=== PATIENT | female | born 1940 | race Caucasian/White ===

== ENCOUNTER → 2017-01-10 | Outpatient (CLI) | payer OTHER ==
[2016-08-05 12:16] VITALS: BP 150/57
--- NOTE | 2017-01-13 08:41 | RAD ---
HISTORY: Low back pain Study: 5 views of the lumbar spine Comparison: 06/30/2015 Findings: No significant change in appearance of levoscoliosis (degenerative) of the lumbar spine secondary to extensive degenerative disc disease and facet arthropathy. Vertebral body heights are normal. Sa croiliac joints are unremarkable. No evidence for acute fracture can be identified. IMPRESSION: 1. Severe multilevel degenerative changes as above. Reported By:
== END ==
LOC: RAD 11:04
PROVIDERS: ATTEND Specialist
DX: M54.5 Low back pain (principal)
CPT/HCPCS: 72110

== ENCOUNTER → 2017-08-01 | Outpatient (CLI) | payer OTHER ==
[2016-08-05 12:16] VITALS: BP 150/57
--- NOTE | 2017-08-01 09:54 | RAD ---
Examination: Lumbar spine, AP and lateral views History: Back pain Comparison reference: 01/10/2017 Findings: There is a moderate biphasic S shaped scoliosis. Severe degenerative disc disease and spond ylosis is noted at multiple levels. No acute fracture or bone destruction is noted. Alignment is bharathi sly anatomic. There is attempted sacralization of the left transverse process of L5. Impression: 1. Severe multilevel degenerative disc disease and spondylosis. 2. Aortoiliac arteriosclerosis. 3. Left partial sacralization of L5 transverse process. Reported By:
== END ==
LOC: RAD 09:13
PROVIDERS: ATTEND Specialist
DX: M54.5 Low back pain (principal); M51.36 Other intervertebral disc degeneration, lumbar region; M47.896 Other spondylosis, lumbar region
CPT/HCPCS: 72100

== ENCOUNTER 2017-08-09 16:56 | Emergency (ER) | payer OTHER ==
[2017-08-09 17:03] VITALS: BMI 35.6
--- NOTE | 2017-08-09 17:31 | DR.GENAD ---
HPI - PCP Primary Care Physician: YESICA - Complaint/Symptoms Chief Complaint:: PT C/O C/C/C, N/V, AND BACK PAIN (CHRONIC). PT STATES SHE HAS BEEN FEELING BAD FOR THE PAST COUPLE OF DAYS AND NOT FEELING WELL. 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. - Nurses notes reviewed Nurses Notes Review: Yes - Source History Provided: Patient - Mode of Arrival Mode of Arrival: Stretcher - Timing Onset of Chief Complaint: 08/06/17 Came on: Suddenly - Duration Duration: Constant Duration: Days PMH - PMH Past Medical History: Yes Past Medical History: Dementia, Depression, Anxiety, [place], GERD, Arthritis, Coronary Artery Disease, Hypertension, Dyslipidemia, Diabetes, Renal Disease, CHF Past Surgical History: Yes Surgical History: Angioplasty/Stents, CABG/Valve Surgery, Ortho Surgery - Family History History of Family Medical Conditions: Yes Family Medical History: Diabetes Mellitus, Cancer, [place] - Social History Does any household member use tobacco: No Alcohol Use: None Do you use any recreational Drugs:: No Lives With: Family Lives Where: Home - infectious screening In the last 2 months have you had wt loss of >10#?: NO Have you had fever, night sweats or hemotysis?: No Have you traveled outside the country in the last 6 months?: No Isolation: Standard PE - Vital Signs Vitals: Temperature 98.0 F Pulse Rate 114 Respiratory Rate 18 Blood Pressure [Right Arm] 143/52 Blood Pressure [Left Arm] 160/68 Blood Pressure [Right Arm] 127/60 Blood Pressure [Left Arm] 150/57 Blood Pressure 170/74 O2 Sat by Pulse Oximetry 96 ROR - Labs Reviewed Result Diagrams: 08/09/17 17:47 08/09/17 17:47 Laboratory: 08/09/17 18:38 Stool - Final WBC 3.3 X10^3/uL (3.6-10.0) L 08/09/17 17:47 RBC 4.68 X10^6/uL (3.5-5.4) 08/09/17 17:47 Hgb 13.7 g/dL (12.0-16.0) 08/09/17 17:47 Hct 40.4 % (36.0-47.0) 08/09/17 17:47 MCV 86.1 fL (80.0-100.0) 08/09/17 17:47 MCH 29.2 pg (27.0-34.0) 08/09/17 17:47 MCHC 33.8 g/dL (33.0-35.0) 08/09/17 17:47 RDW 13.1 % (11.6-16.5) 08/09/17 17:47 Plt Count 102 X10^3/uL (150.0-450.0) L 08/09/17 17:47 MPV 8.3 fL (7.4-11.0) 08/09/17 17:47 Neut % 59.0 % (42.0-75.0) 08/09/17 17:47 Lymph % 29.7 % (21.0-51.0) 08/09/17 17:47 [place] % 10.1 % (0.0-13.0) 08/09/17 17:47 Eos % 0.5 % (0.9-2.9) L 08/09/17 17:47 Baso % 0.7 % (0.2-1.0) 08/09/17 17:47 Neut # 2.0 x10^3/uL (2.2-4.8) L 08/09/17 17:47 Lymph # 1.0 X10^3/uL (1.3-2.9) L 08/09/17 17:47 [place] # 0.3 x10^3/uL (0.3-0.8) 08/09/17 17:47 Eos # 0.0 x10^3/uL (0.0-0.2) 08/09/17 17:47 Baso # 0.0 X10^3/uL (0.0-0.1) 08/09/17 17:47 Absolute Nucleated RBC 0.0 /100WBC 08/09/17 17:47 Sodium 136 mmol/L (136-145) 08/09/17 17:47 Corrected Sodium 140 mmol/L (136-145) 08/09/17 17:47 Potassium 3.3 mmol/L (3.5-5.1) L 08/09/17 17:47 Chloride 100 mmol/L (98-107) 08/09/17 17:47 Carbon Dioxide 21.3 mmol/L (21-32) 08/09/17 17:47 BUN 13 mg/dL (7-18) 08/09/17 17:47 Creatinine 1.49 mg/dL (0.55-1.02) H 08/09/17 17:47 Est GFR (MDRD) Af Amer 44 (>60) L 08/09/17 17:47 Est GFR (MDRD) Non-Af 36 (>60) L 08/09/17 17:47 Glucose 275 mg/dL (65-99) H 08/09/17 17:47 Lactic Acid 1.4 mmol/L (0.4-2.0) 08/09/17 17:47 Calcium 8.9 mg/dL (8.5-10.1) 08/09/17 17:47 Corrected Calcium 9.5 mg/dL (8.5-10.1) 08/09/17 17:47 Total Bilirubin 0.70 mg/dL (0.2-1.0) 08/09/17 17:47 AST 34 Units/L (15-37) 08/09/17 17:47 ALT 20 Units/L (12-78) 08/09/17 17:47 Alkaline Phosphatase 122 Units/L (46-116) H 08/09/17 17:47 Creatine Kinase 55 Units/L (26-192) 08/09/17 17:47 CK-MB (CK-2) < 1.0 ng/mL (0-4.0) 08/09/17 17:47 CK/CKMB % Calc 1.8 % (<4) 08/09/17 17:47 Troponin I 0.03 ng/mL (0-1.5) 08/09/17 17:47 Total Protein 7.0 g/dL (6.4-8.2) 08/09/17 17:47 Albumin 3.3 g/dL (3.4-5.0) L 08/09/17 17:47 Globulin 3.7 g/dL (2.5-4.5) 08/09/17 17:47 Albumin/Globulin Ratio 0.9 Ratio (1.1-2.1) L 08/09/17 17:47 Specimen Type Clean catch urine 08/09/17 18:36 Urine Color Yellow (YELLOW) 08/09/17 18:36 Urine Appearance Hazy (CLEAR) 08/09/17 18:36 Urine pH 5.0 (5.0 - 8.0) 08/09/17 18:36 Ur Specific Bath 1.020 (1.000-1.030) 08/09/17 18:36 Urine Protein 2+ (NEGATIVE) 08/09/17 18:36 Urine Glucose (UA) 2+ (NEGATIVE) 08/09/17 18:36 Urine Ketones 1+ (NEGATIVE) 08/09/17 18:36 Urine Occult Blood 1+ (NEGATIVE) 08/09/17 18:36 Urine Nitrite Positive (NEGATIVE) 08/09/17 18:36 Urine Bilirubin Negative (NEGATIVE) 08/09/17 18:36 Urine Urobilinogen 1+ (NORMAL) 08/09/17 18:36 Ur Leukocyte Esterase 1+ (NEGATIVE) 08/09/17 18:36 Urine RBC Rare /HPF (NEGATIVE) 08/09/17 18:36 Urine WBC 02 - 05 /HPF (NEGATIVE) 08/09/17 18:36 Ur Squamous Epith Cells Many /HPF (NEGATIVE) 08/09/17 18:36 Amorphous Sediment 2+ /HPF (NEGATIVE) 08/09/17 18:36 Urine Bacteria 2+ /HPF (NEGATIVE) 08/09/17 18:36 Hyaline Casts Rare /LPF (NEGATIVE) 08/09/17 18:36 Urine Mucus Moderate /HPF (NEGATIVE) 08/09/17 18:36 Ur Culture Indicated? No/not indicated 08/09/17 18:36 Stool Description 75g,liquid,brown 08/09/17 18:36 Stool for White Cells Positive (NEGATIVE) A 08/09/17 18:36 Stl C. diff Tox B Gene Negative (NEGATIVE) 08/09/17 18:38 Stl C. diff [id number] Negative (NEGATIVE) 08/09/17 18:38 Cryptosporid parvum Ag Negative (NEGATIVE) 08/09/17 18:36 E. histolytica Antigen Negative (NEGATIVE) 08/09/17 18:36 Giardia lamblia Ag Negative (NEGATIVE) 08/09/17 18:36 - Discharge Plan Condition: Stable Prescriptions: Ciprofloxacin HCl [CIPRO 500 MG TAB *] 500 mg PO Q12H #20 tab Diphenoxylate/Atropine [Lomotil] 1 tab PO TID #12 tab Ondansetron [Zofran ODT 8 mg] 8 mg PO Q8H PRN #12 tab PRN Reason: Nausea/Vomiting - Follow ups/Referrals Follow ups/Referrals: THANG ROBERT [Primary Care Provider] - 3 days - Instructions Instructions: Nausea and Vomiting, Adult, [id number], Abdominal Pain, Adult, [id number], Colitis, Urinary Tract Infection, Adult, [id number] Additional Instructions: RETURN TO ED IF WORSE.
[2017-08-09 18:10] LABS: BASOPHILS % (AUTO) 0.7 % (0.2-1.0); EOSINOPHILS % (AUTO) 0.5 % (0.9-2.9); HEMATOCRIT 40.4 % (36.0-47.0); HEMOGLOBIN 13.7 g/dL (12.0-16.0); LYMPHOCYTES % (AUTO) 29.7 % (21.0-51.0); MEAN CORPUSCULAR HEMOGLOBIN 29.2 pg (27.0-34.0); MEAN CORPUSCULAR HGB CONC 33.8 g/dL (33.0-35.0); MEAN CORPUSCULAR VOLUME 86.1 fL (80.0-100.0); MEAN PLATELET VOLUME 8.3 fL (7.4-11.0); MONOCYTES # (AUTO) 0.3 x10^3/uL (0.3-0.8); MONOCYTES % (AUTO) 10.1 % (0.0-13.0); PLATELET COUNT 102 X10^3/uL (150.0-450.0); RED BLOOD COUNT 4.68 X10^6/uL (3.5-5.4); RED CELL DISTRIBUTION WIDTH 13.1 % (11.6-16.5); WHITE BLOOD COUNT 3.3 X10^3/uL (3.6-10.0)
[2017-08-09] MEDS ORDERED: ZOFRAN INJ 4 MG VIAL IVP ONE (18:14)
[2017-08-09 18:27] LABS: LACTIC ACID 1.4 mmol/L (0.4-2.0)
[2017-08-09 18:28] LABS: BLOOD UREA NITROGEN 13 mg/dL (7-18); CALCIUM 8.9 mg/dL (8.5-10.1); CARBON DIOXIDE 21.3 mmol/L (21-32); CHLORIDE 100 mmol/L (98-107); COR NA(FOR HYPERGLY) 140 mmol/L (136-145); CREATININE 1.49 mg/dL (0.55-1.02); SODIUM 136 mmol/L (136-145); TROPONIN I 0.03 ng/mL (0-1.5); eGFR BLACK RACES 44 (>60); eGFR NON BLACK RACES 36 (>60)
[2017-08-09 18:33] LABS: ALANINE AMINOTRANSFERASE 20 Units/L (12-78); ALBUMIN 3.3 g/dL (3.4-5.0); ALKALINE PHOSPHATASE 122 Units/L (46-116); ASPARTATE AMINO TRANSFERASE 34 Units/L (15-37); COR CA(FOR HYPOALB) 9.5 mg/dL (8.5-10.1); CREATINE KINASE 55 Units/L (26-192); CREATINE KINASE MB < 1.0 ng/mL (0-4.0)
[2017-08-09 18:35] LABS: CKMB % 1.8 % (<4)
[2017-08-09] MEDS ORDERED: ZOFRAN INJ 4 MG VIAL ONE (18:42)
[2017-08-09] MEDS ORDERED: LOMOTIL PO ONE (18:58)
[2017-08-09] MEDS ORDERED: MORPHINE SULFATE INJ 4 MG IVP ONE (18:59)
[2017-08-09 19:12] LABS: BILIRUBIN,URINE NEGATIVE (NEGATIVE); BLOOD/HEMOGLOBIN,URINE 1+ (NEGATIVE); GLUCOSE, URINE 2+ (NEGATIVE); KETONES,URINE 1+ (NEGATIVE); LEUKOCYTE ESTERASE ,URINE 1+ (NEGATIVE); NITRITES,URINE POSITIVE (NEGATIVE); PROTEIN,URINE 2+ (NEGATIVE); UROBILINOGEN,URINE 1+ (NORMAL)
[2017-08-09] MEDS ORDERED: MORPHINE SULFATE INJ 4 MG ONE (19:13)
[2017-08-09] MEDS ORDERED: LOMOTIL ONE (19:13)
[2017-08-09 19:33] LABS: APPEARANCE,URINE HAZY (CLEAR); COLOR,URINE YELLOW (YELLOW)
[2017-08-09 19:34] LABS: AMORPHOUS SEDIMENT,UR 2+ /HPF (NEGATIVE); BACTERIA,URINE 2+ /HPF (NEGATIVE); HYALINE CASTS, URINE RARE /LPF (NEGATIVE); MUCUS,URINE MODERATE /HPF (NEGATIVE); RBC,URINE RARE /HPF (NEGATIVE); SQUAMOUS EPITHELIAL CELL,UR MANY /HPF (NEGATIVE)
[2017-08-09] MEDS ORDERED: MICRO K EXTEN CAP 10 MEQ PO ONE ×2 (19:49→19:50)
[2017-08-09] MEDS: K-LYTE EFFERVESCENT PO ONE ×2 (19:50→19:55)
[2017-08-09] MEDS ORDERED: K-LYTE EFFERVESCENT ONE (19:55)
[2017-08-09 20:06] LABS: STOOL FOR WBC POSITIVE (NEGATIVE)
[2017-08-09 20:11] LABS: CRYPTOSPORIDIUM PARVUM ANTIGEN NEGATIVE (NEGATIVE); GIARDIA LAMBLIA ANTIGEN NEGATIVE (NEGATIVE)
[2017-08-09] MEDS ORDERED: CIPRO TAB 500 MG PO ONE ×2 (20:32→20:41)
[2017-08-09 21:08] VITALS: BP 139/69
--- NOTE | 2017-08-09 22:24 | RAD ---
Chest, one view Indication: Chest pain Comparison: 07/31/2016 Findings: The heart size is normal for AP technique. No focal consolidation, significant effusion or pneumothorax is identified. No acute osseous abnormality is seen. Impression: No acute cardiopulmonary abnormality. Reported By:
== END 2017-08-09 21:10 | disposition home or self-care (01) ==
LOC: ER 16:57
DX: R11.2 Nausea with vomiting, unspecified (principal); N39.0 Urinary tract infection, site not specified; R10.84 Generalized abdominal pain
CPT/HCPCS: 36415; 71010; 80053; 81001; 82550; 82553; 83605; 83630; 84484; 85025; 86901; 86922; 87040; 87045; 87328; 87329; 87336; 87427; 87493; 87899; 93005; 93010; 96365; 96374; 96375; 99282; 99283; A4222; J2270; J2405

== ENCOUNTER 2017-08-17 03:43 | Emergency (ER) | payer OTHER ==
[2017-08-17 03:54] VITALS: BP 170/77; BMI 48.2
[2017-08-17] MEDS ORDERED: TORADOL 60 MG VIAL IM ONE (04:03)
--- NOTE | 2017-08-17 04:03 | DR.NAUSEAF ---
HPI - Time Seen Time seen: 04:00 - Primary Care Physician Primary Care Physician: [email or web address] - Complaints Chief Complaint Doctors Comments: Patient admits to nausea and vomiting for greater than one week. She was seen last week for same thing but has not gotten better. She denies getting flu or pneumonia shots. She also complain of back pain. She takes percocet for her back and did not take anything tonight. Chief Complaint:: N/V > 1 WEEK; COUGHING - Source History Provided: Patient - Mode of Arrival Mode of Arrival: Ambulatory - Timing Onset of Chief Complaint: 08/10/17 PMH - PMH Past Medical History: No Past Medical History: Dementia, Depression, Anxiety, [place], GERD, Arthritis, Coronary Artery Disease, Hypertension, Dyslipidemia, Diabetes, Renal Disease, CHF Past Surgical History: No Surgical History: Angioplasty/Stents, CABG/Valve Surgery, Ortho Surgery - Family History History of Family Medical Conditions: No Family Medical History: Diabetes Mellitus, Cancer, [place] - Social History Alcohol Use: None Do you use any recreational Drugs:: No Lives With: Family Lives Where: Home - infectious screening In the last 2 months have you had wt loss of >10#?: NO Have you had fever, night sweats or hemotysis?: No Have you traveled outside the country in the last 6 months?: No Isolation: Standard ROS - Review of Systems Eyes: No Symptoms Reported ENTM: No Symptoms Reported Respiratoy: No Symptoms Reported, See HPI, Hacking Cough. negative: Productive Cough Cardiovascular: No Symptoms Reported Gastrointestinal/Abdominal: No Symptoms Reported Genitourinary: No Symptoms Reported Neurological: No Symptoms Reported Musculoskeletal: No Symptoms Reported Integumentary: No Symptoms Reported Hematologic/Lymphatic: No Symptoms Reported Endocrine: No Symptoms Reported Psychiatric: No Symptoms Reported All Other Systems: Reviewed and Negative PE - Vital Signs Vitals: Temperature 97.6 F Pulse Rate 99 Respiratory Rate 24 Blood Pressure [Right Arm] 139/69 Blood Pressure [Left Arm] 160/68 Blood Pressure [Right Arm] 127/60 Blood Pressure [Left Arm] 150/57 Blood Pressure 170/77 O2 Sat by Pulse Oximetry 95 - General Limitations: No Limitations General Appearance: Alert, In No Apparent Distress - Head Head Exam: Normal Inspection, Atraumatic - Eyes Eye exam: Normal Appearance, PERRL, EOMI - ENT ENT Exam: Normal Exam - Neck Neck Exam: Normal Inspection, Full ROM - Chest Chest Inspection: Normal Inspection, Symmetric Chest Wall Rise - Respiratory Respiratory Exam: Normal Lung Sounds Bilat Respiratory Exam: Bilateral Clear to Auscultation - Cardiovascular Cardiovascular Exam: Regular Rate, Normal Rhythm - Abdominal Exam Abdominal Tenderness: negative: RUQ, RLQ, LUQ, LLQ, Epigastrium, Suprapubic, Diffuse, Mild, Moderate, Severe, Other - Rectal Rectal Exam: Deferred - External Exam: Female: Deferred : Speculum Exam (Female): Deferred : Bimanual Exam (female): Deferred - Extremities Extremities Exam: Normal Inspection, Full ROM - Back Back Exam: Normal Inspection, Full ROM Course - Reevaluation 1st: Unchanged - Education/Counseling Education/Counseling: Patient Educated On: Treatment, Diagnosis, Prognosis, Needs for Follow Up ROR - Labs Reviewed Result Diagrams: 08/17/17 04:52 08/17/17 04:52 Laboratory: WBC 6.3 X10^3/uL (3.6-10.0) 08/17/17 04:52 RBC 4.62 X10^6/uL (3.5-5.4) 08/17/17 04:52 Hgb 13.5 g/dL (12.0-16.0) 08/17/17 04:52 Hct 39.9 % (36.0-47.0) 08/17/17 04:52 MCV 86.5 fL (80.0-100.0) 08/17/17 04:52 MCH 29.3 pg (27.0-34.0) 08/17/17 04:52 MCHC 33.9 g/dL (33.0-35.0) 08/17/17 04:52 RDW 13.0 % (11.6-16.5) 08/17/17 04:52 Plt Count 119 X10^3/uL (150.0-450.0) L 08/17/17 04:52 MPV 8.5 fL (7.4-11.0) 08/17/17 04:52 Neut % 75.9 % (42.0-75.0) H 08/17/17 04:52 Lymph % 19.5 % (21.0-51.0) L 08/17/17 04:52 [place] % 3.3 % (0.0-13.0) 08/17/17 04:52 Eos % 0.8 % (0.9-2.9) L 08/17/17 04:52 Baso % 0.5 % (0.2-1.0) 08/17/17 04:52 Neut # 4.8 x10^3/uL (2.2-4.8) 08/17/17 04:52 Lymph # 1.2 X10^3/uL (1.3-2.9) L 08/17/17 04:52 [place] # 0.2 x10^3/uL (0.3-0.8) L 08/17/17 04:52 Eos # 0.0 x10^3/uL (0.0-0.2) 08/17/17 04:52 Baso # 0.0 X10^3/uL (0.0-0.1) 08/17/17 04:52 Absolute Nucleated RBC 0.1 /100WBC 08/17/17 04:52 Sodium 142 mmol/L (136-145) 08/17/17 04:52 Corrected Sodium 145 mmol/L (136-145) 08/17/17 04:52 Potassium 3.6 mmol/L (3.5-5.1) 08/17/17 04:52 Chloride 105 mmol/L (98-107) 08/17/17 04:52 Carbon Dioxide 25.8 mmol/L (21-32) 08/17/17 04:52 BUN 10 mg/dL (7-18) 08/17/17 04:52 Creatinine 1.31 mg/dL (0.55-1.02) H 08/17/17 04:52 Est GFR (MDRD) Af Amer 51 (>60) L 08/17/17 04:52 Est GFR (MDRD) Non-Af 42 (>60) L 08/17/17 04:52 Glucose 238 mg/dL (65-99) H 08/17/17 04:52 Calcium 8.5 mg/dL (8.5-10.1) 08/17/17 04:52 - XRAY XRAY Interpreted by: Radiologist (Chest: The trachea is midline. The cardiac silhouette is unremarkable. The lungs are clear without focal infiltrate or effusion. The bony thorax is unremarkable.) - Diagnosis Discharge Problem: Nausea & vomiting Upper respiratory infection Qualifiers: URI type: unspecified viral URI Qualified Code(s): J06.9 - Acute upper respiratory infection, unspecified; B97.89 - Other viral agents as the cause of diseases classified elsewhere; B97.89 - Other viral agents as the cause of diseases classified elsewhere - Discharge Plan Condition: Stable - Follow ups/Referrals Follow ups/Referrals: THANG ROBERT [Primary Care Provider] - 3 days - Instructions
[2017-08-17] MEDS ORDERED: ZOFRAN INJ 4 MG VIAL IVP ONE ×2 (04:04→05:42)
[2017-08-17] MEDS ORDERED: TORADOL 60 MG VIAL ONE (04:06)
[2017-08-17] MEDS ORDERED: ZOFRAN INJ 4 MG VIAL ONE (04:06)
[2017-08-17] MEDS ORDERED: NS 1000 ML 1,000 ML IV ONE (04:08)
[2017-08-17] MEDS ORDERED: NS 1000 ML 1,000 ML ONE (04:12)
--- NOTE | 2017-08-17 04:31 | RAD ---
AP Chest Indication: Nausea and vomiting with cough Comparison: 08/09/2017 Findings: The trachea is midline. The cardiac silhouette is unremarkable. The lungs are clear without focal i nfiltrate or effusion. The bony thorax is unremarkable. IMPRESSION: 1. No acute cardiopulmonary abnormality. Reported By:
[2017-08-17 05:10] LABS: CALCIUM 8.5 mg/dL (8.5-10.1); CARBON DIOXIDE 25.8 mmol/L (21-32); CREATININE 1.31 mg/dL (0.55-1.02)
[2017-08-17 05:12] LABS: BASOPHILS % (AUTO) 0.5 % (0.2-1.0); EOSINOPHILS % (AUTO) 0.8 % (0.9-2.9); HEMATOCRIT 39.9 % (36.0-47.0); HEMOGLOBIN 13.5 g/dL (12.0-16.0); LYMPHOCYTES # (AUTO) 1.2 X10^3/uL (1.3-2.9); LYMPHOCYTES % (AUTO) 19.5 % (21.0-51.0); MEAN CORPUSCULAR HEMOGLOBIN 29.3 pg (27.0-34.0); MEAN CORPUSCULAR HGB CONC 33.9 g/dL (33.0-35.0); MEAN CORPUSCULAR VOLUME 86.5 fL (80.0-100.0); MEAN PLATELET VOLUME 8.5 fL (7.4-11.0); MONOCYTES # (AUTO) 0.2 x10^3/uL (0.3-0.8); MONOCYTES % (AUTO) 3.3 % (0.0-13.0); NEUTROPHILS # (AUTO) 4.8 x10^3/uL (2.2-4.8); NEUTROPHILS % (AUTO) 75.9 % (42.0-75.0); PLATELET COUNT 119 X10^3/uL (150.0-450.0); RED BLOOD COUNT 4.62 X10^6/uL (3.5-5.4); WHITE BLOOD COUNT 6.3 X10^3/uL (3.6-10.0)
[2017-08-17] MEDS ORDERED: PHENERGAN W/CODEINE 6.25MG/10MG PO ONE (05:17)
[2017-08-17] MEDS ORDERED: PHENERGAN W/CODEINE 6.25MG/10MG ONE (05:19)
[2017-08-17] MEDS ORDERED: ZOFRAN TAB 4 MG ONE (05:43)
[2017-08-17] MEDS ORDERED: ZOFRAN TAB 4 MG PO ONE (05:46)
== END 2017-08-17 05:55 | disposition home or self-care (01) ==
LOC: ER 03:43
DX: R11.2 Nausea with vomiting, unspecified (principal)
CPT/HCPCS: 36415; 71010; 80048; 85025; 96365; 96367; 96372; 96374; 99283; S0181; J1885; J2405

== ENCOUNTER 2018-02-12 07:15 | Day surgery (SDC) | payer OTHER ==
[2018-02-12] MEDS ORDERED: NS 1000 ML 1,000 ML ONE (07:36)
[2018-02-12] MEDS ORDERED: DIPRIVAN VIAL 20 ML ONE (08:49)
[2018-02-12 10:03] VITALS: BP 171/79
== END 2018-02-12 09:35 | disposition home or self-care (01) | DRG 392 ==
LOC: SURG1 07:15
PROVIDERS: ATTEND Internal Medicine Gastroenterology
PROC: 0D757ZZ Dilation of Esophagus, Via Natural or Artificial Opening (ICD-10-PCS; 2018-02-12)
PROC: 0DB68ZX Excision of Stomach, Via Natural or Artificial Opening Endoscopic, Diagnostic (ICD-10-PCS; 2018-02-12)
PROC: 0DJ08ZZ Inspection of Upper Intestinal Tract, Via Natural or Artificial Opening Endoscopic (ICD-10-PCS; principal; 2018-02-12 09:45)
DX: R13.19 Other dysphagia (principal); R10.13 Epigastric pain; R11.2 Nausea with vomiting, unspecified; K22.2 Esophageal obstruction; K25.9 Gastric ulcer, unspecified as acute or chronic, without hemorrhage or perforation
CPT/HCPCS: 99100; A4222; A4217; J3490

== ENCOUNTER 2018-04-27 11:32 | Observation (INO) ==
[2018-04-27 12:49] VITALS: BMI 39.9
--- NOTE | 2018-04-27 13:23 | DR.H&P ---
H&P - History & Physical for Day of: H&P Date: 04/27/18 - Chief Complaint Chief Complaint: NVD, WEAKNESS, [place]. "NOT EATING" PER FAMILY - History of Present Illness History of Present Illness: 77 WF DIRECT ADMIT FROM DR BAKER OFFICE AFTER PRESENTING WITH CO ABDOMINAL PAIN TO LOWER ABDOMINAL AREA WITH NVD X 1 WEEK. FAMILY CARES FOR PT AT HOME AND REPORTS POOR APPETITE AND YELLOW EMESIS. PT RECENTLY SEVERELY CONSTIPATED REQUIRING DIGITAL DISIMPACTION. 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 PT HAS PMH OF DM, CAD, HTN WITH ELEVATED BP 197/114 IN OFFICE. PT HAS COPD, OA AND YAMINI. PT ADMITTED FOR TREATMENT EVALUATION OF ACUTE GI COMPLAINTS, HYDRATION AND BLOOD SUGAR CONTROL AND HTN MANAGEMENT. - Past Medical History Past Medical History: Dementia, Depression, Anxiety, [place], GERD, Arthritis, Coronary Artery Disease, Hypertension, Dyslipidemia, Diabetes, Renal Disease, CHF - Past Surgical History Surgical History: Angioplasty/Stents, Ortho Surgery - Family History Family Medical History: Diabetes Mellitus, Coronary Artery Disease - Social History Does patient currently use any type of tobacco product: No Have you used tobacco products in the last 12 months: No Type of Tobacco Use: None Does any household member use tobacco: Yes Alcohol Use: None Drug Use: None - Medications Home Medications: No Known Drug Allergies Allergy (Verified 08/09/17 17:39) - Review of Systems Constitutional: Weakness, Malaise Eyes: No Symptoms Reported ENT: No Symptoms Reported Respiratory: SOB with Excertion Gastrointestinal: Nausea, Vomiting, Abdominal Pain, Diarrhea Genitourinary: Retention Musculoskeletal: Back Pain, Leg Pain Skin: No Symptoms Reported Neurological: Weakness, Confusion (PER FAMILY) - Physical Exam Vital Signs: Temperature 97.7 F Pulse Rate [Left Brachial] 88 Respiratory Rate 20 Blood Pressure [Right Arm] 139/69 Blood Pressure [Left Arm] 160/68 Blood Pressure [Right Arm] 127/60 Blood Pressure [Left Arm] 159/68 Blood Pressure 171/79 O2 Sat by Pulse Oximetry 92 Oriented: Normal Eyes: Normal Ear: Normal Nose: Normal Throat: Normal Respiratory: RLL Diminished, LLL Diminished Cardiovascular: Tachycardia, Edema : Normal Auscultation: Bowel Sounds: Decreased Palpation: Normal Tenderness: Diffuse Skin: Decreased Turgur Musculoskeletal: Right, Left, Knee, Tender, Motor Deficit, Sensory Deficit, Instability Psychiatric: Depression Mood Description: Depressed Affect: Depressed Speech Pattern: Clear, Appropriate - Assessment/Plan (1) Nausea & vomiting Qualifiers: Vomiting type: bilious vomiting Qualified Code(s): R11.14 - Bilious vomiting Status: Acute Plan: ADMIT, CBC CMP AMYLASE LIPASE. ABD SERIES ON ADMISSION UA, STOOL STUDIES. IV HYDRATION, BLOOD PRESSURE AND BLOOD SUGAR CONTROL. IV ANTIEMETICS , CT ABD PELVIS Q AM. EKG ON ADMISSION- CORRECT DEHYDRATION, NPO UNTIL RELIEF OF N/V. VERIFY HOME MEDS (2) Dehydration Status: Acute (3) Tachycardia Status: Acute (4) CAD (coronary artery disease) Qualifiers: Associated angina: without angina Status: Chronic (5) Hypertension Status: Chronic (6) Diabetes mellitus, type 2 Status: Chronic (7) Depression Status: Chronic (8) Degenerative arthritis Qualifiers: Osteoarthritis location: knee Osteoarthritis type: primary Laterality: bilateral Qualified Code(s): M17.0 - Bilateral primary osteoarthritis of knee Status: Chronic - Allergies Allergies/Adverse Reactions: Allergies Allergy/AdvReac Type Severity Reaction Status Date / Time No Known Drug Allergies Allergy Verified 08/09/17 17:39
[2018-04-27 13:46] LABS: BASOPHILS % (AUTO) 0.8 % (0.2-1.0); EOSINOPHILS % (AUTO) 0.6 % (0.9-2.9); HEMATOCRIT 42.9 % (36.0-47.0); HEMOGLOBIN 14.8 g/dL (12.0-16.0); LYMPHOCYTES # (AUTO) 1.6 X10^3/uL (1.3-2.9); LYMPHOCYTES % (AUTO) 29.7 % (21.0-51.0); MEAN CORPUSCULAR HEMOGLOBIN 30.7 pg (27.0-34.0); MEAN CORPUSCULAR HGB CONC 34.5 g/dL (33.0-35.0); MEAN CORPUSCULAR VOLUME 88.9 fL (80.0-100.0); MEAN PLATELET VOLUME 8.1 fL (7.4-11.0); MONOCYTES # (AUTO) 0.3 x10^3/uL (0.3-0.8); MONOCYTES % (AUTO) 5.7 % (0.0-13.0); NEUTROPHILS # (AUTO) 3.3 x10^3/uL (2.2-4.8); NEUTROPHILS % (AUTO) 63.2 % (42.0-75.0); PLATELET COUNT 122 X10^3/uL (150.0-450.0); RED BLOOD COUNT 4.83 X10^6/uL (3.5-5.4); RED CELL DISTRIBUTION WIDTH 13.5 % (11.6-16.5); WHITE BLOOD COUNT 5.3 X10^3/uL (3.6-10.0)
[2018-04-27] MEDS: NS 1000 ML 1,000 ML IV SCH (13:57)
[2018-04-27] MEDS: PROTONIX INJ 40 MG VIAL IVP SCH (13:57)
[2018-04-27 14:02] LABS: ALANINE AMINOTRANSFERASE 16 Units/L (12-78); ALBUMIN 3.5 g/dL (3.4-5.0); ALKALINE PHOSPHATASE 142 Units/L (46-116); AMYLASE 14 Units/L (25-115); ASPARTATE AMINO TRANSFERASE 25 Units/L (15-37); BLOOD UREA NITROGEN 11 mg/dL (7-18); CARBON DIOXIDE 27.7 mmol/L (21-32); CHLORIDE 103 mmol/L (98-107); COR NA(FOR HYPERGLY) 144 mmol/L (136-145); CREATININE 1.42 mg/dL (0.55-1.02); LIPASE 106 Units/L (73-393); SODIUM 139 mmol/L (136-145); TOTAL PROTEIN 7.1 g/dL (6.4-8.2); eGFR NON BLACK RACES 38 (>60)
--- NOTE | 2018-04-27 14:37 | RAD ---
HISTORY: Abdominal pain Study: Flat and upright abdomen, PA chest Comparison: 08/17/2017 Findings: The heart is mildly enlarged. No congestive heart failure is noted. No acute infiltrates or pleural e ffusions are identified. The abdominal gas pattern is nonspecific and nonobstructive. No pneumoperito neum is identified. No abnormal masses or abnormal calcifications are identified. Calcified uterine f ibroids are incidentally noted within the pelvis. IMPRESSION: No acute abdominal abnormality Calcified uterine fibroids Mild cardiomegaly without congestive heart failure Reported By:
[2018-04-27 15:57] LABS: BILIRUBIN,URINE NEGATIVE (NEGATIVE); BLOOD/HEMOGLOBIN,URINE 1+ (NEGATIVE); GLUCOSE, URINE 4+ (NEGATIVE); KETONES,URINE 1+ (NEGATIVE); LEUKOCYTE ESTERASE ,URINE 1+ (NEGATIVE); NITRITES,URINE NEGATIVE (NEGATIVE); PROTEIN,URINE 2+ (NEGATIVE); UROBILINOGEN,URINE 1+ (NORMAL)
[2018-04-27 16:08] LABS: APPEARANCE,URINE CLOUDY (CLEAR); BACTERIA,URINE TRACE /HPF (NEGATIVE); COLOR,URINE DARK YELLOW (YELLOW); RBC,URINE 0-2 /HPF (NONE SEEN); SQUAMOUS EPITHELIAL CELL,UR NUMEROUS /HPF (NEGATIVE)
[2018-04-27] MEDS ORDERED: XANAX PO PRN (16:14)
[2018-04-27] MEDS: HumuLIN R SUBCUT PRN (17:11)
[2018-04-27] MEDS: MORPHINE SULFATE INJ 2 MG INJ IVP PRN (17:12)
[2018-04-27] MEDS: SNACK - Diabetic Appropriate PO SCH (20:43)
[2018-04-28] MEDS: PHENERGAN INJ 25 MG IV PRN ×2 (02:15→22:30)
[2018-04-28] MEDS: MORPHINE SULFATE INJ 2 MG INJ IVP PRN ×2 (02:15→22:30)
[2018-04-28 05:17] LABS: BASOPHILS % (AUTO) 0.6 % (0.2-1.0); EOSINOPHILS # (AUTO) 0.1 x10^3/uL (0.0-0.2); EOSINOPHILS % (AUTO) 1.3 % (0.9-2.9); HEMATOCRIT 40.3 % (36.0-47.0); HEMOGLOBIN 13.9 g/dL (12.0-16.0); LYMPHOCYTES # (AUTO) 1.6 X10^3/uL (1.3-2.9); LYMPHOCYTES % (AUTO) 37.3 % (21.0-51.0); MEAN CORPUSCULAR HEMOGLOBIN 30.5 pg (27.0-34.0); MEAN CORPUSCULAR HGB CONC 34.6 g/dL (33.0-35.0); MEAN CORPUSCULAR VOLUME 88.4 fL (80.0-100.0); MEAN PLATELET VOLUME 7.9 fL (7.4-11.0); MONOCYTES # (AUTO) 0.2 x10^3/uL (0.3-0.8); MONOCYTES % (AUTO) 5.6 % (0.0-13.0); NEUTROPHILS # (AUTO) 2.4 x10^3/uL (2.2-4.8); NEUTROPHILS % (AUTO) 55.2 % (42.0-75.0); PLATELET COUNT 111 X10^3/uL (150.0-450.0); RED BLOOD COUNT 4.56 X10^6/uL (3.5-5.4); RED CELL DISTRIBUTION WIDTH 13.5 % (11.6-16.5); WHITE BLOOD COUNT 4.3 X10^3/uL (3.6-10.0)
[2018-04-28 05:29] LABS: ALBUMIN 3.2 g/dL (3.4-5.0); CALCIUM 8.6 mg/dL (8.5-10.1); CARBON DIOXIDE 26.8 mmol/L (21-32); COR CA(FOR HYPOALB) 9.2 mg/dL (8.5-10.1); CREATININE 1.15 mg/dL (0.55-1.02); TOTAL PROTEIN 6.5 g/dL (6.4-8.2)
[2018-04-28] MEDS: HumuLIN R SUBCUT PRN ×4 (06:25→21:00)
[2018-04-28] MEDS ORDERED: NS 100 ML IV 100 ML IV ONE (08:07)
[2018-04-28] MEDS ORDERED: XANAX PO PRN (08:17)
[2018-04-28] MEDS ORDERED: PATIENT'S HOME MEDICATION (Oxycodone-Acetaminophen [Oxycodone-Acetaminophen] 1 TAB) PO PRN (08:17)
[2018-04-28] MEDS ORDERED: PATIENT'S HOME MEDICATION (Sitagliptin-Metformin [Janumet] 1 TAB) PO SCH (09:00)
[2018-04-28] MEDS: PROTONIX INJ 40 MG VIAL IVP SCH (09:11)
--- NOTE | 2018-04-28 09:16 | CT ---
HISTORY: Lower abdominal pain, nausea, vomiting, diarrhea Study: CT abdomen pelvis with contrast Comparison: None Technique: Axial post-contrast images with coronal and sagittal reformats. Dose reduction procedures were used with mA/kv adjusted for body size. It is of note that the upper portion of the dome of the right lobe of the liver is not included on the images. Findings: The lung bases are clear with the exception of foci of subsegmental atelectasis in left lung base. Th e visualized portion of the liver demonstrates no evidence for space-occupying disease. Cholelithiasi s is present. There are no findings suggestive of cholecystitis. The spleen, adrenal glands, and panc reas are within normal limits. The kidneys are unobstructed and without stones or masses. No ureteral calculi are identified. Calcific atherosclerotic changes present in a nondilated abdominal aorta. No significant intraperitoneal or retroperitoneal lymphadenopathy is identified. There are no findings suggestive of diverticulitis or colitis. The appendix is not identified with absolute certainty. Ther e are no secondary signs of appendicitis. Examination of the pelvis demonstrated no evidence for pelv ic masses, pelvic fluid, or pelvic lymphadenopathy. Multiple calcified fibroids are present in the ut erus. No bladder abnormality is identified. No lytic or blastic skeletal lesions are identified. IMPRESSION: Cholelithiasis without evidence for cholecystitis Reported By:
[2018-04-28 10:36] LABS: CRYPTOSPORIDIUM PARVUM ANTIGEN NEGATIVE (NEGATIVE); GIARDIA LAMBLIA ANTIGEN NEGATIVE (NEGATIVE); STOOL FOR WBC NEGATIVE (NEGATIVE)
[2018-04-28] MEDS ORDERED: GLUCOPHAGE ONE ×2 (11:11→17:19)
[2018-04-28] MEDS: GLUCOPHAGE PO SCH ×2 (11:16→17:49)
[2018-04-28] MEDS: MIRALAX POWDER (1 DOSE 17 G) PO SCH ×2 (11:16)
[2018-04-28] MEDS: PERCOCET TAB 5/325 MG PO PRN (12:06)
--- NOTE | 2018-04-28 13:06 | PCM.PROG ---
Progress Note - Progress Note for Day of Date of Exam: 04/28/18 - Subjective Subjective: 77 WF DIRECT ADMIT ONE DAY AGO WITH ABDOMINA PAIN N/V/D. PT CONTINUE WITH CO "STOMACH RUNNING OFF" IMPROVING NAUSEA, NO VOMITING SINCE ADMISSION. PT IS NPO FOR CT SCAN THIS AM, RESUME HOME MEDS AFTER CT, CONTINUE BLOOD SUGAR CONTROL, STOOL STUDIES PENDING - Past Medical Family Social History Past Med/Fam/Surg Hx: No changes since H&P Allergies: Allergies No Known Drug Allergies Allergy (Verified 08/09/17 17:39) - Review of Systems ROS: No change since H&P - Vital Signs and I&O's Vital Signs: Temperature 97.8 F Pulse Rate [Left Brachial] 84 Respiratory Rate 20 Blood Pressure [Right Arm] 136/65 Blood Pressure [Left Arm] 160/68 Blood Pressure [Right Arm] 127/60 Blood Pressure [Left Arm] 159/68 Blood Pressure 171/79 O2 Sat by Pulse Oximetry 95 Intake and Output: Intake & Output 04/26/18 04/27/18 04/28/18 04/29/18 11:59 11:59 11:59 11:59 Intake Total 500 / 500 Output Total 100 / 100 Balance 400 / 400 - Physical Exam Oriented: Normal Eyes: Normal Ear: Normal Nose: Normal Throat: Normal Respiratory: Diminished Cardiovascular: Tachycardia, Edema : Normal Auscultation: Bowel Sounds: Decreased Tenderness: RLQ, LUQ, Epigastric Skin: Decreased Turgur Musculoskeletal: Right, Left, Knee, Tender, Motor Deficit, Sensory Deficit, Instability Psychiatric: Depression Mood Description: Depressed Affect: Depressed Speech Pattern: Clear, Appropriate - Laboratory and Diagnostics Result Diagrams: 04/28/18 04:47 04/28/18 04:47 Labs: 04/28/18 09:07 Stool - Final Laboratory WBC 4.3 X10^3/uL (3.6-10.0) 04/28/18 04:47 RBC 4.56 X10^6/uL (3.5-5.4) 04/28/18 04:47 Hgb 13.9 g/dL (12.0-16.0) 04/28/18 04:47 Hct 40.3 % (36.0-47.0) 04/28/18 04:47 MCV 88.4 fL (80.0-100.0) 04/28/18 04:47 MCH 30.5 pg (27.0-34.0) 04/28/18 04:47 MCHC 34.6 g/dL (33.0-35.0) 04/28/18 04:47 RDW 13.5 % (11.6-16.5) 04/28/18 04:47 Plt Count 111 X10^3/uL (150.0-450.0) L 04/28/18 04:47 MPV 7.9 fL (7.4-11.0) 04/28/18 04:47 Neut % (Auto) 55.2 % (42.0-75.0) 04/28/18 04:47 Lymph % (Auto) 37.3 % (21.0-51.0) 04/28/18 04:47 [place] % (Auto) 5.6 % (0.0-13.0) 04/28/18 04:47 Eos % (Auto) 1.3 % (0.9-2.9) 04/28/18 04:47 Baso % (Auto) 0.6 % (0.2-1.0) 04/28/18 04:47 Neut # (Auto) 2.4 x10^3/uL (2.2-4.8) 04/28/18 04:47 Lymph # (Auto) 1.6 X10^3/uL (1.3-2.9) 04/28/18 04:47 [place] # (Auto) 0.2 x10^3/uL (0.3-0.8) L 04/28/18 04:47 Eos # (Auto) 0.1 x10^3/uL (0.0-0.2) 04/28/18 04:47 Baso # (Auto) 0.0 X10^3/uL (0.0-0.1) 04/28/18 04:47 Absolute Nucleated RBC 0.1 /100WBC 04/28/18 04:47 Sodium 139 mmol/L (136-145) 04/28/18 04:47 Corrected Sodium 142 mmol/L (136-145) 04/28/18 04:47 Potassium 3.9 mmol/L (3.5-5.1) 04/28/18 04:47 Chloride 104 mmol/L (98-107) 04/28/18 04:47 Carbon Dioxide 26.8 mmol/L (21-32) 04/28/18 04:47 BUN 11 mg/dL (7-18) 04/28/18 04:47 Creatinine 1.15 mg/dL (0.55-1.02) H 04/28/18 04:47 Est GFR (MDRD) Af Amer 59 (>60) 04/28/18 04:47 Est GFR (MDRD) Non-Af 49 (>60) L 04/28/18 04:47 Glucose 225 mg/dL (65-99) H 04/28/18 04:47 POC Glucose (mg/dL) 207 mg/dL (65-99) H 04/28/18 11:22 Calcium 8.6 mg/dL (8.5-10.1) 04/28/18 04:47 Corrected Calcium 9.2 mg/dL (8.5-10.1) 04/28/18 04:47 Total Bilirubin 0.80 mg/dL (0.2-1.0) 04/28/18 04:47 AST 22 Units/L (15-37) 04/28/18 04:47 ALT 15 Units/L (12-78) 04/28/18 04:47 Alkaline Phosphatase 126 Units/L (46-116) H 04/28/18 04:47 Total Protein 6.5 g/dL (6.4-8.2) 04/28/18 04:47 Albumin 3.2 g/dL (3.4-5.0) L 04/28/18 04:47 Globulin 3.3 g/dL (2.5-4.5) 04/28/18 04:47 Albumin/Globulin Ratio 1.0 Ratio (1.1-2.1) L 04/28/18 04:47 Amylase 14 Units/L (25-115) L 04/27/18 13:37 Lipase 106 Units/L (73-393) 04/27/18 13:37 Specimen Type Clean catch urine 04/27/18 15:40 Urine Color Dark yellow (YELLOW) 04/27/18 15:40 Urine Appearance Cloudy (CLEAR) 04/27/18 15:40 Urine pH 6.0 (5.0 - 8.0) 04/27/18 15:40 Ur Specific [place] 1.020 (1.000-1.030) 04/27/18 15:40 Urine Protein 2+ (NEGATIVE) 04/27/18 15:40 Urine Glucose (UA) 4+ (NEGATIVE) 04/27/18 15:40 Urine Ketones 1+ (NEGATIVE) 04/27/18 15:40 Urine Occult Blood 1+ (NEGATIVE) 04/27/18 15:40 Urine Nitrite Negative (NEGATIVE) 04/27/18 15:40 Urine Bilirubin Negative (NEGATIVE) 04/27/18 15:40 Urine Urobilinogen 1+ (NORMAL) 04/27/18 15:40 Ur Leukocyte Esterase 1+ (NEGATIVE) 04/27/18 15:40 Urine RBC 0-2 /HPF (NONE SEEN) 04/27/18 15:40 Urine WBC 0-2 /HPF (NONE SEEN) 04/27/18 15:40 Ur Squamous Epith Cells Numerous /HPF (NEGATIVE) 04/27/18 15:40 Urine Bacteria Trace /HPF (NEGATIVE) 04/27/18 15:40 Ur Culture Indicated? No/not indicated 04/27/18 15:40 Stool Description 150g formed stool br 04/28/18 09:07 Stl Occult Blood (IFOB) Negative (NEGATIVE) 04/28/18 09:07 Stool for White Cells Negative (NEGATIVE) 04/28/18 09:07 Stl C. diff Tox B Gene Negative (NEGATIVE) 04/28/18 09:07 Stl C. diff [id number] Negative (NEGATIVE) 04/28/18 09:07 Cryptosporid parvum Ag Negative (NEGATIVE) 04/28/18 09:07 Giardia lamblia Ag Negative (NEGATIVE) 04/28/18 09:07 - Plan (1) Nausea & vomiting Status: Acute Qualifiers: Vomiting type: bilious vomiting Qualified Code(s): R11.14 - Bilious vomiting Plan: AM CBC CMP, AMYLASE LIPASE COLLECTED ON ADMISSION. STOOL STUDIES. IV HYDRATION, BLOOD PRESSURE AND BLOOD SUGAR CONTROL. IV ANTIEMETICS, CT ABD PELVIS FOR THIS AM. EKG ON ADMISSION- CORRECT DEHYDRATION, NPO UNTIL RELIEF OF N/V. RESUME HOME MEDS (2) Dehydration Status: Acute (3) Tachycardia Status: Acute (4) CAD (coronary artery disease) Status: Chronic Qualifiers: Associated angina: without angina (5) Hypertension Status: Chronic (6) Diabetes mellitus, type 2 Status: Chronic (7) Depression Status: Chronic (8) Degenerative arthritis Status: Chronic Qualifiers: Osteoarthritis location: knee Osteoarthritis type: primary Laterality: bilateral Qualified Code(s): M17.0 - Bilateral primary osteoarthritis of knee
[2018-04-28] MEDS ORDERED: CIPRO IV 400 MG PREMIX* 400 MG/200 ML IV.SOLN. IV SCH (14:00)
[2018-04-28] MEDS: XANAX PO SCH ×2 (14:52→21:10)
[2018-04-28] MEDS ORDERED: NS 100 ML IV + SPIKE MINIBAG* 100 ML IV ONE (20:47)
[2018-04-28] MEDS: AMBIEN PO SCH (21:10)
[2018-04-28] MEDS: ZOSYN VIAL 4.5 GRAMS IV SCH (21:22)
[2018-04-28] MEDS: SNACK - Diabetic Appropriate PO SCH (21:22)
[2018-04-29 05:21] LABS: BASOPHILS % (AUTO) 0.6 % (0.2-1.0); EOSINOPHILS # (AUTO) 0.1 x10^3/uL (0.0-0.2); EOSINOPHILS % (AUTO) 1.6 % (0.9-2.9); HEMATOCRIT 45.6 % (36.0-47.0); HEMOGLOBIN 15.5 g/dL (12.0-16.0); LYMPHOCYTES # (AUTO) 2.4 X10^3/uL (1.3-2.9); LYMPHOCYTES % (AUTO) 39.7 % (21.0-51.0); MEAN CORPUSCULAR VOLUME 88.2 fL (80.0-100.0); MONOCYTES # (AUTO) 0.5 x10^3/uL (0.3-0.8); MONOCYTES % (AUTO) 8.4 % (0.0-13.0); NEUTROPHILS # (AUTO) 3.1 x10^3/uL (2.2-4.8); NEUTROPHILS % (AUTO) 49.7 % (42.0-75.0); PLATELET COUNT 129 X10^3/uL (150.0-450.0); RED BLOOD COUNT 5.17 X10^6/uL (3.5-5.4); RED CELL DISTRIBUTION WIDTH 13.5 % (11.6-16.5); WHITE BLOOD COUNT 6.1 X10^3/uL (3.6-10.0)
[2018-04-29 05:32] LABS: ALBUMIN 3.2 g/dL (3.4-5.0); COR CA(FOR HYPOALB) 9.6 mg/dL (8.5-10.1); CREATININE 1.45 mg/dL (0.55-1.02); TOTAL PROTEIN 6.7 g/dL (6.4-8.2)
[2018-04-29] MEDS ORDERED: NS 100 ML IV + SPIKE MINIBAG* 100 ML IV ONE ×3 (05:45→20:46)
[2018-04-29] MEDS: XANAX PO SCH ×3 (06:05→21:37)
[2018-04-29] MEDS: ZOSYN VIAL 4.5 GRAMS IV SCH ×3 (06:05→22:00)
[2018-04-29] MEDS: NEURONTIN CAP 400 MG PO SCH (06:07)
[2018-04-29] MEDS: NS 1000 ML 1,000 ML IV SCH ×3 (06:20→17:06)
[2018-04-29] MEDS ORDERED: GLUCOPHAGE ONE (07:03)
[2018-04-29] MEDS: GLUCOPHAGE PO SCH (07:05)
[2018-04-29] MEDS: PERCOCET TAB 5/325 MG PO PRN ×3 (07:27→21:35)
[2018-04-29] MEDS: MIRALAX POWDER (1 DOSE 17 G) PO SCH (09:40)
[2018-04-29] MEDS: PROTONIX INJ 40 MG VIAL IVP SCH (09:40)
[2018-04-29] MEDS: HumuLIN R SUBCUT PRN ×3 (11:40→21:00)
[2018-04-29] MEDS: AMBIEN PO SCH (21:36)
[2018-04-29] MEDS: SNACK - Diabetic Appropriate PO SCH (21:37)
[2018-04-30] MEDS ORDERED: NS 100 ML IV + SPIKE MINIBAG* 100 ML IV ONE (05:19)
[2018-04-30] MEDS: XANAX PO SCH ×2 (05:24→13:00)
[2018-04-30] MEDS: ZOSYN VIAL 4.5 GRAMS IV SCH (05:24)
[2018-04-30 05:29] LABS: ALBUMIN 2.9 g/dL (3.4-5.0); CALCIUM 8.5 mg/dL (8.5-10.1); CARBON DIOXIDE 28.9 mmol/L (21-32); COR CA(FOR HYPOALB) 9.4 mg/dL (8.5-10.1); CREATININE 1.52 mg/dL (0.55-1.02)
[2018-04-30 05:42] LABS: BASOPHILS # (AUTO) 0.1 X10^3/uL (0.0-0.1); BASOPHILS % (AUTO) 1.3 % (0.2-1.0); EOSINOPHILS # (AUTO) 0.1 x10^3/uL (0.0-0.2); EOSINOPHILS % (AUTO) 2.3 % (0.9-2.9); HEMATOCRIT 40.4 % (36.0-47.0); HEMOGLOBIN 13.9 g/dL (12.0-16.0); LYMPHOCYTES # (AUTO) 2.2 X10^3/uL (1.3-2.9); MEAN CORPUSCULAR HEMOGLOBIN 30.6 pg (27.0-34.0); MEAN CORPUSCULAR HGB CONC 34.4 g/dL (33.0-35.0); MEAN PLATELET VOLUME 8.5 fL (7.4-11.0); MONOCYTES # (AUTO) 0.3 x10^3/uL (0.3-0.8); MONOCYTES % (AUTO) 5.5 % (0.0-13.0); NEUTROPHILS # (AUTO) 2.1 x10^3/uL (2.2-4.8); NEUTROPHILS % (AUTO) 44.9 % (42.0-75.0); PLATELET COUNT 111 X10^3/uL (150.0-450.0); RED BLOOD COUNT 4.54 X10^6/uL (3.5-5.4); RED CELL DISTRIBUTION WIDTH 13.6 % (11.6-16.5); WHITE BLOOD COUNT 4.7 X10^3/uL (3.6-10.0)
[2018-04-30 06:05] LABS: PLATELET MORPHOLOGY COMMENT NORMAL (NORMAL)
[2018-04-30] MEDS ORDERED: POTASSIUM CHL 40 MEQ/NS 0.45% 500 ML IV PRN (06:26)
[2018-04-30] MEDS ORDERED: POTASSIUM CHL 60 MEQ/NS 0.45% 500 ML IV PRN (06:26)
[2018-04-30] MEDS ORDERED: POTASSIUM CHLORIDE LIQ 20 MEQ UDC PO PRN (06:26)
[2018-04-30] MEDS ORDERED: K-RIDER 10 MEQ/NS 100 ML 10 MEQ/100 ML BAG IV PRN (06:26)
[2018-04-30] MEDS ORDERED: K-LYTE EFFERVESCENT PO PRN (06:26)
[2018-04-30] MEDS ORDERED: PERCOCET TAB 5/325 MG PO PRN (08:00)
[2018-04-30] MEDS: NEURONTIN CAP 400 MG PO SCH (08:05)
[2018-04-30] MEDS: PROTONIX INJ 40 MG VIAL IVP SCH (08:06)
[2018-04-30] MEDS: MIRALAX POWDER (1 DOSE 17 G) PO SCH (08:06)
[2018-04-30] MEDS: HumuLIN R SUBCUT PRN (11:44)
[2018-04-30 12:19] VITALS: BP 129/59
[2018-04-30] MEDS ORDERED: PERCOCET TAB 5/325 MG PO STA (12:42)
== END 2018-04-30 13:35 | disposition home or self-care (01) ==
LOC: MED/SURG
PROVIDERS: ADMIT Internal Medicine; ATTEND Internal Medicine
DX: R94.4 Abnormal results of kidney function studies; R11.14 Bilious vomiting; I10 Essential (primary) hypertension; K80.80 Other cholelithiasis without obstruction; E86.0 Dehydration; R53.1 Weakness; R06.02 Shortness of breath; E11.65 Type 2 diabetes mellitus with hyperglycemia; R10.84 Generalized abdominal pain; R00.0 Tachycardia, unspecified; R19.7 Diarrhea, unspecified; J44.9 Chronic obstructive pulmonary disease, unspecified; I25.10 Atherosclerotic heart disease of native coronary artery without angina pectoris; F32.89 Other specified depressive episodes; T36.8X5A Adverse effect of other systemic antibiotics, initial encounter; R26.89 Other abnormalities of gait and mobility; M17.0 Bilateral primary osteoarthritis of knee; E78.2 Mixed hyperlipidemia; F41.8 Other specified anxiety disorders
CPT/HCPCS: 36415; 74022; 74177; 80053; 81001; 82150; 82270; 83630; 83690; 83735; 85025; 87045; 87328; 87329; 87427; 87449; 87493; 87899; 93005; 93010; 94760; 97110; 97116; 97162; 97166; 97530; A4222; C9113; G0378; J0744; J1815; J2270; J2543; J2550; J7030; J7050

== ENCOUNTER 2018-05-27 09:35 | Inpatient (IN) ==
[2018-05-27 12:06] VITALS: BMI 39.2
--- NOTE | 2018-05-27 12:34 | RAD ---
History: Shortness of breath Study: Portable AP chest Comparison: July 2017 Findings: The lungs are clear and the heart and mediastinum are unremarkable. There is no edema or ef fusion. Impression: No evidence for active cardiopulmonary disease Reported By:
[2018-05-27 12:35] LABS: BASOPHILS % (AUTO) 0.7 % (0.2-1.0); EOSINOPHILS % (AUTO) 0.8 % (0.9-2.9); HEMATOCRIT 43.2 % (36.0-47.0); LYMPHOCYTES # (AUTO) 1.5 X10^3/uL (1.3-2.9); LYMPHOCYTES % (AUTO) 27.8 % (21.0-51.0); MEAN CORPUSCULAR HEMOGLOBIN 30.7 pg (27.0-34.0); MEAN CORPUSCULAR HGB CONC 34.6 g/dL (33.0-35.0); MEAN CORPUSCULAR VOLUME 88.8 fL (80.0-100.0); MONOCYTES # (AUTO) 0.3 x10^3/uL (0.3-0.8); MONOCYTES % (AUTO) 5.7 % (0.0-13.0); NEUTROPHILS # (AUTO) 3.5 x10^3/uL (2.2-4.8); PLATELET COUNT 130 X10^3/uL (150.0-450.0); RED BLOOD COUNT 4.87 X10^6/uL (3.5-5.4); RED CELL DISTRIBUTION WIDTH 13.7 % (11.6-16.5); WHITE BLOOD COUNT 5.3 X10^3/uL (3.6-10.0)
[2018-05-27 12:46] LABS: ALANINE AMINOTRANSFERASE 24 Units/L (12-78); ALBUMIN 3.5 g/dL (3.4-5.0); ALKALINE PHOSPHATASE 128 Units/L (46-116); ASPARTATE AMINO TRANSFERASE 37 Units/L (15-37); BLOOD UREA NITROGEN 12 mg/dL (7-18); CALCIUM 8.8 mg/dL (8.5-10.1); CHLORIDE 100 mmol/L (98-107); COR NA(FOR HYPERGLY) 143 mmol/L (136-145); CREATININE 1.53 mg/dL (0.55-1.02); SODIUM 138 mmol/L (136-145); TOTAL PROTEIN 7.1 g/dL (6.4-8.2); eGFR NON BLACK RACES 35 (>60)
[2018-05-27] MEDS ORDERED: NS 1000 ML 1,000 ML IV SCH (13:00)
[2018-05-27] MEDS ORDERED: PATIENT'S HOME MEDICATION (Oxycodone-Acetaminophen [Oxycodone-Acetaminophen] 1 TAB) PO PRN (13:15)
[2018-05-27] MEDS ORDERED: TUSSIONEX PENNKINETIC SUSP PO PRN (13:19)
[2018-05-27] MEDS: XANAX PO SCH ×2 (13:54→21:46)
[2018-05-27 14:13] LABS: BASOPHILS % (AUTO) 0.5 % (0.2-1.0); EOSINOPHILS % (AUTO) 0.7 % (0.9-2.9); HEMATOCRIT 40.4 % (36.0-47.0); LYMPHOCYTES # (AUTO) 1.7 X10^3/uL (1.3-2.9); LYMPHOCYTES % (AUTO) 30.7 % (21.0-51.0); MEAN CORPUSCULAR HEMOGLOBIN 30.6 pg (27.0-34.0); MEAN CORPUSCULAR HGB CONC 34.5 g/dL (33.0-35.0); MEAN CORPUSCULAR VOLUME 88.7 fL (80.0-100.0); MEAN PLATELET VOLUME 8.6 fL (7.4-11.0); MONOCYTES # (AUTO) 0.4 x10^3/uL (0.3-0.8); MONOCYTES % (AUTO) 6.3 % (0.0-13.0); NEUTROPHILS # (AUTO) 3.4 x10^3/uL (2.2-4.8); NEUTROPHILS % (AUTO) 61.8 % (42.0-75.0); PLATELET COUNT 123 X10^3/uL (150.0-450.0); RED BLOOD COUNT 4.56 X10^6/uL (3.5-5.4); RED CELL DISTRIBUTION WIDTH 13.7 % (11.6-16.5); WHITE BLOOD COUNT 5.5 X10^3/uL (3.6-10.0)
[2018-05-27] MEDS ORDERED: PERCOCET TAB 5/325 MG PO PRN (14:18)
[2018-05-27 14:23] LABS: ALBUMIN 3.2 g/dL (3.4-5.0); CALCIUM 8.4 mg/dL (8.5-10.1); CARBON DIOXIDE 29.9 mmol/L (21-32); CREATININE 1.5 mg/dL (0.55-1.02); TOTAL PROTEIN 6.4 g/dL (6.4-8.2)
[2018-05-27] MEDS ORDERED: SALINE 3% 15 ML NEB TX ONE (14:43)
[2018-05-27] MEDS ORDERED: NS 1/2 1000 ML IV 1,000 ML IV ONE (16:42)
[2018-05-27] MEDS ORDERED: DUONEB 0.5 MG/3 MG ONE (16:46)
[2018-05-27] MEDS: MIRALAX POWDER (1 DOSE 17 G) PO SCH (16:58)
[2018-05-27] MEDS: NS 1/2 1000 ML IV 1,000 ML IV SCH (16:58)
[2018-05-27] MEDS: ZITHROMAX INJ 500 MG VIAL 500 MG in NS 250 ML IV 250 ML IV SCH (16:58)
[2018-05-27] MEDS: ROBITUSSIN DM PO SCH ×2 (16:59→21:46)
[2018-05-27] MEDS ORDERED: K-RIDER 10 MEQ/NS 100 ML 10 MEQ/100 ML BAG IV PRN (17:33)
[2018-05-27] MEDS ORDERED: K-LYTE EFFERVESCENT PO PRN (17:33)
[2018-05-27] MEDS ORDERED: POTASSIUM CHL 60 MEQ/NS 0.45% 500 ML IV PRN (17:33)
[2018-05-27] MEDS ORDERED: POTASSIUM CHLORIDE LIQ 20 MEQ UDC PO PRN (17:33)
[2018-05-27] MEDS ORDERED: POTASSIUM CHL 40 MEQ/NS 0.45% 500 ML IV PRN (17:33)
[2018-05-27] MEDS: DUONEB 0.5 MG/3 MG NEB SCH ×2 (17:43→21:00)
[2018-05-27] MEDS: HumuLIN R SUBCUT PRN ×2 (18:20→21:46)
[2018-05-27] MEDS: MAGNESIUM SULFATE 1 GRAM/100 mL PREMIX 1 GM/100 ML BAG IV PRN ×2 (18:25→22:00)
--- NOTE | 2018-05-27 18:48 | DR.H&P ---
H&P - History & Physical for Day of: H&P Date: 05/27/18 - Chief Complaint Chief Complaint: CCC, WHEEZING, FATIGUE, SOB - History of Present Illness History of Present Illness: 77 WF DIRECT ADMIT FOR TREATMENT FOR COPD WITH AB. PT HAS CO CCC AND STATES SHES USING INHALERS AND JET NEBS PRN WITHOUT IMPROVEMENT. PT HAD DIFFUSE WEAKNESS, UNABLE TO CARE FOR HERSELF AT HOME. PT TAKEN ORAL ANTIBIOTICS BY MOUTH, ZPAK CO NO IMPROVEMENT. PT HAS DM, HTN, CAD, CHF, OA, COPD. PT ADMITTED FOR IV ATBX, RESP THERAPY. - Past Medical History Past Medical History: Dementia, Depression, Anxiety, CA, GERD, Arthritis, Coronary Artery Disease, Hypertension, Dyslipidemia, Diabetes, Renal Disease, CHF - Past Surgical History Surgical History: Angioplasty/Stents, Ortho Surgery - Family History Family Medical History: Diabetes Mellitus, Coronary Artery Disease - Social History Does patient currently use any type of tobacco product: No Have you used tobacco products in the last 12 months: No Type of Tobacco Use: None Does any household member use tobacco: No Alcohol Use: None Drug Use: None - Medications Home Medications: ciprofloxacin [From Cipro] Allergy (Verified 04/28/18 16:05) CONTINUE taking the following medications alprazolam 1 mg PO BID 05/27/18 [History] - Review of Systems Constitutional: Chills, Weakness Eyes: No Symptoms Reported ENT: No Symptoms Reported Respiratory: Cough, Shortness of Breath, Wheezing Cardiovascular: No Symptoms Reported Gastrointestinal: No Symptoms Reported Genitourinary: No Symptoms Reported Musculoskeletal: Back Pain, Leg Pain Skin: No Symptoms Reported Neurological: Weakness - Physical Exam Vital Signs: Temperature 98.5 F Pulse Rate [Right Brachial] 82 Pulse Rate 83 Respiratory Rate 20 Blood Pressure [Right Arm] 128/62 Blood Pressure [Left Arm] 129/59 Blood Pressure [Right Arm] 127/60 Blood Pressure [Left Arm] 159/68 Blood Pressure 129/59 O2 Sat by Pulse Oximetry 92 Oriented: Person Eyes: Normal Ear: Normal Nose: Normal Throat: Normal Respiratory: Wheezes Throughout, RLL Diminished, LLL Diminished Cardiovascular: Normal. negative: Edema : Normal Auscultation: Bowel Sounds: Normal Palpation: Normal Tenderness: Normal Skin: Normal Musculoskeletal: Right, Left, Knee, Back:Thoracic, Back:Lumbar Psychiatric: Anxiety, Depression Affect: Anxious Speech Pattern: Clear, Appropriate - Assessment/Plan (1) COPD exacerbation Status: Acute Plan: ADMIT, ADMISSION LABS CBC CMP BLOOD AND SPUTUM CULTURE. RESP THERAPY, SUPPLEMENTAL O2. IV ATBX, VERIFY HOME. MEDS, BP AND BLOOD SUGAR MONITORING (2) CAD (coronary artery disease) Qualifiers: Associated angina: without angina Status: Chronic (3) Arthritis Status: Chronic (4) History of TIA (transient ischemic attack) Status: Chronic (5) Hypertension Status: Chronic (6) Diabetes mellitus, type 2 Status: Chronic - Allergies Allergies/Adverse Reactions: Allergies Allergy/AdvReac Type Severity Reaction Status Date / Time ciprofloxacin [From Cipro] Allergy Verified 04/28/18 16:05
[2018-05-27] MEDS ORDERED: COLACE CAP 100 MG PO PRN (19:36)
[2018-05-27] MEDS: SNACK - Diabetic Appropriate PO SCH (21:46)
[2018-05-27] MEDS: AMBIEN PO SCH (21:46)
[2018-05-27 22:41] LABS: BILIRUBIN,URINE NEGATIVE (NEGATIVE); BLOOD/HEMOGLOBIN,URINE 1+ (NEGATIVE); GLUCOSE, URINE 3+ (NEGATIVE); KETONES,URINE 1+ (NEGATIVE); LEUKOCYTE ESTERASE ,URINE 2+ (NEGATIVE); NITRITES,URINE POSITIVE (NEGATIVE); PROTEIN,URINE 2+ (NEGATIVE); UROBILINOGEN,URINE 1+ (NORMAL)
[2018-05-27 23:04] LABS: APPEARANCE,URINE CLOUDY (CLEAR); BACTERIA,URINE 3+ /HPF (NEGATIVE); COLOR,URINE AMBER (YELLOW); RBC,URINE 0-2 /HPF (NONE SEEN); SQUAMOUS EPITHELIAL CELL,UR FEW /HPF (NEGATIVE)
[2018-05-28] MEDS: MAGNESIUM SULFATE 1 GRAM/100 mL PREMIX 1 GM/100 ML BAG IV PRN ×3 (00:26→01:54)
[2018-05-28 06:09] LABS: BASOPHILS % (AUTO) 0.5 % (0.2-1.0); EOSINOPHILS # (AUTO) 0.1 x10^3/uL (0.0-0.2); HEMATOCRIT 38.5 % (36.0-47.0); HEMOGLOBIN 13.3 g/dL (12.0-16.0); LYMPHOCYTES # (AUTO) 2.2 X10^3/uL (1.3-2.9); LYMPHOCYTES % (AUTO) 48.8 % (21.0-51.0); MEAN CORPUSCULAR HEMOGLOBIN 30.8 pg (27.0-34.0); MEAN CORPUSCULAR HGB CONC 34.4 g/dL (33.0-35.0); MEAN CORPUSCULAR VOLUME 89.3 fL (80.0-100.0); MEAN PLATELET VOLUME 8.3 fL (7.4-11.0); MONOCYTES # (AUTO) 0.3 x10^3/uL (0.3-0.8); MONOCYTES % (AUTO) 7.6 % (0.0-13.0); NEUTROPHILS # (AUTO) 1.9 x10^3/uL (2.2-4.8); NEUTROPHILS % (AUTO) 41.1 % (42.0-75.0); PLATELET COUNT 112 X10^3/uL (150.0-450.0); RED BLOOD COUNT 4.31 X10^6/uL (3.5-5.4); RED CELL DISTRIBUTION WIDTH 13.8 % (11.6-16.5); WHITE BLOOD COUNT 4.5 X10^3/uL (3.6-10.0)
[2018-05-28] MEDS: HumuLIN R SUBCUT PRN ×4 (06:11→22:11)
[2018-05-28 06:12] LABS: ALBUMIN 2.9 g/dL (3.4-5.0); CALCIUM 8.4 mg/dL (8.5-10.1); CARBON DIOXIDE 30.8 mmol/L (21-32); COR CA(FOR HYPOALB) 9.3 mg/dL (8.5-10.1); CREATININE 1.43 mg/dL (0.55-1.02)
[2018-05-28] MEDS ORDERED: NEURONTIN CAP 400 MG PO SCH (07:00)
[2018-05-28] MEDS: ROBITUSSIN DM PO SCH ×4 (08:54→22:09)
[2018-05-28] MEDS: MIRALAX POWDER (1 DOSE 17 G) PO SCH (08:54)
[2018-05-28] MEDS: XANAX PO SCH ×2 (08:54→22:09)
[2018-05-28] MEDS: ZITHROMAX INJ 500 MG VIAL 500 MG in NS 250 ML IV 250 ML IV SCH (08:54)
[2018-05-28] MEDS: DUONEB 0.5 MG/3 MG NEB SCH ×4 (09:39→20:18)
[2018-05-28] MEDS: NS 1/2 1000 ML IV 1,000 ML IV SCH ×2 (10:47→18:44)
--- NOTE | 2018-05-28 13:28 | DR.H&P ---
H&P - History & Physical for Day of: H&P Date: 05/28/18 - Chief Complaint Chief Complaint: 77 WF ADMITTED ON 05/27 WITH AB WITH COPD, WEAKNESS WITH HYPOKALMEIA, UTI. PT CURRENTLY ON IV ZITHROMAX, BP AND BLOOD SUGAR. CONTROL, REPEAT AM LABS, ROCEPHIN FOR UTI. DISCUSSED DETENTION PLACEMENT WITH FAMILYDUE TO PT BEING UNABLE TO CARE FOR HERSELF AT HOME, WILL CONSULT CASE MANAGEMENT - Past Medical History Past Medical History: Dementia, Depression, Anxiety, CA, GERD, Arthritis, Coronary Artery Disease, Hypertension, Dyslipidemia, Diabetes, Renal Disease, CHF - Past Surgical History Surgical History: Angioplasty/Stents, Ortho Surgery - Family History Family Medical History: Diabetes Mellitus, Coronary Artery Disease - Social History Does patient currently use any type of tobacco product: No Have you used tobacco products in the last 12 months: No Type of Tobacco Use: None Does any household member use tobacco: No Alcohol Use: None Drug Use: None - Medications Home Medications: ciprofloxacin [From Cipro] Allergy (Verified 04/28/18 16:05) CONTINUE taking the following medications alprazolam 1 mg PO BID 05/27/18 [History] - Physical Exam Vital Signs: Temperature 97.5 F Pulse Rate [Right Brachial] 73 Pulse Rate 80 Respiratory Rate 20 Blood Pressure [Right Arm] 131/63 Blood Pressure [Left Arm] 129/59 Blood Pressure [Right Arm] 127/60 Blood Pressure [Left Arm] 159/68 Blood Pressure 129/59 O2 Sat by Pulse Oximetry 95 Oriented: Person - Assessment/Plan (1) COPD exacerbation Status: Acute Plan: IV ATBX, ROCEPHIN FOR UTI, CULTURE PENDING. RESP THERAPY, BLOOD PRESSURE AND BLOOD SUGAR CONTROL. REPEAT AM LABS, CHEST XRAY ON ADMISSION. SUPPLEMENTAL O2, JET NEBS. POTASSIUM REPLACEMENT. CASE MANAGEMENT CONSULT FOR DETENTION PLACEMENT (2) CAD (coronary artery disease) Qualifiers: Associated angina: without angina Status: Chronic (3) Arthritis Status: Chronic (4) History of TIA (transient ischemic attack) Status: Chronic (5) Hypertension Status: Chronic (6) Diabetes mellitus, type 2 Status: Chronic (7) UTI (urinary tract infection) Status: Acute (8) Hypokalemia Status: Acute - Allergies Allergies/Adverse Reactions: Allergies Allergy/AdvReac Type Severity Reaction Status Date / Time ciprofloxacin [From Cipro] Allergy Verified 04/28/18 16:05
[2018-05-28] MEDS: ROCEPHIN VIAL 1 GRAM 1 G in NS 100 ML IV + SPIKE MINIBAG* 100 ML IV SCH (14:47)
[2018-05-28] MEDS: PERCOCET TAB 5/325 MG PO PRN (19:06)
[2018-05-28] MEDS: NEURONTIN CAP 300 MG PO SCH (22:09)
[2018-05-28] MEDS: AMBIEN PO SCH (22:09)
[2018-05-28] MEDS: SNACK - Diabetic Appropriate PO SCH (22:40)
[2018-05-29 06:11] LABS: ALBUMIN 2.8 g/dL (3.4-5.0); CALCIUM 8.5 mg/dL (8.5-10.1); CARBON DIOXIDE 29.2 mmol/L (21-32); COR CA(FOR HYPOALB) 9.5 mg/dL (8.5-10.1); CREATININE 1.43 mg/dL (0.55-1.02); MAGNESIUM 1.9 mg/dL (1.7-2.9); TOTAL PROTEIN 5.8 g/dL (6.4-8.2)
[2018-05-29 06:18] LABS: BASOPHILS % (AUTO) 0.7 % (0.2-1.0); EOSINOPHILS # (AUTO) 0.1 x10^3/uL (0.0-0.2); EOSINOPHILS % (AUTO) 3.1 % (0.9-2.9); HEMATOCRIT 36.3 % (36.0-47.0); HEMOGLOBIN 12.3 g/dL (12.0-16.0); LYMPHOCYTES # (AUTO) 1.6 X10^3/uL (1.3-2.9); LYMPHOCYTES % (AUTO) 44.8 % (21.0-51.0); MEAN CORPUSCULAR HEMOGLOBIN 30.5 pg (27.0-34.0); MEAN CORPUSCULAR HGB CONC 33.9 g/dL (33.0-35.0); MEAN CORPUSCULAR VOLUME 90.1 fL (80.0-100.0); MEAN PLATELET VOLUME 8.5 fL (7.4-11.0); MONOCYTES # (AUTO) 0.3 x10^3/uL (0.3-0.8); MONOCYTES % (AUTO) 7.6 % (0.0-13.0); NEUTROPHILS # (AUTO) 1.6 x10^3/uL (2.2-4.8); NEUTROPHILS % (AUTO) 43.8 % (42.0-75.0); PLATELET COUNT 107 X10^3/uL (150.0-450.0); RED BLOOD COUNT 4.03 X10^6/uL (3.5-5.4); RED CELL DISTRIBUTION WIDTH 13.9 % (11.6-16.5); WHITE BLOOD COUNT 3.6 X10^3/uL (3.6-10.0)
[2018-05-29] MEDS: NS 1/2 1000 ML IV 1,000 ML IV SCH (07:25)
[2018-05-29] MEDS: MIRALAX POWDER (1 DOSE 17 G) PO SCH (08:48)
[2018-05-29] MEDS: ROCEPHIN VIAL 1 GRAM 1 G in NS 100 ML IV + SPIKE MINIBAG* 100 ML IV SCH (08:48)
[2018-05-29] MEDS: ROBITUSSIN DM PO SCH ×4 (08:48→22:05)
[2018-05-29] MEDS: XANAX PO SCH ×2 (08:48→22:03)
[2018-05-29] MEDS: DUONEB 0.5 MG/3 MG NEB SCH ×4 (09:47→20:25)
[2018-05-29] MEDS: HumuLIN R SUBCUT PRN ×3 (11:49→22:03)
--- NOTE | 2018-05-29 14:17 | PCM.PROG ---
Progress Note - Progress Note for Day of Date of Exam: 05/29/18 - Subjective Subjective: 77 WF ADMITTED ON 05/27 WITH AB WITH COPD, WEAKNESS WITH HYPOKALMEIA, UTI. PT IS MORE AWAKE AND ALERT THIS AM. CO HER NERVES BEING BAD. PT CURRENTLY ON IV ZITHROMAX, BP AND BLOOD SUGAR. CONTROL, REPEAT AM LABS, ROCEPHIN FOR UTI. DISCUSSED [facility] WITH FAMILYDUE TO PT BEING UNABLE TO CARE FOR HERSELF AT HOME, WILL CONSULT CASE MANAGEMENT - Past Medical Family Social History Past Med/Fam/Surg Hx: No changes since H&P Allergies: Allergies ciprofloxacin [From Cipro] Allergy (Verified 04/28/18 16:05) - Review of Systems ROS: No change since H&P - Vital Signs and I&O's Vital Signs: Temperature 97.4 F Pulse Rate [Right Brachial] 82 Pulse Rate 97 Respiratory Rate 18 Blood Pressure [Right Arm] 109/56 Blood Pressure [Left Arm] 102/50 Blood Pressure [Right Arm] 127/60 Blood Pressure [Left Arm] 159/68 Blood Pressure 129/59 O2 Sat by Pulse Oximetry 94 Intake and Output: Intake & Output 05/27/18 05/28/18 05/29/18 05/30/18 11:59 11:59 11:59 11:59 Intake Total 1741 / 1741 1300 / 1300 Balance 1741 / 1741 1300 / 1300 - Physical Exam Oriented: Person Eyes: Normal Ear: Normal Nose: Normal Throat: Normal Cardiovascular: Normal. negative: Edema : Normal Auscultation: Bowel Sounds: Normal Tenderness: Normal Skin: Normal Musculoskeletal: Right, Left, Knee, Back:Thoracic, Back:Lumbar Psychiatric: Anxiety, Depression Affect: Anxious Speech Pattern: Clear, Appropriate - Laboratory and Diagnostics Result Diagrams: 05/29/18 05:39 05/29/18 05:39 Labs: 05/27/18 13:40 Blood Blood Culture - Preliminary 05/27/18 13:35 Blood Blood Culture - Preliminary 05/27/18 14:55 Sputum - Expectorated Sputum Sputum Culture - Preliminary 05/27/18 14:55 Sputum - Expectorated Sputum - Final 05/27/18 22:21 Urine,Clean Catch Urine Culture - Final Citrobacter Freundii [facility] WBC 3.6 X10^3/uL (3.6-10.0) 05/29/18 05:39 RBC 4.03 X10^6/uL (3.5-5.4) 05/29/18 05:39 Hgb 12.3 g/dL (12.0-16.0) 05/29/18 05:39 Hct 36.3 % (36.0-47.0) 05/29/18 05:39 MCV 90.1 fL (80.0-100.0) 05/29/18 05:39 MCH 30.5 pg (27.0-34.0) 05/29/18 05:39 MCHC 33.9 g/dL (33.0-35.0) 05/29/18 05:39 RDW 13.9 % (11.6-16.5) 05/29/18 05:39 Plt Count 107 X10^3/uL (150.0-450.0) L 05/29/18 05:39 MPV 8.5 fL (7.4-11.0) 05/29/18 05:39 Neut % (Auto) 43.8 % (42.0-75.0) 05/29/18 05:39 Lymph % (Auto) 44.8 % (21.0-51.0) 05/29/18 05:39 [place] % (Auto) 7.6 % (0.0-13.0) 05/29/18 05:39 Eos % (Auto) 3.1 % (0.9-2.9) H 05/29/18 05:39 Baso % (Auto) 0.7 % (0.2-1.0) 05/29/18 05:39 Neut # (Auto) 1.6 x10^3/uL (2.2-4.8) L 05/29/18 05:39 Lymph # (Auto) 1.6 X10^3/uL (1.3-2.9) 05/29/18 05:39 [place] # (Auto) 0.3 x10^3/uL (0.3-0.8) 05/29/18 05:39 Eos # (Auto) 0.1 x10^3/uL (0.0-0.2) 05/29/18 05:39 Baso # (Auto) 0.0 X10^3/uL (0.0-0.1) 05/29/18 05:39 Absolute Nucleated RBC 0.1 /100WBC 05/29/18 05:39 Sodium 139 mmol/L (136-145) 05/29/18 05:39 Corrected Sodium 142 mmol/L (136-145) 05/29/18 05:39 Potassium 4.3 mmol/L (3.5-5.1) 05/29/18 05:39 Chloride 104 mmol/L (98-107) 05/29/18 05:39 Carbon Dioxide 29.2 mmol/L (21-32) 05/29/18 05:39 BUN 11 mg/dL (7-18) 05/29/18 05:39 Creatinine 1.43 mg/dL (0.55-1.02) H 05/29/18 05:39 Est GFR (MDRD) Af Amer 46 (>60) L 05/29/18 05:39 Est GFR (MDRD) Non-Af 38 (>60) L 05/29/18 05:39 Glucose 233 mg/dL (65-99) H 05/29/18 05:39 POC Glucose (mg/dL) 282 mg/dL (65-99) H 05/29/18 11:42 Calcium 8.5 mg/dL (8.5-10.1) 05/29/18 05:39 Corrected Calcium 9.5 mg/dL (8.5-10.1) 05/29/18 05:39 Magnesium 1.9 mg/dL (1.7-2.9) 05/29/18 05:39 Total Bilirubin 0.50 mg/dL (0.2-1.0) 05/29/18 05:39 AST 24 Units/L (15-37) 05/29/18 05:39 ALT 19 Units/L (12-78) 05/29/18 05:39 Alkaline Phosphatase 128 Units/L (46-116) H 05/29/18 05:39 Total Protein 5.8 g/dL (6.4-8.2) L 05/29/18 05:39 Albumin 2.8 g/dL (3.4-5.0) L 05/29/18 05:39 Globulin 3.0 g/dL (2.5-4.5) 05/29/18 05:39 Albumin/Globulin Ratio 0.9 Ratio (1.1-2.1) L 05/29/18 05:39 Specimen Type Clean catch urine 05/27/18 22:21 Urine Color [place] (YELLOW) 05/27/18 22:21 Urine Appearance Cloudy (CLEAR) 05/27/18 22:21 Urine pH 5.0 (5.0 - 8.0) 05/27/18 22:21 Ur Specific [place] 1.020 (1.000-1.030) 05/27/18 22:21 Urine Protein 2+ (NEGATIVE) 05/27/18 22:21 Urine Glucose (UA) 3+ (NEGATIVE) 05/27/18 22:21 Urine Ketones 1+ (NEGATIVE) 05/27/18 22:21 Urine Occult Blood 1+ (NEGATIVE) 05/27/18 22:21 Urine Nitrite Positive (NEGATIVE) 05/27/18 22: Urine Bilirubin Negative (NEGATIVE) 05/27/18 22:21 Urine Urobilinogen 1+ (NORMAL) 05/27/18 22:21 Ur Leukocyte Esterase 2+ (NEGATIVE) 05/27/18 22:21 Urine RBC 0-2 /HPF (NONE SEEN) 05/27/18 22:21 Urine WBC 10-20 /HPF (NONE SEEN) 05/27/18 22:21 Ur Squamous Epith Cells Few /HPF (NEGATIVE) 05/27/18 22:21 Urine Bacteria 3+ /HPF (NEGATIVE) 05/27/18 22:21 Ur Culture Indicated? Yes/culture set up 05/27/18 22:21 - Plan (1) COPD exacerbation Status: Acute Plan: IV ATBX, ROCEPHIN FOR UTI, CULTURE PENDING. RESP THERAPY, BLOOD PRESSURE AND BLOOD SUGAR CONTROL. REPEAT AM LABS, CHEST XRAY ON ADMISSION. SUPPLEMENTAL O2, JET NEBS. POTASSIUM REPLACEMENT. CASE MANAGEMENT CONSULT FOR [facility] (2) CAD (coronary artery disease) Status: Chronic Qualifiers: Associated angina: without angina (3) Arthritis Status: Chronic (4) History of TIA (transient ischemic attack) Status: Chronic (5) Hypertension Status: Chronic (6) Diabetes mellitus, type 2 Status: Chronic (7) UTI (urinary tract infection) Status: Acute (8) Hypokalemia Status: Acute
[2018-05-29] MEDS ORDERED: BUTT CREAM (COMPOUND) TOP PRN (16:13)
[2018-05-29] MEDS ORDERED: NYSTATIN POWDER TOP PRN (16:13)
[2018-05-29] MEDS: PERCOCET TAB 5/325 MG PO PRN (16:47)
[2018-05-29] MEDS: AMBIEN PO SCH (22:02)
[2018-05-29] MEDS: NEURONTIN CAP 300 MG PO SCH (22:02)
[2018-05-29] MEDS: SNACK - Diabetic Appropriate PO SCH (22:05)
[2018-05-30] MEDS: PERCOCET TAB 5/325 MG PO PRN ×3 (01:37→22:28)
[2018-05-30 05:48] LABS: BASOPHILS % (AUTO) 0.9 % (0.2-1.0); EOSINOPHILS # (AUTO) 0.1 x10^3/uL (0.0-0.2); EOSINOPHILS % (AUTO) 3.5 % (0.9-2.9); HEMATOCRIT 35.9 % (36.0-47.0); HEMOGLOBIN 12.3 g/dL (12.0-16.0); LYMPHOCYTES # (AUTO) 1.7 X10^3/uL (1.3-2.9); LYMPHOCYTES % (AUTO) 50.5 % (21.0-51.0); MEAN CORPUSCULAR HEMOGLOBIN 30.9 pg (27.0-34.0); MEAN CORPUSCULAR HGB CONC 34.3 g/dL (33.0-35.0); MEAN CORPUSCULAR VOLUME 90.3 fL (80.0-100.0); MEAN PLATELET VOLUME 8.6 fL (7.4-11.0); MONOCYTES # (AUTO) 0.3 x10^3/uL (0.3-0.8); MONOCYTES % (AUTO) 7.8 % (0.0-13.0); NEUTROPHILS # (AUTO) 1.3 x10^3/uL (2.2-4.8); NEUTROPHILS % (AUTO) 37.3 % (42.0-75.0); PLATELET COUNT 107 X10^3/uL (150.0-450.0); RED BLOOD COUNT 3.97 X10^6/uL (3.5-5.4); RED CELL DISTRIBUTION WIDTH 13.5 % (11.6-16.5); WHITE BLOOD COUNT 3.4 X10^3/uL (3.6-10.0)
[2018-05-30 06:15] LABS: ALBUMIN 2.5 g/dL (3.4-5.0); CALCIUM 8.2 mg/dL (8.5-10.1); CARBON DIOXIDE 31.7 mmol/L (21-32); COR CA(FOR HYPOALB) 9.4 mg/dL (8.5-10.1); CREATININE 1.33 mg/dL (0.55-1.02); TOTAL PROTEIN 5.5 g/dL (6.4-8.2)
[2018-05-30] MEDS: MIRALAX POWDER (1 DOSE 17 G) PO SCH (09:18)
[2018-05-30] MEDS: XANAX PO SCH ×2 (09:19→21:45)
[2018-05-30] MEDS: ROBITUSSIN DM PO SCH ×5 (09:19→21:51)
[2018-05-30] MEDS: ROCEPHIN VIAL 1 GRAM 1 G in NS 100 ML IV + SPIKE MINIBAG* 100 ML IV SCH (09:19)
[2018-05-30] MEDS: DUONEB 0.5 MG/3 MG NEB SCH ×4 (09:52→20:33)
--- NOTE | 2018-05-30 10:50 | PCM.PROG ---
Progress Note - Progress Note for Day of Date of Exam: 05/30/18 - Subjective Subjective: 77 WF ADMITTED ON 05/27 WITH AB WITH COPD, WEAKNESS WITH HYPOKALMEIA, UTI. PT IS MORE AWAKE AND ALERT THIS AM. CO HER NERVES BEING BAD. SPUTUM POSITIVE FOR MRSA, ADDED IV ZYVOX. BP AND BLOOD SUGAR. CONTROL, REPEAT AM LABS , ROCEPHIN FOR UTI. DISCUSSED PRISON PLACEMENT WITH FAMILYDUE TO PT BEING UNABLE TO CARE FOR HERSELF AT HOME, WILL CONSULT CASE MANAGEMENT - Past Medical Family Social History Past Med/Fam/Surg Hx: No changes since H&P Allergies: Allergies ciprofloxacin [From Cipro] Allergy (Verified 04/28/18 16:05) - Review of Systems ROS: No change since H&P - Vital Signs and I&O's Vital Signs: Temperature 97.8 F Pulse Rate [Right Brachial] 76 Pulse Rate 74 Respiratory Rate 18 Blood Pressure [Right Arm] 111/53 Blood Pressure [Left Arm] 119/57 Blood Pressure [Right Arm] 127/60 Blood Pressure [Left Arm] 159/68 Blood Pressure 129/59 O2 Sat by Pulse Oximetry 94 Intake and Output: Intake & Output 05/27/18 05/28/18 05/29/18 05/30/18 11:59 11:59 11:59 11:59 Intake Total 1741 / 1741 1300 / 1300 2119 Balance 1741 / 1741 1300 / 1300 2119 - Physical Exam Oriented: Person Eyes: Normal Ear: Normal Nose: Normal Throat: Normal Cardiovascular: Normal. negative: Edema : Normal Auscultation: Bowel Sounds: Normal Tenderness: Normal Skin: Normal Musculoskeletal: Right, Left, Knee, Back:Thoracic, Back:Lumbar Psychiatric: Anxiety, Depression Affect: Anxious Speech Pattern: Clear, Appropriate - Laboratory and Diagnostics Result Diagrams: 05/30/18 05:05 05/30/18 05:05 Labs: 05/27/18 14:55 Sputum - Expectorated Sputum Sputum Culture - Final Methicillin Resis Staph Aureus 05/27/18 14:55 Sputum - Expectorated Sputum - Final 05/27/18 13:40 Blood Blood Culture - Preliminary 05/27/18 13:35 Blood Blood Culture - Preliminary 05/27/18 22:21 Urine,Clean Catch Urine Culture - Final Citrobacter Freundii [facility] WBC 3.4 X10^3/uL (3.6-10.0) L 05/30/18 05:05 RBC 3.97 X10^6/uL (3.5-5.4) 05/30/18 05:05 Hgb 12.3 g/dL (12.0-16.0) 05/30/18 05:05 Hct 35.9 % (36.0-47.0) L 05/30/18 05:05 MCV 90.3 fL (80.0-100.0) 05/30/18 05:05 MCH 30.9 pg (27.0-34.0) 05/30/18 05:05 MCHC 34.3 g/dL (33.0-35.0) 05/30/18 05:05 RDW 13.5 % (11.6-16.5) 05/30/18 05:05 Plt Count 107 X10^3/uL (150.0-450.0) L 05/30/18 05:05 MPV 8.6 fL (7.4-11.0) 05/30/18 05:05 Neut % (Auto) 37.3 % (42.0-75.0) L 05/30/18 05:05 Lymph % (Auto) 50.5 % (21.0-51.0) 05/30/18 05:05 [place] % (Auto) 7.8 % (0.0-13.0) 05/30/18 05:05 Eos % (Auto) 3.5 % (0.9-2.9) H 05/30/18 05:05 Baso % (Auto) 0.9 % (0.2-1.0) 05/30/18 05:05 Neut # (Auto) 1.3 x10^3/uL (2.2-4.8) L 05/30/18 05:05 Lymph # (Auto) 1.7 X10^3/uL (1.3-2.9) 05/30/18 05:05 [place] # (Auto) 0.3 x10^3/uL (0.3-0.8) 05/30/18 05:05 Eos # (Auto) 0.1 x10^3/uL (0.0-0.2) 05/30/18 05:05 Baso # (Auto) 0.0 X10^3/uL (0.0-0.1) 05/30/18 05:05 Absolute Nucleated RBC 0.0 /100WBC 05/30/18 05:05 Sodium 137 mmol/L (136-145) 05/30/18 05:05 Corrected Sodium 141 mmol/L (136-145) 05/30/18 05:05 Potassium 4.4 mmol/L (3.5-5.1) 05/30/18 05:05 Chloride 103 mmol/L (98-107) 05/30/18 05:05 Carbon Dioxide 31.7 mmol/L (21-32) 05/30/18 05:05 BUN 10 mg/dL (7-18) 05/30/18 05:05 Creatinine 1.33 mg/dL (0.55-1.02) H 05/30/18 05:05 Est GFR (MDRD) Af Amer 50 (>60) L 05/30/18 05:05 Est GFR (MDRD) Non-Af 41 (>60) L 05/30/18 05:05 Glucose 270 mg/dL (65-99) H 05/30/18 05:05 POC Glucose (mg/dL) 263 mg/dL (65-99) H 05/30/18 05:18 Calcium 8.2 mg/dL (8.5-10.1) L 05/30/18 05:05 Corrected Calcium 9.4 mg/dL (8.5-10.1) 05/30/18 05:05 Magnesium 1.9 mg/dL (1.7-2.9) 05/29/18 05:39 Total Bilirubin 0.30 mg/dL (0.2-1.0) 05/30/18 05:05 AST 25 Units/L (15-37) 05/30/18 05:05 ALT 21 Units/L (12-78) 05/30/18 05:05 Alkaline Phosphatase 131 Units/L (46-116) H 05/30/18 05:05 Total Protein 5.5 g/dL (6.4-8.2) L 05/30/18 05:05 Albumin 2.5 g/dL (3.4-5.0) L 05/30/18 05:05 Globulin 3.0 g/dL (2.5-4.5) 05/30/18 05:05 Albumin/Globulin Ratio 0.8 Ratio (1.1-2.1) L 05/30/18 05:05 Specimen Type Clean catch urine 05/27/18 22:21 Urine Color Aliya (YELLOW) 05/27/18 22:21 Urine Appearance Cloudy (CLEAR) 05/27/18 22:21 Urine pH 5.0 (5.0 - 8.0) 05/27/18 22:21 Ur Specific [place] 1.020 (1.000-1.030) 05/27/18 22:21 Urine Protein 2+ (NEGATIVE) 05/27/18 22:21 Urine Glucose (UA) 3+ (NEGATIVE) 05/27/18 22: Urine Ketones 1+ (NEGATIVE) 05/27/18 22: Urine Occult Blood 1+ (NEGATIVE) 05/27/18 22: Urine Nitrite Positive (NEGATIVE) 05/27/18 22: Urine Bilirubin Negative (NEGATIVE) 05/27/18 22: Urine Urobilinogen 1+ (NORMAL) 05/27/18 22: Ur Leukocyte Esterase 2+ (NEGATIVE) 05/27/18 22:21 Urine RBC 0-2 /HPF (NONE SEEN) 05/27/18 22:21 Urine WBC 10-20 /HPF (NONE SEEN) 05/27/18 22:21 Ur Squamous Epith Cells Few /HPF (NEGATIVE) 05/27/18 22: Urine Bacteria 3+ /HPF (NEGATIVE) 05/27/18 22:21 Ur Culture Indicated? Yes/culture set up 05/27/18 22:21 - Plan (1) COPD exacerbation Status: Acute Plan: IV ATBX, ROCEPHIN FOR UTI, CULTURE PENDING. RESP THERAPY, BLOOD PRESSURE AND BLOOD SUGAR CONTROL. REPEAT AM LABS, CHEST XRAY Q AM. SUPPLEMENTAL O2, JET NEBS. POTASSIUM REPLACEMENT. CASE MANAGEMENT CONSULT FOR PRISON PLACEMENT (2) CAD (coronary artery disease) Status: Chronic Qualifiers: Associated angina: without angina (3) Arthritis Status: Chronic (4) History of TIA (transient ischemic attack) Status: Chronic (5) Hypertension Status: Chronic (6) Diabetes mellitus, type 2 Status: Chronic (7) UTI (urinary tract infection) Status: Acute (8) Hypokalemia Status: Acute
[2018-05-30] MEDS ORDERED: NS 1/2 1000 ML IV 1,000 ML IV ONE (11:01)
[2018-05-30] MEDS: ZYVOX 600MG IV 600 MG/300 ML BAG IV SCH ×2 (11:04→21:46)
[2018-05-30] MEDS: NS 1/2 1000 ML IV 1,000 ML IV SCH (11:05)
[2018-05-30] MEDS: HumuLIN R SUBCUT PRN ×3 (11:37→21:47)
[2018-05-30] MEDS: AMBIEN PO SCH (21:45)
[2018-05-30] MEDS: NEURONTIN CAP 300 MG PO SCH (21:45)
[2018-05-30] MEDS: SNACK - Diabetic Appropriate PO SCH (21:46)
[2018-05-31] MEDS: NS 1/2 1000 ML IV 1,000 ML IV SCH (03:30)
[2018-05-31 05:46] LABS: BASOPHILS % (AUTO) 0.9 % (0.2-1.0); EOSINOPHILS # (AUTO) 0.1 x10^3/uL (0.0-0.2); EOSINOPHILS % (AUTO) 3.3 % (0.9-2.9); HEMATOCRIT 37.1 % (36.0-47.0); HEMOGLOBIN 12.6 g/dL (12.0-16.0); LYMPHOCYTES # (AUTO) 1.5 X10^3/uL (1.3-2.9); LYMPHOCYTES % (AUTO) 42.8 % (21.0-51.0); MEAN CORPUSCULAR HEMOGLOBIN 30.8 pg (27.0-34.0); MEAN CORPUSCULAR HGB CONC 34.1 g/dL (33.0-35.0); MEAN CORPUSCULAR VOLUME 90.4 fL (80.0-100.0); MEAN PLATELET VOLUME 8.8 fL (7.4-11.0); MONOCYTES # (AUTO) 0.3 x10^3/uL (0.3-0.8); MONOCYTES % (AUTO) 7.2 % (0.0-13.0); NEUTROPHILS # (AUTO) 1.7 x10^3/uL (2.2-4.8); NEUTROPHILS % (AUTO) 45.8 % (42.0-75.0); PLATELET COUNT 115 X10^3/uL (150.0-450.0); RED CELL DISTRIBUTION WIDTH 13.6 % (11.6-16.5); WHITE BLOOD COUNT 3.6 X10^3/uL (3.6-10.0)
[2018-05-31 05:53] LABS: ALBUMIN 2.8 g/dL (3.4-5.0); CALCIUM 8.7 mg/dL (8.5-10.1); CARBON DIOXIDE 30.8 mmol/L (21-32); COR CA(FOR HYPOALB) 9.7 mg/dL (8.5-10.1); CREATININE 1.31 mg/dL (0.55-1.02); TOTAL PROTEIN 5.9 g/dL (6.4-8.2)
[2018-05-31] MEDS: HumuLIN R SUBCUT PRN ×4 (06:24→20:47)
[2018-05-31] MEDS: DUONEB 0.5 MG/3 MG NEB SCH ×4 (08:53→21:17)
[2018-05-31] MEDS: MILK OF MAGNESIA PO SCH ×2 (09:36→20:39)
[2018-05-31] MEDS: ROBITUSSIN DM PO SCH ×4 (09:37→20:39)
[2018-05-31] MEDS: MIRALAX POWDER (1 DOSE 17 G) PO SCH (09:37)
[2018-05-31] MEDS: ZYVOX 600MG IV 600 MG/300 ML BAG IV SCH ×2 (09:37→20:33)
[2018-05-31] MEDS: XANAX PO SCH ×2 (09:37→20:31)
[2018-05-31] MEDS: ROCEPHIN VIAL 1 GRAM 1 G in NS 100 ML IV + SPIKE MINIBAG* 100 ML IV SCH (09:37)
[2018-05-31] MEDS: PERCOCET TAB 5/325 MG PO PRN (15:51)
[2018-05-31] MEDS: AMBIEN PO SCH (20:32)
[2018-05-31] MEDS: NEURONTIN CAP 300 MG PO SCH (20:32)
[2018-05-31] MEDS: SNACK - Diabetic Appropriate PO SCH (20:39)
[2018-06-01] MEDS: PERCOCET TAB 5/325 MG PO PRN (00:48)
[2018-06-01 05:20] LABS: BASOPHILS % (AUTO) 1.1 % (0.2-1.0); EOSINOPHILS # (AUTO) 0.1 x10^3/uL (0.0-0.2); EOSINOPHILS % (AUTO) 3.5 % (0.9-2.9); HEMATOCRIT 35.6 % (36.0-47.0); LYMPHOCYTES # (AUTO) 1.6 X10^3/uL (1.3-2.9); LYMPHOCYTES % (AUTO) 40.5 % (21.0-51.0); MEAN CORPUSCULAR HEMOGLOBIN 30.2 pg (27.0-34.0); MEAN CORPUSCULAR HGB CONC 33.6 g/dL (33.0-35.0); MEAN CORPUSCULAR VOLUME 89.8 fL (80.0-100.0); MEAN PLATELET VOLUME 8.5 fL (7.4-11.0); MONOCYTES # (AUTO) 0.3 x10^3/uL (0.3-0.8); MONOCYTES % (AUTO) 6.7 % (0.0-13.0); NEUTROPHILS % (AUTO) 48.2 % (42.0-75.0); PLATELET COUNT 118 X10^3/uL (150.0-450.0); RED BLOOD COUNT 3.96 X10^6/uL (3.5-5.4); RED CELL DISTRIBUTION WIDTH 13.5 % (11.6-16.5); WHITE BLOOD COUNT 4.1 X10^3/uL (3.6-10.0)
[2018-06-01 05:36] LABS: ALBUMIN 2.6 g/dL (3.4-5.0); CALCIUM 8.6 mg/dL (8.5-10.1); CARBON DIOXIDE 28.8 mmol/L (21-32); COR CA(FOR HYPOALB) 9.7 mg/dL (8.5-10.1); CREATININE 1.22 mg/dL (0.55-1.02); TOTAL PROTEIN 5.5 g/dL (6.4-8.2)
[2018-06-01] MEDS: HumuLIN R SUBCUT PRN ×2 (05:52→13:57)
[2018-06-01] MEDS: NS 1/2 1000 ML IV 1,000 ML IV SCH (06:18)
--- NOTE | 2018-06-01 08:16 | RAD ---
HISTORY: Shortness of breath Study: Chest AP portable Comparison: 05/27/2018 Findings: The heart is enlarged. No congestive heart failure is noted. No acute alveolar infiltrates or pleural effusions are identified. The bony thorax is unremarkable. IMPRESSION: Mild cardiomegaly without congestive heart failure Lungs clear Reported By:
[2018-06-01] MEDS: XANAX PO SCH (08:41)
[2018-06-01] MEDS: MIRALAX POWDER (1 DOSE 17 G) PO SCH (08:41)
[2018-06-01] MEDS: ROBITUSSIN DM PO SCH ×2 (08:43→13:56)
[2018-06-01] MEDS: ROCEPHIN VIAL 1 GRAM 1 G in NS 100 ML IV + SPIKE MINIBAG* 100 ML IV SCH (08:43)
[2018-06-01] MEDS: ZYVOX 600MG IV 600 MG/300 ML BAG IV SCH (08:50)
[2018-06-01] MEDS: DUONEB 0.5 MG/3 MG NEB SCH ×2 (09:05→12:10)
[2018-06-01] MEDS ORDERED: DULCOLAX SUPPOSITORY 10 MG RECTAL ONE (10:36)
[2018-06-01] MEDS: MILK OF MAGNESIA PO SCH (11:07)
[2018-06-01] MEDS ORDERED: EFFEXOR XR 37.5 MG CAP PO SCH (13:00)
[2018-06-01 13:01] VITALS: BP 132/62
[2018-06-02] MEDS ORDERED: NORCO 7.5/325 MG TAB ONE (18:41)
== END 2018-06-01 14:00 | disposition home or self-care (01) | DRG 191 ==
LOC: MED/SURG 10:49
PROVIDERS: ADMIT Internal Medicine; ATTEND Internal Medicine
DX: N39.0 Urinary tract infection, site not specified; J44.1 Chronic obstructive pulmonary disease with (acute) exacerbation; Z86.73 Personal history of transient ischemic attack (TIA), and cerebral infarction without residual deficits; E11.65 Type 2 diabetes mellitus with hyperglycemia; E78.2 Mixed hyperlipidemia; I10 Essential (primary) hypertension; M19.90 Unspecified osteoarthritis, unspecified site; R53.1 Weakness; R06.02 Shortness of breath; E87.6 Hypokalemia; J44.0 Chronic obstructive pulmonary disease with (acute) lower respiratory infection; J20.8 Acute bronchitis due to other specified organisms; B95.62 Methicillin resistant Staphylococcus aureus infection as the cause of diseases classified elsewhere; B96.89 Other specified bacterial agents as the cause of diseases classified elsewhere; I25.10 Atherosclerotic heart disease of native coronary artery without angina pectoris
CPT/HCPCS: 36415; 71010; 71045; 80053; 81001; 82947; 83036; 83735; 84132; 85025; 87040; 87070; 87077; 87086; 87088; 87186; 87205; 94640; 94760; 97163; 97167; 97530; 97535; A4222; J0456; J0696; J1815; J2020; J3475; J3480; J7030; J7050; J7620; J8499

== ENCOUNTER 2018-06-16 13:10 | Observation (INO) ==
[2018-06-16] MEDS ORDERED: D50W ABBOJECT SYR ONE (13:12)
[2018-06-16] MEDS ORDERED: D50W ABBOJECT SYR IV ONE (13:28)
[2018-06-16 14:01] LABS: BASOPHILS % (AUTO) 0.4 % (0.2-1.0); EOSINOPHILS # (AUTO) 0.1 x10^3/uL (0.0-0.2); HEMATOCRIT 46.2 % (36.0-47.0); HEMOGLOBIN 15.7 g/dL (12.0-16.0); LYMPHOCYTES # (AUTO) 1.8 X10^3/uL (1.3-2.9); LYMPHOCYTES % (AUTO) 24.5 % (21.0-51.0); MEAN CORPUSCULAR HEMOGLOBIN 30.5 pg (27.0-34.0); MEAN CORPUSCULAR HGB CONC 33.9 g/dL (33.0-35.0); MEAN CORPUSCULAR VOLUME 90.1 fL (80.0-100.0); MEAN PLATELET VOLUME 7.9 fL (7.4-11.0); MONOCYTES # (AUTO) 0.4 x10^3/uL (0.3-0.8); MONOCYTES % (AUTO) 5.8 % (0.0-13.0); NEUTROPHILS # (AUTO) 5.1 x10^3/uL (2.2-4.8); NEUTROPHILS % (AUTO) 68.3 % (42.0-75.0); PLATELET COUNT 148 X10^3/uL (150.0-450.0); RED BLOOD COUNT 5.12 X10^6/uL (3.5-5.4); RED CELL DISTRIBUTION WIDTH 13.5 % (11.6-16.5); WHITE BLOOD COUNT 7.5 X10^3/uL (3.6-10.0)
[2018-06-16] MEDS ORDERED: D5 1/2 NS 1000 ML 1,000 ML IV ONE (14:02)
[2018-06-16] MEDS: D5 1/2 NS 1000 ML 1,000 ML IV SCH (14:07)
[2018-06-16 14:18] LABS: ALANINE AMINOTRANSFERASE 35 Units/L (12-78); ALBUMIN 4.1 g/dL (3.4-5.0); ALKALINE PHOSPHATASE 107 Units/L (46-116); ASPARTATE AMINO TRANSFERASE 51 Units/L (15-37); BLOOD UREA NITROGEN 14 mg/dL (7-18); CARBON DIOXIDE 25.1 mmol/L (21-32); CHLORIDE 102 mmol/L (98-107); CKMB % 3.3 % (<4); CREATINE KINASE 42 Units/L (26-192); CREATINE KINASE MB 1.4 ng/mL (0-4.0); CREATININE 1.48 mg/dL (0.55-1.02); SODIUM 140 mmol/L (136-145); TROPONIN I < 0.02 ng/mL (0-1.5); eGFR NON BLACK RACES 37 (>60)
--- NOTE | 2018-06-16 14:32 | DR.AMS ---
HPI Time Seen Time Seen by Provider: 06/16/18 13:38 PCP Primary Care Physician: Jovi HPI Comment HPI Comment: HERE FROM THE [facility] WITH CONFUSE WITH ALTERED MENTAL STATUS. GLUCOSE IS 28. PATIENT ON LEVAMIR INSULIN AND HER DOSE LAST NIGHT. ATE BREAKFAST BUT HAVE NOT HAD LUNCH YET. GIVEN D50 AND IS CURRENTLY RESPONSIVE BUT STILL DROWSY. Complaint Cheif Complaint Doctors Comments: LOW BLOOD GLUCOSE. Chief Complaint:: half-way staff stated "The patient is diaphoretic and lethargic. Her glucose level would not register. She takes Levemir at night." Reviewed Nurses Notes Reviewed: Yes Source History Provided: Patient (WHEN PATIENT BECAME RESPONSIVE, ANSWERING QUESTIONS) and [facility] Mode of Arrival Mode of Arrival: Stretcher Timing Onset of Chief Complaint: 06/16/18 Came On: Suddenly Symptom Onset: Known Onset of Symptoms Start Date: 06/16/18 Duration Duration: Since Onset Duration: Minutes Severity Severity: Severe Context Recent: None Associated Signs and Symptoms Associated Signs and Symptoms: Generalized Weakness, Change in Behavior and Conf usion PMH PMH Past Medical History: Yes Past Medical History: Anxiety, Arthritis, CHF, Coronary Artery Disease, Dementia, Depression, Diabetes, Dyslipidemia, GERD, Hypertension, MT and Renal Disease Past Surgical History: Yes Surgical History: Angioplasty/Stents and Ortho Surgery Family History History of Family Medical Conditions: Yes Family Medical History: Diabetes Mellitus and Coronary Artery Disease Social History Does patient currently use any type of tobacco product: No Have you used tobacco products in the last 12 months: No Type of Tobacco Use: None Does any household member use tobacco: No Alcohol Use: None Do you use any recreational Drugs:: No Lives Where: [facility] infectious screening In the last 2 months have you had wt loss of >10#?: NO Have you had fever, night sweats or hemotysis?: No Have you traveled outside the country in the last 6 months?: No Isolation: Standard ROS Review of Systems Constitutional: Weakness and Fatigue; negative Chills and Fever Eyes: No Symptoms Reported ENTM: No Symptoms Reported Respiratoy: No Symptoms Reported Cardiovascular: No Symptoms Reported Genitourinary: No Symptoms Reported Neurological: Weakness and Other (ALTERED MENTAL STATUS.) Musculoskeletal: No Symptoms Reported Integumentary: No Symptoms Reported Hematologic/Lymphatic: Easy Bleeding and Easy Bruising Psychiatric: No Symptoms Reported All Other Systems: Reviewed and Negative PE Vitals Vital Signs: Temp Pulse Pulse Resp BP BP BP 06/17/18 12:00 97.9 F 97 H 20 159/58 06/17/18 08:00 97.8 F 90 16 138/64 06/17/18 04:00 97.8 F 81 22 115/56 06/17/18 00:00 97.4 F L 91 H 20 113/53 06/16/18 20:00 97.6 F 82 20 153/66 06/16/18 16:00 98.3 F 88 20 150/71 06/16/18 15:00 85 06/16/18 14:01 132/60 06/16/18 14:00 94 H 06/16/18 13:58 95 H 06/16/18 13:11 97.5 F L 103 H 22 06/01/18 12:00 132/62 132/62 05/30/18 12:00 122/55 04/27/18 12:50 159/68 08/01/16 16:00 127/60 Pulse Ox 06/17/18 12:00 95 06/17/18 08:00 94 L 06/17/18 04:00 96 06/17/18 00:00 94 L 06/16/18 20:00 97 06/16/18 16:00 100 06/16/18 15:00 98 06/16/18 14:01 06/16/18 14:00 94 L 06/16/18 13:58 95 06/16/18 13:11 93 L 06/01/18 12:00 05/30/18 12:00 04/27/18 12:50 08/01/16 16:00 General Limitations: Altered Mental Status General Appearance: Alert (AFTER D50 IV, BECAME ALERT.) and In No Apparent Dis tress Head Head Exam: Normal Inspection, Atraumatic and Normocephalic Head Exam Physical: Other (NONE REPORTED.) Eyes Pupils: Regular, Round: Bilateral and Reactive: Bilateral ENT ENT Exam: Normal Exam, Normal Oropharynx, Normal External Ear Exam, Mucous Membranes Moist and TM's Normal Bilaterally External Ear Exam: Normal External Inspection TM/Canal Exam: Bilateral: Normal Nose Exam: Normal Nose Exam Mouth Exam: Normal Inspection Throat Exam: Normal Inspection Neck Neck Exam: Normal Inspection and Trachea Midline; negative Tenderness, Meningismus and Lymphadenopathy Chest Chest Inspection: Normal Inspection and Symmetric Chest Wall Rise Respiratory Respiratory Exam: Bilateral: Rhonchi and Lower: Rhonchi Cardiovascular Cardiovascular Exam: Regular Rate, Normal Rhythm and Normal Heart Sounds Abdominal Exam Abdominal Exam: Normal Inspection, Normal Bowel Sounds and Soft; negative Ten derness Extremities Extremities Exam: Normal Inspection Back Back Exam: Paraspinal Tenderness (CHRONIC BACK PAIN.) Neurological Neurological Exam: Alert, Oriented X3, CN II-XII Intact and Other (NEURO EXAM AFTER GLUCOSE IMPROVED.); negative Motor Sensory Deficit Cranial Nerve Exam: EOM Function (II, III, IV, ): Normal, Facial Sensation (V): Normal, Facial Palsy (VII): Normal, Gag reflex (XI): Normal, Spinal Accessory Function (XI): Normal and Tongue Deviation: Normal Motor Strength - LUE: 5/5 Motor Strength - RUE: 5/5 Motor Strength - LLE: 4/5 Motor Strength - RLE: 4/5 Psychological Psychiatric Exam: Normal Affect and Normal Mood Skin Skin Exam: Intact MDM Differential Diagnosis Metabolic: Hypoglycemia COURSE Treatment Treatment: SEE ORDERS. Education/Counseling Education/Counseling: Patient and Family ROR Labs Reviewed Laboratory Results Reviewed?: Yes Result Diagrams: 06/16/18 13:20 06/17/18 05:17 Laboratory: WBC 7.5 X10^3/uL (3.6-10.0) 06/16/18 13:20 RBC 5.12 X10^6/uL (3.5-5.4) 06/16/18 13:20 Hgb 15.7 g/dL (12.0-16.0) 06/16/18 13:20 Hct 46.2 % (36.0-47.0) 06/16/18 13:20 MCV 90.1 fL (80.0-100.0) 06/16/18 13:20 MCH 30.5 pg (27.0-34.0) 06/16/18 13:20 MCHC 33.9 g/dL (33.0-35.0) 06/16/18 13:20 RDW 13.5 % (11.6-16.5) 06/16/18 13:20 Plt Count 148 X10^3/uL (150.0-450.0) L 06/16/18 13:20 MPV 7.9 fL (7.4-11.0) 06/16/18 13:20 Neut % (Auto) 68.3 % (42.0-75.0) 06/16/18 13:20 Lymph % (Auto) 24.5 % (21.0-51.0) 06/16/18 13:20 Harmon % (Auto) 5.8 % (0.0-13.0) 06/16/18 13:20 Eos % (Auto) 1.0 % (0.9-2.9) 06/16/18 13:20 Baso % (Auto) 0.4 % (0.2-1.0) 06/16/18 13:20 Neut # (Auto) 5.1 x10^3/uL (2.2-4.8) H 06/16/18 13:20 Lymph # (Auto) 1.8 X10^3/uL (1.3-2.9) 06/16/18 13:20 Harmon # (Auto) 0.4 x10^3/uL (0.3-0.8) 06/16/18 13:20 Eos # (Auto) 0.1 x10^3/uL (0.0-0.2) 06/16/18 13:20 Baso # (Auto) 0.0 X10^3/uL (0.0-0.1) 06/16/18 13:20 Absolute Nucleated RBC 0.1 /100WBC 06/16/18 13:20 INR Target Range - 06/17/18 05:17 INR 1.01 (0.8-1.3) 06/17/18 05:17 Sodium 140 mmol/L (136-145) 06/17/18 05:17 Corrected Sodium 141 mmol/L (136-145) 06/17/18 05:17 Potassium 4.1 mmol/L (3.5-5.1) 06/17/18 05:17 Chloride 103 mmol/L (98-107) 06/17/18 05:17 Carbon Dioxide 27.4 mmol/L (21-32) 06/17/18 05:17 BUN 11 mg/dL (7-18) 06/17/18 05:17 Creatinine 1.33 mg/dL (0.55-1.02) H 06/17/18 05:17 Est GFR (MDRD) Af Amer 50 (>60) L 06/17/18 05:17 Est GFR (MDRD) Non-Af 41 (>60) L 06/17/18 05:17 Glucose 121 mg/dL (65-99) H 06/17/18 05:17 POC Glucose (mg/dL) 206 mg/dL (65-99) H 06/17/18 11:40 Calcium 9.1 mg/dL (8.5-10.1) 06/17/18 05:17 Corrected Calcium 9.7 mg/dL (8.5-10.1) 06/17/18 05:17 Total Bilirubin 0.40 mg/dL (0.2-1.0) 06/17/18 05:17 AST 41 Units/L (15-37) H 06/17/18 05:17 ALT 32 Units/L (12-78) 06/17/18 05:17 Alkaline Phosphatase 93 Units/L (46-116) 06/17/18 05:17 Creatine Kinase 36 Units/L (26-192) 06/17/18 02:20 CK-MB (CK-2) 1.9 ng/mL (0-4.0) 06/17/18 02:20 CK/CKMB % Calc 5.3 % (<4) 06/17/18 02:20 Troponin I 0.03 ng/mL (0-1.5) 06/17/18 02:20 Total Protein 6.7 g/dL (6.4-8.2) 06/17/18 05:17 Albumin 3.3 g/dL (3.4-5.0) L 06/17/18 05:17 Globulin 3.4 g/dL (2.5-4.5) 06/17/18 05:17 Albumin/Globulin Ratio 1.0 Ratio (1.1-2.1) L 06/17/18 05:17 Triglycerides 100 mg/dL (0-150) 06/17/18 05:17 Cholesterol 133 mg/dL (0-200) 06/17/18 05:17 LDL Cholesterol, Calc 67 mg/dL (0-100) 06/17/18 05:17 HDL Cholesterol 46 mg/dL (40-60) 06/17/18 05:17 Cholesterol/HDL Ratio 2.9 (0.0-5.0) 06/17/18 05:17 Specimen Type Clean catch urine 06/16/18 21:19 Urine Color Pale yellow (YELLOW) 06/16/18 21:19 Urine Appearance Clear (CLEAR) 06/16/18 21:19 Urine pH 7.0 (5.0 - 8.0) 06/16/18 21:19 Ur Specific Honeydew 1.010 (1.000-1.030) 06/16/18 21:19 Urine Protein Negative (NEGATIVE) 06/16/18 21:19 Urine Glucose (UA) Negative (NEGATIVE) 06/16/18 21:19 Urine Ketones Negative (NEGATIVE) 06/16/18 21:19 Urine Occult Blood Negative (NEGATIVE) 06/16/18 21:19 Urine Nitrite Negative (NEGATIVE) 06/16/18 21:19 Urine Bilirubin Negative (NEGATIVE) 06/16/18 21:19 Urine Urobilinogen Normal (NORMAL) 06/16/18 21:19 Ur Leukocyte Esterase Negative (NEGATIVE) 06/16/18 21:19 XRAY XRAY Interpreted by: Radiologist XRAY Findings: REPORT NOTED. EKG [place]: Normal Rhythm: NSR Diagnosis Discharge Problem: Hypoglycemia Instructions Instructions: Type 2 Diabetes Mellitus, Diagnosis, Adult Constipation, Adult Hypertension, Jmgc-[id number] Heart Failure, Hgfx-he-Gytk Hypoglycemia, Tdrh-sw-Afig Forms: Patient Portal
[2018-06-16] MEDS ORDERED: PATIENT'S HOME MEDICATION (Oxycodone-Acetaminophen [Oxycodone-Acetaminophen] 1 TAB) PO PRN (15:49)
[2018-06-16] MEDS ORDERED: PHENERGAN TAB 25 MG PO PRN (15:49)
[2018-06-16] MEDS ORDERED: PERCOCET TAB 5/325 MG PO PRN (15:57)
--- NOTE | 2018-06-16 15:57 | RAD ---
HISTORY: Hypoglycemia and diaphoresis Study: Single view of the chest. Comparison: 06/01/2018 Findings: Mild cardiomegaly. No focal consolidations, pleural effusions or pneumothorax. Osseous structures dem onstrate no acute abnormality. IMPRESSION: 1. No acute cardiopulmonary process. Reported By:
[2018-06-16 17:01] VITALS: BMI 39.2
[2018-06-16] MEDS: MIRALAX POWDER (1 DOSE 17 G) PO SCH (17:28)
--- NOTE | 2018-06-16 17:33 | DR.H&P ---
Addendum entered and electronically signed by BARBRA DAVILA 06/17/18 16:38: CANCEL, SEE SHORT STAY SUMMARY Original Note: H&P - History & Physical for Day of: H&P Date: 06/16/18 - Chief Complaint Chief Complaint: ams - Past Medical History Past Medical History: [place], Coronary Artery Disease, Hypertension, Dyslipidemia, Diabetes, Renal Disease, Dementia, Depression, Anxiety, GERD, Arthritis, CHF - Past Surgical History Surgical History: Angioplasty/Stents, Ortho Surgery - Family History Family Medical History: Diabetes Mellitus, Coronary Artery Disease - Social History Does patient currently use any type of tobacco product: No Have you used tobacco products in the last 12 months: No Type of Tobacco Use: None Does any household member use tobacco: No Alcohol Use: None Drug Use: None - Medications Home Medications: ciprofloxacin [From Cipro] Allergy (Verified 06/16/18 14:37) CONTINUE taking the following medications ciclopirox 1 applic TOPICAL HS 06/16/18 [History] venlafaxine 1 tab PO DAILY 06/16/18 [History] - Physical Exam Vital Signs: Temperature 97.5 F Pulse Rate 85 Respiratory Rate 22 Blood Pressure [Right Arm] 132/62 Blood Pressure [Left Arm] 132/60 Blood Pressure [Right Arm] 127/60 Blood Pressure [Left Arm] 159/68 Blood Pressure 132/62 O2 Sat by Pulse Oximetry 98 - Allergies Allergies/Adverse Reactions: Allergies Allergy/AdvReac Type Severity Reaction Status Date / Time ciprofloxacin [From Cipro] Allergy Verified 06/16/18 14:37
[2018-06-16 20:38] LABS: CREATINE KINASE MB 1.6 ng/mL (0-4.0); TROPONIN I 0.03 ng/mL (0-1.5)
[2018-06-16] MEDS ORDERED: CICLOPIROX TP SCH (21:00)
[2018-06-16] MEDS ORDERED: NEURONTIN CAP 300 MG PO SCH (21:00)
[2018-06-16] MEDS ORDERED: AMBIEN PO SCH (21:00)
[2018-06-16] MEDS: XANAX PO SCH (21:45)
[2018-06-16 21:46] LABS: BILIRUBIN,URINE NEGATIVE (NEGATIVE); BLOOD/HEMOGLOBIN,URINE NEGATIVE (NEGATIVE); GLUCOSE, URINE NEGATIVE (NEGATIVE); KETONES,URINE NEGATIVE (NEGATIVE); LEUKOCYTE ESTERASE ,URINE NEGATIVE (NEGATIVE); NITRITES,URINE NEGATIVE (NEGATIVE); PROTEIN,URINE NEGATIVE (NEGATIVE); UROBILINOGEN,URINE NORMAL (NORMAL)
[2018-06-16 21:52] LABS: APPEARANCE,URINE CLEAR (CLEAR); COLOR,URINE PALE YELLOW (YELLOW)
[2018-06-17 03:35] LABS: CKMB % 5.3 % (<4); CREATINE KINASE MB 1.9 ng/mL (0-4.0); TROPONIN I 0.03 ng/mL (0-1.5)
[2018-06-17] MEDS: D5 1/2 NS 1000 ML 1,000 ML IV SCH ×2 (04:20→11:58)
[2018-06-17 06:29] LABS: ALBUMIN 3.3 g/dL (3.4-5.0); CALCIUM 9.1 mg/dL (8.5-10.1); CARBON DIOXIDE 27.4 mmol/L (21-32); CHOL/HDL RATIO 2.9 (0.0-5.0); COR CA(FOR HYPOALB) 9.7 mg/dL (8.5-10.1); CREATININE 1.33 mg/dL (0.55-1.02); TOTAL PROTEIN 6.7 g/dL (6.4-8.2)
[2018-06-17] MEDS: XANAX PO SCH (08:49)
[2018-06-17] MEDS: MIRALAX POWDER (1 DOSE 17 G) PO SCH (08:49)
[2018-06-17] MEDS ORDERED: EFFEXOR TAB 37.5 MG (BID DOSING) PO SCH (09:00)
[2018-06-17 12:03] VITALS: BP 159/58
[2018-06-17] MEDS ORDERED: BUTT CREAM (COMPOUND) ONE (14:26)
--- NOTE | 2018-06-17 16:44 | DR.CARTERS ---
Short Stay Summary - Short Stay Summary for: Short Stay Summary for Date of:: 06/17/18 - Admission Date Date of Admission: 06/16/18 - Discharge Date Discharge Date: 06/17/18 - Admission Diagnoses (1) Hypoglycemia Status: Acute (2) Diabetes mellitus, type 2 Status: Chronic (3) Essential hypertension Status: Chronic - Hospital Course Hospital Course: MS OVALLE IS 77 WF ER ADMISSION AFTER PRESENTING FROM [facility] WITH LOW BLOOD SUGAR, PT BS WAS 29 ON CMP IN ER, PT WAS GIVEN ONE AMP OF D 50 WITH RAPID RESOLUTION OF DIFFUSE WEAKNESS. PT WAS STARTED ON D5NS, STARTED ON REGULAR DIET WHEN SHE WAS ALERT AND ORIENTED. PT STATES SHE WAS ABOUT TO DRINK HER "PEPSI" THEN FELT SUDDENLY WEAK AND "GUESS I PASSED OUT" PT REPORTS ONE EPISODE SEVERAL YEARS AGO. PT HAS REFUSED TO FOLLOW DIABETIC DIET. PT BLOOD SUGAR STABLE IN 80'S ADMITTED FOR MONITORING. HELD INSULIN THERAPY. THIS AM PT ATE REGULAR TRAY FOR BREAKFAST SHE DOES AT [place], DENIES ANY CP SOB OR DIZZINESS. PT WAS ALLOWED TO RESTART JANUMET AND SSI ONLY, D/C BASAL INSULIN. PT WAS D/C BACK TO [facility], SEE DC MEDICATION ON DC PLAN, CONTINUE WITH BS AC AND HS. REPEAT CBC CMP IN ONE WEEK. ENCOURAGED PT TO HYDRATE AND FOLLOW DIABETIC DIET. PT IMPROVED AND STABLE ON D/C - Discharge Medications Discharge Medications: Home Medication List ciclopirox 1 applic TOPICAL HS 06/16/18 [History] venlafaxine 1 tab PO DAILY 06/16/18 [History] Prescriptions: - Discharge Plan Disposition: 03 XFER SNF Condition: Stable - Follow up/Referrals Follow up/Referrals: THANG ROBERT [Primary Care Provider] - 1 WEEK - Instructions Instructions: Type 2 Diabetes Mellitus, Diagnosis, Adult, Constipation, Adult, Hypertension, Hwsv-rl-Bwjq, Heart Failure, Lrlo-yv-Nrkq, Hypoglycemia, Pgwy-kd-Tafz Additional Instructions: Continue home medications including Janumet. Start Humulin R insulin slliding scale protocol. Discontinue Lantus and Levimer. Forms: Patient Portal
== END 2018-06-17 14:55 ==
LOC: ER 13:10 → MED/SURG 13:10
PROVIDERS: ADMIT Internal Medicine; ATTEND Internal Medicine
DX: I10 Essential (primary) hypertension; R94.31 Abnormal electrocardiogram [ECG] [EKG]; I25.10 Atherosclerotic heart disease of native coronary artery without angina pectoris; M13.89 Other specified arthritis, multiple sites; E11.649 Type 2 diabetes mellitus with hypoglycemia without coma; R61 Generalized hyperhidrosis; R41.82 Altered mental status, unspecified; K21.9 Gastro-esophageal reflux disease without esophagitis; F32.89 Other specified depressive episodes; E78.2 Mixed hyperlipidemia; F41.8 Other specified anxiety disorders
CPT/HCPCS: 36415; 71010; 71045; 80053; 80061; 81003; 82550; 82553; 82947; 84484; 85025; 85610; 93005; 93010; 94760; 96365; 96367; 96374; 97162; 97166; 99284; A4216; A4222; G0378; J3490; S5010

== ENCOUNTER 2020-07-30 10:16 | Inpatient (IN) ==
--- NOTE | 2020-07-30 10:22 | DR.DIZZY ---
HPI Time seen Time Seen by Provider: 07/30/20 10:21 PMH PMH Past Medical History: Anxiety, Arthritis, CHF, Coronary Artery Disease, Dementia, Depression, Diabetes, Dyslipidemia, GERD, Hypertension, ND and Renal Disease Past Surgical History: Yes Surgical History: Angioplasty/Stents and Ortho Surgery Family History Family Medical History: Diabetes Mellitus and Coronary Artery Disease Social History Do you use any recreational Drugs:: No PE Vital Signs Vitals: Temperature 97.7 F Pulse Rate 116 Respiratory Rate 20 Blood Pressure [Right Arm] 159/58 Blood Pressure [Left Arm] 132/60 Blood Pressure [Right Arm] 127/60 Blood Pressure [Left Arm] 159/68 Blood Pressure 167/69 O2 Sat by Pulse Oximetry 93 ROR Labs Reviewed Result Diagrams: 07/30/20 10:25 07/30/20 15:33 Laboratory: WBC 7.5 X10^3/uL (3.6-10.0) 07/30/20 10:25 RBC 4.20 X10^6/uL (3.5-5.4) 07/30/20 10:25 Hgb 12.0 g/dL (12.0-16.0) 07/30/20 10:25 Hct 37.8 % (36.0-47.0) 07/30/20 10:25 MCV 89.8 fL (80.0-100.0) 07/30/20 10:25 MCH 28.6 pg (27.0-34.0) 07/30/20 10:25 MCHC 31.9 g/dL (33.0-35.0) L 07/30/20 10:25 RDW 14.5 % (11.6-16.5) 07/30/20 10:25 Plt Count 172 X10^3/uL (150.0-450.0) 07/30/20 10:25 MPV 8.8 fL (7.4-11.0) 07/30/20 10:25 Neut % (Auto) 73.4 % (42.0-75.0) 07/30/20 10:25 Lymph % (Auto) 20.1 % (21.0-51.0) L 07/30/20 10:25 [place] % (Auto) 5.4 % (0.0-13.0) 07/30/20 10:25 Eos % (Auto) 0.6 % (0.9-2.9) L 07/30/20 10:25 Baso % (Auto) 0.5 % (0.2-1.0) 07/30/20 10:25 Neut # (Auto) 5.5 x10^3/uL (2.2-4.8) H 07/30/20 10:25 Lymph # (Auto) 1.5 X10^3/uL (1.3-2.9) 07/30/20 10:25 Cascade # (Auto) 0.4 x10^3/uL (0.3-0.8) 07/30/20 10:25 Eos # (Auto) 0.0 x10^3/uL (0.0-0.2) 07/30/20 10:25 Baso # (Auto) 0.0 X10^3/uL (0.0-0.1) 07/30/20 10:25 Absolute Nucleated RBC 0.1 /100WBC 07/30/20 10:25 PT 13.3 SECONDS (11.8-14.3) 07/30/20 10:25 INR Target Range - 07/30/20 10:25 INR 1.04 (0.8-1.3) 07/30/20 10:25 APTT 28.5 SECONDS (22.9-36.5) 07/30/20 10:25 PTT Comment - 07/30/20 10:25 Sample Site Lrad 07/30/20 12:12 ABG pH 7.390 (7.35-7.45) 07/30/20 12:12 ABG pCO2 43.0 mmHg (35.0-45.0) 07/30/20 12:12 ABG pO2 76.0 mmHg (80.0-100.0) L 07/30/20 12:12 ABG HCO3 26.0 mmol/L (22-26) 07/30/20 12:12 ABG O2 Saturation 95.0 % (90-100) 07/30/20 12:12 ABG Base Excess 0.8 mmol/L (-2.0-2.0) 07/30/20 12:12 Antonio Test Pos 07/30/20 12:12 A-a Gradient 20.0 mmHg 07/30/20 12:12 FiO2 21.0 07/30/20 12:12 Blood Gas Comments Pt young well elj 07/30/20 12:12 Sodium 120 mmol/L (136-145) L* 07/30/20 10:25 Corrected Sodium 140 mmol/L (136-145) 07/30/20 10:25 Potassium 4.6 mmol/L (3.5-5.1) 07/30/20 10:25 Chloride 87 mmol/L (98-107) L 07/30/20 10:25 Carbon Dioxide 25.3 mmol/L (21-32) 07/30/20 10:25 BUN 18 mg/dL (7-18) 07/30/20 10:25 Creatinine 1.68 mg/dL (0.55-1.02) H 07/30/20 10:25 Est GFR (MDRD) Af Amer 38 (>60) L 07/30/20 10:25 Est GFR (MDRD) Non-Af 31 (>60) L 07/30/20 10:25 Glucose 948 mg/dL (65-99) H* 07/30/20 10:25 POC Glucose (mg/dL) 569 mg/dL (65-99) H* 07/30/20 13:47 Calcium 9.3 mg/dL (8.5-10.1) 07/30/20 10:25 Corrected Calcium 10.3 mg/dL (8.5-10.1) H 07/30/20 10:25 Total Bilirubin 0.50 mg/dL (0.2-1.0) 07/30/20 10:25 AST 18 Units/L (15-37) 07/30/20 10:25 ALT 15 Units/L (12-78) 07/30/20 10:25 Alkaline Phosphatase 257 Units/L (46-116) H 07/30/20 10:25 Creatine Kinase 47 Units/L (26-192) 07/30/20 10:25 CK-MB (CK-2) 1.1 ng/mL (0-4.0) 07/30/20 10:25 CK/CKMB % Calc 2.3 % (<4) 07/30/20 10:25 Troponin I 0.05 ng/mL (0-1.5) 07/30/20 10:25 Total Protein 6.7 g/dL (6.4-8.2) 07/30/20 10:25 Albumin 2.8 g/dL (3.4-5.0) L 07/30/20 10:25 Globulin 3.9 g/dL (2.5-4.5) 07/30/20 10:25 Albumin/Globulin Ratio 0.7 Ratio (1.1-2.1) L 07/30/20 10:25 Amylase 11 Units/L (25-115) L 07/30/20 10:25 Lipase 210 Units/L (73-393) 07/30/20 10:25 Acetone, Semi-Quant Negative (NEGATIVE) 07/30/20 10:25 SARS-CoV-2 (PCR) Negative (NEGATIVE) 07/30/20 11:51 Opioid Opioid Risk Tool Total: 0 Total Score Risk Category: Low Risk Copyright: Peter BERNAL predicting aberrant behaviors
[2020-07-30 10:30] VITALS: BMI 34.4
[2020-07-30] MEDS ORDERED: ZOFRAN INJ 4 MG VIAL IVP ONE (10:36)
[2020-07-30] MEDS ORDERED: MORPHINE SULFATE INJ 4 MG IVP ONE (10:36)
[2020-07-30 10:43] LABS: BASOPHILS % (AUTO) 0.5 % (0.2-1.0); EOSINOPHILS % (AUTO) 0.6 % (0.9-2.9); HEMATOCRIT 37.8 % (36.0-47.0); LYMPHOCYTES # (AUTO) 1.5 X10^3/uL (1.3-2.9); LYMPHOCYTES % (AUTO) 20.1 % (21.0-51.0); MEAN CORPUSCULAR HEMOGLOBIN 28.6 pg (27.0-34.0); MEAN CORPUSCULAR HGB CONC 31.9 g/dL (33.0-35.0); MEAN CORPUSCULAR VOLUME 89.8 fL (80.0-100.0); MEAN PLATELET VOLUME 8.8 fL (7.4-11.0); MONOCYTES # (AUTO) 0.4 x10^3/uL (0.3-0.8); MONOCYTES % (AUTO) 5.4 % (0.0-13.0); NEUTROPHILS # (AUTO) 5.5 x10^3/uL (2.2-4.8); NEUTROPHILS % (AUTO) 73.4 % (42.0-75.0); PLATELET COUNT 172 X10^3/uL (150.0-450.0); RED CELL DISTRIBUTION WIDTH 14.5 % (11.6-16.5); WHITE BLOOD COUNT 7.5 X10^3/uL (3.6-10.0)
[2020-07-30] MEDS ORDERED: MORPHINE SULFATE INJ 4 MG ONE (10:46)
[2020-07-30] MEDS ORDERED: ZOFRAN INJ 4 MG VIAL ONE (10:46)
[2020-07-30 11:01] LABS: ALBUMIN 2.8 g/dL (3.4-5.0); CALCIUM 9.3 mg/dL (8.5-10.1); CARBON DIOXIDE 25.3 mmol/L (21-32); CKMB % 2.3 % (<4); COR CA(FOR HYPOALB) 10.3 mg/dL (8.5-10.1); CREATINE KINASE MB 1.1 ng/mL (0-4.0); CREATININE 1.68 mg/dL (0.55-1.02); TOTAL PROTEIN 6.7 g/dL (6.4-8.2); TROPONIN I 0.05 ng/mL (0-1.5)
[2020-07-30] MEDS ORDERED: NS 1000 ML 1,000 ML ONE ×2 (11:33→14:44)
[2020-07-30] MEDS: NS 1000 ML 1,000 ML IV SCH ×2 (11:37→14:54)
[2020-07-30 12:19] LABS: ABG BASE EXCESS 0.8 mmol/L (-2.0-2.0)
[2020-07-30 12:20] LABS: ABG ALLEN TEST POS
[2020-07-30] MEDS ORDERED: HumuLIN R IV ONE (12:21)
[2020-07-30] MEDS ORDERED: HumuLIN R ONE ×2 (12:23→14:00)
[2020-07-30] MEDS ORDERED: HumuLIN R SUBCUT ONE (13:57)
[2020-07-30] MEDS: HumuLIN R SC PRN ×2 (16:10→20:15)
[2020-07-30] MEDS ORDERED: ZOFRAN INJ 4 MG VIAL IVP PRN (16:16)
[2020-07-30] MEDS ORDERED: VANCOMYCIN IV *PREMIX 1 G/200 ML BAG 1 G/200 ML PIGGYBACK IV ONE (16:46)
[2020-07-30 17:40] LABS: BILIRUBIN,URINE NEGATIVE (NEGATIVE); BLOOD/HEMOGLOBIN,URINE 1+ (NEGATIVE); GLUCOSE, URINE 4+ (NEGATIVE); KETONES,URINE NEGATIVE (NEGATIVE); LEUKOCYTE ESTERASE ,URINE NEGATIVE (NEGATIVE); NITRITES,URINE POSITIVE (NEGATIVE); PROTEIN,URINE 2+ (NEGATIVE); UROBILINOGEN,URINE NORMAL (NORMAL)
[2020-07-30 17:52] LABS: APPEARANCE,URINE CLOUDY (CLEAR); BACTERIA,URINE 2+ /HPF (NEGATIVE); COLOR,URINE YELLOW (YELLOW); RBC,URINE 0-2 /HPF (0-3); SQUAMOUS EPITHELIAL CELL,UR NEGATIVE /HPF (NEGATIVE)
[2020-07-30] MEDS: NYSTATIN POWDER TOP SCH ×2 (18:07→20:04)
[2020-07-30] MEDS: SNACK - Diabetic Appropriate PO SCH (19:26)
[2020-07-30] MEDS: MORPHINE SULFATE INJ 2 MG INJ IVP PRN (20:04)
[2020-07-30] MEDS: XANAX PO PRN (21:26)
[2020-07-31] MEDS: MORPHINE SULFATE INJ 2 MG INJ IVP PRN ×4 (01:40→22:38)
[2020-07-31] MEDS: NS 1000 ML 1,000 ML IV SCH ×3 (03:09→15:37)
[2020-07-31 05:40] LABS: BASOPHILS % (AUTO) 0.5 % (0.2-1.0); EOSINOPHILS # (AUTO) 0.1 x10^3/uL (0.0-0.2); EOSINOPHILS % (AUTO) 2.2 % (0.9-2.9); LYMPHOCYTES # (AUTO) 2.4 X10^3/uL (1.3-2.9); MEAN CORPUSCULAR HEMOGLOBIN 28.6 pg (27.0-34.0); MEAN CORPUSCULAR HGB CONC 33.2 g/dL (33.0-35.0); MEAN CORPUSCULAR VOLUME 86.1 fL (80.0-100.0); MEAN PLATELET VOLUME 8.4 fL (7.4-11.0); MONOCYTES # (AUTO) 0.3 x10^3/uL (0.3-0.8); MONOCYTES % (AUTO) 4.8 % (0.0-13.0); NEUTROPHILS # (AUTO) 3.4 x10^3/uL (2.2-4.8); NEUTROPHILS % (AUTO) 53.5 % (42.0-75.0); PLATELET COUNT 179 X10^3/uL (150.0-450.0); RED BLOOD COUNT 4.18 X10^6/uL (3.5-5.4); RED CELL DISTRIBUTION WIDTH 14.5 % (11.6-16.5); WHITE BLOOD COUNT 6.3 X10^3/uL (3.6-10.0)
[2020-07-31 05:48] LABS: ALBUMIN 2.6 g/dL (3.4-5.0); CALCIUM 9.2 mg/dL (8.5-10.1); CARBON DIOXIDE 27.8 mmol/L (21-32); COR CA(FOR HYPOALB) 10.3 mg/dL (8.5-10.1); CREATININE 1.18 mg/dL (0.55-1.02); MAGNESIUM 1.3 mg/dL (1.7-2.9); TOTAL PROTEIN 6.2 g/dL (6.4-8.2)
[2020-07-31] MEDS: HumuLIN R SC PRN ×4 (05:59→20:56)
[2020-07-31] MEDS ORDERED: POTASSIUM CHLORIDE LIQ 20 MEQ UDC PO PRN (08:28)
[2020-07-31] MEDS ORDERED: K-DUR TAB 20 MEQ PO PRN (08:28)
[2020-07-31] MEDS ORDERED: POTASSIUM CHL 60 MEQ/NS 0.45% 500 ML IV PRN (08:28)
[2020-07-31] MEDS ORDERED: POTASSIUM CHL 40 MEQ/NS 0.45% 500 ML IV PRN (08:28)
[2020-07-31] MEDS ORDERED: MICRO K EXTEN CAP 10 MEQ PO PRN (08:28)
[2020-07-31] MEDS ORDERED: K-RIDER 10 MEQ/NS 100 ML 10 MEQ/100 ML BAG IV PRN (08:28)
[2020-07-31] MEDS ORDERED: KLOR-CON PO PRN (08:28)
--- NOTE | 2020-07-31 09:08 | RAD ---
HISTORYCOPD, CAD, CHF, SOBSTUDYCHEST, 1 VIEWCOMPARISONPrevious chest radiograph from 07/05/2019FINDINGSMild cardiomegaly is seen. No significant vascular congestion however. Mild degree of atelectasis is seen in the right suprahilar and basilar region. Otherwise lungs are clear with no infiltrate or significant effusion on either side. Bony thorax is unremarkable.IMPRESSION1. Mild cardiomegaly.2. Minimal atelectasis is noted on the right.Electronically signed by: SHELL AMAYA (Jul 31, 2020 09:07:02)
[2020-07-31] MEDS: NYSTATIN POWDER TOP SCH (10:04)
[2020-07-31] MEDS: PERCOCET TAB 5/325 MG PO PRN ×2 (10:06→16:10)
[2020-07-31] MEDS: XANAX PO PRN ×2 (10:10→20:55)
[2020-07-31] MEDS: LOVENOX INJ 40 MG SYR SC SCH (13:28)
[2020-07-31] MEDS: MERREM VIAL 500 MG in NS 100 ML IV + SPIKE MINIBAG* 100 ML IV SCH ×2 (13:31→21:01)
--- NOTE | 2020-07-31 13:45 | DR.H&P ---
H&P - History & Physical for Day of: H&P Date: 07/30/20 - Chief Complaint Chief Complaint: ELEVATED BLOOD SUGAR, BACK PAIN, WEAKNESS - History of Present Illness History of Present Illness: PT IS 79WF ER ADMISSION WITH CO HER BLOOD SUGAR RUNNING HIGH, INCREASED PAIN TO LOWER BACK WITH REPORTS PER PT OF FALLS. PT HAD ULCERATION TO HER BUTTOCKS AND UTI ON ADMISSION. PT DENIES ANY KNOWN COVID EXPOSURE. PT ADMITTED FOR TREATMENT OF ACUTE ILLNESS, R/O SEPSIS. PT HAS PMH OF COPD, CAD, HTN, OA, YAMINI, AND DM - Past Medical History Past Medical History: ND, Coronary Artery Disease, Hypertension, Dyslipidemia, Diabetes, Renal Disease, Dementia, Depression, Anxiety, GERD, Arthritis, CHF - Past Surgical History Surgical History: Angioplasty/Stents, Ortho Surgery - Family History Family Medical History: Diabetes Mellitus, Coronary Artery Disease - Social History Does patient currently use any type of tobacco product: No Have you used tobacco products in the last 12 months: No Type of Tobacco Use: None Does any household member use tobacco: No Alcohol Use: None Drug Use: None - Medications Home Medications: ciprofloxacin [From Cipro] Allergy (Verified 06/16/18 14:37) CONTINUE taking the following medications alprazolam 0.5 mg PO BID 07/31/20 [History] aripiprazole 2 mg PO DAILY 07/31/20 [History] atorvastatin 10 mg PO DAILY 07/31/20 [History] carbidopa-levodopa 1 tab PO BID 07/31/20 [History] donepezil 5 mg PO DAILY 07/31/20 [History] linaclotide [Linzess] 290 mcg PO DAILY 07/31/20 [History] lisinopril 5 mg PO DAILY 07/31/20 [History] pantoprazole 40 mg PO DAILY 07/31/20 [History] venlafaxine 75 mg PO DAILY 07/31/20 [History] - Review of Systems Constitutional: Chills, Weakness, Malaise Eyes: No Symptoms Reported ENT: No Symptoms Reported Respiratory: SOB with Excertion Cardiovascular: Edema Gastrointestinal: Nausea Genitourinary: Frequency Musculoskeletal: Back Pain Skin: Wound Neurological: Weakness - Physical Exam Vital Signs: Temperature 97.6 F Pulse Rate [Right Radial] 110 Pulse Rate 116 Respiratory Rate 20 Blood Pressure [Right Arm] 127/57 Blood Pressure [Left Arm] 132/60 Blood Pressure [Right Arm] 127/60 Blood Pressure [Left Arm] 159/68 Blood Pressure 167/69 O2 Sat by Pulse Oximetry 96 Oriented: Normal Eyes: Normal Ear: Normal Nose: Normal Throat: Dry Respiratory: RLL Diminished, LLL Diminished Cardiovascular: Normal, Edema : Normal Auscultation: Bowel Sounds: Bruit Palpation: Normal Tenderness: Normal Skin: Decreased Turgur, Wound Musculoskeletal: Back:Thoracic, Back:Lumbar Psychiatric: Anxiety Affect: Anxious Speech Pattern: Clear, Appropriate - Assessment/Plan (1) Hyponatremia Status: Acute Plan: ADMIT, GENTLE IV HYDRATION. BS CONTROL, CXR ON ADMISSION. VERIFY HOME MEDICATION, CE AND EKG ON ADMISSION. STRICT I&OS, IV ATBX. UC AND BC (2) Hyperglycemia due to type 2 diabetes mellitus Status: Acute (3) Sacral decubitus ulcer, stage II Status: Acute (4) CAD (coronary artery disease) Qualifiers: Associated angina: without angina Status: Chronic (5) Diabetes mellitus, type 2 Status: Chronic (6) Degenerative disc disease, lumbar Status: Chronic (7) Essential hypertension Status: Chronic - Allergies Allergies/Adverse Reactions: Allergies Allergy/AdvReac Type Severity Reaction Status Date / Time ciprofloxacin [From Cipro] Allergy Verified 06/16/18 14:37
[2020-07-31] MEDS: MAGNESIUM SULFATE 1 GRAM/100 mL PREMIX 1 GM/100 ML BAG IV PRN ×3 (16:35→22:06)
[2020-07-31] MEDS ORDERED: BUTT CREAM (COMPOUND) TOP PRN (16:37)
[2020-07-31] MEDS: SNACK - Diabetic Appropriate PO SCH (21:26)
[2020-08-01] MEDS: MAGNESIUM SULFATE 1 GRAM/100 mL PREMIX 1 GM/100 ML BAG IV PRN (00:07)
[2020-08-01] MEDS: NS 1000 ML 1,000 ML IV SCH ×2 (05:35→19:02)
[2020-08-01] MEDS: MERREM VIAL 500 MG in NS 100 ML IV + SPIKE MINIBAG* 100 ML IV SCH ×3 (05:36→21:00)
[2020-08-01] MEDS: PERCOCET TAB 5/325 MG PO PRN ×3 (05:54→23:19)
[2020-08-01] MEDS: HumuLIN R SC PRN ×4 (05:55→21:00)
[2020-08-01 05:59] LABS: ALBUMIN 2.6 g/dL (3.4-5.0); COR CA(FOR HYPOALB) 10.1 mg/dL (8.5-10.1); CREATININE 1.2 mg/dL (0.55-1.02); TOTAL PROTEIN 6.4 g/dL (6.4-8.2)
--- NOTE | 2020-08-01 05:59 | RAD ---
HISTORYCOPD, shortness of breathSTUDYChest AP [id number]/09/2020FINDINGSThe heart remains enlarged. No congestive heart failure is noted. The yuni are normal. The lungs are well inflated and free of acute infiltrates. No pleural effusions are identified. Bony thorax is unremarkable.IMPRESSIONCardiomegaly without congestive heart failureNo definite infiltratesElectronically signed by: NELIDA HE (Aug 01, 2020 05:57:49)
[2020-08-01 06:06] LABS: BASOPHILS % (AUTO) 0.5 % (0.2-1.0); EOSINOPHILS # (AUTO) 0.1 x10^3/uL (0.0-0.2); EOSINOPHILS % (AUTO) 2.4 % (0.9-2.9); HEMATOCRIT 35.6 % (36.0-47.0); HEMOGLOBIN 11.8 g/dL (12.0-16.0); LYMPHOCYTES # (AUTO) 2.3 X10^3/uL (1.3-2.9); LYMPHOCYTES % (AUTO) 38.1 % (21.0-51.0); MEAN CORPUSCULAR HEMOGLOBIN 28.3 pg (27.0-34.0); MEAN CORPUSCULAR HGB CONC 33.1 g/dL (33.0-35.0); MEAN CORPUSCULAR VOLUME 85.7 fL (80.0-100.0); MONOCYTES # (AUTO) 0.3 x10^3/uL (0.3-0.8); MONOCYTES % (AUTO) 5.6 % (0.0-13.0); NEUTROPHILS # (AUTO) 3.3 x10^3/uL (2.2-4.8); NEUTROPHILS % (AUTO) 53.4 % (42.0-75.0); PLATELET COUNT 193 X10^3/uL (150.0-450.0); RED BLOOD COUNT 4.16 X10^6/uL (3.5-5.4); RED CELL DISTRIBUTION WIDTH 14.8 % (11.6-16.5); WHITE BLOOD COUNT 6.2 X10^3/uL (3.6-10.0)
[2020-08-01] MEDS: NYSTATIN POWDER TOP SCH ×3 (06:15→21:59)
[2020-08-01] MEDS: XANAX PO PRN ×2 (08:34→20:49)
[2020-08-01] MEDS: LOVENOX INJ 40 MG SYR SC SCH (08:35)
[2020-08-01] MEDS: MORPHINE SULFATE INJ 2 MG INJ IVP PRN ×2 (09:56→20:50)
[2020-08-01] MEDS: SNACK - Diabetic Appropriate PO SCH (21:00)
[2020-08-02 05:42] LABS: ALANINE AMINOTRANSFERASE 12 Units/L (12-78); ALBUMIN 2.5 g/dL (3.4-5.0); ALKALINE PHOSPHATASE 104 Units/L (46-116); ASPARTATE AMINO TRANSFERASE 17 Units/L (15-37); BLOOD UREA NITROGEN 6 mg/dL (7-18); CARBON DIOXIDE 24.7 mmol/L (21-32); CHLORIDE 104 mmol/L (98-107); COR CA(FOR HYPOALB) 10.2 mg/dL (8.5-10.1); COR NA(FOR HYPERGLY) 143 mmol/L (136-145); SODIUM 139 mmol/L (136-145); TOTAL PROTEIN 6.1 g/dL (6.4-8.2); eGFR NON BLACK RACES 51 (>60)
[2020-08-02] MEDS: MERREM VIAL 500 MG in NS 100 ML IV + SPIKE MINIBAG* 100 ML IV SCH ×3 (05:54→22:21)
[2020-08-02] MEDS: HumuLIN R SC PRN ×4 (05:54→20:36)
[2020-08-02] MEDS: PERCOCET TAB 5/325 MG PO PRN ×3 (05:55→23:03)
[2020-08-02 05:58] LABS: BASOPHILS % (AUTO) 0.4 % (0.2-1.0); EOSINOPHILS # (AUTO) 0.2 x10^3/uL (0.0-0.2); EOSINOPHILS % (AUTO) 2.7 % (0.9-2.9); HEMATOCRIT 35.5 % (36.0-47.0); HEMOGLOBIN 11.6 g/dL (12.0-16.0); LYMPHOCYTES # (AUTO) 2.3 X10^3/uL (1.3-2.9); LYMPHOCYTES % (AUTO) 40.4 % (21.0-51.0); MEAN CORPUSCULAR HEMOGLOBIN 28.3 pg (27.0-34.0); MEAN CORPUSCULAR HGB CONC 32.7 g/dL (33.0-35.0); MEAN CORPUSCULAR VOLUME 86.5 fL (80.0-100.0); MONOCYTES # (AUTO) 0.3 x10^3/uL (0.3-0.8); MONOCYTES % (AUTO) 5.8 % (0.0-13.0); NEUTROPHILS # (AUTO) 2.8 x10^3/uL (2.2-4.8); NEUTROPHILS % (AUTO) 50.7 % (42.0-75.0); PLATELET COUNT 187 X10^3/uL (150.0-450.0); RED BLOOD COUNT 4.11 X10^6/uL (3.5-5.4); RED CELL DISTRIBUTION WIDTH 14.4 % (11.6-16.5); WHITE BLOOD COUNT 5.6 X10^3/uL (3.6-10.0)
--- NOTE | 2020-08-02 06:00 | RAD ---
HISTORYFOLLOW UP TO PREVIOUS STUDYSTUDYCHEST, 1 VIEWCOMPARISONOne day priorTECHNIQUEAP view of the chestFINDINGSThe cardiac and mediastinal contours are within normal limits. The lungs are clear without focal consolidation or segmental collapse. No pleural effusion or pneumothorax.IMPRESSIONNo acute pulmonary process.Electronically signed by: Sathish Moura (Aug 02, 2020 05:59:52)
[2020-08-02] MEDS: NS 1000 ML 1,000 ML IV SCH (08:33)
[2020-08-02] MEDS: NYSTATIN POWDER TOP SCH ×2 (08:35→20:35)
[2020-08-02] MEDS: LOVENOX INJ 40 MG SYR SC SCH (08:38)
[2020-08-02] MEDS: XANAX PO PRN (12:19)
[2020-08-02] MEDS: LANTUS SC SCH ×2 (17:10→20:34)
[2020-08-02] MEDS: VIBRAMYCIN 100 MG in D5W 250 ML IV 250 ML IV SCH ×2 (17:15→20:35)
[2020-08-02] MEDS: PROTONIX TAB 40 MG PO SCH (17:15)
[2020-08-02] MEDS: ZESTRIL TAB 5 MG PO SCH (17:15)
[2020-08-02] MEDS: XANAX PO SCH ×2 (17:48→20:35)
[2020-08-02] MEDS: SNACK - Diabetic Appropriate PO SCH (20:00)
[2020-08-02] MEDS ORDERED: SNACK - Diabetic Appropriate PO SCH (20:00)
[2020-08-02] MEDS: MORPHINE SULFATE INJ 2 MG INJ IVP PRN (20:36)
[2020-08-03] MEDS: NS 1000 ML 1,000 ML IV SCH ×3 (03:04→21:42)
[2020-08-03] MEDS: MORPHINE SULFATE INJ 2 MG INJ IVP PRN ×3 (04:42→21:43)
[2020-08-03 05:32] LABS: BASOPHILS % (AUTO) 0.6 % (0.2-1.0); EOSINOPHILS # (AUTO) 0.2 x10^3/uL (0.0-0.2); EOSINOPHILS % (AUTO) 2.9 % (0.9-2.9); HEMOGLOBIN 11.9 g/dL (12.0-16.0); LYMPHOCYTES # (AUTO) 2.4 X10^3/uL (1.3-2.9); LYMPHOCYTES % (AUTO) 41.9 % (21.0-51.0); MEAN CORPUSCULAR HEMOGLOBIN 28.5 pg (27.0-34.0); MEAN CORPUSCULAR HGB CONC 32.9 g/dL (33.0-35.0); MEAN CORPUSCULAR VOLUME 86.7 fL (80.0-100.0); MEAN PLATELET VOLUME 8.1 fL (7.4-11.0); MONOCYTES # (AUTO) 0.4 x10^3/uL (0.3-0.8); MONOCYTES % (AUTO) 6.5 % (0.0-13.0); NEUTROPHILS # (AUTO) 2.8 x10^3/uL (2.2-4.8); NEUTROPHILS % (AUTO) 48.1 % (42.0-75.0); PLATELET COUNT 191 X10^3/uL (150.0-450.0); RED BLOOD COUNT 4.15 X10^6/uL (3.5-5.4); WHITE BLOOD COUNT 5.7 X10^3/uL (3.6-10.0)
[2020-08-03 05:41] LABS: ALBUMIN 2.6 g/dL (3.4-5.0); CALCIUM 9.4 mg/dL (8.5-10.1); CARBON DIOXIDE 26.6 mmol/L (21-32); COR CA(FOR HYPOALB) 10.5 mg/dL (8.5-10.1); CREATININE 1.14 mg/dL (0.55-1.02); TOTAL PROTEIN 6.2 g/dL (6.4-8.2)
[2020-08-03] MEDS: MERREM VIAL 500 MG in NS 100 ML IV + SPIKE MINIBAG* 100 ML IV SCH ×3 (06:00→21:41)
[2020-08-03] MEDS: HumuLIN R SC PRN ×4 (06:01→21:54)
[2020-08-03] MEDS: XANAX PO SCH ×2 (09:30→21:53)
[2020-08-03] MEDS: PROTONIX TAB 40 MG PO SCH (09:30)
[2020-08-03] MEDS: EFFEXOR XR 75 MG CAP 24-HR PO SCH (09:30)
[2020-08-03] MEDS: VIBRAMYCIN 100 MG in D5W 250 ML IV 250 ML IV SCH ×2 (09:31→22:00)
[2020-08-03] MEDS: NYSTATIN POWDER TOP SCH ×2 (09:31→21:53)
[2020-08-03] MEDS: ZESTRIL TAB 5 MG PO SCH (09:31)
[2020-08-03] MEDS: LOVENOX INJ 40 MG SYR SC SCH (09:32)
[2020-08-03] MEDS: PERCOCET TAB 5/325 MG PO PRN ×2 (10:47→17:35)
[2020-08-03] MEDS: SNACK - Diabetic Appropriate PO SCH (20:00)
[2020-08-03] MEDS ORDERED: LANTUS SC SCH (21:00)
[2020-08-03] MEDS: RESTORIL CAP 15 MG PO PRN (23:24)
[2020-08-04] MEDS: NS 1000 ML 1,000 ML IV SCH ×2 (05:51→16:33)
[2020-08-04 06:11] LABS: BASOPHILS % (AUTO) 0.6 % (0.2-1.0); EOSINOPHILS # (AUTO) 0.2 x10^3/uL (0.0-0.2); EOSINOPHILS % (AUTO) 3.4 % (0.9-2.9); HEMATOCRIT 35.8 % (36.0-47.0); HEMOGLOBIN 11.6 g/dL (12.0-16.0); LYMPHOCYTES # (AUTO) 2.1 X10^3/uL (1.3-2.9); LYMPHOCYTES % (AUTO) 44.4 % (21.0-51.0); MEAN CORPUSCULAR HEMOGLOBIN 28.5 pg (27.0-34.0); MEAN CORPUSCULAR HGB CONC 32.3 g/dL (33.0-35.0); MEAN CORPUSCULAR VOLUME 88.2 fL (80.0-100.0); MONOCYTES # (AUTO) 0.3 x10^3/uL (0.3-0.8); MONOCYTES % (AUTO) 5.8 % (0.0-13.0); NEUTROPHILS # (AUTO) 2.2 x10^3/uL (2.2-4.8); NEUTROPHILS % (AUTO) 45.8 % (42.0-75.0); PLATELET COUNT 167 X10^3/uL (150.0-450.0); RED BLOOD COUNT 4.06 X10^6/uL (3.5-5.4); RED CELL DISTRIBUTION WIDTH 14.6 % (11.6-16.5); WHITE BLOOD COUNT 4.8 X10^3/uL (3.6-10.0)
[2020-08-04] MEDS: MERREM VIAL 500 MG in NS 100 ML IV + SPIKE MINIBAG* 100 ML IV SCH ×3 (06:26→22:30)
[2020-08-04] MEDS: HumuLIN R SC PRN ×3 (06:27→16:26)
[2020-08-04 06:29] LABS: ALANINE AMINOTRANSFERASE 11 Units/L (12-78); ALBUMIN 2.5 g/dL (3.4-5.0); ALKALINE PHOSPHATASE 95 Units/L (46-116); ASPARTATE AMINO TRANSFERASE 20 Units/L (15-37); BLOOD UREA NITROGEN 9 mg/dL (7-18); CARBON DIOXIDE 25.2 mmol/L (21-32); CHLORIDE 103 mmol/L (98-107); COR CA(FOR HYPOALB) 10.2 mg/dL (8.5-10.1); COR NA(FOR HYPERGLY) 140 mmol/L (136-145); CREATININE 1.05 mg/dL (0.55-1.02); SODIUM 136 mmol/L (136-145); eGFR NON BLACK RACES 54 (>60)
[2020-08-04] MEDS: XANAX PO SCH ×2 (09:43→20:14)
[2020-08-04] MEDS: ZESTRIL TAB 5 MG PO SCH (09:43)
[2020-08-04] MEDS: EFFEXOR XR 75 MG CAP 24-HR PO SCH (09:43)
[2020-08-04] MEDS: PROTONIX TAB 40 MG PO SCH (09:43)
[2020-08-04] MEDS: NYSTATIN POWDER TOP SCH ×2 (09:47→20:14)
[2020-08-04] MEDS: VIBRAMYCIN 100 MG in D5W 250 ML IV 250 ML IV SCH ×2 (09:48→20:14)
[2020-08-04] MEDS: LOVENOX INJ 40 MG SYR SC SCH (09:53)
[2020-08-04] MEDS: PERCOCET TAB 5/325 MG PO PRN (12:31)
[2020-08-04] MEDS ORDERED: LANTUS SC ONE (19:33)
[2020-08-04] MEDS: LANTUS SC SCH (20:12)
[2020-08-04] MEDS: SNACK - Diabetic Appropriate PO SCH (20:14)
[2020-08-04] MEDS: RESTORIL CAP 15 MG PO PRN (20:15)
[2020-08-05] MEDS: PERCOCET TAB 5/325 MG PO PRN (01:27)
[2020-08-05 05:29] LABS: BASOPHILS % (AUTO) 0.6 % (0.2-1.0); EOSINOPHILS # (AUTO) 0.2 x10^3/uL (0.0-0.2); EOSINOPHILS % (AUTO) 3.2 % (0.9-2.9); HEMATOCRIT 32.6 % (36.0-47.0); HEMOGLOBIN 10.9 g/dL (12.0-16.0); LYMPHOCYTES # (AUTO) 2.1 X10^3/uL (1.3-2.9); LYMPHOCYTES % (AUTO) 40.5 % (21.0-51.0); MEAN CORPUSCULAR HGB CONC 33.4 g/dL (33.0-35.0); MEAN CORPUSCULAR VOLUME 86.9 fL (80.0-100.0); MONOCYTES # (AUTO) 0.3 x10^3/uL (0.3-0.8); MONOCYTES % (AUTO) 5.8 % (0.0-13.0); NEUTROPHILS # (AUTO) 2.5 x10^3/uL (2.2-4.8); NEUTROPHILS % (AUTO) 49.9 % (42.0-75.0); PLATELET COUNT 164 X10^3/uL (150.0-450.0); RED BLOOD COUNT 3.76 X10^6/uL (3.5-5.4); RED CELL DISTRIBUTION WIDTH 14.7 % (11.6-16.5); WHITE BLOOD COUNT 5.1 X10^3/uL (3.6-10.0)
[2020-08-05 05:37] LABS: ALANINE AMINOTRANSFERASE 16 Units/L (12-78); ALBUMIN 2.3 g/dL (3.4-5.0); ALKALINE PHOSPHATASE 95 Units/L (46-116); ASPARTATE AMINO TRANSFERASE 27 Units/L (15-37); BLOOD UREA NITROGEN 12 mg/dL (7-18); CALCIUM 9.1 mg/dL (8.5-10.1); CARBON DIOXIDE 25.3 mmol/L (21-32); CHLORIDE 107 mmol/L (98-107); COR CA(FOR HYPOALB) 10.5 mg/dL (8.5-10.1); COR NA(FOR HYPERGLY) 140 mmol/L (136-145); CREATININE 0.97 mg/dL (0.55-1.02); SODIUM 139 mmol/L (136-145); TOTAL PROTEIN 5.7 g/dL (6.4-8.2); eGFR NON BLACK RACES 59 (>60)
[2020-08-05] MEDS: MERREM VIAL 500 MG in NS 100 ML IV + SPIKE MINIBAG* 100 ML IV SCH ×3 (05:37→23:00)
[2020-08-05] MEDS: EFFEXOR XR 75 MG CAP 24-HR PO SCH (08:23)
[2020-08-05] MEDS: NYSTATIN POWDER TOP SCH ×2 (08:24→20:54)
[2020-08-05] MEDS: LOVENOX INJ 40 MG SYR SC SCH (08:24)
[2020-08-05] MEDS: VIBRAMYCIN 100 MG in D5W 250 ML IV 250 ML IV SCH ×2 (08:25→20:46)
[2020-08-05] MEDS: PROTONIX TAB 40 MG PO SCH (08:25)
[2020-08-05] MEDS: XANAX PO SCH ×2 (08:25→20:44)
[2020-08-05] MEDS: NS 1000 ML 1,000 ML IV SCH ×3 (10:49→20:55)
[2020-08-05] MEDS: ZESTRIL TAB 5 MG PO SCH (10:49)
[2020-08-05] MEDS: HumuLIN R SC PRN ×3 (12:43→20:48)
[2020-08-05] MEDS ORDERED: VOLTAREN 1 % GEL MULTI DOSE TUBE TOP PRN (12:45)
[2020-08-05] MEDS: RESTORIL CAP 15 MG PO PRN (20:44)
[2020-08-05] MEDS: LANTUS SC SCH (20:47)
[2020-08-05] MEDS: SNACK - Diabetic Appropriate PO SCH (20:54)
[2020-08-06 04:55] LABS: BASOPHILS % (AUTO) 0.6 % (0.2-1.0); EOSINOPHILS # (AUTO) 0.1 x10^3/uL (0.0-0.2); HEMATOCRIT 31.8 % (36.0-47.0); HEMOGLOBIN 10.3 g/dL (12.0-16.0); LYMPHOCYTES % (AUTO) 44.4 % (21.0-51.0); MEAN CORPUSCULAR HEMOGLOBIN 28.6 pg (27.0-34.0); MEAN CORPUSCULAR HGB CONC 32.4 g/dL (33.0-35.0); MEAN CORPUSCULAR VOLUME 88.2 fL (80.0-100.0); MEAN PLATELET VOLUME 8.2 fL (7.4-11.0); MONOCYTES # (AUTO) 0.3 x10^3/uL (0.3-0.8); MONOCYTES % (AUTO) 7.1 % (0.0-13.0); NEUTROPHILS % (AUTO) 44.9 % (42.0-75.0); PLATELET COUNT 150 X10^3/uL (150.0-450.0); RED BLOOD COUNT 3.61 X10^6/uL (3.5-5.4); RED CELL DISTRIBUTION WIDTH 14.8 % (11.6-16.5); WHITE BLOOD COUNT 4.4 X10^3/uL (3.6-10.0)
[2020-08-06 05:03] LABS: ALANINE AMINOTRANSFERASE 11 Units/L (12-78); ALBUMIN 2.2 g/dL (3.4-5.0); ALKALINE PHOSPHATASE 98 Units/L (46-116); ASPARTATE AMINO TRANSFERASE 19 Units/L (15-37); BLOOD UREA NITROGEN 13 mg/dL (7-18); CALCIUM 8.8 mg/dL (8.5-10.1); CARBON DIOXIDE 28.3 mmol/L (21-32); CHLORIDE 105 mmol/L (98-107); COR CA(FOR HYPOALB) 10.2 mg/dL (8.5-10.1); COR NA(FOR HYPERGLY) 142 mmol/L (136-145); SODIUM 137 mmol/L (136-145); TOTAL PROTEIN 5.5 g/dL (6.4-8.2); eGFR NON BLACK RACES 51 (>60)
[2020-08-06] MEDS: MERREM VIAL 500 MG in NS 100 ML IV + SPIKE MINIBAG* 100 ML IV SCH ×3 (05:25→22:29)
[2020-08-06] MEDS: HumuLIN R SC PRN ×3 (05:48→16:40)
[2020-08-06] MEDS: LOVENOX INJ 40 MG SYR SC SCH (08:43)
[2020-08-06] MEDS: EFFEXOR XR 75 MG CAP 24-HR PO SCH (08:43)
[2020-08-06] MEDS: NYSTATIN POWDER TOP SCH ×2 (08:45→21:01)
[2020-08-06] MEDS: ZESTRIL TAB 5 MG PO SCH (08:46)
[2020-08-06] MEDS: XANAX PO SCH ×2 (08:46→21:02)
[2020-08-06] MEDS: PROTONIX TAB 40 MG PO SCH (08:46)
[2020-08-06] MEDS: VIBRAMYCIN 100 MG in D5W 250 ML IV 250 ML IV SCH ×2 (08:46→21:01)
[2020-08-06] MEDS: LINZESS PO SCH (13:47)
[2020-08-06] MEDS: NS 1000 ML 1,000 ML IV SCH ×2 (13:47→21:04)
[2020-08-06] MEDS: SNACK - Diabetic Appropriate PO SCH (19:39)
[2020-08-06] MEDS: PERCOCET TAB 5/325 MG PO PRN (19:41)
[2020-08-06] MEDS: LANTUS SC SCH (21:00)
[2020-08-07] MEDS: NS 1000 ML 1,000 ML IV SCH (01:14)
[2020-08-07 05:23] LABS: BASOPHILS % (AUTO) 0.4 % (0.2-1.0); EOSINOPHILS # (AUTO) 0.1 x10^3/uL (0.0-0.2); EOSINOPHILS % (AUTO) 2.2 % (0.9-2.9); HEMATOCRIT 32.6 % (36.0-47.0); HEMOGLOBIN 10.8 g/dL (12.0-16.0); LYMPHOCYTES # (AUTO) 2.6 X10^3/uL (1.3-2.9); LYMPHOCYTES % (AUTO) 43.8 % (21.0-51.0); MEAN CORPUSCULAR HGB CONC 33.2 g/dL (33.0-35.0); MEAN CORPUSCULAR VOLUME 87.3 fL (80.0-100.0); MEAN PLATELET VOLUME 8.1 fL (7.4-11.0); MONOCYTES # (AUTO) 0.3 x10^3/uL (0.3-0.8); MONOCYTES % (AUTO) 5.5 % (0.0-13.0); NEUTROPHILS # (AUTO) 2.8 x10^3/uL (2.2-4.8); NEUTROPHILS % (AUTO) 48.1 % (42.0-75.0); PLATELET COUNT 156 X10^3/uL (150.0-450.0); RED BLOOD COUNT 3.73 X10^6/uL (3.5-5.4); RED CELL DISTRIBUTION WIDTH 14.4 % (11.6-16.5); WHITE BLOOD COUNT 5.9 X10^3/uL (3.6-10.0)
[2020-08-07 05:30] LABS: ALANINE AMINOTRANSFERASE 12 Units/L (12-78); ALBUMIN 2.1 g/dL (3.4-5.0); ALKALINE PHOSPHATASE 87 Units/L (46-116); ASPARTATE AMINO TRANSFERASE 18 Units/L (15-37); BLOOD UREA NITROGEN 13 mg/dL (7-18); CALCIUM 8.6 mg/dL (8.5-10.1); CARBON DIOXIDE 25.6 mmol/L (21-32); CHLORIDE 106 mmol/L (98-107); COR CA(FOR HYPOALB) 10.1 mg/dL (8.5-10.1); COR NA(FOR HYPERGLY) 143 mmol/L (136-145); CREATININE 0.96 mg/dL (0.55-1.02); SODIUM 138 mmol/L (136-145); TOTAL PROTEIN 5.2 g/dL (6.4-8.2); eGFR NON BLACK RACES 60 (>60)
[2020-08-07] MEDS: MERREM VIAL 500 MG in NS 100 ML IV + SPIKE MINIBAG* 100 ML IV SCH (05:40)
--- NOTE | 2020-08-07 06:03 | RAD ---
HISTORYCOPDSTUDYChest AP [id number]/11/2020FINDINGSThe heart is within normal limits in size. The yuni are normal. The aorta is calcified. The lung cash are free of acute infiltrates. No pleural effusions are identified. Bony thorax is unremarkable.IMPRESSIONNo significant abnormality identifiedElectronically signed by: NELIDA HE (Aug 07, 2020 06:01:08)
[2020-08-07] MEDS: LINZESS PO SCH (09:45)
[2020-08-07] MEDS: EFFEXOR XR 75 MG CAP 24-HR PO SCH (09:45)
[2020-08-07] MEDS: PROTONIX TAB 40 MG PO SCH (09:46)
[2020-08-07] MEDS: NYSTATIN POWDER TOP SCH (09:46)
[2020-08-07] MEDS: LOVENOX INJ 40 MG SYR SC SCH (10:02)
[2020-08-07] MEDS: XANAX PO SCH (10:03)
[2020-08-07] MEDS: VIBRAMYCIN 100 MG in D5W 250 ML IV 250 ML IV SCH (10:04)
[2020-08-07] MEDS: ZESTRIL TAB 5 MG PO SCH (10:05)
[2020-08-07 12:19] VITALS: BP 132/63
== END 2020-08-07 12:20 | disposition home health service (06) | DRG 593 ==
LOC: ER 10:16 → MED/SURG 14:19
PROVIDERS: ADMIT Internal Medicine; ATTEND Internal Medicine
DX: M89.49 Other hypertrophic osteoarthropathy, multiple sites; B95.62 Methicillin resistant Staphylococcus aureus infection as the cause of diseases classified elsewhere; N28.9 Disorder of kidney and ureter, unspecified; L89.152 Pressure ulcer of sacral region, stage 2; R29.6 Repeated falls; R26.89 Other abnormalities of gait and mobility; K21.9 Gastro-esophageal reflux disease without esophagitis; I10 Essential (primary) hypertension; F41.8 Other specified anxiety disorders; E78.2 Mixed hyperlipidemia; E87.1 Hypo-osmolality and hyponatremia; R53.1 Weakness; E86.0 Dehydration; B96.29 Other Escherichia coli [E. coli] as the cause of diseases classified elsewhere; L89.312 Pressure ulcer of right buttock, stage 2; R62.7 Adult failure to thrive; Z20.828 Contact with and (suspected) exposure to other viral communicable diseases; E11.65 Type 2 diabetes mellitus with hyperglycemia; M54.5 Low back pain; E11.622 Type 2 diabetes mellitus with other skin ulcer; N39.0 Urinary tract infection, site not specified; I25.10 Atherosclerotic heart disease of native coronary artery without angina pectoris; M51.36 Other intervertebral disc degeneration, lumbar region; R94.31 Abnormal electrocardiogram [ECG] [EKG]

== ENCOUNTER 2021-07-03 17:57 | Inpatient (IN) ==
--- NOTE | 2021-07-03 18:14 | DR.H&P ---
H&P - History & Physical for Day of: H&P Date: 07/03/21 - Chief Complaint Chief Complaint: AMS AND POOR PO INTAKE PER [facility] - History of Present Illness History of Present Illness: PT IS 80 WF RESIDENT OF [facility], DIRECT ADMIT WITH AMS, UTI, HYPERKALEMIA AND ACUTE RENAL FAILURE. [facility] STAFF REPORTS PT HAS HAD INCREASED CONFUSION WITH POOR PO INTAKE. FAILED OUPT TREATMENT FOR UTI. REPEAT UA STILL + >100K GRAM NEG RODS. PT HAD PMH OF HTN, COPD, CAD, OA, YAMINI, MDD. PT ADMITTED FOR TREATMENT OF ACUTE ILLNESS. - Past Medical History Past Medical History: Hypertension, Diabetes, COPD, Asthma - Past Surgical History Surgical History: Ortho Surgery - Family History Family Medical History: Diabetes Mellitus, Hypertension - Social History Does patient currently use any type of tobacco product: No Have you used tobacco products in the last 12 months: No Type of Tobacco Use: None Does any household member use tobacco: No Alcohol Use: None Drug Use: None Risks, benefits, and alternatives of opioids discussed: No Prescription drug monitoring program results: PDMP reviewed and no concerns identified - Medications Home Medications: ciprofloxacin [From Cipro] Allergy (Verified 06/16/18 14:37) - Review of Systems Constitutional: Weakness, Malaise Eyes: No Symptoms Reported ENT: No Symptoms Reported Respiratory: Shortness of Breath Cardiovascular: Edema Gastrointestinal: No Symptoms Reported Genitourinary: Frequency Musculoskeletal: Back Pain, Leg Pain Skin: No Symptoms Reported Neurological: Weakness, Confusion - Physical Exam Vital Signs: Blood Pressure [Right Arm] 125/81 Blood Pressure [Left Arm] 132/60 Blood Pressure [Right Arm] 127/60 Blood Pressure [Left Arm] 159/68 Blood Pressure 120/90 Oriented: Person. negative: Time Eyes: Normal Ear: Normal Nose: Normal Throat: Normal Respiratory: RLL Diminished, LLL Diminished Cardiovascular: Normal, Edema (LE EDEMA) : Normal Auscultation: Bowel Sounds: Normal Palpation: Normal Tenderness: Normal Skin: Decreased Turgur Musculoskeletal: Back:Thoracic, Back:Lumbar, Motor Deficit Psychiatric: Anxiety Affect: Anxious Speech Pattern: Delayed - Assessment/Plan (1) AMS (altered mental status) Status: Acute Plan: ADMIT, CT HEAD ON ADMISSION RO CVA. BLOOD AND URINE CULTURES, ADMISSION LABS INCLUDING MAG AND CE. CXR, EKG ON ADMISSION. STRICT I&OS, GENTLE IV HYDRATION. IV ATBX, NPO UNTIL SPEECH EVALUATION, VERIFY HOME MEDICATION. COVID SWAB ON ADMISSION (2) Hyperkalemia Status: Acute (3) UTI (urinary tract infection) Qualifiers: Urinary tract infection type: urethritis Qualified Code(s): N34.2 - Other urethritis Status: Acute (4) Anxiety Status: Chronic (5) CAD (coronary artery disease) Qualifiers: Associated angina: without angina Status: Chronic (6) Degenerative disc disease, lumbar Status: Chronic (7) Diabetes mellitus, type 2 Status: Chronic - Allergies Allergies/Adverse Reactions: Allergies Allergy/AdvReac Type Severity Reaction Status Date / Time ciprofloxacin [From Cipro] Allergy Verified 06/16/18 14:37
--- NOTE | 2021-07-03 20:55 | CT ---
HISTORYAMSSTUDYBRAIN W/O CONCOMPARISONNone available.TECHNIQUEAxial non-contrast images of the head were obtained with coronal and sagittal reformats provided.Radiation dose: 1404.40 mGy-cm total DLPFINDINGSNo abnormal areas of acute attenuation in the brain parenchyma.Moore-white differentiation remains intact.No intracranial, extra-axial, fluid collection.No hemorrhage.Periventricular chronic microvascular disease.No mass, mass effect or midline shift.Age related brain parenchymal global atrophy.No ventriculomegaly.No acute fracture.Sinuses are well aerated.Mastoid air cells are well aerated.Globes and intra-orbital contents are unremarkable.IMPRESSIONNo acute intracranial abnormality identified.Electronically signed by: Luis Sims (Jul 03, 2021 20:53:05)
--- NOTE | 2021-07-03 20:58 | RAD ---
HISTORYCOPDSTUDYCHEST, 1 VIEWCOMPARISONJanuary 2020TECHNIQUEChest radiographic imaging, AP portable projection, 1 imageFINDINGSMild cardiomegaly.Mild diffuse increased interstitial markings.No focal airspace disease.No pleural effusion.No pneumothorax.No acute osseous abnormality.IMPRESSIONFindings could represent mild acute cardiogenic edema. No focal infiltrate.Electronically signed by: Luis Sims (Jul 03, 2021 20:56:13)
[2021-07-03 21:19] VITALS: BMI 46.5
[2021-07-03 21:26] LABS: BASOPHILS % (AUTO) 0.4 % (0.2-1.0); EOSINOPHILS # (AUTO) 0.1 x10^3/uL (0.0-0.2); EOSINOPHILS % (AUTO) 1.8 % (0.9-2.9); HEMATOCRIT 30.5 % (36.0-47.0); HEMOGLOBIN 10.1 g/dL (12.0-16.0); LYMPHOCYTES # (AUTO) 2.2 X10^3/uL (1.3-2.9); LYMPHOCYTES % (AUTO) 36.3 % (21.0-51.0); MEAN CORPUSCULAR HEMOGLOBIN 28.3 pg (27.0-34.0); MEAN CORPUSCULAR HGB CONC 33.3 g/dL (33.0-35.0); MEAN PLATELET VOLUME 7.3 fL (7.4-11.0); MONOCYTES # (AUTO) 0.3 x10^3/uL (0.3-0.8); MONOCYTES % (AUTO) 5.4 % (0.0-13.0); NEUTROPHILS # (AUTO) 3.5 x10^3/uL (2.2-4.8); NEUTROPHILS % (AUTO) 56.1 % (42.0-75.0); PLATELET COUNT 159 X10^3/uL (150.0-450.0); RED BLOOD COUNT 3.58 X10^6/uL (3.5-5.4); RED CELL DISTRIBUTION WIDTH 14.2 % (11.6-16.5); WHITE BLOOD COUNT 6.2 X10^3/uL (3.6-10.0)
[2021-07-03] MEDS: NS 1000 ML 1,000 ML IV SCH ×2 (21:30→23:19)
[2021-07-03] MEDS: ROCEPHIN VIAL 1 GRAM 1 G in NS 100 ML IV + SPIKE MINIBAG* 100 ML IV SCH (21:30)
[2021-07-03 21:38] LABS: LACTIC ACID 1.5 mmol/L (0.4-2.0)
[2021-07-03 21:50] LABS: ALANINE AMINOTRANSFERASE 20 Units/L (12-78); ALBUMIN 3.2 g/dL (3.4-5.0); ALKALINE PHOSPHATASE 98 Units/L (46-116); ASPARTATE AMINO TRANSFERASE 19 Units/L (15-37); BLOOD UREA NITROGEN 45 mg/dL (7-18); CALCIUM 9.4 mg/dL (8.5-10.1); CARBON DIOXIDE 24.6 mmol/L (21-32); CHLORIDE 105 mmol/L (98-107); CKMB % 2.8 % (<4); COR NA(FOR HYPERGLY) 138 mmol/L (136-145); CREATINE KINASE 36 Units/L (26-192); CREATINE KINASE MB < 1.0 ng/mL (0-4.0); CREATININE 1.93 mg/dL (0.55-1.02); MAGNESIUM 1.8 mg/dL (1.7-2.9); SODIUM 137 mmol/L (136-145); TOTAL PROTEIN 6.8 g/dL (6.4-8.2); TROPONIN I < 0.02 ng/mL (0-1.5); eGFR NON BLACK RACES 27 (>60)
[2021-07-03] MEDS ORDERED: KAYEXALATE SUSP PO ONE (22:35)
[2021-07-04] MEDS: NS 1000 ML 1,000 ML IV SCH ×4 (03:36→23:55)
[2021-07-04 06:04] LABS: BILIRUBIN,URINE 1+ (NEGATIVE); BLOOD/HEMOGLOBIN,URINE 2+ (NEGATIVE); GLUCOSE, URINE NEGATIVE (NEGATIVE); KETONES,URINE NEGATIVE (NEGATIVE); LEUKOCYTE ESTERASE ,URINE 3+ (NEGATIVE); NITRITES,URINE POSITIVE (NEGATIVE); PROTEIN,URINE 3+ (NEGATIVE); UROBILINOGEN,URINE NORMAL (NORMAL)
[2021-07-04 06:10] LABS: APPEARANCE,URINE CLOUDY (CLEAR); COLOR,URINE YELLOW (YELLOW)
[2021-07-04 06:11] LABS: BACTERIA,URINE 1+ /HPF (NEGATIVE); SQUAMOUS EPITHELIAL CELL,UR RARE /HPF (NEGATIVE)
[2021-07-04 06:17] LABS: BASOPHILS % (AUTO) 0.2 % (0.2-1.0); EOSINOPHILS # (AUTO) 0.1 x10^3/uL (0.0-0.2); EOSINOPHILS % (AUTO) 1.3 % (0.9-2.9); HEMATOCRIT 30.1 % (36.0-47.0); HEMOGLOBIN 9.9 g/dL (12.0-16.0); LYMPHOCYTES # (AUTO) 2.2 X10^3/uL (1.3-2.9); LYMPHOCYTES % (AUTO) 35.9 % (21.0-51.0); MEAN CORPUSCULAR HGB CONC 32.9 g/dL (33.0-35.0); MEAN CORPUSCULAR VOLUME 85.2 fL (80.0-100.0); MEAN PLATELET VOLUME 7.3 fL (7.4-11.0); MONOCYTES # (AUTO) 0.4 x10^3/uL (0.3-0.8); MONOCYTES % (AUTO) 6.5 % (0.0-13.0); NEUTROPHILS # (AUTO) 3.4 x10^3/uL (2.2-4.8); NEUTROPHILS % (AUTO) 56.1 % (42.0-75.0); PLATELET COUNT 155 X10^3/uL (150.0-450.0); RED BLOOD COUNT 3.53 X10^6/uL (3.5-5.4); RED CELL DISTRIBUTION WIDTH 14.2 % (11.6-16.5)
[2021-07-04 06:27] LABS: ALBUMIN 2.9 g/dL (3.4-5.0); CALCIUM 9.1 mg/dL (8.5-10.1); CREATININE 1.93 mg/dL (0.55-1.02)
[2021-07-04] MEDS ORDERED: KAYEXALATE SUSP PO NR (09:00)
[2021-07-04] MEDS: LOVENOX INJ 40 MG SYR SC SCH (11:24)
[2021-07-04 11:44] LABS: BILIRUBIN,URINE NEGATIVE (NEGATIVE); BLOOD/HEMOGLOBIN,URINE 2+ (NEGATIVE); GLUCOSE, URINE NEGATIVE (NEGATIVE); KETONES,URINE NEGATIVE (NEGATIVE); LEUKOCYTE ESTERASE ,URINE 3+ (NEGATIVE); NITRITES,URINE POSITIVE (NEGATIVE); PROTEIN,URINE 2+ (NEGATIVE); UROBILINOGEN,URINE NORMAL (NORMAL)
[2021-07-04 11:58] LABS: APPEARANCE,URINE CLOUDY (CLEAR); COLOR,URINE YELLOW (YELLOW)
[2021-07-04 11:59] LABS: BACTERIA,URINE TRACE /HPF (NEGATIVE); SQUAMOUS EPITHELIAL CELL,UR RARE /HPF (NEGATIVE); TRANSITIONAL EPI CELLS,URINE FEW /HPF (NEGATIVE)
[2021-07-04] MEDS ORDERED: BUTT CREAM (COMPOUND) TOP PRN (14:13)
[2021-07-04] MEDS ORDERED: VISTARIL PO PRN (16:51)
[2021-07-04] MEDS ORDERED: VISTARIL PO ONE (16:55)
[2021-07-04] MEDS: SINEMET (PLAIN) 10/100 MG PO SCH (20:50)
[2021-07-04] MEDS: ROCEPHIN VIAL 1 GRAM 1 G in NS 100 ML IV + SPIKE MINIBAG* 100 ML IV SCH (20:50)
[2021-07-04] MEDS: SEROquel TAB 25 mg PO SCH (20:50)
[2021-07-04] MEDS: MELATONIN PO SCH (20:50)
[2021-07-05 05:49] LABS: BASOPHILS % (AUTO) 0.4 % (0.2-1.0); EOSINOPHILS # (AUTO) 0.1 x10^3/uL (0.0-0.2); EOSINOPHILS % (AUTO) 1.6 % (0.9-2.9); HEMATOCRIT 26.5 % (36.0-47.0); HEMOGLOBIN 8.9 g/dL (12.0-16.0); LYMPHOCYTES # (AUTO) 1.6 X10^3/uL (1.3-2.9); LYMPHOCYTES % (AUTO) 36.5 % (21.0-51.0); MEAN CORPUSCULAR HEMOGLOBIN 27.9 pg (27.0-34.0); MEAN CORPUSCULAR HGB CONC 33.4 g/dL (33.0-35.0); MEAN CORPUSCULAR VOLUME 83.5 fL (80.0-100.0); MEAN PLATELET VOLUME 7.2 fL (7.4-11.0); MONOCYTES # (AUTO) 0.2 x10^3/uL (0.3-0.8); MONOCYTES % (AUTO) 4.9 % (0.0-13.0); NEUTROPHILS # (AUTO) 2.4 x10^3/uL (2.2-4.8); NEUTROPHILS % (AUTO) 56.6 % (42.0-75.0); PLATELET COUNT 153 X10^3/uL (150.0-450.0); RED BLOOD COUNT 3.17 X10^6/uL (3.5-5.4); RED CELL DISTRIBUTION WIDTH 13.7 % (11.6-16.5); WHITE BLOOD COUNT 4.3 X10^3/uL (3.6-10.0)
[2021-07-05 06:03] LABS: ALBUMIN 2.8 g/dL (3.4-5.0); CALCIUM 8.8 mg/dL (8.5-10.1); CARBON DIOXIDE 22.8 mmol/L (21-32); COR CA(FOR HYPOALB) 9.8 mg/dL (8.5-10.1); CREATININE 1.35 mg/dL (0.55-1.02); TOTAL PROTEIN 6.5 g/dL (6.4-8.2)
[2021-07-05] MEDS: NS 1000 ML 1,000 ML IV SCH ×2 (07:39→13:56)
[2021-07-05] MEDS: PROTONIX TAB 40 MG PO SCH (08:06)
[2021-07-05] MEDS: LOVENOX INJ 40 MG SYR SC SCH (08:06)
[2021-07-05] MEDS: CLARITIN PO SCH (08:06)
[2021-07-05] MEDS: TAB-A-VITE PO SCH (08:07)
[2021-07-05] MEDS: SINEMET (PLAIN) 10/100 MG PO SCH ×2 (08:07→20:45)
[2021-07-05] MEDS ORDERED: PATIENT'S HOME MEDICATION (Multivitamin Tablet) PO SCH (09:00)
[2021-07-05] MEDS ORDERED: NORVASC TAB 2.5 MG ONE (12:15)
[2021-07-05] MEDS: NORVASC TAB 2.5 MG PO SCH (12:18)
[2021-07-05] MEDS: PERCOCET TAB 5/325 MG PO PRN (15:03)
[2021-07-05] MEDS: SEROquel TAB 25 mg PO SCH (20:45)
[2021-07-05] MEDS: MELATONIN PO SCH (20:45)
[2021-07-05] MEDS: ROCEPHIN VIAL 1 GRAM 1 G in NS 100 ML IV + SPIKE MINIBAG* 100 ML IV SCH (20:45)
[2021-07-05] MEDS ORDERED: ZOFRAN INJ 4 MG VIAL IVP PRN (23:16)
[2021-07-06] MEDS: NS 1000 ML 1,000 ML IV SCH (06:14)
[2021-07-06 06:15] LABS: BASOPHILS % (AUTO) 0.5 % (0.2-1.0); EOSINOPHILS % (AUTO) 0.9 % (0.9-2.9); HEMATOCRIT 26.5 % (36.0-47.0); HEMOGLOBIN 8.9 g/dL (12.0-16.0); LYMPHOCYTES # (AUTO) 1.6 X10^3/uL (1.3-2.9); LYMPHOCYTES % (AUTO) 33.3 % (21.0-51.0); MEAN CORPUSCULAR HEMOGLOBIN 28.2 pg (27.0-34.0); MEAN CORPUSCULAR HGB CONC 33.8 g/dL (33.0-35.0); MEAN CORPUSCULAR VOLUME 83.4 fL (80.0-100.0); MEAN PLATELET VOLUME 7.2 fL (7.4-11.0); MONOCYTES # (AUTO) 0.3 x10^3/uL (0.3-0.8); NEUTROPHILS # (AUTO) 2.8 x10^3/uL (2.2-4.8); NEUTROPHILS % (AUTO) 59.3 % (42.0-75.0); PLATELET COUNT 136 X10^3/uL (150.0-450.0); RED BLOOD COUNT 3.17 X10^6/uL (3.5-5.4); WHITE BLOOD COUNT 4.8 X10^3/uL (3.6-10.0)
[2021-07-06 06:31] LABS: ALBUMIN 2.8 g/dL (3.4-5.0); CALCIUM 8.8 mg/dL (8.5-10.1); CARBON DIOXIDE 21.5 mmol/L (21-32); COR CA(FOR HYPOALB) 9.8 mg/dL (8.5-10.1); CREATININE 1.18 mg/dL (0.55-1.02); TOTAL PROTEIN 6.4 g/dL (6.4-8.2)
[2021-07-06 07:36] VITALS: BP 149/67
[2021-07-06] MEDS ORDERED: NORVASC TAB 2.5 MG ONE (08:09)
[2021-07-06] MEDS: NORVASC TAB 2.5 MG PO SCH (08:19)
[2021-07-06] MEDS: CLARITIN PO SCH (08:19)
[2021-07-06] MEDS: SINEMET (PLAIN) 10/100 MG PO SCH (08:20)
[2021-07-06] MEDS: LOVENOX INJ 40 MG SYR SC SCH (08:20)
[2021-07-06] MEDS: PROTONIX TAB 40 MG PO SCH (08:20)
[2021-07-06] MEDS: TAB-A-VITE PO SCH (08:20)
[2021-07-06] MEDS: PERCOCET TAB 5/325 MG PO PRN (09:17)
--- NOTE | 2021-07-06 14:43 | PCM.PROG ---
Progress Note - Progress Note for Day of Date of Exam: 07/04/21 - Subjective Subjective: Patient is a 80 yo white female who was admitted from the [facility] due to hyperkalemia and UTI. Cultures pending. Patient has recieved PO kayexalate. Original potassium was 6.8. Potassium has decreased to 6.0. Lisinopril on hold. Will monitor BP. Repeat labs in am. Kayexalate ordered. Pat ient is alert with clear speech however is demented at baseline. - Past Medical Family Social History Past Med/Fam/Surg Hx: No changes since H&P Allergies: Allergies ciprofloxacin [From Cipro] Allergy (Verified 06/16/18 14:37) - Review of Systems ROS: No change since H&P - Vital Signs and I&O's Vital Signs: Temperature 98.2 F Pulse Rate [Right Radial] 78 Respiratory Rate 18 Blood Pressure [Right Arm] 149/67 Blood Pressure [Left Arm] 132/60 Blood Pressure [Right Arm] 127/60 Blood Pressure [Left Arm] 159/68 Blood Pressure 120/90 O2 Sat by Pulse Oximetry 94 Intake and Output: Intake & Output 07/03/21 07/04/21 07/05/21 07/06/21 23:59 23:59 23:59 23:59 Intake Total 675 / 675 3858 / 3858 2114 / 2114 400 / 400 Output Total 1200 / 1200 1725 / 1725 500 / 500 Balance 675 / 675 2658 / 2658 389 / 389 -100 / -100 - Physical Exam Oriented: Person. negative: Time Eyes: Normal Ear: Normal Nose: Normal Throat: Normal Respiratory: Normal Cardiovascular: Normal, Edema (LE EDEMA) : Other (Wright) Auscultation: Bowel Sounds: Normal Palpation: Normal Tenderness: Normal Skin: Decreased Turgur Musculoskeletal: Back:Thoracic, Back:Lumbar, Motor Deficit Psychiatric: Normal Mood Description: Calm Affect: Normal Speech Pattern: Clear, Inappropriate - Laboratory and Diagnostics Result Diagrams: 07/06/21 05:12 07/06/21 05:12 Labs: 07/04/21 05:30 Urine,Clean Catch Urine Culture - Final Escherichia Coli 07/03/21 21:00 Blood Blood Culture - Preliminary 07/03/21 21:00 Blood Blood Culture - Preliminary Laboratory WBC 4.8 X10^3/uL (3.6-10.0) 07/06/21 05:12 RBC 3.17 X10^6/uL (3.5-5.4) L 07/06/21 05:12 Hgb 8.9 g/dL (12.0-16.0) L 07/06/21 05:12 Hct 26.5 % (36.0-47.0) L 07/06/21 05:12 MCV 83.4 fL (80.0-100.0) 07/06/21 05:12 MCH 28.2 pg (27.0-34.0) 07/06/21 05:12 MCHC 33.8 g/dL (33.0-35.0) 07/06/21 05:12 RDW 14.0 % (11.6-16.5) 07/06/21 05:12 Plt Count 136 X10^3/uL (150.0-450.0) L 07/06/21 05:12 MPV 7.2 fL (7.4-11.0) L 07/06/21 05:12 Neut % (Auto) 59.3 % (42.0-75.0) 07/06/21 05:12 Lymph % (Auto) 33.3 % (21.0-51.0) 07/06/21 05:12 Harnett % (Auto) 6.0 % (0.0-13.0) 07/06/21 05:12 Eos % (Auto) 0.9 % (0.9-2.9) 07/06/21 05:12 Baso % (Auto) 0.5 % (0.2-1.0) 07/06/21 05:12 Neut # (Auto) 2.8 x10^3/uL (2.2-4.8) 07/06/21 05:12 Lymph # (Auto) 1.6 X10^3/uL (1.3-2.9) 07/06/21 05:12 Harnett # (Auto) 0.3 x10^3/uL (0.3-0.8) 07/06/21 05:12 Eos # (Auto) 0.0 x10^3/uL (0.0-0.2) 07/06/21 05:12 Baso # (Auto) 0.0 X10^3/uL (0.0-0.1) 07/06/21 05:12 Absolute Nucleated RBC 0.1 /100WBC 07/06/21 05:12 Sodium 143 mmol/L (136-145) 07/06/21 05:12 Corrected Sodium 144 mmol/L (136-145) 07/06/21 05:12 Potassium 3.5 mmol/L (3.5-5.1) 07/06/21 05:12 Chloride 110 mmol/L (98-107) H 07/06/21 05:12 Carbon Dioxide 21.5 mmol/L (21-32) 07/06/21 05:12 BUN 19 mg/dL (7-18) H 07/06/21 05:12 Creatinine 1.18 mg/dL (0.55-1.02) H 07/06/21 05:12 Est GFR (MDRD) Af Amer 57 (>60) L 07/06/21 05:12 Est GFR (MDRD) Non-Af 47 (>60) L 07/06/21 05:12 Glucose 154 mg/dL (65-99) H 07/06/21 05:12 Lactic Acid 1.5 mmol/L (0.4-2.0) 07/03/21 20:55 Calcium 8.8 mg/dL (8.5-10.1) 07/06/21 05:12 Corrected Calcium 9.8 mg/dL (8.5-10.1) 07/06/21 05:12 Magnesium 1.8 mg/dL (1.7-2.9) 07/03/21 20:55 Total Bilirubin 0.20 mg/dL (0.2-1.0) 07/06/21 05:12 AST 22 Units/L (15-37) 07/06/21 05:12 ALT 10 Units/L (12-78) L 07/06/21 05:12 Alkaline Phosphatase 61 Units/L (46-116) 07/06/21 05:12 Creatine Kinase 36 Units/L (26-192) 07/03/21 20:55 CK-MB (CK-2) < 1.0 ng/mL (0-4.0) 07/03/21 20:55 CK/CKMB % Calc 2.8 % (<4) 07/03/21 20:55 Troponin I < 0.02 ng/mL (0-1.5) 07/03/21 20:55 Total Protein 6.4 g/dL (6.4-8.2) 07/06/21 05:12 Albumin 2.8 g/dL (3.4-5.0) L 07/06/21 05:12 Globulin 3.6 g/dL (2.5-4.5) 07/06/21 05:12 Albumin/Globulin Ratio 0.8 Ratio (1.1-2.1) L 07/06/21 05:12 Specimen Type Catherized urine 07/04/21 11:15 Urine Color Yellow (YELLOW) 07/04/21 11:15 Urine Appearance Cloudy (CLEAR) 07/04/21 11:15 Urine pH 7.0 (5.0 - 8.0) 07/04/21 11:15 Ur Specific Commodore 1.010 (1.000-1.030) 07/04/21 11:15 Urine Protein 2+ (NEGATIVE) 07/04/21 11:15 Urine Glucose (UA) Negative (NEGATIVE) 07/04/21 11:15 Urine Ketones Negative (NEGATIVE) 07/04/21 11:15 Urine Occult Blood 2+ (NEGATIVE) 07/04/21 11:15 Urine Nitrite Positive (NEGATIVE) 07/04/21 11:15 Urine Bilirubin Negative (NEGATIVE) 07/04/21 11:15 Urine Urobilinogen Normal (NORMAL) 07/04/21 11:15 Ur Leukocyte Esterase 3+ (NEGATIVE) 07/04/21 11:15 Urine RBC 5-10 /HPF (0-3) A 07/04/21 11:15 Urine WBC Tntc /HPF (0-5) A 07/04/21 11:15 Ur Squamous Epith Cells Rare /HPF (NEGATIVE) 07/04/21 11:15 Ur Transition Epith Cell Few /HPF (NEGATIVE) 07/04/21 11:15 Urine Bacteria Trace /HPF (NEGATIVE) 07/04/21 11:15 Ur Culture Indicated? Yes/culture set up 07/04/21 11:15 SARS CoV-2 RNA Rapid [place] Negative (NEGATIVE) 07/03/21 18:17 - Plan (1) Hyperkalemia Status: Acute Plan: Repeat labs in am. Hold Lisinopril. Kayexalate (2) UTI (urinary tract infection) Status: Acute Qualifiers: Urinary tract infection type: urethritis Qualified Code(s): N34.2 - Other urethritis Plan: Culture pending. IV rocephin (3) Essential hypertension Status: Chronic Plan: D/C lisinopril. Monitor BP (4) Generalized weakness Status: Acute Plan: Patient's physical condition is at baseline (5) Dementia Status: Acute Plan: At baseline
--- NOTE | 2021-07-06 14:51 | PCM.PROG ---
Progress Note - Progress Note for Day of Date of Exam: 07/05/21 - Subjective Subjective: Patient is a 80 yo white female who [facility] due to hyperkalemia and UTI. Urine Culture pending. Patient has recieved PO kayexalate. Potassium is within normal range. Lisinopril on hold. Patient BP elevated; started Norvasc 2.5mg PO daily. Will monitor BP. Repeat labs in am. - Past Medical Family Social History Past Med/Fam/Surg Hx: No changes since H&P Allergies: Allergies ciprofloxacin [From Cipro] Allergy (Verified 06/16/18 14:37) - Review of Systems ROS: No change since H&P - Vital Signs and I&O's Vital Signs: Temperature 98.2 F Pulse Rate [Right Radial] 78 Respiratory Rate 18 Blood Pressure [Right Arm] 149/67 Blood Pressure [Left Arm] 132/60 Blood Pressure [Right Arm] 127/60 Blood Pressure [Left Arm] 159/68 Blood Pressure 120/90 O2 Sat by Pulse Oximetry 94 Intake and Output: Intake & Output 07/03/21 07/04/21 07/05/21 07/06/21 23:59 23:59 23:59 23:59 Intake Total 675 / 675 3858 / 3858 2114 / 2114 400 / 400 Output Total 1200 / 1200 1725 / 1725 500 / 500 Balance 675 / 675 2658 / 2658 389 / 389 -100 / -100 - Physical Exam Oriented: Person. negative: Time Eyes: Normal Ear: Normal Nose: Normal Throat: Normal Respiratory: Normal Cardiovascular: Normal, Edema (LE EDEMA) : Other (Wright) Auscultation: Bowel Sounds: Normal Tenderness: Normal Skin: Decreased Turgur Musculoskeletal: Back:Thoracic, Back:Lumbar, Motor Deficit Psychiatric: Normal Mood Description: Calm Affect: Normal Speech Pattern: Clear, Inappropriate - Laboratory and Diagnostics Result Diagrams: 07/06/21 05:12 07/06/21 05:12 Labs: 07/04/21 05:30 Urine,Clean Catch Urine Culture - Final Escherichia Coli 07/03/21 21:00 Blood Blood Culture - Preliminary 07/03/21 21:00 Blood Blood Culture - Preliminary Laboratory WBC 4.8 X10^3/uL (3.6-10.0) 07/06/21 05:12 RBC 3.17 X10^6/uL (3.5-5.4) L 07/06/21 05:12 Hgb 8.9 g/dL (12.0-16.0) L 07/06/21 05:12 Hct 26.5 % (36.0-47.0) L 07/06/21 05:12 MCV 83.4 fL (80.0-100.0) 07/06/21 05:12 MCH 28.2 pg (27.0-34.0) 07/06/21 05:12 MCHC 33.8 g/dL (33.0-35.0) 07/06/21 05:12 RDW 14.0 % (11.6-16.5) 07/06/21 05:12 Plt Count 136 X10^3/uL (150.0-450.0) L 07/06/21 05:12 MPV 7.2 fL (7.4-11.0) L 07/06/21 05:12 Neut % (Auto) 59.3 % (42.0-75.0) 07/06/21 05:12 Lymph % (Auto) 33.3 % (21.0-51.0) 07/06/21 05:12 Ross % (Auto) 6.0 % (0.0-13.0) 07/06/21 05:12 Eos % (Auto) 0.9 % (0.9-2.9) 07/06/21 05:12 Baso % (Auto) 0.5 % (0.2-1.0) 07/06/21 05:12 Neut # (Auto) 2.8 x10^3/uL (2.2-4.8) 07/06/21 05:12 Lymph # (Auto) 1.6 X10^3/uL (1.3-2.9) 07/06/21 05:12 Ross # (Auto) 0.3 x10^3/uL (0.3-0.8) 07/06/21 05:12 Eos # (Auto) 0.0 x10^3/uL (0.0-0.2) 07/06/21 05:12 Baso # (Auto) 0.0 X10^3/uL (0.0-0.1) 07/06/21 05:12 Absolute Nucleated RBC 0.1 /100WBC 07/06/21 05:12 Sodium 143 mmol/L (136-145) 07/06/21 05:12 Corrected Sodium 144 mmol/L (136-145) 07/06/21 05:12 Potassium 3.5 mmol/L (3.5-5.1) 07/06/21 05:12 Chloride 110 mmol/L (98-107) H 07/06/21 05:12 Carbon Dioxide 21.5 mmol/L (21-32) 07/06/21 05:12 BUN 19 mg/dL (7-18) H 07/06/21 05:12 Creatinine 1.18 mg/dL (0.55-1.02) H 07/06/21 05:12 Est GFR (MDRD) Af Amer 57 (>60) L 07/06/21 05:12 Est GFR (MDRD) Non-Af 47 (>60) L 07/06/21 05:12 Glucose 154 mg/dL (65-99) H 07/06/21 05:12 Lactic Acid 1.5 mmol/L (0.4-2.0) 07/03/21 20:55 Calcium 8.8 mg/dL (8.5-10.1) 07/06/21 05:12 Corrected Calcium 9.8 mg/dL (8.5-10.1) 07/06/21 05:12 Magnesium 1.8 mg/dL (1.7-2.9) 07/03/21 20:55 Total Bilirubin 0.20 mg/dL (0.2-1.0) 07/06/21 05:12 AST 22 Units/L (15-37) 07/06/21 05:12 ALT 10 Units/L (12-78) L 07/06/21 05:12 Alkaline Phosphatase 61 Units/L (46-116) 07/06/21 05:12 Creatine Kinase 36 Units/L (26-192) 07/03/21 20:55 CK-MB (CK-2) < 1.0 ng/mL (0-4.0) 07/03/21 20:55 CK/CKMB % Calc 2.8 % (<4) 07/03/21 20:55 Troponin I < 0.02 ng/mL (0-1.5) 07/03/21 20:55 Total Protein 6.4 g/dL (6.4-8.2) 07/06/21 05:12 Albumin 2.8 g/dL (3.4-5.0) L 07/06/21 05:12 Globulin 3.6 g/dL (2.5-4.5) 07/06/21 05:12 Albumin/Globulin Ratio 0.8 Ratio (1.1-2.1) L 07/06/21 05:12 Specimen Type Catherized urine 07/04/21 11:15 Urine Color Yellow (YELLOW) 07/04/21 11:15 Urine Appearance Cloudy (CLEAR) 07/04/21 11:15 Urine pH 7.0 (5.0 - 8.0) 07/04/21 11:15 Ur Specific Warren 1.010 (1.000-1.030) 07/04/21 11:15 Urine Protein 2+ (NEGATIVE) 07/04/21 11:15 Urine Glucose (UA) Negative (NEGATIVE) 07/04/21 11:15 Urine Ketones Negative (NEGATIVE) 07/04/21 11:15 Urine Occult Blood 2+ (NEGATIVE) 07/04/21 11:15 Urine Nitrite Positive (NEGATIVE) 07/04/21 11:15 Urine Bilirubin Negative (NEGATIVE) 07/04/21 11:15 Urine Urobilinogen Normal (NORMAL) 07/04/21 11:15 Ur Leukocyte Esterase 3+ (NEGATIVE) 07/04/21 11:15 Urine RBC 5-10 /HPF (0-3) A 07/04/21 11:15 Urine WBC Tntc /HPF (0-5) A 07/04/21 11:15 Ur Squamous Epith Cells Rare /HPF (NEGATIVE) 07/04/21 11:15 Ur Transition Epith Cell Few /HPF (NEGATIVE) 07/04/21 11:15 Urine Bacteria Trace /HPF (NEGATIVE) 07/04/21 11:15 Ur Culture Indicated? Yes/culture set up 07/04/21 11:15 SARS CoV-2 RNA Rapid [place] Negative (NEGATIVE) 07/03/21 18:17 - Plan (1) Hyperkalemia Status: Acute Plan: Repeat labs in am. D/C Lisinopril. Add Norvasc 2.5mg PO daily (2) UTI (urinary tract infection) Status: Acute Qualifiers: Urinary tract infection type: urethritis Qualified Code(s): N34.2 - Other urethritis Plan: Culture pending. IV rocephin (3) Essential hypertension Status: Chronic Plan: D/C lisinopril. Monitor BP (4) Generalized weakness Status: Acute Plan: Patient's physical condition is at baseline (5) Dementia Status: Acute Plan: At baseline
--- NOTE | 2021-07-06 14:55 | PCM.DCPLAN ---
Discharge Plan - Discharge Plan Disposition: [facility] Condition: Stable Health Concerns: Post Hospitalization: new medications and changes needed to prevent readmission or further decline. Pt educated and given instructions on all concerns. Care Plan Goals: Problem: Infection Goal: Temperature within normal limits. Resolved infection. Instructions: Follow provided instructions. Follow up with primary physician as directed. Contact primary care physician or report to the closest Emergency Room if condition worsens. Plan of Treatment: Continue with present treatment and follow up plan. Pt is to keep follow up appointment as instructed and take medications as ordered. Assessment: Stable no acute distress noted at discharge. Prescriptions: New levofloxacin 250 mg Tablet 250 mg PO Q24H 3 Days Qty: 3 RF: 0 Continued carbidopa-levodopa 10-100 mg tablet 1 tab PO BID Linzess 290 mcg capsule 290 mcg PO DAILY loratadine 10 mg Tablet 10 mg PO DAILY melatonin 5 mg Tablet 10 mg PO HS multivitamin Tablet 1 tab PO DAILY Novolin R Regular U-100 Insuln 100 unit/mL Solution See Rx Instructions .ROUTE .COMPLEX oxycodone-acetaminophen 7.5-325 mg tablet 1 tab PO BID PRN (Reason: Pain) pantoprazole 40 mg tablet,delayed release (DR/EC) 40 mg PO DAILY quetiapine 50 mg tablet 50 mg PO HS Discontinued lisinopril 5 mg tablet 5 mg PO DAILY - Orders to Discharge Patient Discharge Orders: Discharge (Routine); Ordered 07/06/21 Ordered By: Ramya Justin - Follow ups/Referrals Follow ups/Referrals: THANG ROBERT [Primary Care Provider] - 1 WEEK - Instructions Instructions: Hyperkalemia, [id number], Weakness, Ugly-[id number], Urinary Tract Infection, Adult, [id number], Dehydration, Elderly, [id number] Additional Instructions: [facility], CMP on Friday Forms: Precautions for COVID19, [facility], Patient Portal, Social Distancing Print Language: MONGOLIAN
== END 2021-07-06 11:10 | DRG 690 ==
LOC: MED/SURG → OBSVTOIN 18:29
PROVIDERS: ADMIT Internal Medicine; ATTEND Internal Medicine
DX: N17.8 Other acute kidney failure; M51.36 Other intervertebral disc degeneration, lumbar region; B96.29 Other Escherichia coli [E. coli] as the cause of diseases classified elsewhere; J44.9 Chronic obstructive pulmonary disease, unspecified; R41.82 Altered mental status, unspecified; I25.10 Atherosclerotic heart disease of native coronary artery without angina pectoris; E11.65 Type 2 diabetes mellitus with hyperglycemia; F41.8 Other specified anxiety disorders; N34.2 Other urethritis; Z20.822 Contact with and (suspected) exposure to COVID-19; E87.5 Hyperkalemia

== ENCOUNTER 2022-08-20 13:28 | Observation (INO) ==
--- NOTE | 2022-08-20 16:17 | EKG ---
Test Reason : ams Blood Pressure : */* mmHG Vent. Rate : 83 BPM Atrial Rate : * BPM P-R Int : * ms QRS Dur : 134 ms QT Int : 412 ms P-R-T Axes : * 67 -10 degrees QTc Int : 484 ms Atrial flutter with variable block Right bundle branch block Abnormal ECG No previous ECGs available Confirmed by Emiliano Suresh ([id number]) on 08/20/2022 7:01:01 PM Referred By: Confirmed By: Emiliano Suresh
--- NOTE | 2022-08-20 17:27 | CT ---
HISTORYAMSSTUDYBRAIN W/O CONCOMPARISONHead CT 07/03/2021TECHNIQUEMultiple CT axial images of the head were obtained without IV contrast. Coronal and sagittal images were reconstructed. Dose reduction techniques included Automated Exposure Control (AEC) and adjustment of mA and kV.FINDINGSAge-related findings include central and cortical atrophy with areas of low density in the periventricular white matter compatible with micro-ischemic changes. The general appearance is stable when compared to the prior study.There is a slight asymmetry in the amount of density of the left and right supratentorial brain, but I believe this is due to suboptimal positioning. Otherwise luz and white matter have normal differentiation.There is no mass, shift, or hemorrhage. Cerebellar tonsils are at an appropriate level.No fluid in the sinuses or mucosal thickening to suggest sinusitis. There is no mastoid effusion.IMPRESSION1. No acute findingElectronically signed by: Gordon De La Paz (Aug 20, 2022 17:25:44)
[2022-08-20] MEDS ORDERED: ATIVAN INJ 2 MG VIAL IVP PRN (18:02)
[2022-08-20 18:05] LABS: BASOPHILS % (AUTO) 0.7 % (0.2-1.0); EOSINOPHILS # (AUTO) 0.1 x10^3/uL (0.0-0.2); EOSINOPHILS % (AUTO) 1.5 % (0.9-2.9); HEMATOCRIT 32.6 % (36.0-47.0); HEMOGLOBIN 10.6 g/dL (12.0-16.0); LYMPHOCYTES # (AUTO) 1.9 X10^3/uL (1.3-2.9); MEAN CORPUSCULAR HEMOGLOBIN 26.8 pg (27.0-34.0); MEAN CORPUSCULAR HGB CONC 32.5 g/dL (33.0-35.0); MEAN CORPUSCULAR VOLUME 82.4 fL (80.0-100.0); MEAN PLATELET VOLUME 7.3 fL (7.4-11.0); MONOCYTES # (AUTO) 0.3 x10^3/uL (0.3-0.8); MONOCYTES % (AUTO) 4.4 % (0.0-13.0); NEUTROPHILS # (AUTO) 4.7 x10^3/uL (2.2-4.8); NEUTROPHILS % (AUTO) 66.4 % (42.0-75.0); RED BLOOD COUNT 3.96 X10^6/uL (3.5-5.4); RED CELL DISTRIBUTION WIDTH 15.2 % (11.6-16.5); WHITE BLOOD COUNT 7.1 X10^3/uL (3.6-10.0)
[2022-08-20] MEDS ORDERED: XANAX PO PRN (18:06)
[2022-08-20] MEDS: LIPITOR TAB 10 MG PO SCH (18:14)
[2022-08-20] MEDS: SITAGLIPTIN METFORMIN PO SCH (18:15)
[2022-08-20] MEDS: EFFEXOR XR 75 MG CAP 24-HR PO SCH (18:15)
[2022-08-20] MEDS: NS 1,000 ML IV 1,000 ML IV SCH (18:17)
[2022-08-20 18:21] LABS: BILIRUBIN,URINE NEGATIVE (NEGATIVE); BLOOD/HEMOGLOBIN,URINE 2+ (NEGATIVE); GLUCOSE, URINE NEGATIVE (NEGATIVE); KETONES,URINE NEGATIVE (NEGATIVE); LEUKOCYTE ESTERASE ,URINE 3+ (NEGATIVE); NITRITES,URINE NEGATIVE (NEGATIVE); PROTEIN,URINE 2+ (NEGATIVE); UROBILINOGEN,URINE NORMAL (NORMAL)
[2022-08-20 18:24] LABS: APPEARANCE,URINE HAZY (CLEAR); COLOR,URINE YELLOW (YELLOW)
[2022-08-20 18:34] LABS: BACTERIA,URINE 2+ /HPF (NEGATIVE); SQUAMOUS EPITHELIAL CELL,UR MODERATE /HPF (NEGATIVE)
[2022-08-20 18:54] LABS: ALBUMIN 3.2 g/dL (3.4-5.0); CALCIUM 8.9 mg/dL (8.5-10.1); CARBON DIOXIDE 31.3 mmol/L (21-32); COR CA(FOR HYPOALB) 9.5 mg/dL (8.5-10.1); CREATININE 1.36 mg/dL (0.55-1.02)
[2022-08-20 19:10] LABS: CHOL/HDL RATIO 3.9 (0.0-5.0); MAGNESIUM 1.8 mg/dL (2.0-2.9)
[2022-08-20] MEDS ORDERED: K-RIDER 10 MEQ/NS 100 ML 10 MEQ/100 ML BAG IV PRN (19:21)
[2022-08-20] MEDS ORDERED: K-DUR TAB 20 MEQ PO PRN (19:21)
[2022-08-20] MEDS ORDERED: KLOR-CON PO PRN (19:21)
[2022-08-20] MEDS: PERCOCET TAB 5/325 MG PO PRN (19:59)
[2022-08-20] MEDS: MAGNESIUM SULFATE 1 GRAM/100 mL PREMIX 1 G/100 ML BAG IV PRN ×2 (20:00→21:25)
[2022-08-20] MEDS ORDERED: XANAX PO SCH (21:00)
[2022-08-20] MEDS ORDERED: LEXAPRO ONE (21:06)
[2022-08-20] MEDS: MELATONIN PO SCH (21:23)
[2022-08-20] MEDS: SEROquel TAB 25 mg PO SCH (21:23)
[2022-08-20] MEDS: SENOKOT PO SCH (21:23)
[2022-08-20] MEDS: LEXAPRO PO SCH (21:23)
[2022-08-20] MEDS: NEURONTIN CAP 400 MG PO SCH (21:23)
[2022-08-21] MEDS: NEURONTIN CAP 400 MG PO SCH ×3 (05:10→21:30)
[2022-08-21 06:12] LABS: BASOPHILS % (AUTO) 0.3 % (0.2-1.0); EOSINOPHILS # (AUTO) 0.1 x10^3/uL (0.0-0.2); EOSINOPHILS % (AUTO) 2.1 % (0.9-2.9); HEMATOCRIT 29.3 % (36.0-47.0); HEMOGLOBIN 9.6 g/dL (12.0-16.0); LYMPHOCYTES # (AUTO) 2.4 X10^3/uL (1.3-2.9); LYMPHOCYTES % (AUTO) 40.5 % (21.0-51.0); MEAN CORPUSCULAR HEMOGLOBIN 26.7 pg (27.0-34.0); MEAN CORPUSCULAR HGB CONC 32.6 g/dL (33.0-35.0); MEAN CORPUSCULAR VOLUME 81.9 fL (80.0-100.0); MEAN PLATELET VOLUME 7.4 fL (7.4-11.0); MONOCYTES # (AUTO) 0.4 x10^3/uL (0.3-0.8); MONOCYTES % (AUTO) 6.4 % (0.0-13.0); NEUTROPHILS # (AUTO) 2.9 x10^3/uL (2.2-4.8); NEUTROPHILS % (AUTO) 50.7 % (42.0-75.0); RED BLOOD COUNT 3.57 X10^6/uL (3.5-5.4); RED CELL DISTRIBUTION WIDTH 15.2 % (11.6-16.5); WHITE BLOOD COUNT 5.8 X10^3/uL (3.6-10.0)
[2022-08-21 06:27] LABS: ALANINE AMINOTRANSFERASE 12 Units/L (12-78); ALBUMIN 2.9 g/dL (3.4-5.0); ALKALINE PHOSPHATASE 77 Units/L (46-116); ASPARTATE AMINO TRANSFERASE 16 Units/L (15-37); BLOOD UREA NITROGEN 19 mg/dL (7-18); CALCIUM 8.6 mg/dL (8.5-10.1); CARBON DIOXIDE 32.6 mmol/L (21-32); CHLORIDE 105 mmol/L (98-107); COR CA(FOR HYPOALB) 9.5 mg/dL (8.5-10.1); CREATININE 1.32 mg/dL (0.55-1.02); MAGNESIUM 2.1 mg/dL (2.0-2.9); SODIUM 142 mmol/L (136-145); TOTAL PROTEIN 6.3 g/dL (6.4-8.2); eGFR NON BLACK RACES 41 (>60)
--- NOTE | 2022-08-21 07:35 | RAD ---
HISTORYTremorsSTUDYChest AP [id number]/08/2022FINDINGSThe heart is enlarged. No congestive heart failure is noted. Aorta is calcified. Kimberly are normal. Lung cash are clear. No pleural effusions identified. Bony thorax is unremarkable.IMPRESSIONCardiomegaly without congestive heart failureNo definite infiltratesElectronically signed by: NELIDA HE (Aug 21, 2022 07:34:10)
[2022-08-21] MEDS: SENOKOT PO SCH (08:12)
[2022-08-21] MEDS: LIPITOR TAB 10 MG PO SCH (08:12)
[2022-08-21] MEDS: ASPIRIN 81 MG CHEWTAB PO SCH (08:12)
[2022-08-21] MEDS: EFFEXOR XR 75 MG CAP 24-HR PO SCH (08:12)
[2022-08-21] MEDS: PROTONIX TAB 40 MG PO SCH (08:12)
[2022-08-21] MEDS: PERCOCET TAB 5/325 MG PO PRN ×2 (08:12→21:31)
[2022-08-21] MEDS: NS 1,000 ML IV 1,000 ML IV SCH ×2 (08:20→21:38)
[2022-08-21] MEDS: GLUCOPHAGE XR 24-HR PO SCH (09:05)
[2022-08-21] MEDS: LOVENOX INJ 40 MG SYR SC SCH (09:07)
[2022-08-21] MEDS: JANUVIA PO SCH (09:10)
[2022-08-21] MEDS ORDERED: BENADRYL INJ 50 MG VIAL IVP ONE ×2 (09:30→12:27)
[2022-08-21 10:33] VITALS: BMI 40.9
[2022-08-21] MEDS ORDERED: BENADRYL INJ 50 MG VIAL ONE (12:17)
[2022-08-21] MEDS ORDERED: ATIVAN INJ 2 MG VIAL ONE (12:20)
[2022-08-21] MEDS ORDERED: BENADRYL INJ 50 MG VIAL IM ONE (12:23)
[2022-08-21] MEDS ORDERED: ATIVAN INJ 2 MG VIAL IVP ONE (12:24)
[2022-08-21] MEDS: SITAGLIPTIN METFORMIN PO SCH (14:19)
--- NOTE | 2022-08-21 18:35 | DR.H&P ---
H&P - History & Physical for Day of: H&P Date: 08/20/22 - Chief Complaint Chief Complaint: AMS - History of Present Illness History of Present Illness: PT IS 81 WF, DIRECT ADMIT FROM [facility] WITH INCREASED CONFUSION AND TREMORS TO BILATERAL UPPER EXTREMITIES. NURSING STAFF REPORTS PT HAS HAD POOR PO INTAKE DUE TO WORSENING TREMORS. PT HAD OUTPT LABS WITH INCREASED BUN/CREAT LEVEL DUE TO DEHYDRATION. PT HAS PMH OF CAD, COPD, HTN, OA, GERD, YAMINI, CHF. PT ADMITTED FOR TREATMENT AND EVALUATION OF ACUTE ILLNESS. - Past Medical History Past Medical History: Coronary Artery Disease, Hypertension, Diabetes, COPD, Asthma - Past Surgical History Surgical History: Angioplasty/Stents, Ortho Surgery - Family History Family Medical History: Diabetes Mellitus, PA, Coronary Artery Disease - Social History Does patient currently use any type of tobacco product: No Have you used tobacco products in the last 12 months: No Type of Tobacco Use: None Does any household member use tobacco: No Alcohol Use: None Drug Use: None - Medications Home Medications: ciprofloxacin [From Cipro] Allergy (Verified 06/16/18 14:37) CONTINUE taking the following medications alprazolam 0.5 mg tablet 0.5 mg PO BID PRN 08/20/22 [History] amlodipine 2.5 mg tablet 2.5 mg PO QDAY 08/20/22 [History] aspirin 81 mg tablet 81 mg PO DAILY 08/20/22 [History] atorvastatin 10 mg tablet 10 mg PO QDAY 08/20/22 [History] docusate sodium 100 mg capsule (Colace) 100 mg PO DAILY 08/20/22 [History] donepezil 5 mg tablet 5 mg PO QDAY 08/20/22 [History] ergocalciferol (vitamin D2) 1,250 mcg (50,000 unit) capsule (Vitamin D2) 1 cap PO QWEEK 08/20/22 [History] escitalopram oxalate 10 mg tablet 10 mg PO HS 08/20/22 [History] gabapentin 400 mg capsule 400 mg PO TID 08/20/22 [History] insulin detemir U-100 100 unit/mL subcutaneous solution (Levemir U-100 Insulin) 45 unit subcut HS 08/20/22 [History] sennosides 8.6 mg tablet (Senokot) 8.6 mg PO QDAY 08/20/22 [History] sitagliptin 50 mg-metformin 1,000 mg tablet (Janumet) 1 tab PO QDAY PRN 08/20/22 [History] venlafaxine 75 mg capsule,extended release 24 hr 75 mg PO QDAY 08/20/22 [History] - Review of Systems Constitutional: Weakness Eyes: No Symptoms Reported ENT: No Symptoms Reported Respiratory: Shortness of Breath Cardiovascular: Edema Gastrointestinal: Nausea Genitourinary: Incontinence Musculoskeletal: Arm Pain, Back Pain, Leg Pain Skin: Wound (LEFT NECK) Neurological: Weakness, Confusion, Other (TREMORS) - Physical Exam Vital Signs: Temperature 97.8 F Pulse Rate [Right Brachial] 85 Respiratory Rate 18 Blood Pressure [Right Arm] 130/59 O2 Sat by Pulse Oximetry 95 Oriented: Person Eyes: Normal Ear: Normal Nose: Normal Throat: Normal Respiratory: RLL Diminished, LLL Diminished Cardiovascular: Normal. negative: Edema : Normal Auscultation: Bowel Sounds: Normal Palpation: Normal Skin: Decreased Turgur, Wound (LEFT NECK) Musculoskeletal: Back:Thoracic, Back:Lumbar, Motor Deficit Psychiatric: Anxiety, Depression Mood Description: Depressed, Anxious Affect: Anxious Speech Pattern: Appropriate, Delayed - Assessment/Plan (1) Altered mental status Status: Acute Plan: ADMIT, CT HEAD ON ADMISSION. URINE CULTURE. IV HYDRATION, STRICT I&OS. BP AND BS CONTROL. VERIFY HOME MEDICATION. AM MRI (2) CAD (coronary artery disease) Qualifiers: Associated angina: without angina Status: Chronic (3) History of TIA (transient ischemic attack) Status: Chronic (4) Diabetes mellitus, type 2 Status: Chronic (5) Weakness generalized Status: Acute (6) Dehydration Status: Acute (7) CAD (coronary artery disease) Status: Chronic (8) UTI (urinary tract infection) Status: Acute - Allergies Allergies/Adverse Reactions: Allergies Allergy/AdvReac Type Severity Reaction Status Date / Time ciprofloxacin [From Cipro] Allergy Verified 06/16/18 14:37
[2022-08-21] MEDS ORDERED: LEXAPRO ONE (21:13)
[2022-08-21] MEDS: SEROquel TAB 25 mg PO SCH (21:29)
[2022-08-21] MEDS: MELATONIN PO SCH (21:30)
[2022-08-21] MEDS: LEXAPRO PO SCH (21:30)
[2022-08-22] MEDS: NEURONTIN CAP 400 MG PO SCH ×2 (05:22→14:05)
[2022-08-22] MEDS: PERCOCET TAB 5/325 MG PO PRN (05:23)
[2022-08-22 05:59] LABS: BASOPHILS % (AUTO) 0.5 % (0.2-1.0); EOSINOPHILS # (AUTO) 0.1 x10^3/uL (0.0-0.2); EOSINOPHILS % (AUTO) 1.8 % (0.9-2.9); HEMATOCRIT 26.8 % (36.0-47.0); HEMOGLOBIN 8.9 g/dL (12.0-16.0); LYMPHOCYTES # (AUTO) 1.9 X10^3/uL (1.3-2.9); LYMPHOCYTES % (AUTO) 34.2 % (21.0-51.0); MEAN CORPUSCULAR HGB CONC 33.2 g/dL (33.0-35.0); MEAN CORPUSCULAR VOLUME 81.4 fL (80.0-100.0); MEAN PLATELET VOLUME 7.6 fL (7.4-11.0); MONOCYTES # (AUTO) 0.3 x10^3/uL (0.3-0.8); MONOCYTES % (AUTO) 5.6 % (0.0-13.0); NEUTROPHILS # (AUTO) 3.2 x10^3/uL (2.2-4.8); NEUTROPHILS % (AUTO) 57.9 % (42.0-75.0); RED BLOOD COUNT 3.29 X10^6/uL (3.5-5.4); RED CELL DISTRIBUTION WIDTH 15.3 % (11.6-16.5); WHITE BLOOD COUNT 5.6 X10^3/uL (3.6-10.0)
[2022-08-22 06:25] LABS: ALBUMIN 2.8 g/dL (3.4-5.0); CALCIUM 8.3 mg/dL (8.5-10.1); CARBON DIOXIDE 29.5 mmol/L (21-32); COR CA(FOR HYPOALB) 9.3 mg/dL (8.5-10.1); CREATININE 1.46 mg/dL (0.55-1.02); TOTAL PROTEIN 6.1 g/dL (6.4-8.2)
[2022-08-22] MEDS: ROCEPHIN VIAL 1 GRAM 1 G in NS 100 ML IV 100 ML IV SCH ×2 (08:54)
[2022-08-22] MEDS: ASPIRIN 81 MG CHEWTAB PO SCH (08:54)
[2022-08-22] MEDS: JANUVIA PO SCH (08:55)
[2022-08-22] MEDS: LOVENOX INJ 40 MG SYR SC SCH (08:55)
[2022-08-22] MEDS: EFFEXOR XR 75 MG CAP 24-HR PO SCH (08:55)
[2022-08-22] MEDS: GLUCOPHAGE XR 24-HR PO SCH (08:55)
[2022-08-22] MEDS: LIPITOR TAB 10 MG PO SCH (08:55)
[2022-08-22] MEDS: PROTONIX TAB 40 MG PO SCH (08:56)
[2022-08-22] MEDS: SENOKOT PO SCH (08:56)
--- NOTE | 2022-08-22 09:04 | MRI ---
MR brain without contrastIndication: Altered mental status. Tremors.COMPARISONCT head from August 20, 2022TECHNIQUEMultiplanar multisequence imaging through the brain without contrastFINDINGSDiffusion-weighted imaging shows no abnormal increased signal to suggest infarction. ADC map is correspondingly normal. There is no acute intracranial hemorrhage, mass or mass effect. Midline structures are intact. Bone marrow signal is normal. Soft tissues of the face and upper neck show no acute abnormality. Degenerative change at the craniocervical junction noted. There is moderate cerebral atrophy with ex vacuo ventricular and sulcal enlargement. Paranasal sinuses are clear. Minimal dependent fluid seen in the mastoid air cells. Intracranial vascular flow voids are normal. Cerebellopontine angles are normal. Periventricular white matter changes and cerebral white matter changes are noted on FLAIR, most compatible with microangiopathy. No marked gradient signal abnormality identified.IMPRESSION1. Moderate cerebral atrophy and microangiopathy2. No acute intracranial abnormalityElectronically signed by: CELINE DOMINGO (Aug 22, 2022 09:02:09)
[2022-08-22] MEDS: KEFLEX CAP 500 MG PO SCH ×2 (11:31→12:50)
[2022-08-22 12:30] VITALS: BP 142/67
[2022-08-22] MEDS: NS 1,000 ML IV 1,000 ML IV SCH (12:30)
== END 2022-08-22 14:08 ==
LOC: MED/SURG
PROVIDERS: ADMIT Internal Medicine; ATTEND Internal Medicine

== ENCOUNTER 2022-12-25 10:22 | Inpatient (IN) ==
[2022-12-25 12:14] VITALS: BMI 36.8
[2022-12-25] MEDS ORDERED: NovoLIN R (or HumuLIN R) SUBCUT PRN (12:25)
[2022-12-25] MEDS ORDERED: NS 1,000 ML IV 1,000 ML ONE (12:50)
[2022-12-25] MEDS: NS 1,000 ML IV 1,000 ML IV SCH (12:58)
[2022-12-25] MEDS: PROTONIX INJ 40 MG VIAL IVP SCH ×2 (12:58→20:37)
[2022-12-25] MEDS ORDERED: ROBITUSSIN DM PO SCH (13:00)
[2022-12-25] MEDS: ZOSYN VIAL 3.375 GRAMS 3.375 G in NS 100 ML IV 100 ML IV SCH ×2 (13:26→22:21)
--- NOTE | 2022-12-25 13:43 | DR.H&P ---
H&P - History & Physical for Day of: H&P Date: 12/25/22 - Chief Complaint Chief Complaint: "SPITTING UP FOAM" - History of Present Illness History of Present Illness: PT IS 82 WF, RESIDENT OT RAD, ADMITTED WITH PNEUMONIA CONFIRMED ON CXR AFTER CHOKING EPISODE LAST PM. PT HAD PO2 60 ON ROOM AIR. PT HAS PMH OF CHF, COPD, DM, HTN, OA. PT ADMITTED FOR TREATMENT OF ACUTE ILLNESS. - Past Medical History Past Medical History: Coronary Artery Disease, Hypertension, Diabetes, COPD, Asthma - Past Surgical History Surgical History: Angioplasty/Stents, Ortho Surgery - Family History Family Medical History: Diabetes Mellitus, [place], Coronary Artery Disease - Social History Does patient currently use any type of tobacco product: No Have you used tobacco products in the last 12 months: No Type of Tobacco Use: None Does any household member use tobacco: No Alcohol Use: None Drug Use: None - Medications Home Medications: ciprofloxacin [From Cipro] Allergy (Verified 06/16/18 14:37) CONTINUE taking the following medications cefuroxime axetil 500 mg tablet 500 mg PO BID 12/25/22 [History] clopidogrel 75 mg tablet 75 mg PO DAILY 12/25/22 [History] doxycycline hyclate 100 mg tablet 100 mg PO BID 12/25/22 [History] levalbuterol HCl 1.25 mg/3 mL solution for nebulization 1.25 mg inhalation TID 0 12/25/22 [History] magnesium hydroxide 400 mg/5 mL oral suspension 30 ml PO .DAILY MON,WED,FRI 12/25/22 [History] sitagliptin phosphate 50 mg tablet (Januvia) 50 mg PO DAILY 12/25/22 [History] - Review of Systems Constitutional: Weakness, Malaise Eyes: No Symptoms Reported ENT: No Symptoms Reported Respiratory: Cough, Wheezing Cardiovascular: No Symptoms Reported Gastrointestinal: No Symptoms Reported Genitourinary: No Symptoms Reported Musculoskeletal: Back Pain, Leg Pain Skin: Wound Neurological: Other (PARKINSON'S ) - Physical Exam Vital Signs: Blood Pressure [Left Calf] 135/73 Blood Pressure [Right Arm] 130/62 Blood Pressure 114/54 Oriented: Normal Eyes: Normal Ear: Normal Nose: Normal Throat: Normal Respiratory: RUL Diminished, RML Diminished, LLL Diminished Cardiovascular: Normal : Normal Auscultation: Bowel Sounds: Normal Tenderness: Normal Skin: Decreased Turgur Musculoskeletal: Right, Left, Leg, Back:Thoracic, Back:Lumbar, Motor Deficit Psychiatric: Anxiety Mood Description: Anxious Affect: Anxious Speech Pattern: Clear, Appropriate - Assessment/Plan (1) Aspiration pneumonia Status: Acute Plan: ADMIT, BLOOD AND SPUTUM CULTURES ORDERED ON ADMISSION. REPEAT CXR. IV HYDRATION, STRICT I&OS. IV ZOSYN, SUPPLEMENTAL O2. RESP THERAPY, VERIFY HOME MEDICATION (2) Chronic skin ulcer Status: None (3) CAD (coronary artery disease) Qualifiers: Associated angina: without angina Status: Chronic (4) Hypertension Status: Chronic (5) Diabetes mellitus, type 2 Status: Chronic (6) Depression Status: Chronic (7) Degenerative arthritis Qualifiers: Osteoarthritis location: knee Osteoarthritis type: primary Laterality: bilateral Qualified Code(s): M17.0 - Bilateral primary osteoarthritis of knee Status: Chronic - Allergies Allergies/Adverse Reactions: Allergies Allergy/AdvReac Type Severity Reaction Status Date / Time ciprofloxacin [From Cipro] Allergy Verified 06/16/18 14:37
[2022-12-25 14:33] LABS: BASOPHILS % (AUTO) 0.2 % (0.2-1.0); EOSINOPHILS # (AUTO) 0.2 x10^3/uL (0.0-0.2); HEMATOCRIT 38.4 % (36.0-47.0); HEMOGLOBIN 12.5 g/dL (12.0-16.0); LYMPHOCYTES % (AUTO) 35.6 % (21.0-51.0); MEAN CORPUSCULAR HEMOGLOBIN 26.5 pg (27.0-34.0); MEAN CORPUSCULAR HGB CONC 32.5 g/dL (33.0-35.0); MEAN CORPUSCULAR VOLUME 81.7 fL (80.0-100.0); MEAN PLATELET VOLUME 7.4 fL (7.4-11.0); MONOCYTES # (AUTO) 0.2 x10^3/uL (0.3-0.8); MONOCYTES % (AUTO) 4.4 % (0.0-13.0); NEUTROPHILS # (AUTO) 3.1 x10^3/uL (2.2-4.8); NEUTROPHILS % (AUTO) 56.8 % (42.0-75.0); RED BLOOD COUNT 4.69 X10^6/uL (3.5-5.4); RED CELL DISTRIBUTION WIDTH 16.2 % (11.6-16.5); WHITE BLOOD COUNT 5.5 X10^3/uL (3.6-10.0)
[2022-12-25 14:42] LABS: ALANINE AMINOTRANSFERASE 15 Units/L (12-78); ALBUMIN 3.4 g/dL (3.4-5.0); ALKALINE PHOSPHATASE 78 Units/L (46-116); ASPARTATE AMINO TRANSFERASE 20 Units/L (15-37); BLOOD UREA NITROGEN 15 mg/dL (7-18); CALCIUM 9.4 mg/dL (8.5-10.1); CARBON DIOXIDE 30.8 mmol/L (21-32); CHLORIDE 103 mmol/L (98-107); COR NA(FOR HYPERGLY) 144 mmol/L (136-145); CREATININE 1.21 mg/dL (0.55-1.02); SODIUM 143 mmol/L (136-145); TOTAL PROTEIN 7.3 g/dL (6.4-8.2); eGFR NON BLACK RACES 46 (>60)
[2022-12-25] MEDS: SINEMET (PLAIN) 10/100 MG PO SCH ×2 (15:04→22:21)
--- NOTE | 2022-12-25 15:07 | RAD ---
EXAM: CHEST X-RAYHISTORY: Pneumonia.TECHNIQUE: AP CXR dated December 25, 2022 at 12:55 PM.COMPARISON: CXR dated December 24, 2022 at 2:31 PM.FINDINGS:There is aortic atherosclerosis. Mild cardiomegaly is noted. The mediastinum is otherwise grossly unremarkable. The lung cash and costophrenic angles are clear. There is no acute parenchymal infiltrate, pleural effusion, or pneumothorax seen. The visualized bony structures are within normal limits.IMPRESSION:1. No evidence for acute cardiopulmonary disease seen.2. Interval resolution of previously seen (patient congestive) infiltrates.Electronically signed by: Med Buckner (Dec 25, 2022 15:05:13)
[2022-12-25] MEDS: PERCOCET TAB 5/325 MG PO PRN ×2 (15:09→22:56)
[2022-12-25] MEDS ORDERED: XOPENEX 1.25 MG/3 ML NEBULE NEB ONE (16:55)
[2022-12-25] MEDS: XOPENEX 1.25 MG/3 ML NEBULE NEB SCH (17:00)
[2022-12-25] MEDS ORDERED: PULMICORT NEB TX 0.5 MG NEB ONE (19:57)
[2022-12-25] MEDS ORDERED: GLUCOPHAGE ONE (20:19)
[2022-12-25] MEDS: XANAX PO SCH (20:32)
[2022-12-25] MEDS: MELATONIN PO SCH (20:39)
[2022-12-25] MEDS: LIPITOR TAB 10 MG PO SCH (20:40)
[2022-12-25] MEDS: GLUCOPHAGE PO SCH (20:40)
[2022-12-25] MEDS: LOPRESSOR TAB 25 MG PO SCH (20:41)
[2022-12-25] MEDS: SEROquel TAB 25 mg PO SCH (20:41)
[2022-12-25] MEDS: NYSTATIN POWDER TOP SCH (20:42)
[2022-12-25] MEDS: SNACK - Diabetic Appropriate PO SCH (20:49)
[2022-12-25] MEDS: PULMICORT NEB TX 0.5 MG NEB SCH (20:51)
[2022-12-26] MEDS: XOPENEX 1.25 MG/3 ML NEBULE NEB SCH ×4 (00:10→17:08)
[2022-12-26] MEDS: SINEMET (PLAIN) 10/100 MG PO SCH ×3 (05:22→21:14)
[2022-12-26] MEDS: ZOSYN VIAL 3.375 GRAMS 3.375 G in NS 100 ML IV 100 ML IV SCH ×3 (05:22→21:19)
[2022-12-26 06:21] LABS: BASOPHILS % (AUTO) 0.9 % (0.2-1.0); EOSINOPHILS # (AUTO) 0.2 x10^3/uL (0.0-0.2); EOSINOPHILS % (AUTO) 3.7 % (0.9-2.9); HEMATOCRIT 34.7 % (36.0-47.0); HEMOGLOBIN 11.5 g/dL (12.0-16.0); LYMPHOCYTES # (AUTO) 2.7 X10^3/uL (1.3-2.9); LYMPHOCYTES % (AUTO) 47.7 % (21.0-51.0); MEAN CORPUSCULAR HEMOGLOBIN 26.9 pg (27.0-34.0); MEAN CORPUSCULAR HGB CONC 33.1 g/dL (33.0-35.0); MEAN CORPUSCULAR VOLUME 81.1 fL (80.0-100.0); MEAN PLATELET VOLUME 7.5 fL (7.4-11.0); MONOCYTES # (AUTO) 0.4 x10^3/uL (0.3-0.8); MONOCYTES % (AUTO) 7.2 % (0.0-13.0); NEUTROPHILS # (AUTO) 2.3 x10^3/uL (2.2-4.8); NEUTROPHILS % (AUTO) 40.5 % (42.0-75.0); RED BLOOD COUNT 4.28 X10^6/uL (3.5-5.4); WHITE BLOOD COUNT 5.6 X10^3/uL (3.6-10.0)
[2022-12-26 06:38] LABS: ALANINE AMINOTRANSFERASE 11 Units/L (12-78); ALKALINE PHOSPHATASE 70 Units/L (46-116); ASPARTATE AMINO TRANSFERASE 20 Units/L (15-37); BLOOD UREA NITROGEN 18 mg/dL (7-18); CALCIUM 9.2 mg/dL (8.5-10.1); CARBON DIOXIDE 31.5 mmol/L (21-32); CHLORIDE 104 mmol/L (98-107); COR NA(FOR HYPERGLY) 142 mmol/L (136-145); CREATININE 1.11 mg/dL (0.55-1.02); SODIUM 141 mmol/L (136-145); TOTAL PROTEIN 6.6 g/dL (6.4-8.2); eGFR NON BLACK RACES 50 (>60)
[2022-12-26] MEDS ORDERED: GLUCOPHAGE ONE ×2 (08:09→20:13)
[2022-12-26] MEDS ORDERED: NORVASC TAB 2.5 MG ONE (08:10)
[2022-12-26] MEDS: JANUVIA PO SCH (08:14)
[2022-12-26] MEDS: EFFEXOR XR 75 MG CAP 24-HR PO SCH (08:14)
[2022-12-26] MEDS: GLUCOPHAGE PO SCH ×2 (08:14→21:16)
[2022-12-26] MEDS: SENOKOT PO SCH (08:14)
[2022-12-26] MEDS: ASPIRIN EC 81 MG PO SCH (08:14)
[2022-12-26] MEDS: PLAVIX PO SCH (08:14)
[2022-12-26] MEDS: PROTONIX INJ 40 MG VIAL IVP SCH ×2 (08:15→21:23)
[2022-12-26] MEDS: LOPRESSOR TAB 25 MG PO SCH ×2 (08:15→21:15)
[2022-12-26] MEDS: NORVASC TAB 2.5 MG PO SCH (08:15)
[2022-12-26] MEDS: XANAX PO SCH ×2 (08:15→21:14)
[2022-12-26] MEDS: ARICEPT TAB 5 MG PO SCH (08:15)
[2022-12-26] MEDS: NYSTATIN POWDER TOP SCH ×2 (08:15→21:19)
[2022-12-26] MEDS: PERCOCET TAB 5/325 MG PO PRN ×2 (08:24→21:21)
[2022-12-26] MEDS: PULMICORT NEB TX 0.5 MG NEB SCH ×2 (08:30→21:00)
[2022-12-26] MEDS ORDERED: K-DUR TAB 20 MEQ PO PRN (09:56)
[2022-12-26] MEDS ORDERED: POTASSIUM CHLORIDE LIQ 20 MEQ UDC PO PRN (09:56)
[2022-12-26] MEDS: MAGNESIUM SULFATE 1 GRAM/100 mL PREMIX 1 G/100 ML BAG IV PRN ×2 (10:45→12:39)
--- NOTE | 2022-12-26 10:45 | RAD ---
HISTORYShortness of breathSTUDYChest PA and [id number]/05/2023FINDINGSThe heart is enlarged. No congestive heart failure is noted. Kimberly are normal. Aorta is calcified. Lung cash are clear. Bony thorax is unremarkable.IMPRESSIONCardiomegaly without congestive heart failureLungs clearElectronically signed by: NELIDA HE (Dec 26, 2022 10:43:51)
[2022-12-26] MEDS: TAB-A-VITE PO SCH (13:42)
[2022-12-26] MEDS: MAG-OX TAB PO SCH (13:42)
[2022-12-26] MEDS: CLARITIN PO SCH (13:42)
[2022-12-26] MEDS: COLACE CAP 100 MG PO SCH (13:42)
[2022-12-26] MEDS: NEURONTIN CAP 400 MG PO SCH ×2 (13:44→21:16)
[2022-12-26] MEDS: NS 1,000 ML IV 1,000 ML IV SCH (16:44)
[2022-12-26] MEDS: MELATONIN PO SCH (21:14)
[2022-12-26] MEDS: SEROquel TAB 25 mg PO SCH (21:17)
[2022-12-26] MEDS: LIPITOR TAB 10 MG PO SCH (21:18)
[2022-12-26] MEDS: SNACK - Diabetic Appropriate PO SCH (21:23)
[2022-12-27 04:55] VITALS: BP 133/64
[2022-12-27] MEDS: SINEMET (PLAIN) 10/100 MG PO SCH (05:17)
[2022-12-27] MEDS: NEURONTIN CAP 400 MG PO SCH (05:17)
[2022-12-27] MEDS: ZOSYN VIAL 3.375 GRAMS 3.375 G in NS 100 ML IV 100 ML IV SCH (05:17)
[2022-12-27 05:29] LABS: BASOPHILS % (AUTO) 0.8 % (0.2-1.0); EOSINOPHILS # (AUTO) 0.2 x10^3/uL (0.0-0.2); EOSINOPHILS % (AUTO) 3.8 % (0.9-2.9); HEMOGLOBIN 10.5 g/dL (12.0-16.0); LYMPHOCYTES # (AUTO) 2.3 X10^3/uL (1.3-2.9); LYMPHOCYTES % (AUTO) 45.2 % (21.0-51.0); MEAN CORPUSCULAR HEMOGLOBIN 27.4 pg (27.0-34.0); MEAN CORPUSCULAR HGB CONC 33.9 g/dL (33.0-35.0); MEAN CORPUSCULAR VOLUME 80.8 fL (80.0-100.0); MEAN PLATELET VOLUME 7.5 fL (7.4-11.0); MONOCYTES # (AUTO) 0.3 x10^3/uL (0.3-0.8); MONOCYTES % (AUTO) 5.6 % (0.0-13.0); NEUTROPHILS # (AUTO) 2.3 x10^3/uL (2.2-4.8); NEUTROPHILS % (AUTO) 44.6 % (42.0-75.0); RED BLOOD COUNT 3.83 X10^6/uL (3.5-5.4); RED CELL DISTRIBUTION WIDTH 15.8 % (11.6-16.5); WHITE BLOOD COUNT 5.2 X10^3/uL (3.6-10.0)
[2022-12-27 05:37] LABS: ALANINE AMINOTRANSFERASE 7 Units/L (12-78); ALBUMIN 2.8 g/dL (3.4-5.0); ALKALINE PHOSPHATASE 59 Units/L (46-116); ASPARTATE AMINO TRANSFERASE 17 Units/L (15-37); BLOOD UREA NITROGEN 14 mg/dL (7-18); CALCIUM 8.8 mg/dL (8.5-10.1); CARBON DIOXIDE 30.8 mmol/L (21-32); CHLORIDE 105 mmol/L (98-107); COR CA(FOR HYPOALB) 9.8 mg/dL (8.5-10.1); COR NA(FOR HYPERGLY) 142 mmol/L (136-145); CREATININE 1.03 mg/dL (0.55-1.02); SODIUM 141 mmol/L (136-145); TOTAL PROTEIN 6.1 g/dL (6.4-8.2); eGFR NON BLACK RACES 55 (>60)
[2022-12-27] MEDS: XOPENEX 1.25 MG/3 ML NEBULE NEB SCH ×3 (05:45→12:52)
[2022-12-27] MEDS ORDERED: GLUCOPHAGE ONE (07:58)
[2022-12-27] MEDS ORDERED: NORVASC TAB 2.5 MG ONE (07:59)
[2022-12-27] MEDS: PROTONIX INJ 40 MG VIAL IVP SCH (08:11)
[2022-12-27] MEDS: CLARITIN PO SCH (08:12)
[2022-12-27] MEDS: COLACE CAP 100 MG PO SCH (08:12)
[2022-12-27] MEDS: XANAX PO SCH (08:12)
[2022-12-27] MEDS: GLUCOPHAGE PO SCH (08:12)
[2022-12-27] MEDS: ARICEPT TAB 5 MG PO SCH (08:12)
[2022-12-27] MEDS: ASPIRIN EC 81 MG PO SCH (08:12)
[2022-12-27] MEDS: EFFEXOR XR 75 MG CAP 24-HR PO SCH (08:12)
[2022-12-27] MEDS: NORVASC TAB 2.5 MG PO SCH (08:13)
[2022-12-27] MEDS: TAB-A-VITE PO SCH (08:13)
[2022-12-27] MEDS: SENOKOT PO SCH (08:13)
[2022-12-27] MEDS: JANUVIA PO SCH (08:13)
[2022-12-27] MEDS: LOPRESSOR TAB 25 MG PO SCH (08:13)
[2022-12-27] MEDS: PLAVIX PO SCH (08:13)
[2022-12-27] MEDS: MAG-OX TAB PO SCH (08:13)
[2022-12-27] MEDS: NYSTATIN POWDER TOP SCH (08:14)
[2022-12-27] MEDS: PULMICORT NEB TX 0.5 MG NEB SCH (08:34)
--- NOTE | 2022-12-27 09:48 | RAD ---
HISTORYShortness of breathSTUDYChest AP [id number]/06/2023FINDINGSHear t remains enlarged. Kimberly are normal. Aorta is calcified. No congestive heart failure is noted. Lung cash are clear. No pleural effusions are identified. Bony thorax is unremarkable.IMPRESSIONCardiomegaly without congestive heart failureLungs clearElectronically signed by: NELIDA HE (Dec 27, 2022 09:47:10)
[2022-12-27] MEDS: NS 1,000 ML IV 1,000 ML IV SCH (13:12)
[2022-12-31] MEDS ORDERED: VITAMIN D (1.25MG) PO SCH (09:00)
== END 2022-12-27 13:44 | DRG 179 ==
LOC: MED/SURG 10:47
PROVIDERS: ADMIT Internal Medicine; ATTEND Internal Medicine
DX: R06.02 Shortness of breath; J69.0 Pneumonitis due to inhalation of food and vomit; R13.11 Dysphagia, oral phase; J44.9 Chronic obstructive pulmonary disease, unspecified; M17.0 Bilateral primary osteoarthritis of knee; Z20.822 Contact with and (suspected) exposure to COVID-19; L98.499 Non-pressure chronic ulcer of skin of other sites with unspecified severity; I10 Essential (primary) hypertension; E11.65 Type 2 diabetes mellitus with hyperglycemia; F32.89 Other specified depressive episodes

== ENCOUNTER 2023-03-23 17:02 | Inpatient (IN) ==
--- NOTE | 2023-03-23 17:25 | DR.URINEF ---
HPI Time Seen Time Seen by Provider: 03/23/23 17:24 Complaint Chief Complaint Doctors Comments: 82 y/o female, resident of [facility], sent over for evaluation. Pt reports large amount of vomiting last pm. Today c/o pain of both legs (has a dressed would of the LLE, chronic deformmities of both feet, does not weight bear for a long time). NH reports decreased urination over the past 24 hours. Had labs at the [place] 2-33 hours ago. Obtained a urine on a cath specimen, no obvious source of infection. BUN/Cr were elevated, + h/o renal disease. Also has Hgb 7.5. Pt denies fever, chills, cough, dyspnea, bowel or bladder issues. Not nauseous at this time. No fever, chills. Does have chronic tremors at times. Reviewed Nurses Notes Reviewed: Yes Source History Provided: Patient and Prison PMH PMH Past Medical History: Anxiety, Asthma, COPD, Coronary Artery Disease, Depression, Diabetes, Dyslipidemia, Hypertension, [place] and Renal Disease Past Surgical History: Yes Surgical History: Angioplasty/Stents and Ortho Surgery Family History Family Medical History: Diabetes Mellitus, [place] and Coronary Artery Disease Social History Do you use any recreational Drugs:: No ROS Review of Systems Constitutional: No Symptoms Reported Eyes: No Symptoms Reported ENTM: No Symptoms Reported Respiratoy: No Symptoms Reported Cardiovascular: No Symptoms Reported Gastrointestinal/Abdominal: No Symptoms Reported Genitourinary: No Symptoms Reported Neurological: No Symptoms Reported Musculoskeletal: See HPI Integumentary: No Symptoms Reported Hematologic/Lymphatic: No Symptoms Reported All Other Systems: Reviewed and Negative PE Vital Signs Vitals: Vital Signs Temperature 98.8 F Pulse Rate 129 Pulse Rate 133 Pulse Rate 127 Pulse Rate 124 Pulse Rate 118 Pulse Rate 120 Pulse Rate 119 Pulse Rate 120 Pulse Rate 126 Pulse Rate 124 Pulse Rate 128 Pulse Rate 122 Respiratory Rate 18 Respiratory Rate 18 Respiratory Rate 11 Respiratory Rate 17 Respiratory Rate 23 Respiratory Rate 14 Respiratory Rate 15 Respiratory Rate 16 Respiratory Rate 27 Respiratory Rate 40 Respiratory Rate 24 Respiratory Rate 25 Blood Pressure 110/52 Blood Pressure 108/74 Blood Pressure 92/60 O2 Sat by Pulse Oximetry 89 O2 Sat by Pulse Oximetry 94 O2 Sat by Pulse Oximetry 98 O2 Sat by Pulse Oximetry 98 O2 Sat by Pulse Oximetry 99 O2 Sat by Pulse Oximetry 98 O2 Sat by Pulse Oximetry 89 O2 Sat by Pulse Oximetry 95 O2 Sat by Pulse Oximetry 93 O2 Sat by Pulse Oximetry 79 O2 Sat by Pulse Oximetry 96 O2 Sat by Pulse Oximetry 98 General General Appearance: Alert and In No Apparent Distress Eyes Eye exam: PERRL and EOMI ENT ENT Exam: Mucous Membranes Moist Neck Neck Exam: Normal Inspection; negative Tenderness Respiratory Respiratory Exam: Normal Lung Sounds Bilat; negative Accessory Muscle Use or Respiratory Distress Cardiovascular Cardiovascular Exam: Regular Rate, Normal Rhythm and Normal Heart Sounds Abdominal Exam Abdominal Exam: Normal Bowel Sounds and Soft; negative Tenderness Extremities Extremities Exam: Normal Inspection and Edema (chronic, mild, of bilateral lower exts) Neurologic Neurological Exam: Alert and CN II-XII Intact; negative Motor Sensory Deficit Skin Skin Exam: Warm and Dry COURSE Treatment Treatment: Pt sent over from [place], W/u initiated. Vital signs good. Pt givne IV fluids. CXR - + rotated, with cardiomegaly. Does have changes c/w pulmonary vascular congestion, cannot r/o underlying pneumonia. Lactic acid - elevated at 4.3. Pt given IV rocephin for antibiotic coverage. BNP also elevated, 559. However, BUN/Cr elevated (63/3.86), c/w dehydration. Will attempt to give IV fluids, w/ small amount of IV lasix. Potassium a bit elevated, but degree of hemolysis noted on heredia tube. Should be lowered with IV fluids, IV lasix. Rec ommend admission for further treatment. Will discuss with her covering MD, Dr Valdes (on for Dr Robert). ROR Labs Reviewed Laboratory Results Reviewed?: Yes Result Diagrams: 03/23/23 18:00 03/23/23 17:40 Laboratory: WBC 13.0 X10^3/uL (3.6-10.0) H 03/23/23 18:00 RBC 2.73 X10^6/uL (3.5-5.4) L 03/23/23 18:00 Hgb 7.3 g/dL (12.0-16.0) L 03/23/23 18:00 Hct 22.4 % (36.0-47.0) L 03/23/23 18:00 MCV 82.1 fL (80.0-100.0) 03/23/23 18:00 MCH 26.7 pg (27.0-34.0) L 03/23/23 18:00 MCHC 32.5 g/dL (33.0-35.0) L 03/23/23 18:00 RDW 16.1 % (11.6-16.5) 03/23/23 18:00 Plt Count 214 X10^3/uL (150.0-450.0) 03/23/23 18:00 MPV 7.4 fL (7.4-11.0) 03/23/23 18:00 Neut % (Auto) 78.7 % (42.0-75.0) H 03/23/23 18:00 Lymph % (Auto) 15.2 % (21.0-51.0) L 03/23/23 18:00 Todd % (Auto) 5.8 % (0.0-13.0) 03/23/23 18:00 Eos % (Auto) 0.1 % (0.9-2.9) L 03/23/23 18:00 Baso % (Auto) 0.2 % (0.2-1.0) 03/23/23 18:00 Neut # (Auto) 10.2 x10^3/uL (2.2-4.8) H 03/23/23 18:00 Lymph # (Auto) 2.0 X10^3/uL (1.3-2.9) 03/23/23 18:00 Todd # (Auto) 0.7 x10^3/uL (0.3-0.8) 03/23/23 18:00 Eos # (Auto) 0.0 x10^3/uL (0.0-0.2) 03/23/23 18:00 Baso # (Auto) 0.0 X10^3/uL (0.0-0.1) 03/23/23 18:00 Absolute Nucleated RBC 0.0 /100WBC 03/23/23 18:00 Sodium 134 mmol/L (136-145) L 03/23/23 17:40 Corrected Sodium 136 mmol/L (136-145) 03/23/23 17:40 Potassium 6.2 mmol/L (3.5-5.1) H* 03/23/23 17:40 Chloride 98 mmol/L (98-107) 03/23/23 17:40 Carbon Dioxide 24.5 mmol/L (21-32) 03/23/23 17:40 BUN 63 mg/dL (7-18) H 03/23/23 17:40 Creatinine 3.86 mg/dL (0.55-1.02) H 03/23/23 17:40 Est GFR (MDRD) Af Amer 14 (>60) L 03/23/23 17:40 Est GFR (MDRD) Non-Af 12 (>60) L 03/23/23 17:40 Glucose 198 mg/dL (65-99) H 03/23/23 17:40 Lactic Acid 4.3 mmol/L (0.4-2.0) H 03/23/23 17:40 Calcium 8.2 mg/dL (8.5-10.1) L 03/23/23 17:40 Corrected Calcium 8.8 mg/dL (8.5-10.1) 03/23/23 17:40 Total Bilirubin 0.30 mg/dL (0.2-1.0) 03/23/23 17:40 AST 26 Units/L (15-37) 03/23/23 17:40 ALT 6 Units/L (12-78) L 03/23/23 17:40 Alkaline Phosphatase 63 Units/L (46-116) 03/23/23 17:40 B-Natriuretic Peptide 559 pg/mL (0-79) H* 03/23/23 18:00 Total Protein 7.0 g/dL (6.4-8.2) 03/23/23 17:40 Albumin 3.2 g/dL (3.4-5.0) L 03/23/23 17:40 Globulin 3.8 g/dL (2.5-4.5) 03/23/23 17:40 Albumin/Globulin Ratio 0.8 Ratio (1.1-2.1) L 03/23/23 17:40 Lipase 63 Units/L (73-393) L 03/23/23 17:40 SARS-CoV-2 (PCR) Negative (NEGATIVE) 03/23/23 17:47 Influenza Type A (PCR) Negative (NEGATIVE) 03/23/23 17:47 Influenza Type B (PCR) Negative (NEGATIVE) 03/23/23 17:47 RSV (PCR) Negative (NEGATIVE) 03/23/23 17:47 Blood Type O POSITIVE 03/23/23 18:00 Antibody Screen Negative 03/23/23 18:00 see comments under "Course" XRAY XRAY Interpreted by: Both X-ray Results: see comments under "Course" Opioid Opioid Risk Tool Age (Sánchez box if 16-45): No History of Preadolescent Sexual Abuse: No Total: 0 Total Score Risk Category: Low Risk Copyright: [facility] predicting aberrant behaviors Discharge Plan Diagnosis Discharge Problem: Volume depletion, CHF (congestive heart failure), Anemia, Pneumonia Discharge Plan Patient Disposition: ADMITTED INPATIENT Condition: Stable Prescriptions: No Action oxycodone-acetaminophen 10-325 mg tablet 1 tab PO Q8H PRN metformin 500 mg tablet 500 mg PO BID Neutrogena T-Gel 0.5 % shampoo 1 applic topical QMWF Label Comments: [NO ORIGINAL SIG] Rx Instructions: APPLY TO SCAL TOPICALLY DAILY ON , , FRI. carbidopa-levodopa 10-100 mg tablet 1 tab PO TID metoprolol tartrate 25 mg tablet 12.5 mg PO BID magnesium oxide 400 mg magnesium tablet 400 mg PO QDAY loratadine 10 mg Tablet 10 mg PO DAILY melatonin 5 mg Tablet 10 mg PO HS multivitamin Tablet 1 tab PO DAILY pantoprazole 40 mg tablet,delayed release (DR/EC) 40 mg PO DAILY quetiapine 50 mg tablet 50 mg PO HS Novolin R Regular U-100 Insuln 100 unit/mL Solution See Rx Instructions .ROUTE .COMPLEX Rx Instructions: SLIDING SCALE alprazolam 0.5 mg tablet 0.5 mg PO BID sennosides [Senokot] 8.6 mg Tablet 8.6 mg PO QDAY venlafaxine 75 mg capsule,extended release 24hr 75 mg PO QDAY donepezil 5 mg tablet 5 mg PO QDAY docusate sodium [Colace] 100 mg Capsule 100 mg PO DAILY Levemir U-100 Insulin 100 unit/mL solution 45 unit SUBCUT HS Label Comments: [NO ORIGINAL SIG] clopidogrel 75 mg Tablet 75 mg PO DAILY magnesium hydroxide 400 mg/5 mL Suspension 30 ml PO .DAILY FRI,FRI,FRI Rx Instructions: GIVE 30ML PO DAILY ON FRIDAY, FRIDAY, FRIDAY Januvia 50 mg Tablet 50 mg PO DAILY atorvastatin 10 mg tablet 40 mg PO QDAY azithromycin 250 mg tablet 250 mg PO DIRECTED Rx Instructions: STARTED ON 03/22/23 TO END ON 03/26/23 FOR URI gabapentin 400 mg capsule 400 mg PO TID sulfamethoxazole-trimethoprim 800-160 mg tablet 1 tab PO BID Rx Instructions: started on 03/17/23 to end on03/27/23 aspirin 81 mg Tablet,Delayed Release (Dr/Ec) 81 mg PO QDAY nystatin [Nyamyc] 100,000 unit/gram powder 1 applic TOPICAL DAILY Label Comments: [NO ORIGINAL SIG] Rx Instructions: APPLY TO NECK AND UNDER RIGHT BREAST TOPICALLY EVERY DAY SHIFT FOR RASH cholecalciferol (vitamin D3) 1,250 mcg (50,000 unit) Tablet 1,250 mcg PO QWEEK Rx Instructions: EVERY FRIDAY Health Concerns: Post Hospitalization: new medications and changes needed to prevent readmission or further decline. Pt educated and given instructions on all concerns. Plan of Treatment: Continue with present treatment and follow up plan. Pt is to keep follow up appointment as instructed and take medications as ordered. Orders to Discharge Patient Discharge Orders: Transfer (Routine); Ordered 03/23/23 Ordered By: Rashad Rockwell Follow ups/Referrals Follow ups/Referrals: THANG ROBERT [Primary Care Provider] - 3 days Instructions Stand Alone Forms: Post Hospital Follow Up Care
[2023-03-23] MEDS ORDERED: NS 500 ML IV 500 ML IV ONE ×2 (17:26→18:03)
--- NOTE | 2023-03-23 17:48 | RAD ---
EXAM: PORTABLE CHEST X-RAYHISTORY: Chest pain.TECHNIQUE: AP CXR dated March 23, 2023 at 5:29 PM.COMPARISON: CXR dated December 27, 2022.FINDINGS:There is aortic atherosclerosis. There is evidence for moderate cardiomegaly. The pulmonary vascularity and interstitial markings are diffusely prominent, consistent with CHF or volume overload in the appropriate clinical setting.There is no gross focal lung consolidation, pleural effusion, or pneumothorax seen. The visualized bony structures are within normal limits.IMPRESSION:1. Findings consistent with CHF or volume overload in the appropriate clinical setting (new finding); DDx includes bronchitis and interstitial pneumonia in the appropriate clinical setting. Clinical correlation is advised.2. Recommend clinical correlation and appropriate follow-up evaluation to complete clearance.Electronically signed by: Med Buckner (Mar 23, 2023 17:47:35)
[2023-03-23 18:26] LABS: ALBUMIN 3.2 g/dL (3.4-5.0); CALCIUM 8.2 mg/dL (8.5-10.1); CARBON DIOXIDE 24.5 mmol/L (21-32); COR CA(FOR HYPOALB) 8.8 mg/dL (8.5-10.1); CREATININE 3.86 mg/dL (0.55-1.02)
[2023-03-23 18:30] LABS: POTASSIUM 6.2 mmol/L (3.5-5.1)
[2023-03-23 18:32] LABS: LACTIC ACID 4.3 mmol/L (0.4-2.0)
[2023-03-23] MEDS ORDERED: ROCEPHIN VIAL 1 GRAM 1 G in NS 100 ML IV 100 ML IV ONE (18:49)
[2023-03-23] MEDS ORDERED: ROCEPHIN VIAL 1 GRAM ONE (18:50)
[2023-03-23] MEDS ORDERED: NS 50 ML IV 50 ML IV ONE (18:50)
[2023-03-23] MEDS ORDERED: NS 1,000 ML IV 1,000 ML ONE (18:52)
[2023-03-23 18:54] LABS: BASOPHILS % (AUTO) 0.2 % (0.2-1.0); EOSINOPHILS % (AUTO) 0.1 % (0.9-2.9); HEMATOCRIT 22.4 % (36.0-47.0); HEMOGLOBIN 7.3 g/dL (12.0-16.0); LYMPHOCYTES % (AUTO) 15.2 % (21.0-51.0); MEAN CORPUSCULAR HEMOGLOBIN 26.7 pg (27.0-34.0); MEAN CORPUSCULAR HGB CONC 32.5 g/dL (33.0-35.0); MEAN CORPUSCULAR VOLUME 82.1 fL (80.0-100.0); MEAN PLATELET VOLUME 7.4 fL (7.4-11.0); MONOCYTES # (AUTO) 0.7 x10^3/uL (0.3-0.8); MONOCYTES % (AUTO) 5.8 % (0.0-13.0); NEUTROPHILS # (AUTO) 10.2 x10^3/uL (2.2-4.8); NEUTROPHILS % (AUTO) 78.7 % (42.0-75.0); PLATELET COUNT 214 X10^3/uL (150.0-450.0); RED BLOOD COUNT 2.73 X10^6/uL (3.5-5.4); RED CELL DISTRIBUTION WIDTH 16.1 % (11.6-16.5)
[2023-03-23] MEDS ORDERED: LASIX IVP ONE (19:01)
[2023-03-23] MEDS ORDERED: LASIX ONE (19:05)
[2023-03-23] MEDS ORDERED: NS 1,000 ML IV 1,000 ML IV SCH (20:00)
[2023-03-23] MEDS ORDERED: MILK OF MAGNESIA PO SCH (20:49)
[2023-03-23] MEDS ORDERED: PATIENT'S HOME MEDICATION (Oxycodone-Acetaminophen 10-325 mg tablet) PO PRN (20:49)
[2023-03-23] MEDS ORDERED: NovoLIN R (or HumuLIN R) SC SCH (20:49)
[2023-03-23] MEDS ORDERED: ROCEPHIN VIAL 1 GRAM 1 G in NS 100 ML IV 100 ML IV SCH (21:00)
[2023-03-23] MEDS ORDERED: PATIENT'S HOME MEDICATION (Alprazolam 0.5 mg tablet) PO SCH (21:00)
[2023-03-23] MEDS: SNACK - Diabetic Appropriate PO SCH (22:22)
[2023-03-23 22:31] LABS: BILIRUBIN,URINE 3+ (NEGATIVE); BLOOD/HEMOGLOBIN,URINE 1+ (NEGATIVE); GLUCOSE, URINE NEGATIVE (NEGATIVE); KETONES,URINE NEGATIVE (NEGATIVE); LEUKOCYTE ESTERASE ,URINE 2+ (NEGATIVE); NITRITES,URINE NEGATIVE (NEGATIVE); PROTEIN,URINE 2+ (NEGATIVE); UROBILINOGEN,URINE NORMAL (NORMAL)
[2023-03-23 22:47] LABS: APPEARANCE,URINE CLEAR (CLEAR); BACTERIA,URINE TRACE /HPF (NEGATIVE); COLOR,URINE DARK YELLOW (YELLOW); SQUAMOUS EPITHELIAL CELL,UR FEW /HPF (NEGATIVE)
[2023-03-23] MEDS: D5 NS 1,000 ML IV 1,000 ML IV SCH (23:04)
[2023-03-23] MEDS ORDERED: GLUCOPHAGE ONE (23:10)
[2023-03-23] MEDS: LOPRESSOR TAB 25 MG PO SCH (23:23)
[2023-03-23] MEDS: GLUCOPHAGE PO SCH (23:23)
[2023-03-23] MEDS: NEURONTIN CAP 400 MG PO SCH (23:23)
[2023-03-23] MEDS: MELATONIN PO SCH (23:23)
[2023-03-23] MEDS: SEROquel TAB 25 mg PO SCH (23:24)
[2023-03-23] MEDS: LEVEMIR SC SCH (23:24)
[2023-03-23] MEDS: SINEMET (PLAIN) 10/100 MG PO SCH (23:24)
[2023-03-23] MEDS: PERCOCET TAB 5/325 MG PO PRN (23:38)
[2023-03-24 00:18] VITALS: BMI 42.3
[2023-03-24] MEDS ORDERED: PHARMACY CONSULT LTC MEDICATIONS XX SCH (01:00)
[2023-03-24] MEDS: D5 NS 1,000 ML IV 1,000 ML IV SCH (04:59)
[2023-03-24 05:26] LABS: CALCIUM 7.8 mg/dL (8.5-10.1); COR CA(FOR HYPOALB) 8.6 mg/dL (8.5-10.1); CREATININE 3.64 mg/dL (0.55-1.02); TOTAL PROTEIN 6.7 g/dL (6.4-8.2)
[2023-03-24 05:29] LABS: POTASSIUM 6.1 mmol/L (3.5-5.1)
[2023-03-24 05:30] LABS: BASOPHILS % (AUTO) 0.1 % (0.2-1.0); HEMATOCRIT 21.1 % (36.0-47.0); HEMOGLOBIN 7.1 g/dL (12.0-16.0); LYMPHOCYTES # (AUTO) 1.9 X10^3/uL (1.3-2.9); LYMPHOCYTES % (AUTO) 17.4 % (21.0-51.0); MEAN CORPUSCULAR HEMOGLOBIN 27.3 pg (27.0-34.0); MEAN CORPUSCULAR HGB CONC 33.4 g/dL (33.0-35.0); MEAN CORPUSCULAR VOLUME 81.7 fL (80.0-100.0); MEAN PLATELET VOLUME 7.6 fL (7.4-11.0); MONOCYTES # (AUTO) 0.4 x10^3/uL (0.3-0.8); MONOCYTES % (AUTO) 3.7 % (0.0-13.0); NEUTROPHILS # (AUTO) 8.6 x10^3/uL (2.2-4.8); NEUTROPHILS % (AUTO) 78.8 % (42.0-75.0); PLATELET COUNT 192 X10^3/uL (150.0-450.0); RED BLOOD COUNT 2.59 X10^6/uL (3.5-5.4); RED CELL DISTRIBUTION WIDTH 15.8 % (11.6-16.5); WHITE BLOOD COUNT 10.9 X10^3/uL (3.6-10.0)
[2023-03-24 05:31] LABS: LACTIC ACID 2.8 mmol/L (0.4-2.0)
[2023-03-24] MEDS: NEURONTIN CAP 400 MG PO SCH (06:03)
[2023-03-24] MEDS: SINEMET (PLAIN) 10/100 MG PO SCH ×3 (06:04→21:03)
[2023-03-24] MEDS ORDERED: SITAGLIPTIN PHOSPHATE 50 MG PO SCH (09:00)
[2023-03-24] MEDS: COLACE CAP 100 MG PO SCH (09:11)
[2023-03-24] MEDS: ASPIRIN EC 81 MG PO SCH (09:13)
[2023-03-24] MEDS: LIPITOR TAB 10 MG PO SCH (09:13)
[2023-03-24] MEDS: LOPRESSOR TAB 25 MG PO SCH ×2 (09:14→20:36)
[2023-03-24] MEDS: LASIX IVP SCH (09:14)
[2023-03-24] MEDS: CLARITIN PO SCH (09:15)
[2023-03-24] MEDS: SENOKOT PO SCH (09:15)
[2023-03-24] MEDS: PLAVIX PO SCH (09:15)
[2023-03-24] MEDS: XANAX PO SCH ×2 (09:16→20:35)
[2023-03-24] MEDS: EFFEXOR XR 75 MG CAP 24-HR PO SCH (09:16)
[2023-03-24] MEDS: PROTONIX TAB 40 MG PO SCH (09:16)
[2023-03-24] MEDS: JANUVIA PO SCH (09:17)
[2023-03-24] MEDS: MAG-OX TAB PO SCH (09:17)
[2023-03-24] MEDS: NYSTATIN POWDER TOP SCH (09:18)
[2023-03-24] MEDS: PULMICORT NEB TX 0.5 MG NEB SCH ×2 (09:40→20:00)
[2023-03-24] MEDS: DUONEB 0.5 MG/3 MG (3 mL) NEB SCH ×4 (09:40→20:00)
[2023-03-24] MEDS ORDERED: LASIX IVP ONE (10:24)
[2023-03-24] MEDS: NS 1,000 ML IV 1,000 ML IV SCH ×2 (11:43→23:41)
[2023-03-24] MEDS: NovoLIN R (or HumuLIN R) SC SCH ×3 (12:02→20:37)
[2023-03-24] MEDS: PERCOCET TAB 5/325 MG PO PRN (14:32)
[2023-03-24] MEDS: ROCEPHIN VIAL 1 GRAM 1 G in NS 100 ML IV 100 ML IV SCH (17:31)
[2023-03-24 17:58] LABS: HEMOGLOBIN 6.8 g/dL (12.0-16.0)
[2023-03-24] MEDS ORDERED: NS 500 ML IV 500 ML IV ONE (19:32)
--- NOTE | 2023-03-24 20:29 | DR.H&P ---
H&P - History & Physical for Day of: H&P Date: 03/24/23 - Chief Complaint Chief Complaint: NAUSEA AND VOMITING, COUGH, WEAKNESS, BILATEARL LOWER EXTREMITY PAIN, LEFT HEEL WOUND, DECREASED URINE OUTPUT - History of Present Illness History of Present Illness: IS A 82 YEAR OLD PATIENT OF OURS. SHE IS A RESIDENT OF [facility]. SHE WAS SENT TO THE ER FOR EVALUATION DUE TO NAUSEA AND VOMITING, COUGH, GENERALIZED WEAKNESS, AND PAIN TO BILATERAL LOWER EXTREMITIES. [facility] STAFF REPORTS THAT PATIENT HAS HAD DECREASED URINE OUTPUT OVER THE PAST DAY. HE DENIES FEVER, CHILLS, DYSPNEA, DIARRHEA. SHE HAS A LLE WOUND THAT HAS BEEN PRESENT FOR THE PAST SEVERAL WEEKS. A WOUND CULTURE WAS OBTAINED TWO WEEKS AGO AND WAS POSITIVE FOR MRSA. SHE HAS BEEN TAKING BACTRIM DS FOR INFECTION. HER PMH INCLUDES: ANXIETY, ASTHMA, COPD, CAD, DEPRESSION, DIABETES, DIABETES, DYSLIPIDEMIA, HTN, GA, RENAL DISEASE, CARDIAC STENTS. ON ARRIVAL TO THE ER, VITALS WERE: 98.8-128-24-96%-92/60. LABS WERE OBTAINED. WBC 13.0, RBC 2.73, HGB 7.3, HCT 22.4, PLT COUNT 214, SODIUM 134, POTASSIUM 6.2, CHLORIDE 98, CARBON DIOXIDE 24.5, BUN 63, CREATININE 3.86, GLUCOSE 198, LACTIC ACID 4.3, CALCIUM 8.2, AST 26, ALT 6, ALK PHOS 63, BNP 559, TOTAL PROTEIN 7.0, ALBUMIN 3.2, LIPASE 6.3. A URINALYSIS WAS OBTAINED AND REVEALED: WBC 10-20, RBC 3-5, LEUKOCYTES 2+, BACTERIA TRACE. COVID, INFLUENZA, AND RSV NEGATIVE. A RESPIRATORY VIRAL PANEL WAS SET UP. BLOOD AND URINE CULTURES ARE PENDING. A CHEST XRAY WAS OBTAINED AND REVEALED: 1. Findings consistent with CHF or volume overload in the appropriate clinical setting (new finding); DDx includes bronchi tis and interstitial pneumonia in the appropriate clinical setting. IN THE ER, HE WAS GIVEN A NORMAL SALINE BOLUS, ROCEPHIN 1G IV X 1, LASIX 20MG IV X 1 DOSE. HE WAS ADMITTED TO THE HOSPITAL FOR FURTHER EVALUATION AND TREATMENT OF VOLUME DEPLETION, CHF, ANEMIA, HYPERKALEMIA, UTI, AND PNEUMONIA. SHE WAS STARTED ON NORMAL SALINE AT 75 ML/HR, ROCEPHIN 1G IV DAILY, DUONEBS QID, PULMICORT NEBS, OTBS ACHS, HUMULIN R SLIDING SCALE. HER HOME MEDICATIONS OF XANAX, ECOTRIN, LIPITOR, SINEMET, PLAVIX, LASIX, NEURONTIN, LEVEMIR, CLARITIN, MILK OF MAGNESIA, MOG OX, MELATONIN, LOPRESSOR, NYSTATIN POWDER, PERCOCET, PROTONIX, SEROQUEL, SENOKOT, JANUVIA, AND EFFEXOR. WE WILL RECULTURE WOUND OF THE LEFT HEEL. OTHERWISE, WE WILL FOLLOW-UP WITH AM LABS AND CHEST XRAY AND CONTINUE TO MONITOR. TIME SPENT ON CLINICAL ASSESSMENT, REVIEWING LABS AND IMAGING, DECISION MAKING, AND DOCUMENTATION GREATER THAN 75 MINUTES. - Past Medical History Past Medical History: Anxiety, Asthma, COPD, Coronary Artery Disease, Depression, Diabetes, Dyslipidemia, Gout, Hypertension, GA, Renal Disease - Past Surgical History Surgical History: Angioplasty/Stents, CABG/Valve Surgery, Ortho Surgery - Family History Family Medical History: Diabetes Mellitus, GA, Coronary Artery Disease - Social History Does any household member use tobacco: No Alcohol Use: None Drug Use: None - Review of Systems Constitutional: Weakness Eyes: No Symptoms Reported ENT: No Symptoms Reported Respiratory: Cough Cardiovascular: No Symptoms Reported Gastrointestinal: Nausea, Vomiting Genitourinary: No Symptoms Reported Musculoskeletal: Leg Pain (BILATERAL LEGS ), Foot Pain (LEFT FOOT ) Skin: Wound (LEFT FOOT WOUND ) Neurological: Weakness - Physical Exam Vital Signs: Vital Signs Temperature 98.3 F Pulse Rate [Left] 109 Pulse Rate 93 Pulse Rate 96 Respiratory Rate 19 Respiratory Rate 20 Respiratory Rate 20 Blood Pressure [Right Arm] 166/90 O2 Sat by Pulse Oximetry 96 O2 Sat by Pulse Oximetry 100 O2 Sat by Pulse Oximetry 96 Oriented: Normal Eyes: Normal Ear: Normal Nose: Normal Throat: Normal Respiratory: Diminished Throughout Cardiovascular: Tachycardia : Normal Auscultation: Bowel Sounds: Normal Palpation: Normal Tenderness: Normal Skin: Wound (LEFT HEEL WOUND ) Musculoskeletal: Right, Left, Leg, Foot, Tender Psychiatric: Normal Mood Description: Calm Affect: Normal Speech Pattern: Clear - Assessment/Plan (1) Acute on chronic renal failure Qualifiers: Acute renal failure type: unspecified Chronic kidney disease stage: stage 4 (severe) Qualified Code(s): N17.9 - Acute kidney failure, unspecified; N18.4 - Chronic kidney disease, stage 4 (severe) Status: Acute Plan: ADMIT, NORMAL SALINE AT 75 ML/HR, ROCEPHIN 1G IV DAILY, DUONEBS QID, PULMICORT NEBS, OTBS ACHS, HUMULIN R SLIDING SCALE. RESUME HOME MEDICATIONS (2) Volume depletion Status: Acute (3) Pneumonia Qualifiers: Pneumonia type: due to unspecified organism Laterality: unspecified laterality Lung location: unspecified part of lung Qualified Code(s): J18.9 - Pneumonia, unspecified organism Status: Acute (4) CHF (congestive heart failure) Qualifiers: Heart failure type: unspecified Heart failure chronicity: acute Qualified Code(s): I50.9 - Heart failure, unspecified Status: Acute (5) Anemia Qualifiers: Anemia type: iron deficiency Iron deficiency anemia type: chronic blood loss Qualified Code(s): D50.0 - Iron deficiency anemia secondary to blood loss (chronic) Status: Acute (6) Hyperkalemia Status: Acute (7) Urinary tract infection Qualifiers: Urinary tract infection type: acute cystitis Hematuria presence: with hematuria Qualified Code(s): N30.01 - Acute cystitis with hematuria Status: Acute (8) Wound of left foot Status: Acute (9) Hypertension Qualifiers: Hypertension type: primary hypertension Qualified Code(s): I10 - Essential (primary) hypertension Status: Chronic (10) Diabetes mellitus, type 2 Qualifiers: Diabetes mellitus assisted insulin use: 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 Diabetes mellitus complication status: with hyperglycemia Qualified Code(s): E11.65 - Type 2 diabetes mellitus with hyperglycemia; 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 of 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 Status: Chronic (11) COPD exacerbation Status: Chronic - Allergies Allergies/Adverse Reactions: Allergies Allergy/AdvReac Type Severity Reaction Status Date / Time ciprofloxacin [From Cipro] Allergy Verified 03/23/23 21:32 - Medications Home Medications: Home Medications Medication Instructions Recorded Confirmed insulin regular human 100 unit/mL See Rx Instructions .Route .COMPLEX 07/04/21 03/23/23 injection solution (Novolin R Regular U-100 Insulin) loratadine 10 mg tablet 10 mg PO DAILY 07/04/21 03/23/23 melatonin 5 mg tablet 10 mg PO HS 07/04/21 03/23/23 multivitamin 1 tab PO DAILY 07/04/21 03/23/23 pantoprazole 40 mg tablet,delayed 40 mg PO DAILY 07/04/21 03/23/23 release quetiapine 50 mg tablet 50 mg PO HS 07/04/21 03/23/23 alprazolam 0.5 mg tablet 0.5 mg PO BID 08/20/22 03/23/23 docusate sodium 100 mg capsule 100 mg PO DAILY 08/20/22 03/23/23 (Colace) donepezil 5 mg tablet 5 mg PO QDAY 08/20/22 03/23/23 insulin detemir U-100 100 unit/mL 45 unit subcut HS 08/20/22 03/23/23 subcutaneous solution (Levemir U-100 Insulin) sennosides 8.6 mg tablet (Senokot) 8.6 mg PO QDAY 08/20/22 03/23/23 venlafaxine 75 mg capsule,extended 75 mg PO QDAY 08/20/22 03/23/23 release 24 hr carbidopa 10 mg-levodopa 100 mg 1 tab PO TID 11/05/22 03/23/23 tablet coal tar 0.5 % shampoo 1 applic topical QMWF 11/05/22 03/23/23 magnesium oxide 400 mg PO QDAY 11/05/22 03/23/23 metformin 500 mg tablet 500 mg PO BID 11/05/22 03/23/23 metoprolol tartrate 25 mg tablet 12.5 mg PO BID 11/05/22 03/23/23 oxycodone-acetaminophen 10 mg-325 1 tab PO Q8H PRN 11/05/22 03/23/23 mg tablet clopidogrel 75 mg tablet 75 mg PO DAILY 12/25/22 03/23/23 magnesium hydroxide 400 mg/5 mL 30 ml PO .DAILY MON,FRI,Fri12/25/22 03/23/23 oral suspension sitagliptin phosphate 50 mg tablet 50 mg PO DAILY 12/25/22 03/23/23 (Januvia) amlodipine 2.5 mg tablet 2.5 mg PO QDAY 03/23/23 03/23/23 aspirin 81 mg tablet,delayed 81 mg PO QDAY 03/23/23 03/23/23 release atorvastatin 10 mg tablet 40 mg PO QDAY 03/23/23 03/23/23 azithromycin 250 mg tablet 250 mg PO DIRECTED 03/23/23 03/23/23 cholecalciferol (vitamin D3) 1,250 1,250 mcg PO QWEEK 03/23/23 03/23/23 mcg (50,000 unit) tablet gabapentin 400 mg capsule 400 mg PO TID 03/23/23 03/23/23 ipratropium 0.5 mg-albuterol 3 mg 3 ml inhalation Q4H PRN Congestion 03/23/23 03/23/23 (2.5 mg base)/3 mL nebulization soln nutrition tx glu 1 ea PO DAILY 03/23/23 03/23/23 intol,lac-free,soy-fiber 0.08 gram-1.5 kcal/mL liquid (Glucerna 1.5 Julio) nystatin 100,000 unit/gram topical 1 applic topical DAILY 03/23/23 03/23/23 powder ([facility]) sulfamethoxazole 800 1 tab PO BID 03/23/23 03/23/23 mg-trimethoprim 160 mg tablet
[2023-03-24] MEDS: SNACK - Diabetic Appropriate PO SCH (20:34)
[2023-03-24] MEDS: MELATONIN PO SCH (20:35)
[2023-03-24] MEDS: SEROquel TAB 25 mg PO SCH (20:36)
[2023-03-24] MEDS: LEVEMIR SC SCH (20:37)
[2023-03-25 01:14] LABS: HEMATOCRIT 22.6 % (36.0-47.0); HEMOGLOBIN 7.6 g/dL (12.0-16.0)
[2023-03-25] MEDS: NovoLIN R (or HumuLIN R) SC SCH ×4 (05:31→20:44)
[2023-03-25] MEDS: SINEMET (PLAIN) 10/100 MG PO SCH ×3 (05:58→21:04)
[2023-03-25] MEDS: NS 1,000 ML IV 1,000 ML IV SCH ×3 (06:00→16:54)
[2023-03-25 06:26] LABS: BASOPHILS % (AUTO) 0.2 % (0.2-1.0); HEMATOCRIT 22.7 % (36.0-47.0); HEMOGLOBIN 7.6 g/dL (12.0-16.0); LYMPHOCYTES # (AUTO) 1.5 X10^3/uL (1.3-2.9); LYMPHOCYTES % (AUTO) 15.9 % (21.0-51.0); MEAN CORPUSCULAR HEMOGLOBIN 27.8 pg (27.0-34.0); MEAN CORPUSCULAR HGB CONC 33.7 g/dL (33.0-35.0); MEAN CORPUSCULAR VOLUME 82.6 fL (80.0-100.0); MEAN PLATELET VOLUME 7.3 fL (7.4-11.0); MONOCYTES # (AUTO) 0.5 x10^3/uL (0.3-0.8); MONOCYTES % (AUTO) 5.5 % (0.0-13.0); NEUTROPHILS # (AUTO) 7.3 x10^3/uL (2.2-4.8); NEUTROPHILS % (AUTO) 78.4 % (42.0-75.0); PLATELET COUNT 195 X10^3/uL (150.0-450.0); RED BLOOD COUNT 2.74 X10^6/uL (3.5-5.4); RED CELL DISTRIBUTION WIDTH 15.7 % (11.6-16.5); WHITE BLOOD COUNT 9.3 X10^3/uL (3.6-10.0)
[2023-03-25 06:39] LABS: CALCIUM 8.4 mg/dL (8.5-10.1); CARBON DIOXIDE 23.2 mmol/L (21-32); CREATININE 2.89 mg/dL (0.55-1.02); POTASSIUM 4.7 mmol/L (3.5-5.1)
--- NOTE | 2023-03-25 07:48 | RAD ---
HISTORYCHF pneumoniaSTUDYPortable AP chestCOMPARISONJuly 2022FINDINGSMild stable cardiac prominence. Re-demonstration of diffuse bilateral interstitial increase without evidence for airspace consolidation or pleural effusion.IMPRESSIONNo change since 1 day prior. The described interstitial pulmonary prominence may represent chronic peribronchial thickening or a more acute congestive process; similar findings have been noted on older radiographs and this may not be an acute finding.Electronically signed by: WILLIE STARR (Mar 25, 2023 07:46:13)
[2023-03-25] MEDS: LASIX IVP SCH (08:29)
[2023-03-25] MEDS: PLAVIX PO SCH (08:29)
[2023-03-25] MEDS: CLARITIN PO SCH (08:29)
[2023-03-25] MEDS: EFFEXOR XR 75 MG CAP 24-HR PO SCH (08:29)
[2023-03-25] MEDS: JANUVIA PO SCH (08:30)
[2023-03-25] MEDS: COLACE CAP 100 MG PO SCH (08:30)
[2023-03-25] MEDS: XANAX PO SCH ×2 (08:30→20:33)
[2023-03-25] MEDS: PROTONIX TAB 40 MG PO SCH (08:30)
[2023-03-25] MEDS: LIPITOR TAB 10 MG PO SCH (08:31)
[2023-03-25] MEDS: DUONEB 0.5 MG/3 MG (3 mL) NEB SCH ×4 (09:01→21:00)
[2023-03-25] MEDS: PULMICORT NEB TX 0.5 MG NEB SCH ×2 (09:02→21:00)
[2023-03-25] MEDS: ASPIRIN EC 81 MG PO SCH (09:30)
[2023-03-25] MEDS: SENOKOT PO SCH (09:30)
[2023-03-25] MEDS: MAG-OX TAB PO SCH (09:30)
[2023-03-25] MEDS: NYSTATIN POWDER TOP SCH (09:30)
[2023-03-25] MEDS: LOPRESSOR TAB 25 MG PO SCH ×2 (09:30→20:32)
[2023-03-25] MEDS: PERCOCET TAB 5/325 MG PO PRN ×2 (10:30→20:33)
[2023-03-25] MEDS: NEURONTIN CAP 300 MG PO SCH (11:29)
--- NOTE | 2023-03-25 12:06 | RAD ---
HISTORYPneumonia SOBSTUDYPortable AP chestCOMPARISONJuly 2022FINDINGSSimilar cardiomegaly and mild nonspecific interstitial increase bilaterally. There is no evidence for lobar consolidation or developing pleural effusion. Soft tissue density projected over the left lower chest is probably surface artifact, not present on exam 1 day prior.IMPRESSIONNo change or acute findings, see above.Electronically signed by: WILLIE STARR (Mar 25, 2023 12:04:59)
[2023-03-25] MEDS ORDERED: MORPHINE SULFATE JET NEB NEB PRN (12:18)
[2023-03-25] MEDS ORDERED: MORPHINE SULFATE INJ 2 MG INJ ONE (12:28)
[2023-03-25] MEDS: MORPHINE SULFATE INJ 2 MG INJ IVP PRN ×2 (13:00→18:58)
[2023-03-25] MEDS: ROCEPHIN VIAL 1 GRAM 1 G in NS 100 ML IV 100 ML IV SCH (18:58)
[2023-03-25] MEDS: SEROquel TAB 25 mg PO SCH (20:32)
[2023-03-25] MEDS: MELATONIN PO SCH (20:33)
[2023-03-25] MEDS: SNACK - Diabetic Appropriate PO SCH (20:33)
[2023-03-25] MEDS: LEVEMIR SC SCH (20:36)
--- NOTE | 2023-03-25 23:48 | PCM.PROG ---
Progress Note - Progress Note for Day of Date of Exam: 03/25/23 - Subjective Subjective: IS A 82 YEAR OLD PATIENT OF . SHE IS CURRENTLY INPATIENT STATUS FOR TREATMENT OF ACUTE ON CHRONIC RENAL FAILURE, VOLUME DEPLETION, PNEUMONIA, UTI, CHF, ANEMIA, HYPERKALEMIA, AND LEFT FOOT WOUND. SHE HAS A PMH OF DM II AND COPD. SHE RECEIVED ONE UNIT OF PACKED RED BLOOD CELLS LAST NIGHT. TODAY, SHE IS ALERT AND ORIENTED, LYING IN BED ON MORNING ROUNDS. SHE COMPLAINS OF WEAKNESS, LEFT FOOT PAIN, AND SHORTNESS OF BREATH AT TIMES. ON EXAMINATION, HEART IS REGULAR IN RATE AND RHYTHM. BILATERAL LUNGS ARE NOTED WITH DIMINISHED LUNG SOUNDS THROUGHOUT. ABDOMEN IS OBESE, SOFT, AND NON-TENDER WITH NORMAL BOWEL SOUNDS NOTED IN ALL QUADRANTS. WEAKNESS TO LOWER EXTREMITIES NOTED. 1+ PITTING EDEMA TO BLE. THERE IS A LEFT HEEL WOUND THAT IS COVERED AT THIS TIME. HER VITALS THIS MORNING ARE: 98.4-100-20-98%-144/81. LABS WERE OBTAINED. WBC 9.3, RBC 2.74, HGB 7.6, HCT 22.7, PLT COUNG 195, SODIUM 133, POTASSIUM 4.7, CHLORIDE 98, BUN 64, CREATININE 2.89, GLUCOSE 227, CALCIUM 8.4, BNP 866. AIT RESPIRATORY PANEL IS POSITIVE FOR HUMAN METAPNEUMOVIRUS. BLOOD, WOUND, AND URINE CULTURES ARE PENDING. A CHEST XRAY WAS OBTAINED AND REVEALED: Similar cardiomegaly and mild nonspecific interstitial increase bilaterally. There is no evidence for lobar consolidation or developing pleural effusion. Soft tissue density projected over the left lower chest is probably surface artifact, not present on exam 1 day prior. SHE IS CURRENTLY RECEIVING NORMAL SALINE AT 75 ML/HR, ROCEPHIN 1G IV DAILY, DUONEBS QID, PULMICORT NEBS, OTBS ACHS, HUMULIN R SLIDING SCALE. HER HOME MEDICATIONS OF XANAX, ECOTRIN, LIPITOR, SINEMET, PLAVIX, LASIX, NEURONTIN, LEVEMIR, CLARITIN, MILK OF MAGNESIA, MOG OX, MELATONIN, LOPRESSOR, NYSTATIN POWDER, PERCOCET, PROTONIX, SEROQUEL, SENOKOT, JANUVIA, AND EFFEXOR. WE WILL CONTINUE WITH CURRENT PLAN OF CARE TODAY. OTHERWISE, WE WILL FOLLOW UP WITH AM LABS AND CONTINUE TO MONITOR. TIME SPENT ON CLINICAL ASSESSMENT, REVIEWING LABS AND IMAGING, DECISION MAKING, AND DOCUMENTATION GREATER THAN 45 MINUTES. - Past Medical Family Social History Past Med/Fam/Surg Hx: No changes since H&P Allergies: Allergies ciprofloxacin [From Cipro] Allergy (Verified 03/23/23 21:32) - Review of Systems ROS: No change since H&P - Vital Signs and I&O's Vital Signs: Vital Signs Temperature 98.5 F Pulse Rate [Left] 128 Respiratory Rate 18 Respiratory Rate 20 Respiratory Rate 20 Respiratory Rate 22 Respiratory Rate 20 Blood Pressure [Right Arm] 130/57 O2 Sat by Pulse Oximetry 98 Intake and Output: Intake & Output 03/23/23 03/24/23 03/25/23 03/26/23 11:59 11:59 11:59 11:59 Intake Total 346 / 346 3623 / 3623 1708 / 1708 Output Total 510 / 510 1600 / 1600 1300 / 1300 Balance -164 / -164 2022 408 / 408 - Physical Exam Oriented: Normal Eyes: Normal Ear: Normal Nose: Normal Throat: Normal Respiratory: Generalized, Diminished Cardiovascular: Normal : Normal Auscultation: Bowel Sounds: Normal Palpation: Normal Tenderness: Normal Skin: Wound (LEFT HEEL WOUND ) Musculoskeletal: Right, Left, Leg, Foot, Tender Psychiatric: Normal Mood Description: Calm Affect: Normal Speech Pattern: Clear, Appropriate - Laboratory and Diagnostics Result Diagrams: 03/25/23 05:56 03/25/23 05:56 Labs: 03/24/23 14:16 Foot - Left Wound Culture - Preliminary 03/23/23 18:00 Blood Blood Culture - Preliminary 03/23/23 22:05 Urine,Catheterized Urine Culture - Final 03/23/23 17:40 Blood Blood Culture - Preliminary Laboratory WBC 9.3 X10^3/uL (3.6-10.0) 03/25/23 05:56 RBC 2.74 X10^6/uL (3.5-5.4) L 03/25/23 05:56 Hgb 7.6 g/dL (12.0-16.0) L 03/25/23 05:56 Hct 22.7 % (36.0-47.0) L 03/25/23 05:56 MCV 82.6 fL (80.0-100.0) 03/25/23 05:56 MCH 27.8 pg (27.0-34.0) 03/25/23 05:56 MCHC 33.7 g/dL (33.0-35.0) 03/25/23 05:56 RDW 15.7 % (11.6-16.5) 03/25/23 05:56 Plt Count 195 X10^3/uL (150.0-450.0) 03/25/23 05:56 MPV 7.3 fL (7.4-11.0) L 03/25/23 05:56 Neut % (Auto) 78.4 % (42.0-75.0) H 03/25/23 05:56 Lymph % (Auto) 15.9 % (21.0-51.0) L 03/25/23 05:56 Crisp % (Auto) 5.5 % (0.0-13.0) 03/25/23 05:56 Eos % (Auto) 0.0 % (0.9-2.9) L 03/25/23 05:56 Baso % (Auto) 0.2 % (0.2-1.0) 03/25/23 05:56 Neut # (Auto) 7.3 x10^3/uL (2.2-4.8) H 03/25/23 05:56 Lymph # (Auto) 1.5 X10^3/uL (1.3-2.9) 03/25/23 05:56 Crisp # (Auto) 0.5 x10^3/uL (0.3-0.8) 03/25/23 05:56 Eos # (Auto) 0.0 x10^3/uL (0.0-0.2) 03/25/23 05:56 Baso # (Auto) 0.0 X10^3/uL (0.0-0.1) 03/25/23 05:56 Absolute Nucleated RBC 0.1 /100WBC 03/25/23 05:56 Sodium 133 mmol/L (136-145) L 03/25/23 05:56 Corrected Sodium 136 mmol/L (136-145) 03/25/23 05:56 Potassium 4.7 mmol/L (3.5-5.1) 03/25/23 05:56 Chloride 98 mmol/L (98-107) 03/25/23 05:56 Carbon Dioxide 23.2 mmol/L (21-32) 03/25/23 05:56 BUN 64 mg/dL (7-18) H 03/25/23 05:56 Creatinine 2.89 mg/dL (0.55-1.02) H 03/25/23 05:56 Est GFR (MDRD) Af Amer 20 (>60) L 03/25/23 05:56 Est GFR (MDRD) Non-Af 17 (>60) L 03/25/23 05:56 Glucose 227 mg/dL (65-99) H 03/25/23 05:56 POC Glucose (mg/dL) 196 mg/dL (65-99) H 03/25/23 10:35 Lactic Acid 2.8 mmol/L (0.4-2.0) H 03/24/23 05:01 Calcium 8.4 mg/dL (8.5-10.1) L 03/25/23 05:56 Corrected Calcium 8.6 mg/dL (8.5-10.1) 03/24/23 05:01 Total Bilirubin 0.20 mg/dL (0.2-1.0) 03/24/23 05:01 AST 23 Units/L (15-37) 03/24/23 05:01 ALT 8 Units/L (12-78) L 03/24/23 05:01 Alkaline Phosphatase 58 Units/L (46-116) 03/24/23 05:01 B-Natriuretic Peptide 866 pg/mL (0-79) H* 03/25/23 05:56 Total Protein 6.7 g/dL (6.4-8.2) 03/24/23 05:01 Albumin 3.0 g/dL (3.4-5.0) L 03/24/23 05:01 Globulin 3.7 g/dL (2.5-4.5) 03/24/23 05:01 Albumin/Globulin Ratio 0.8 Ratio (1.1-2.1) L 03/24/23 05:01 Lipase 63 Units/L (73-393) L 03/23/23 17:40 Specimen Type Catherized urine 03/23/23 22:05 Urine Color Dark yellow (YELLOW) 03/23/23 22:05 Urine Appearance Clear (CLEAR) 03/23/23 22:05 Urine pH 5.0 (5.0 - 8.0) 03/23/23 22:05 Ur Specific [place] 1.025 (1.000-1.030) 03/23/23 22:05 Urine Protein 2+ (NEGATIVE) 03/23/23 22:05 Urine Glucose (UA) Negative (NEGATIVE) 03/23/23 22:05 Urine Ketones Negative (NEGATIVE) 03/23/23 22:05 Urine Blood 1+ (NEGATIVE) 03/23/23 22:05 Urine Nitrite Negative (NEGATIVE) 03/23/23 22:05 Urine Bilirubin 3+ (NEGATIVE) 03/23/23 22:05 Urine Urobilinogen Normal (NORMAL) 03/23/23 22:05 Ur Leukocyte Esterase 2+ (NEGATIVE) 03/23/23 22:05 Urine RBC 3-5 /HPF (0-3) A 03/23/23 22:05 Urine WBC 10-20 /HPF (0-5) A 03/23/23 22:05 Ur Squamous Epith Cells Few /HPF (NEGATIVE) 03/23/23 22:05 Urine Bacteria Trace /HPF (NEGATIVE) 03/23/23 22:05 Urine Mucus Few /HPF (NEGATIVE) 03/23/23 22:05 Ur Culture Indicated? Yes/culture set up 03/23/23 22:05 SARS-CoV-2 (PCR) Negative (NEGATIVE) 03/23/23 17:47 Influenza Type A (PCR) Negative (NEGATIVE) 03/23/23 17:47 Influenza Type B (PCR) Negative (NEGATIVE) 03/23/23 17:47 RSV (PCR) Negative (NEGATIVE) 03/23/23 17:47 Resp Viral Panel (PCR) See scanned report 03/23/23 22:17 Blood Type O POSITIVE 03/23/23 18:00 Antibody Screen Negative 03/23/23 18:00 Crossmatch See Detail 03/23/23 18:00 - Plan (1) Acute on chronic renal failure Status: Acute Qualifiers: Acute renal failure type: unspecified Chronic kidney disease stage: stage 4 (severe) Qualified Code(s): N17.9 - Acute kidney failure, unspecified; N18.4 - Chronic kidney disease, stage 4 (severe) Plan: NORMAL SALINE AT 75 ML/HR, ROCEPHIN 1G IV DAILY, DUONEBS QID, PULMICORT NEBS, OTBS ACHS, HUMULIN R SLIDING SCALE. RESUME HOME MEDICATIONS (2) Volume depletion Status: Acute (3) Pneumonia Status: Acute Qualifiers: Pneumonia type: due to unspecified organism Laterality: unspecified laterality Lung location: unspecified part of lung Qualified Code(s): J18.9 - Pneumonia, unspecified organism (4) CHF (congestive heart failure) Status: Acute Qualifiers: Heart failure type: unspecified Heart failure chronicity: acute Qualified Code(s): I50.9 - Heart failure, unspecified (5) Anemia Status: Acute Qualifiers: Anemia type: iron deficiency Iron deficiency anemia type: chronic blood loss Qualified Code(s): D50.0 - Iron deficiency anemia secondary to blood loss (chronic) (6) Hyperkalemia Status: Acute (7) Urinary tract infection Status: Acute Qualifiers: Urinary tract infection type: acute cystitis Hematuria presence: with hematuria Qualified Code(s): N30.01 - Acute cystitis with hematuria (8) Wound of left foot Status: Acute (9) Hypertension Status: Chronic Qualifiers: Hypertension type: primary hypertension Qualified Code(s): I10 - Essential (primary) hypertension (10) Diabetes mellitus, type 2 Status: Chronic Qualifiers: Diabetes mellitus retirement insulin use: with retirement use Diabetes mellitus complication status: with hyperglycemia Qualified Code(s): E11.65 - T ype 2 diabetes mellitus with hyperglycemia; 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
[2023-03-26] MEDS: MORPHINE SULFATE INJ 2 MG INJ IVP PRN ×2 (00:34→11:18)
[2023-03-26] MEDS ORDERED: ROBITUSSIN DM PO PRN (01:10)
[2023-03-26] MEDS: NS 1,000 ML IV 1,000 ML IV SCH ×3 (03:17→20:11)
[2023-03-26] MEDS: SINEMET (PLAIN) 10/100 MG PO SCH ×3 (05:25→22:16)
[2023-03-26] MEDS: PERCOCET TAB 5/325 MG PO PRN ×2 (05:25→20:12)
[2023-03-26] MEDS: NovoLIN R (or HumuLIN R) SC SCH ×3 (05:25→21:03)
[2023-03-26 06:15] LABS: BASOPHILS % (AUTO) 0.4 % (0.2-1.0); EOSINOPHILS # (AUTO) 0.1 x10^3/uL (0.0-0.2); EOSINOPHILS % (AUTO) 0.8 % (0.9-2.9); HEMATOCRIT 23.7 % (36.0-47.0); HEMOGLOBIN 7.9 g/dL (12.0-16.0); LYMPHOCYTES # (AUTO) 2.5 X10^3/uL (1.3-2.9); LYMPHOCYTES % (AUTO) 28.6 % (21.0-51.0); MEAN CORPUSCULAR HEMOGLOBIN 27.6 pg (27.0-34.0); MEAN CORPUSCULAR HGB CONC 33.5 g/dL (33.0-35.0); MEAN CORPUSCULAR VOLUME 82.5 fL (80.0-100.0); MONOCYTES # (AUTO) 0.5 x10^3/uL (0.3-0.8); MONOCYTES % (AUTO) 5.9 % (0.0-13.0); NEUTROPHILS # (AUTO) 5.7 x10^3/uL (2.2-4.8); NEUTROPHILS % (AUTO) 64.3 % (42.0-75.0); PLATELET COUNT 250 X10^3/uL (150.0-450.0); RED BLOOD COUNT 2.87 X10^6/uL (3.5-5.4); RED CELL DISTRIBUTION WIDTH 16.2 % (11.6-16.5); WHITE BLOOD COUNT 8.9 X10^3/uL (3.6-10.0)
[2023-03-26 06:21] LABS: BLOOD UREA NITROGEN 55 mg/dL (7-18); CALCIUM 8.5 mg/dL (8.5-10.1); CARBON DIOXIDE 24.5 mmol/L (21-32); CHLORIDE 103 mmol/L (98-107); CREATININE 2.16 mg/dL (0.55-1.02); GLUCOSE 85 mg/dL (65-99); POTASSIUM 4.1 mmol/L (3.5-5.1); SODIUM 137 mmol/L (136-145); eGFR NON BLACK RACES 23 (>60)
[2023-03-26] MEDS: DUONEB 0.5 MG/3 MG (3 mL) NEB SCH ×4 (09:00→21:00)
[2023-03-26] MEDS: PULMICORT NEB TX 0.5 MG NEB SCH ×2 (09:00→21:00)
[2023-03-26] MEDS: LASIX IVP SCH (09:54)
[2023-03-26] MEDS: LOPRESSOR TAB 25 MG PO SCH ×2 (09:54→20:09)
[2023-03-26] MEDS: COLACE CAP 100 MG PO SCH (09:55)
[2023-03-26] MEDS: PROTONIX TAB 40 MG PO SCH (09:55)
[2023-03-26] MEDS: PLAVIX PO SCH (09:56)
[2023-03-26] MEDS: JANUVIA PO SCH (09:57)
[2023-03-26] MEDS: SENOKOT PO SCH (09:58)
[2023-03-26] MEDS: ASPIRIN EC 81 MG PO SCH (09:58)
[2023-03-26] MEDS: NEURONTIN CAP 300 MG PO SCH (09:58)
[2023-03-26] MEDS: XANAX PO SCH ×2 (09:58→20:09)
[2023-03-26] MEDS: MAG-OX TAB PO SCH (10:01)
[2023-03-26] MEDS: NYSTATIN POWDER TOP SCH (10:02)
[2023-03-26] MEDS: CLARITIN PO SCH (10:12)
[2023-03-26] MEDS: LIPITOR TAB 10 MG PO SCH (10:17)
[2023-03-26] MEDS: EFFEXOR XR 75 MG CAP 24-HR PO SCH (10:17)
[2023-03-26] MEDS: VANCOMYCIN IV *PREMIX 1.5 G/300 ML BAG 1.5 G/300 ML PIGGYBACK IV SCH (13:58)
[2023-03-26] MEDS ORDERED: CONSULT PHARMACY - ANTIBIOTIC XX SCH (14:00)
[2023-03-26] MEDS ORDERED: LASIX IVP ONE (14:37)
--- NOTE | 2023-03-26 18:56 | PCM.PROG ---
Progress Note - Progress Note for Day of Date of Exam: 03/26/23 - Subjective Subjective: IS A 82 YEAR OLD PATIENT OF . SHE IS CURRENTLY INPATIENT STATUS FOR TREATMENT OF ACUTE ON CHRONIC RENAL FAILURE, VOLUME DEPLETION, PNEUMONIA, UTI, CHF, ANEMIA, HYPERKALEMIA, AND LEFT FOOT WOUND. SHE HAS A PMH OF DM II AND COPD. SHE HAS RECEIVED ONE UNIT OF PACKED RED BLOOD CELLS SINCE ADMISSION. TODAY, SHE IS ALERT AND ORIENTED, LYING IN BED ON MORNING ROUNDS. SHE CONTINUES TO COMPLAIN OF WEAKNESS, LEFT FOOT PAIN, AND SHORTNESS OF BREATH AT TIMES. ON EXAMINATION, SHE IS TACHYCARDIC WITH HR 100-110 BPM. BILATERAL LUNGS ARE NOTED WITH DIMINISHED LUNG SOUNDS THROUGHOUT. ABDOMEN IS OBESE, SOFT, AND NON-TENDER WITH NORMAL BOWEL SOUNDS NOTED IN ALL QUADRANTS. WEAKNESS TO LOWER EXTREMITIES NOTED. 1+ PITTING EDEMA NOTED TO BLE. THERE IS A LEFT HEEL WOUND THAT IS COVERED AT THIS TIME. HER VITALS THIS MORNING ARE: 98.4-100-20-98%-144/81. LABS WERE OBTAINED. WBC 8.9, RBC 2.87, HGB 7.9, HCT 23.7, PLT COUNT 250, SODIUM 137, POTASSIUM 4.1, CHLORIDE 103, BUN 55, CREATININE 2.16, GLUCOSE 85, CALCIUM 8.5, BNP 1180. AIT RESPIRATORY PANEL IS POSITIVE FOR HUMAN METAPNEUMOVIRUS. BLOOD AND URINE CULTURES ARE PENDING. LEFT FOOT WOUND CULTURE IS POSITIVE FOR GROWTH OF MRSA. A CHEST XRAY WAS OBTAINED AND RESULTS ARE PENDING. SHE IS CURRENTLY RECEIVING NORMAL SALINE AT 75 ML/HR, ROCEPHIN 1G IV DAILY, DUONEBS QID, PULMICORT NEBS, OTBS ACHS, HUMULIN R SLIDING SCALE. HER HOME MEDICATIONS OF XANAX, ECOTRIN, LIPITOR, SINEMET, PLAVIX, LASIX, NEURONTIN, LEVEMIR, CLARITIN, MILK OF MAGNESIA, MOG OX, MELATONIN, LOPRESSOR, NYSTATIN POWDER, PERCOCET, PROTONIX, SEROQUEL, SENOKOT, JANUVIA, AND EFFEXOR. WE WILL ADD VANCOMYCIN 1.5G IV DAILY TO HER MEDICATIONS TODAY. OTHERWISE, WE WILL CONTINUE WITH CURRENT PLAN OF CARE. WE WILL FOLLOW UP WITH AM LABS AND CONTINUE TO MONITOR. TIME SPENT ON CLINICAL ASSESSMENT, REVIEWING LABS AND IMAGING, DECISION MAKING, AND DOCUMENTATION GREATER THAN 45 MINUTES. - Past Medical Family Social History Past Med/Fam/Surg Hx: No changes since H&P Allergies: Allergies ciprofloxacin [From Cipro] Allergy (Verified 03/23/23 21:32) - Review of Systems ROS: No change since H&P - Vital Signs and I&O's Vital Signs: Vital Signs Temperature 98.0 F Temperature 97.7 F Pulse Rate [Left] 118 Pulse Rate [Left] 122 Respiratory Rate 16 Respiratory Rate 20 Respiratory Rate 16 Respiratory Rate 18 Blood Pressure [Right Arm] 114/59 Blood Pressure [Right Arm] 123/73 O2 Sat by Pulse Oximetry 98 O2 Sat by Pulse Oximetry 96 Intake and Output: Intake & Output 03/24/23 03/25/23 03/26/23 03/27/23 11:59 11:59 11:59 11:59 Intake Total 346 / 346 3623 / 3623 2438 / 2438 1462 / 1462 Output Total 510 / 510 1600 / 1600 2600 / 2600 2700 / 2700 Balance -164 / -164 2022 -162 / -162 -1238 / -1238 - Physical Exam Oriented: Normal Eyes: Normal Ear: Normal Nose: Normal Throat: Normal Respiratory: Generalized, Diminished Cardiovascular: Normal : Normal Auscultation: Bowel Sounds: Normal Palpation: Normal Tenderness: Normal Skin: Wound (LEFT HEEL WOUND ) Musculoskeletal: Right, Left, Leg, Foot, Tender Psychiatric: Normal Mood Description: Calm Affect: Normal Speech Pattern: Clear, Appropriate - Laboratory and Diagnostics Result Diagrams: 03/26/23 05:59 03/26/23 05:59 Labs: 03/24/23 14:16 Foot - Left Wound Culture - Final Methicillin Resis Staph Aureus 03/23/23 18:00 Blood Blood Culture - Final 03/23/23 22:05 Urine,Catheterized Urine Culture - Final 03/23/23 17:40 Blood Blood Culture - Preliminary Laboratory WBC 8.9 X10^3/uL (3.6-10.0) 03/26/23 05:59 RBC 2.87 X10^6/uL (3.5-5.4) L 03/26/23 05:59 Hgb 7.9 g/dL (12.0-16.0) L 03/26/23 05:59 Hct 23.7 % (36.0-47.0) L 03/26/23 05:59 MCV 82.5 fL (80.0-100.0) 03/26/23 05:59 MCH 27.6 pg (27.0-34.0) 03/26/23 05:59 MCHC 33.5 g/dL (33.0-35.0) 03/26/23 05:59 RDW 16.2 % (11.6-16.5) 03/26/23 05:59 Plt Count 250 X10^3/uL (150.0-450.0) 03/26/23 05:59 MPV 7.0 fL (7.4-11.0) L 03/26/23 05:59 Neut % (Auto) 64.3 % (42.0-75.0) 03/26/23 05:59 Lymph % (Auto) 28.6 % (21.0-51.0) 03/26/23 05:59 Chambers % (Auto) 5.9 % (0.0-13.0) 03/26/23 05:59 Eos % (Auto) 0.8 % (0.9-2.9) L 03/26/23 05:59 Baso % (Auto) 0.4 % (0.2-1.0) 03/26/23 05:59 Neut # (Auto) 5.7 x10^3/uL (2.2-4.8) H 03/26/23 05:59 Lymph # (Auto) 2.5 X10^3/uL (1.3-2.9) 03/26/23 05:59 Chambers # (Auto) 0.5 x10^3/uL (0.3-0.8) 03/26/23 05:59 Eos # (Auto) 0.1 x10^3/uL (0.0-0.2) 03/26/23 05:59 Baso # (Auto) 0.0 X10^3/uL (0.0-0.1) 03/26/23 05:59 Absolute Nucleated RBC 0.1 /100WBC 03/26/23 05:59 Sodium 137 mmol/L (136-145) 03/26/23 05:59 Corrected Sodium TNP 03/26/23 05:59 Potassium 4.1 mmol/L (3.5-5.1) 03/26/23 05:59 Chloride 103 mmol/L (98-107) 03/26/23 05:59 Carbon Dioxide 24.5 mmol/L (21-32) 03/26/23 05:59 BUN 55 mg/dL (7-18) H 03/26/23 05:59 Creatinine 2.16 mg/dL (0.55-1.02) H 03/26/23 05:59 Est GFR (MDRD) Af Amer 28 (>60) L 03/26/23 05:59 Est GFR (MDRD) Non-Af 23 (>60) L 03/26/23 05:59 Glucose 85 mg/dL (65-99) 03/26/23 05:59 POC Glucose (mg/dL) 77 mg/dL (65-99) 03/26/23 16:08 Lactic Acid 2.8 mmol/L (0.4-2.0) H 03/24/23 05:01 Calcium 8.5 mg/dL (8.5-10.1) 03/26/23 05:59 Corrected Calcium 8.6 mg/dL (8.5-10.1) 03/24/23 05:01 Total Bilirubin 0.20 mg/dL (0.2-1.0) 03/24/23 05:01 AST 23 Units/L (15-37) 03/24/23 05:01 ALT 8 Units/L (12-78) L 03/24/23 05:01 Alkaline Phosphatase 58 Units/L (46-116) 03/24/23 05:01 B-Natriuretic Peptide 1180 pg/mL (0-79) H* 03/26/23 05:59 Total Protein 6.7 g/dL (6.4-8.2) 03/24/23 05:01 Albumin 3.0 g/dL (3.4-5.0) L 03/24/23 05:01 Globulin 3.7 g/dL (2.5-4.5) 03/24/23 05:01 Albumin/Globulin Ratio 0.8 Ratio (1.1-2.1) L 03/24/23 05:01 Lipase 63 Units/L (73-393) L 03/23/23 17:40 Specimen Type Catherized urine 03/23/23 22:05 Urine Color Dark yellow (YELLOW) 03/23/23 22:05 Urine Appearance Clear (CLEAR) 03/23/23 22:05 Urine pH 5.0 (5.0 - 8.0) 03/23/23 22:05 Ur Specific [place] 1.025 (1.000-1.030) 03/23/23 22:05 Urine Protein 2+ (NEGATIVE) 03/23/23 22:05 Urine Glucose (UA) Negative (NEGATIVE) 03/23/23 22:05 Urine Ketones Negative (NEGATIVE) 03/23/23 22:05 Urine Blood 1+ (NEGATIVE) 03/23/23 22:05 Urine Nitrite Negative (NEGATIVE) 03/23/23 22:05 Urine Bilirubin 3+ (NEGATIVE) 03/23/23 22:05 Urine Urobilinogen Normal (NORMAL) 03/23/23 22:05 Ur Leukocyte Esterase 2+ (NEGATIVE) 03/23/23 22:05 Urine RBC 3-5 /HPF (0-3) A 03/23/23 22:05 Urine WBC 10-20 /HPF (0-5) A 03/23/23 22:05 Ur Squamous Epith Cells Few /HPF (NEGATIVE) 03/23/23 22:05 Urine Bacteria Trace /HPF (NEGATIVE) 03/23/23 22:05 Urine Mucus Few /HPF (NEGATIVE) 03/23/23 22:05 Ur Culture Indicated? Yes/culture set up 03/23/23 22:05 SARS-CoV-2 (PCR) Negative (NEGATIVE) 03/23/23 17:47 Influenza Type A (PCR) Negative (NEGATIVE) 03/23/23 17:47 Influenza Type B (PCR) Negative (NEGATIVE) 03/23/23 17:47 RSV (PCR) Negative (NEGATIVE) 03/23/23 17:47 Resp Viral Panel (PCR) See scanned report 03/23/23 22:17 Blood Type O POSITIVE 03/23/23 18:00 Antibody Screen Negative 03/23/23 18:00 Crossmatch See Detail 03/23/23 18:00 - Plan (1) Acute on chronic renal failure Status: Acute Qualifiers: Acute renal failure type: unspecified Chronic kidney disease stage: stage 4 (severe) Qualified Code(s): N17.9 - Acute kidney failure, unspecified; N18.4 - Chronic kidney disease, stage 4 (severe) Plan: NORMAL SALINE AT 75 ML/HR, ROCEPHIN 1G IV DAILY, VANCOMYCIN 1.5G IV DAILY, DUONEBS QID, PULMICORT NEBS, OTBS ACHS, HUMULIN R SLIDING SCALE. RESUME HOME MEDICATIONS (2) Volume depletion Status: Acute (3) Pneumonia Status: Acute Qualifiers: Pneumonia type: due to unspecified organism Laterality: unspecified laterality Lung location: unspecified part of lung Qualified Code(s): J18.9 - Pneumonia, unspecified organism (4) CHF (congestive heart failure) Status: Acute Qualifiers: Heart failure type: unspecified Heart failure chronicity: acute Qualified Code(s): I50.9 - Heart failure, unspecified (5) Anemia Status: Acute Qualifiers: Anemia type: iron deficiency Iron deficiency anemia type: chronic blood loss Qualified Code(s): D50.0 - Iron deficiency anemia secondary to blood loss (chronic) (6) Hyperkalemia Status: Acute (7) Urinary tract infection Status: Acute Qualifiers: Urinary tract infection type: acute cystitis Hematuria presence: with hematuria Qualified Code(s): N30.01 - Acute cystitis with hematuria (8) Wound of left foot Status: Acute Plan: VANCOMYCIN 1.5G IV DAILY FOR TREATMENT OF MRSA (9) Hypertension Status: Chronic Qualifiers: Hypertension type: primary hypertension Qualified Code(s): I10 - Essential (primary) hypertension (10) Diabetes mellitus, type 2 Status: Chronic Qualifiers: 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
[2023-03-26] MEDS: MELATONIN PO SCH (20:10)
[2023-03-26] MEDS: SEROquel TAB 25 mg PO SCH (20:10)
[2023-03-26] MEDS: SNACK - Diabetic Appropriate PO SCH (20:10)
[2023-03-26] MEDS: LEVEMIR SC SCH (21:04)
--- NOTE | 2023-03-27 01:49 | RAD ---
HISTORYSOBSTUDYCHEST, 1 VIEWCOMPARISONJuly 2022TECHNIQUEChest radiographic imaging, AP portable projection, 1 imageFINDINGSModerate cardiomegaly.Increased bilateral perihilar interstitial markings.No focal airspace disease.No pleural effusion.No pneumothorax.No acute osseous abnormality.IMPRESSIONNo clinically significant interval acute cardiopulmonary changes.Electronically signed by: Luis Sims (Mar 27, 2023 01:48:14)
[2023-03-27 05:24] LABS: BASOPHILS % (AUTO) 0.2 % (0.2-1.0); EOSINOPHILS # (AUTO) 0.2 x10^3/uL (0.0-0.2); HEMATOCRIT 22.8 % (36.0-47.0); HEMOGLOBIN 7.8 g/dL (12.0-16.0); LYMPHOCYTES # (AUTO) 2.1 X10^3/uL (1.3-2.9); LYMPHOCYTES % (AUTO) 31.8 % (21.0-51.0); MEAN CORPUSCULAR VOLUME 82.3 fL (80.0-100.0); MEAN PLATELET VOLUME 6.8 fL (7.4-11.0); MONOCYTES # (AUTO) 0.4 x10^3/uL (0.3-0.8); MONOCYTES % (AUTO) 6.7 % (0.0-13.0); NEUTROPHILS # (AUTO) 3.8 x10^3/uL (2.2-4.8); NEUTROPHILS % (AUTO) 58.3 % (42.0-75.0); PLATELET COUNT 238 X10^3/uL (150.0-450.0); RED BLOOD COUNT 2.77 X10^6/uL (3.5-5.4); RED CELL DISTRIBUTION WIDTH 16.1 % (11.6-16.5); WHITE BLOOD COUNT 6.5 X10^3/uL (3.6-10.0)
[2023-03-27] MEDS: PERCOCET TAB 5/325 MG PO PRN (05:28)
[2023-03-27] MEDS: SINEMET (PLAIN) 10/100 MG PO SCH ×2 (05:28→15:12)
[2023-03-27 05:38] LABS: ALANINE AMINOTRANSFERASE 6 Units/L (12-78); ALBUMIN 2.9 g/dL (3.4-5.0); ALKALINE PHOSPHATASE 56 Units/L (46-116); ASPARTATE AMINO TRANSFERASE 21 Units/L (15-37); BLOOD UREA NITROGEN 44 mg/dL (7-18); CALCIUM 8.3 mg/dL (8.5-10.1); CHLORIDE 105 mmol/L (98-107); COR CA(FOR HYPOALB) 9.2 mg/dL (8.5-10.1); CREATININE 1.56 mg/dL (0.55-1.02); GLUCOSE 91 mg/dL (65-99); POTASSIUM 3.9 mmol/L (3.5-5.1); SODIUM 140 mmol/L (136-145); TOTAL PROTEIN 6.6 g/dL (6.4-8.2); eGFR NON BLACK RACES 34 (>60)
[2023-03-27] MEDS: NovoLIN R (or HumuLIN R) SC SCH ×4 (05:46→15:56)
--- NOTE | 2023-03-27 07:43 | RAD ---
HISTORYShortness of breathSTUDYChest AP [id number]/2023FINDINGSPati ent is rotated to the right. Heart remains enlarged. No congestive heart failure is noted. No definite acute infiltrates or pleural effusions are identified. Bony thorax is unremarkable.IMPRESSIONCardiomegaly without congestive heart failureNo definite acute infiltratesElectronically signed by: NELIDA HE (Mar 27, 2023 07:42:01)
[2023-03-27] MEDS: CLARITIN PO SCH (08:03)
[2023-03-27] MEDS: LIPITOR TAB 10 MG PO SCH (08:03)
[2023-03-27] MEDS: ASPIRIN EC 81 MG PO SCH (08:03)
[2023-03-27] MEDS: SENOKOT PO SCH (08:04)
[2023-03-27] MEDS: LASIX IVP SCH (08:04)
[2023-03-27] MEDS: XANAX PO SCH (08:04)
[2023-03-27] MEDS: JANUVIA PO SCH (08:04)
[2023-03-27] MEDS: NEURONTIN CAP 300 MG PO SCH (08:04)
[2023-03-27] MEDS: LOPRESSOR TAB 25 MG PO SCH (08:05)
[2023-03-27] MEDS: MAG-OX TAB PO SCH (08:05)
[2023-03-27] MEDS: GLUCOPHAGE PO SCH (08:05)
[2023-03-27] MEDS: COLACE CAP 100 MG PO SCH (08:05)
[2023-03-27] MEDS: NS 1,000 ML IV 1,000 ML IV SCH (08:05)
[2023-03-27] MEDS: EFFEXOR XR 75 MG CAP 24-HR PO SCH (08:05)
[2023-03-27] MEDS: PLAVIX PO SCH (08:05)
[2023-03-27] MEDS: PROTONIX TAB 40 MG PO SCH (08:05)
[2023-03-27] MEDS: VANCOMYCIN IV *PREMIX 1.5 G/300 ML BAG 1.5 G/300 ML PIGGYBACK IV SCH (08:05)
[2023-03-27] MEDS: NYSTATIN POWDER TOP SCH (08:06)
[2023-03-27] MEDS: PULMICORT NEB TX 0.5 MG NEB SCH (09:13)
[2023-03-27] MEDS: DUONEB 0.5 MG/3 MG (3 mL) NEB SCH ×3 (09:13→16:39)
[2023-03-27 09:49] VITALS: O2SAT 98
[2023-03-27] MEDS: MORPHINE SULFATE INJ 2 MG INJ IVP PRN (12:17)
[2023-03-27 16:36] VITALS: BP 127/59; PULSE 107; RESP 20; TEMP 98.3
[2023-03-29] MEDS ORDERED: PHARMACY COMMENT IV NR (08:30)
== END 2023-03-27 19:00 | disposition short-term general hospital (02) | DRG 682 ==
LOC: ER 17:02 → MED/SURG 20:49
PROVIDERS: ADMIT Internal Medicine; ATTEND Internal Medicine

== ENCOUNTER 2023-04-28 10:04 | Observation (INO) ==
--- NOTE | 2023-04-28 10:11 | DR.GENAD ---
HPI Time Seen Time Seen by Provider: 04/28/23 10:09 HPI Comment HPI Comment: Patient is 82yr old female in er with from snf. residential staff reports rapid heart rate and low oxygen saturation noted today. Patient said she is weak and is hurting all over. Denies cough and congestion. Denies dysuria. She was in er on 04/22/23 with similar symptoms that is worse today. Complaint/Symptoms Chief Complaint Doctors Comments: Generalized weakness and pain. Rapid heart rate and low oxygen saturation today at the snf. COVID-19 Coronavirus risk:travel/contact w/high risk person: No Has patient experienced Coronavirus symptoms: No Nurses notes reviewed Nurses Notes Review: Yes PMH PMH Past Medical History: Anxiety, Asthma, COPD, Coronary Artery Disease, Depression, Diabetes, Dyslipidemia, Gout, Hypertension, [place] and Renal Disease Past Surgical History: Yes Surgical History: Angioplasty/Stents, CABG/Valve Surgery and Ortho Surgery Family History Family Medical History: Diabetes Mellitus, [place] and Coronary Artery Disease Social History Do you use any recreational Drugs:: No ROS Review of Systems Constitutional: Weakness and Fatigue; negative Fever Eyes: No Symptoms Reported; negative Blurred Vision ENTM: No Symptoms Reported; negative Nose Discharge or Nose Congestion Respiratoy: Short of Breath (DYSPNEA ON EXERTION.); negative Wheezing Cardiovascular: Edema and Palpitations; negative Chest Pain Gastrointestinal/Abdominal: Constipation; negative Abdominal Pain, Diarrhea or Vomiting Genitourinary: No Symptoms Reported Neurological: Weakness; negative Headache or Dizziness Musculoskeletal: Back Pain Integumentary: Other; negative Juandice Hematologic/Lymphatic: Easy Bleeding and Easy Bruising Endocrine: Decreased Appetite; negative Increased Thirst or Increased Urine Psychiatric: Depression All Other Systems: Reviewed and Negative PE Vital Signs Vitals: Vital Signs Temperature 98.2 F Pulse Rate 88 Pulse Rate 87 Pulse Rate 88 Pulse Rate 87 Pulse Rate 90 Pulse Rate 89 Pulse Rate 88 Pulse Rate 89 Pulse Rate 88 Pulse Rate 97 Pulse Rate 93 Respiratory Rate 15 Respiratory Rate 15 Respiratory Rate 18 Respiratory Rate 13 Respiratory Rate 15 Respiratory Rate 15 Respiratory Rate 26 Respiratory Rate 14 Respiratory Rate 20 Respiratory Rate 15 Respiratory Rate 20 Blood Pressure 125/71 Blood Pressure 177/114 Blood Pressure 118/59 Blood Pressure 105/46 Blood Pressure 105/46 O2 Sat by Pulse Oximetry 99 O2 Sat by Pulse Oximetry 98 O2 Sat by Pulse Oximetry 99 O2 Sat by Pulse Oximetry 99 O2 Sat by Pulse Oximetry 99 O2 Sat by Pulse Oximetry 99 O2 Sat by Pulse Oximetry 99 O2 Sat by Pulse Oximetry 98 O2 Sat by Pulse Oximetry 98 O2 Sat by Pulse Oximetry 99 General Limitations: No Limitations Head Head Exam: Normal Inspection and Atraumatic Eyes Eye exam: Normal Appearance ENT ENT Exam: Normal Exam, Normal Oropharynx and Normal External Ear Exam; negative TM's Normal Bilaterally External Ear Exam: Normal External Inspection; negative Mastoid Tenderness TM/Canal Exam: Bilateral: Normal Nose Exam: Normal Nose Exam Mouth Exam: Normal Inspection Throat Exam: Normal Inspection; negative Tonsillar Erythema, Tonsillomegaly or Tonsillar Exudate Neck Neck Exam: Normal Inspection and Trachea Midline; negative Tenderness Chest Chest Inspection: Normal Inspection and Symmetric Chest Wall Rise; negative Tenderness Respiratory Respiratory Exam: Normal Lung Sounds Bilat; negative Accessory Muscle Use, Chest Wall Tenderness or Respiratory Distress Respiratory Exam: Bilateral: Rhonchi Cardiovascular Cardiovascular Exam: Regular Rate, Normal Rhythm and Normal Heart Sounds; negative Systolic Murmur or Diastolic Murmur Abdominal Exam Abdominal Exam: Normal Inspection, Normal Bowel Sounds and Soft Extremities Extremities Exam: Normal Capillary Refill and Edema Back Back Exam: Paraspinal Tenderness; negative (R) CVA Tenderness or (L) CVA Tenderness Neurologic Neurological Exam: Alert and Oriented X3 Psychiatric Psychiatric Exam: Normal Affect and Normal Mood Skin Skin Exam: Rash (Stasis dermatitis.) MDM Differential Diagnosis Differential Diagnosis: Generalized weakness, malaise, chf, uti, pneumonia. COURSE Treatment Treatment: See orders done while patient was in the er. labs, ekg and xray reports discussed with patient. hemoglobin is low. Patient have symptomatic anemia and will transfuse 2 units of blood. she will be admitted to hospital. Consultation Consultation Comments: Discussed patient with dr. E[place]. He will admit patient. Education/Counseling Education/Counseling: Patient Educated On: Diagnosis ROR Labs Reviewed Laboratory Results Reviewed?: Yes 04/30/23 05:34 04/30/23 05:34 Laboratory: WBC 5.9 X10^3/uL (3.6-10.0) 04/28/23 10:49 RBC 2.19 X10^6/uL (3.5-5.4) L 04/28/23 10:49 Hgb 6.0 g/dL (12.0-16.0) L* 04/28/23 10:49 Hct 18.7 % (36.0-47.0) L* 04/28/23 10:49 MCV 85.5 fL (80.0-100.0) 04/28/23 10:49 MCH 27.5 pg (27.0-34.0) 04/28/23 10:49 MCHC 32.2 g/dL (33.0-35.0) L 04/28/23 10:49 RDW 18.8 % (11.6-16.5) H 04/28/23 10:49 Plt Count 228 X10^3/uL (150.0-450.0) 04/28/23 10:49 MPV 7.2 fL (7.4-11.0) L 04/28/23 10:49 Neut % (Auto) 70.1 % (42.0-75.0) 04/28/23 10:49 Lymph % (Auto) 22.6 % (21.0-51.0) 04/28/23 10:49 [place] % (Auto) 5.2 % (0.0-13.0) 04/28/23 10:49 Eos % (Auto) 1.5 % (0.9-2.9) 04/28/23 10:49 Baso % (Auto) 0.6 % (0.2-1.0) 04/28/23 10:49 Neut # (Auto) 4.1 x10^3/uL (2.2-4.8) 04/28/23 10:49 Lymph # (Auto) 1.3 X10^3/uL (1.3-2.9) 04/28/23 10:49 [place] # (Auto) 0.3 x10^3/uL (0.3-0.8) 04/28/23 10:49 Eos # (Auto) 0.1 x10^3/uL (0.0-0.2) 04/28/23 10:49 Baso # (Auto) 0.0 X10^3/uL (0.0-0.1) 04/28/23 10:49 Absolute Nucleated RBC 0.1 /100WBC 04/28/23 10:49 PT 21.9 SECONDS (11.8-14.3) 04/28/23 10:49 INR Target Range - 04/28/23 10:49 INR 1.95 (0.8-1.3) H 04/28/23 10:49 APTT 43.3 SECONDS (22.9-36.5) H 04/28/23 10:49 PTT Comment - 04/28/23 10:49 Sodium 136 mmol/L (136-145) 04/28/23 10:49 Corrected Sodium 137 mmol/L (136-145) 04/28/23 10:49 Potassium 4.9 mmol/L (3.5-5.1) 04/28/23 10:49 Chloride 101 mmol/L (98-107) 04/28/23 10:49 Carbon Dioxide 28.5 mmol/L (21-32) 04/28/23 10:49 BUN 29 mg/dL (7-18) H 04/28/23 10:49 Creatinine 1.47 mg/dL (0.55-1.02) H 04/28/23 10:49 Est GFR (MDRD) Af Amer 44 (>60) L 04/28/23 10:49 Est GFR (MDRD) Non-Af 36 (>60) L 04/28/23 10:49 Glucose 144 mg/dL (65-99) H 04/28/23 10:49 POC Glucose (mg/dL) 144 mg/dL (65-99) H 04/28/23 10:21 Calcium 8.8 mg/dL (8.5-10.1) 04/28/23 10:49 Corrected Calcium 9.7 mg/dL (8.5-10.1) 04/28/23 10:49 Iron 21 ug/dL (50-175) L 04/28/23 10:49 TIBC 313 ug/dL (250-450) 04/28/23 10:49 % Saturation 6.7 % (11.0-46.0) L 04/28/23 10:49 Transferrin 246 mg/dL (202-364) 04/28/23 10:49 Ferritin 63 ng/mL (8-252) 04/28/23 10:49 Total Bilirubin 0.30 mg/dL (0.2-1.0) 04/28/23 10:49 AST 20 Units/L (15-37) 04/28/23 10:49 ALT 8 Units/L (12-78) L 04/28/23 10:49 Alkaline Phosphatase 123 Units/L (46-116) H 04/28/23 10:49 Creatine Kinase 28 Units/L (26-192) 04/28/23 10:49 Troponin I High Sens 60.0 ng/L (4.0-60.0) 04/28/23 10:49 B-Natriuretic Peptide 766 pg/mL (0-79) H* 04/28/23 10:49 Total Protein 6.3 g/dL (6.4-8.2) L 04/28/23 10:49 Albumin 2.9 g/dL (3.4-5.0) L 04/28/23 10:49 Globulin 3.4 g/dL (2.5-4.5) 04/28/23 10:49 Albumin/Globulin Ratio 0.9 Ratio (1.1-2.1) L 04/28/23 10:49 Amylase 21 Units/L (25-115) L 04/28/23 10:49 Lipase 107 Units/L (73-393) 04/28/23 10:49 Vitamin B12 302 pg/mL (193-986) 04/28/23 10:49 Specimen Type Catherized urine 04/28/23 11:06 Urine Color Yellow (YELLOW) 04/28/23 11:06 Urine Appearance Clear (CLEAR) 04/28/23 11:06 Urine pH 6.5 (5.0 - 8.0) 04/28/23 11:06 Ur Specific [place] 1.010 (1.000-1.030) 04/28/23 11:06 Urine Protein 2+ (NEGATIVE) 04/28/23 11:06 Urine Glucose (UA) Negative (NEGATIVE) 04/28/23 11:06 Urine Ketones Negative (NEGATIVE) 04/28/23 11:06 Urine Blood Negative (NEGATIVE) 04/28/23 11:06 Urine Nitrite Negative (NEGATIVE) 04/28/23 11:06 Urine Bilirubin Negative (NEGATIVE) 04/28/23 11:06 Urine Urobilinogen Normal (NORMAL) 04/28/23 11:06 Ur Leukocyte Esterase Negative (NEGATIVE) 04/28/23 11:06 Urine RBC 0-2 /HPF (0-3) 04/28/23 11:06 Urine WBC 0-2 /HPF (0-5) 04/28/23 11:06 Ur Squamous Epith Cells Few /HPF (NEGATIVE) 04/28/23 11:06 Urine Bacteria Negative /HPF (NEGATIVE) 04/28/23 11:06 Ur Culture Indicated? No/not indicated 04/28/23 11:06 Blood Type O POSITIVE 04/28/23 12:00 Antibody Screen Negative 04/28/23 12:00 Crossmatch See Detail 04/28/23 12:00 XRAY XRAY Interpreted by: Radiologist (Report noted.) and Self Opioid Opioid Risk Tool Age (Sánchez box if 16-45): No History of Preadolescent Sexual Abuse: No Total: 0 Total Score Risk Category: Low Risk Copyright: Peter BERNAL predicting aberrant behaviors Discharge Plan Diagnosis Discharge Problem: Generalized weakness, Acute anemia Discharge Plan Patient Disposition: 09 ADMITTED INPATIENT Condition: Stable
--- NOTE | 2023-04-28 10:48 | EKG ---
Test Reason : tachycardia, irregular pulse Blood Pressure : */* mmHG Vent. Rate : 89 BPM Atrial Rate : * BPM P-R Int : * ms QRS Dur : 132 ms QT Int : 400 ms P-R-T Axes : * 73 20 degrees QTc Int : 486 ms Normal sinus rhythm with pac's Right bundle branch block T wave abnormality, consider lateral ischemia Abnormal ECG When compared with ECG of 04-NOV-2022 14:48, T wave inversion now evident in Lateral leads Confirmed by Emiliano Suresh ([id number]) on 04/29/2023 8:04:57 AM Referred By: Confirmed By: Emiliano Suresh
[2023-04-28 11:03] LABS: EOSINOPHILS # (AUTO) 0.1 x10^3/uL (0.0-0.2); MEAN PLATELET VOLUME 7.2 fL (7.4-11.0); MONOCYTES # (AUTO) 0.3 x10^3/uL (0.3-0.8); WHITE BLOOD COUNT 5.9 X10^3/uL (3.6-10.0)
[2023-04-28 11:09] LABS: BASOPHILS % (AUTO) 0.6 % (0.2-1.0); EOSINOPHILS % (AUTO) 1.5 % (0.9-2.9); LYMPHOCYTES # (AUTO) 1.3 X10^3/uL (1.3-2.9); LYMPHOCYTES % (AUTO) 22.6 % (21.0-51.0); MEAN CORPUSCULAR HEMOGLOBIN 27.5 pg (27.0-34.0); MEAN CORPUSCULAR HGB CONC 32.2 g/dL (33.0-35.0); MEAN CORPUSCULAR VOLUME 85.5 fL (80.0-100.0); MONOCYTES % (AUTO) 5.2 % (0.0-13.0); NEUTROPHILS # (AUTO) 4.1 x10^3/uL (2.2-4.8); NEUTROPHILS % (AUTO) 70.1 % (42.0-75.0); PLATELET COUNT 228 X10^3/uL (150.0-450.0); RED BLOOD COUNT 2.19 X10^6/uL (3.5-5.4); RED CELL DISTRIBUTION WIDTH 18.8 % (11.6-16.5)
[2023-04-28 11:17] LABS: HEMATOCRIT 18.7 % (36.0-47.0)
[2023-04-28 11:19] LABS: ALBUMIN 2.9 g/dL (3.4-5.0); CALCIUM 8.8 mg/dL (8.5-10.1); CARBON DIOXIDE 28.5 mmol/L (21-32); COR CA(FOR HYPOALB) 9.7 mg/dL (8.5-10.1); CREATININE 1.47 mg/dL (0.55-1.02); POTASSIUM 4.9 mmol/L (3.5-5.1); TOTAL PROTEIN 6.3 g/dL (6.4-8.2)
[2023-04-28 11:21] LABS: COLOR,URINE YELLOW (YELLOW); GLUCOSE, URINE NEGATIVE (NEGATIVE); PH,URINE 6.5 (5.0 - 8.0)
[2023-04-28 11:22] LABS: APPEARANCE,URINE CLEAR (CLEAR); BACTERIA,URINE NEGATIVE /HPF (NEGATIVE); BILIRUBIN,URINE NEGATIVE (NEGATIVE); BLOOD/HEMOGLOBIN,URINE NEGATIVE (NEGATIVE); KETONES,URINE NEGATIVE (NEGATIVE); LEUKOCYTE ESTERASE ,URINE NEGATIVE (NEGATIVE); NITRITES,URINE NEGATIVE (NEGATIVE); PROTEIN,URINE 2+ (NEGATIVE); RBC,URINE 0-2 /HPF (0-3); SQUAMOUS EPITHELIAL CELL,UR FEW /HPF (NEGATIVE); UROBILINOGEN,URINE NORMAL (NORMAL)
--- NOTE | 2023-04-28 12:11 | RAD ---
HISTORYConstipationSTUDYKUBCOMPARISON r.br.br.br.br.br nonobstructive. However there is a very large amount of stool throughout the entire colon suggestive of constipation. No abnormal masses or abnormal calcifications are identified. Regional skeleton is osteopenic but intact.IMPRESSIONFindings suggestive of constipationElectronically signed by: NELIDA HE (Apr 28, 2023 12:10:18)
--- NOTE | 2023-04-28 12:11 | RAD ---
HISTORYDyspnea on exertionSTUDYChest AP [id number]/19/2023FINDINGSHear t remains enlarged. No congestive heart failure is noted. No acute alveolar infiltrates or pleural effusions are identified. Bony thorax is unremarkable.IMPRESSIONCardiomegaly without congestive heart failureLungs clearElectronically signed by: NELIDA HE (Apr 28, 2023 12:11:01)
[2023-04-28 13:30] LABS: INR 1.95 (0.8-1.3)
[2023-04-28] MEDS ORDERED: NS 1,000 ML IV 1,000 ML ONE (14:05)
[2023-04-28] MEDS ORDERED: NS 100 ML IV 100 ML ONE ×2 (14:05→17:44)
[2023-04-28 14:17] VITALS: BMI 39.2
[2023-04-28] MEDS ORDERED: PHARMACY CONSULT LTC MEDICATIONS XX SCH (15:00)
[2023-04-28] MEDS: COLACE CAP 100 MG PO SCH ×2 (17:35→21:18)
[2023-04-28] MEDS: MILK OF MAGNESIA PO SCH ×2 (17:35→21:18)
--- NOTE | 2023-04-28 18:18 | DR.H&P ---
H&P - History & Physical for Day of: H&P Date: 04/28/23 - Chief Complaint Chief Complaint: HIGH HEART RATE - History of Present Illness History of Present Illness: PT IS 82 WF, ER ADMISSION AFTER BEING SENT FOR EVALUATION OF TACHYCARDIA. PT IS A RESIDENT OF [facility]. [place] STAFF REPORTS PT HAD HEART RATE ~200. SHE WAS SENT TO ER FOR EVALUATION. PT WAS NOTED TO BE ANEMIC ON ER LABS. PT HAS PMH OF COPD, HTN, CVD, PARKINSONS, YAMINI, MDD, DM AND GERD. PT WAS ADMITTED FOR TREATMENT AND EVALUATION OF ACUTE ILLNESS. - Past Medical History Past Medical History: NH, Coronary Artery Disease, Hypertension, Dyslipidemia, Diabetes, Renal Disease, Depression, Anxiety, COPD, Asthma, Gout - Past Surgical History Surgical History: Angioplasty/Stents, CABG/Valve Surgery, Ortho Surgery - Family History Family Medical History: Diabetes Mellitus, [place], Coronary Artery Disease - Social History Does patient currently use any type of tobacco product: No Have you used tobacco products in the last 12 months: No Type of Tobacco Use: None Does any household member use tobacco: No Alcohol Use: None - Review of Systems Constitutional: Weakness, Malaise Eyes: No Symptoms Reported ENT: No Symptoms Reported Respiratory: Shortness of Breath Cardiovascular: Palpitations, Edema Gastrointestinal: Nausea Genitourinary: Incontinence Musculoskeletal: Back Pain, Leg Pain Neurological: Weakness - Physical Exam Vital Signs: Vital Signs Temperature 98.9 F Temperature 98.9 F Pulse Rate [Right Brachial] 81 Pulse Rate [Right Brachial] 81 Pulse Rate 82 Pulse Rate 82 Pulse Rate 83 Pulse Rate 85 Pulse Rate 88 Pulse Rate 87 Pulse Rate 88 Pulse Rate 87 Pulse Rate 90 Pulse Rate 89 Pulse Rate 88 Pulse Rate 89 Pulse Rate 88 Pulse Rate 97 Respiratory Rate 18 Respiratory Rate 18 Respiratory Rate 22 Respiratory Rate 18 Respiratory Rate 19 Respiratory Rate 18 Respiratory Rate 15 Respiratory Rate 15 Respiratory Rate 18 Respiratory Rate 13 Respiratory Rate 15 Respiratory Rate 15 Respiratory Rate 26 Respiratory Rate 14 Respiratory Rate 20 Respiratory Rate 15 Blood Pressure [Right Arm] 127/59 Blood Pressure [Right Arm] 127/59 Blood Pressure 125/71 Blood Pressure 177/114 Blood Pressure 118/59 Blood Pressure 105/46 O2 Sat by Pulse Oximetry 100 O2 Sat by Pulse Oximetry 100 O2 Sat by Pulse Oximetry 99 O2 Sat by Pulse Oximetry 100 O2 Sat by Pulse Oximetry 98 O2 Sat by Pulse Oximetry 100 O2 Sat by Pulse Oximetry 99 O2 Sat by Pulse Oximetry 98 O2 Sat by Pulse Oximetry 99 O2 Sat by Pulse Oximetry 99 O2 Sat by Pulse Oximetry 99 O2 Sat by Pulse Oximetry 99 O2 Sat by Pulse Oximetry 99 O2 Sat by Pulse Oximetry 98 O2 Sat by Pulse Oximetry 98 Oriented: Person Eyes: Normal Ear: Normal Nose: Normal Throat: Normal Respiratory: Diminished Throughout Cardiovascular: Tachycardia : Normal Auscultation: Bowel Sounds: Normal Palpation: Normal Tenderness: Normal Skin: Decreased Turgur Musculoskeletal: Motor Deficit, Sensory Deficit Psychiatric: Anxiety Affect: Anxious Speech Pattern: Appropriate, Delayed - Assessment/Plan (1) Anemia Qualifiers: Status: Acute Plan: ADMIT, CARDIAC MONITORING. SUPPLEMENTAL O2, TYPE/SCREEN TRANSFUSE 2 UNITS PRBC PER PROTOCOL. STRICT I&OS. BP CONTROL. VERIFY HOME MEDICATION, CXR AND EKG ON ADMISSION. ANEMIA PANEL ON ADMISSION LABS AND OCCULT STOOL (2) CHF (congestive heart failure) Qualifiers: Status: Acute (3) CAD (coronary artery disease) Status: Chronic (4) History of renal disease Status: Chronic (5) Diabetes mellitus, type 2 Qualifiers: Status: Chronic (6) Degenerative disc disease, lumbar Status: Chronic (7) CAD (coronary artery disease) Status: Chronic (8) Acute dehydration Status: Acute - Allergies Allergies/Adverse Reactions: Allergies Allergy/AdvReac Type Severity Reaction Status Date / Time ciprofloxacin [From Cipro] Allergy Verified 04/09/23 14:42 - Medications Home Medications: Home Medications Medication Instructions Recorded Confirmed insulin regular human 100 unit/mL See Rx Instructions .Route .COMPLEX 07/04/21 04/28/23 injection solution (Novolin R Regular U-100 Insulin) loratadine 10 mg tablet 10 mg PO DAILY 07/04/21 04/28/23 multivitamin 1 tab PO DAILY 07/04/21 04/28/23 pantoprazole 40 mg tablet,delayed 40 mg PO DAILY 07/04/21 04/28/23 release alprazolam 0.5 mg tablet 0.5 mg PO BID 08/20/22 04/28/23 donepezil 5 mg tablet 5 mg PO QDAY 08/20/22 04/28/23 insulin detemir U-100 100 unit/mL 30 unit subcut HS 08/20/22 04/28/23 subcutaneous solution (Levemir U-100 Insulin) sennosides 8.6 mg tablet (Senokot) 8.6 mg PO QDAY 08/20/22 04/28/23 venlafaxine 75 mg capsule,extended 75 mg PO QDAY 08/20/22 04/28/23 release 24 hr carbidopa 10 mg-levodopa 100 mg 1 tab PO TID 11/05/22 04/28/23 tablet magnesium oxide 400 mg PO QDAY 11/05/22 04/28/23 metformin 500 mg tablet 500 mg PO BID 11/05/22 04/28/23 metoprolol tartrate 25 mg tablet 25 mg PO BID 11/05/22 04/28/23 oxycodone-acetaminophen 10 mg-325 1 tab PO Q6H PRN 11/05/22 04/28/23 mg tablet amlodipine 2.5 mg tablet 2.5 mg PO QDAY 03/23/23 04/28/23 aspirin 81 mg tablet,delayed 81 mg PO QDAY 03/23/23 04/28/23 release atorvastatin 10 mg tablet 40 mg PO QDAY 03/23/23 04/28/23 cholecalciferol (vitamin D3) 1,250 1,250 mcg PO QWEEK 03/23/23 04/28/23 mcg (50,000 unit) tablet gabapentin 400 mg capsule 400 mg PO TID 03/23/23 04/28/23 nystatin 100,000 unit/gram topical 1 applic topical DAILY 03/23/23 04/28/23 powder ([facility]) apixaban 5 mg tablet (Eliquis) 5 mg PO BID 04/28/23 04/28/23 levalbuterol HCl 1.25 mg/3 mL 1.25 mg inhalation Q4H 04/28/23 04/28/23 solution for nebulization melatonin 5 mg tablet 5 mg PO HS 04/28/23 04/28/23 quetiapine 50 mg tablet (Seroquel) 50 mg PO HS 04/28/23 04/28/23 sulfamethoxazole 800 1 tab PO BID 04/28/23 04/28/23 mg-trimethoprim 160 mg tablet
[2023-04-28] MEDS: SINEMET (PLAIN) 10/100 MG PO SCH (21:17)
[2023-04-28] MEDS: LOPRESSOR TAB 25 MG PO SCH (21:18)
[2023-04-28] MEDS: XANAX PO SCH (21:18)
[2023-04-28] MEDS: NEURONTIN CAP 300 MG PO SCH (21:18)
[2023-04-28] MEDS: PERCOCET TAB 5/325 MG PO PRN (21:18)
[2023-04-28] MEDS: SEROquel TAB 25 mg PO SCH (21:21)
[2023-04-28 21:54] LABS: HEMATOCRIT 24.3 % (36.0-47.0)
[2023-04-28 21:56] LABS: HEMOGLOBIN 8.2 g/dL (12.0-16.0)
[2023-04-29 06:04] LABS: BASOPHILS % (AUTO) 0.7 % (0.2-1.0); EOSINOPHILS # (AUTO) 0.2 x10^3/uL (0.0-0.2); EOSINOPHILS % (AUTO) 2.6 % (0.9-2.9); HEMATOCRIT 23.9 % (36.0-47.0); HEMOGLOBIN 7.9 g/dL (12.0-16.0); LYMPHOCYTES # (AUTO) 2.2 X10^3/uL (1.3-2.9); LYMPHOCYTES % (AUTO) 37.6 % (21.0-51.0); MEAN CORPUSCULAR HGB CONC 33.2 g/dL (33.0-35.0); MEAN CORPUSCULAR VOLUME 84.5 fL (80.0-100.0); MEAN PLATELET VOLUME 7.3 fL (7.4-11.0); MONOCYTES # (AUTO) 0.4 x10^3/uL (0.3-0.8); NEUTROPHILS # (AUTO) 3.1 x10^3/uL (2.2-4.8); NEUTROPHILS % (AUTO) 52.1 % (42.0-75.0); PLATELET COUNT 205 X10^3/uL (150.0-450.0); RED BLOOD COUNT 2.83 X10^6/uL (3.5-5.4); RED CELL DISTRIBUTION WIDTH 17.3 % (11.6-16.5); WHITE BLOOD COUNT 5.9 X10^3/uL (3.6-10.0)
[2023-04-29] MEDS ORDERED: GLUCOPHAGE ONE (06:04)
[2023-04-29 06:21] LABS: ALANINE AMINOTRANSFERASE < 6 Units/L (12-78); ALBUMIN 2.8 g/dL (3.4-5.0); ALKALINE PHOSPHATASE 111 Units/L (46-116); ASPARTATE AMINO TRANSFERASE 21 Units/L (15-37); BLOOD UREA NITROGEN 29 mg/dL (7-18); CALCIUM 8.7 mg/dL (8.5-10.1); CHLORIDE 101 mmol/L (98-107); COR CA(FOR HYPOALB) 9.7 mg/dL (8.5-10.1); COR NA(FOR HYPERGLY) 135 mmol/L (136-145); CREATININE 1.37 mg/dL (0.55-1.02); GLUCOSE 117 mg/dL (65-99); MAGNESIUM 2.2 mg/dL (2.0-2.9); POTASSIUM 4.4 mmol/L (3.5-5.1); SODIUM 135 mmol/L (136-145); eGFR NON BLACK RACES 39 (>60)
[2023-04-29] MEDS: SINEMET (PLAIN) 10/100 MG PO SCH ×3 (06:27→21:00)
[2023-04-29] MEDS: GLUCOPHAGE PO SCH ×2 (06:28→17:30)
[2023-04-29] MEDS: PERCOCET TAB 5/325 MG PO PRN ×2 (07:40→19:20)
[2023-04-29] MEDS: MILK OF MAGNESIA PO SCH ×2 (10:00→20:24)
[2023-04-29] MEDS ORDERED: NORVASC TAB 2.5 MG ONE (10:03)
[2023-04-29] MEDS: LIPITOR TAB 10 MG PO SCH (10:13)
[2023-04-29] MEDS: XANAX PO SCH ×2 (10:14→20:26)
[2023-04-29] MEDS: EFFEXOR XR 75 MG CAP 24-HR PO SCH (10:14)
[2023-04-29] MEDS: NEURONTIN CAP 300 MG PO SCH ×2 (10:14→20:26)
[2023-04-29] MEDS: LOPRESSOR TAB 25 MG PO SCH ×2 (10:15→20:26)
[2023-04-29] MEDS: NORVASC TAB 2.5 MG PO SCH (10:15)
[2023-04-29] MEDS: PROTONIX TAB 40 MG PO SCH (10:15)
[2023-04-29] MEDS ORDERED: DULCOLAX SUPPOSITORY 10 MG RECTAL ONE (11:22)
[2023-04-29] MEDS ORDERED: DULCOLAX SUPPOSITORY 10 MG ONE (15:10)
[2023-04-29] MEDS ORDERED: BUTT CREAM (COMPOUND) ONE (17:48)
--- NOTE | 2023-04-29 17:58 | PCM.PROG ---
Progress Note - Progress Note for Day of Date of Exam: 04/29/23 - Subjective Subjective: PT IS 82WF, RESIDENT OF [facility]. PT WAS AN ER ADMISSION WITH TACHYCARDIA AND SYMPTOMATIC ANEMIA. PT HAS RECEIVED 2 UNITS PRBC PER PROTCOL. OCCULT STOOL HAS BEEN ORDERED BUT UNCOLLECTED. PT HAS PMH OF DM, HTN, COPD AND PARKINSON'S. PTS LEFT UPPER STREMITY TREMOR WAS SEVERE ON EX AMINATION THIS AM PRIOR TO HER MORNING SINEMET. PT WAS CO LEFT LOWER LEG PAIN, WHICH IS IN AN IMMOBILIZER FOLLOWING FRACTURE ON 03/23. PLAN TO REPEAT CBC AND CONTINUE WITH CURRENTLY CARDIAC MONITORING AND REPEAT AM CXR AND BNP. - Past Medical Family Social History Past Med/Fam/Surg Hx: No changes since H&P Allergies: Allergies ciprofloxacin [From Cipro] Allergy (Verified 04/09/23 14:42) - Review of Systems ROS: No change since H&P - Vital Signs and I&O's Vital Signs: Vital Signs Temperature 97.4 F Temperature 97.5 F Pulse Rate [Right Brachial] 60 Pulse Rate [Right Brachial] 98 Respiratory Rate 20 Respiratory Rate 20 Blood Pressure [Right Arm] 130/60 Blood Pressure [Right Arm] 132/70 O2 Sat by Pulse Oximetry 98 O2 Sat by Pulse Oximetry 98 Intake and Output: Intake & Output 04/27/23 04/28/23 04/29/23 04/30/23 11:59 11:59 11:59 11:59 Intake Total 185 / 1856 760 / 760 Balance 185 185 760 / 760 - Physical Exam Oriented: Person Eyes: Normal Ear: Normal Nose: Normal Throat: Normal Respiratory: Diminished Cardiovascular: Tachycardia : Normal Auscultation: Bowel Sounds: Normal Tenderness: Normal Skin: Decreased Turgur Musculoskeletal: Left, Knee, Leg, Motor Deficit, Sensory Deficit Psychiatric: Anxiety Affect: Anxious Speech Pattern: Clear, Appropriate - Laboratory and Diagnostics Result Diagrams: 04/29/23 05:25 04/29/23 05:25 Labs: Laboratory WBC 5.9 X10^3/uL (3.6-10.0) 04/29/23 05:25 RBC 2.83 X10^6/uL (3.5-5.4) L 04/29/23 05:25 Hgb 7.9 g/dL (12.0-16.0) L 04/29/23 05:25 Hct 23.9 % (36.0-47.0) L 04/29/23 05:25 MCV 84.5 fL (80.0-100.0) 04/29/23 05:25 MCH 28.0 pg (27.0-34.0) 04/29/23 05:25 MCHC 33.2 g/dL (33.0-35.0) 04/29/23 05:25 RDW 17.3 % (11.6-16.5) H 04/29/23 05:25 Plt Count 205 X10^3/uL (150.0-450.0) 04/29/23 05:25 MPV 7.3 fL (7.4-11.0) L 04/29/23 05:25 Neut % (Auto) 52.1 % (42.0-75.0) 04/29/23 05:25 Lymph % (Auto) 37.6 % (21.0-51.0) 04/29/23 05:25 [place] % (Auto) 7.0 % (0.0-13.0) 04/29/23 05:25 Eos % (Auto) 2.6 % (0.9-2.9) 04/29/23 05:25 Baso % (Auto) 0.7 % (0.2-1.0) 04/29/23 05:25 Neut # (Auto) 3.1 x10^3/uL (2.2-4.8) 04/29/23 05:25 Lymph # (Auto) 2.2 X10^3/uL (1.3-2.9) 04/29/23 05:25 [place] # (Auto) 0.4 x10^3/uL (0.3-0.8) 04/29/23 05:25 Eos # (Auto) 0.2 x10^3/uL (0.0-0.2) 04/29/23 05:25 Baso # (Auto) 0.0 X10^3/uL (0.0-0.1) 04/29/23 05:25 Absolute Nucleated RBC 0.0 /100WBC 04/29/23 05:25 PT 21.9 SECONDS (11.8-14.3) 04/28/23 10:49 INR Target Range - 04/28/23 10:49 INR 1.95 (0.8-1.3) H 04/28/23 10:49 APTT 43.3 SECONDS (22.9-36.5) H 04/28/23 10:49 PTT Comment - 04/28/23 10:49 Sodium 135 mmol/L (136-145) L 04/29/23 05:25 Corrected Sodium 135 mmol/L (136-145) L 04/29/23 05:25 Potassium 4.4 mmol/L (3.5-5.1) 04/29/23 05:25 Chloride 101 mmol/L (98-107) 04/29/23 05:25 Carbon Dioxide 28.0 mmol/L (21-32) 04/29/23 05:25 BUN 29 mg/dL (7-18) H 04/29/23 05:25 Creatinine 1.37 mg/dL (0.55-1.02) H 04/29/23 05:25 Est GFR (MDRD) Af Amer 48 (>60) L 04/29/23 05:25 Est GFR (MDRD) Non-Af 39 (>60) L 04/29/23 05:25 Glucose 117 mg/dL (65-99) H 04/29/23 05:25 POC Glucose (mg/dL) 111 mg/dL (65-99) H 04/29/23 05:06 Calcium 8.7 mg/dL (8.5-10.1) 04/29/23 05:25 Corrected Calcium 9.7 mg/dL (8.5-10.1) 04/29/23 05:25 Magnesium 2.2 mg/dL (2.0-2.9) 04/29/23 05:25 Iron 21 ug/dL (50-175) L 04/28/23 10:49 TIBC 313 ug/dL (250-450) 04/28/23 10:49 % Saturation 6.7 % (11.0-46.0) L 04/28/23 10:49 Transferrin 246 mg/dL (202-364) 04/28/23 10:49 Ferritin 63 ng/mL (8-252) 04/28/23 10:49 Total Bilirubin 0.40 mg/dL (0.2-1.0) 04/29/23 05:25 AST 21 Units/L (15-37) 04/29/23 05:25 ALT < 6 Units/L (12-78) L 04/29/23 05:25 Alkaline Phosphatase 111 Units/L (46-116) 04/29/23 05:25 Creatine Kinase 28 Units/L (26-192) 04/28/23 10:49 Troponin I High Sens 60.0 ng/L (4.0-60.0) 04/28/23 10:49 B-Natriuretic Peptide 582 pg/mL (0-79) H* 04/29/23 05:25 Total Protein 6.0 g/dL (6.4-8.2) L 04/29/23 05:25 Albumin 2.8 g/dL (3.4-5.0) L 04/29/23 05:25 Globulin 3.2 g/dL (2.5-4.5) 04/29/23 05:25 Albumin/Globulin Ratio 0.9 Ratio (1.1-2.1) L 04/29/23 05:25 Amylase 21 Units/L (25-115) L 04/28/23 10:49 Lipase 107 Units/L (73-393) 04/28/23 10:49 Vitamin B12 302 pg/mL (193-986) 04/28/23 10:49 Specimen Type Catherized urine 04/28/23 11:06 Urine Color Yellow (YELLOW) 04/28/23 11:06 Urine Appearance Clear (CLEAR) 04/28/23 11:06 Urine pH 6.5 (5.0 - 8.0) 04/28/23 11:06 Ur Specific [place] 1.010 (1.000-1.030) 04/28/23 11:06 Urine Protein 2+ (NEGATIVE) 04/28/23 11:06 Urine Glucose (UA) Negative (NEGATIVE) 04/28/23 11:06 Urine Ketones Negative (NEGATIVE) 04/28/23 11:06 Urine Blood Negative (NEGATIVE) 04/28/23 11:06 Urine Nitrite Negative (NEGATIVE) 04/28/23 11:06 Urine Bilirubin Negative (NEGATIVE) 04/28/23 11:06 Urine Urobilinogen Normal (NORMAL) 04/28/23 11:06 Ur Leukocyte Esterase Negative (NEGATIVE) 04/28/23 11:06 Urine RBC 0-2 /HPF (0-3) 04/28/23 11:06 Urine WBC 0-2 /HPF (0-5) 04/28/23 11:06 Ur Squamous Epith Cells Few /HPF (NEGATIVE) 04/28/23 11:06 Urine Bacteria Negative /HPF (NEGATIVE) 04/28/23 11:06 Ur Culture Indicated? No/not indicated 04/28/23 11:06 Blood Type O POSITIVE 04/28/23 12:00 Antibody Screen Negative 04/28/23 12:00 Crossmatch See Detail 04/28/23 12:00 - Plan (1) Anemia Status: Acute Qualifiers: Plan: CARDIAC MONITORING. SUPPLEMENTAL O2, TYPE/SCREEN TRANSFUSE 2 UNITS PRBC PER PROTOCOL. STRICT I&OS. BP CONTROL. CONTINUED HOME MEDICATION, CXR AND EKG ON ADMISSION. ANEMIA PANEL ON ADMISSION LABS AND OCCULT STOOL (2) CHF (congestive heart failure) Status: Acute Qualifiers: (3) CAD (coronary artery disease) Status: Chronic (4) History of renal disease Status: Chronic (5) Diabetes mellitus, type 2 Status: Chronic Qualifiers: (6) Degenerative disc disease, lumbar Status: Chronic (7) CAD (coronary artery disease) Status: Chronic (8) Acute dehydration Status: Acute
[2023-04-29] MEDS: HEMOCYTE-PLUS PO SCH (19:20)
[2023-04-29] MEDS: COLACE CAP 100 MG PO SCH (20:25)
[2023-04-29] MEDS: SEROquel TAB 25 mg PO SCH (20:26)
[2023-04-30] MEDS: GLUCOPHAGE PO SCH ×3 (01:46→08:07)
[2023-04-30] MEDS: SINEMET (PLAIN) 10/100 MG PO SCH ×2 (05:07→14:24)
[2023-04-30 06:20] LABS: BASOPHILS % (AUTO) 0.6 % (0.2-1.0); EOSINOPHILS # (AUTO) 0.2 x10^3/uL (0.0-0.2); EOSINOPHILS % (AUTO) 2.7 % (0.9-2.9); HEMATOCRIT 24.2 % (36.0-47.0); HEMOGLOBIN 7.8 g/dL (12.0-16.0); LYMPHOCYTES % (AUTO) 30.6 % (21.0-51.0); MEAN CORPUSCULAR HEMOGLOBIN 27.4 pg (27.0-34.0); MEAN CORPUSCULAR HGB CONC 32.2 g/dL (33.0-35.0); MEAN CORPUSCULAR VOLUME 85.1 fL (80.0-100.0); MEAN PLATELET VOLUME 7.3 fL (7.4-11.0); MONOCYTES # (AUTO) 0.4 x10^3/uL (0.3-0.8); MONOCYTES % (AUTO) 6.5 % (0.0-13.0); NEUTROPHILS # (AUTO) 3.9 x10^3/uL (2.2-4.8); NEUTROPHILS % (AUTO) 59.6 % (42.0-75.0); PLATELET COUNT 201 X10^3/uL (150.0-450.0); RED BLOOD COUNT 2.84 X10^6/uL (3.5-5.4); RED CELL DISTRIBUTION WIDTH 17.4 % (11.6-16.5); WHITE BLOOD COUNT 6.5 X10^3/uL (3.6-10.0)
[2023-04-30 06:21] LABS: ALANINE AMINOTRANSFERASE < 6 Units/L (12-78); ALBUMIN 2.7 g/dL (3.4-5.0); ALKALINE PHOSPHATASE 114 Units/L (46-116); ASPARTATE AMINO TRANSFERASE 23 Units/L (15-37); BLOOD UREA NITROGEN 29 mg/dL (7-18); CALCIUM 8.7 mg/dL (8.5-10.1); CARBON DIOXIDE 28.6 mmol/L (21-32); CHLORIDE 102 mmol/L (98-107); COR CA(FOR HYPOALB) 9.7 mg/dL (8.5-10.1); COR NA(FOR HYPERGLY) 137 mmol/L (136-145); CREATININE 1.44 mg/dL (0.55-1.02); GLUCOSE 158 mg/dL (65-99); POTASSIUM 4.3 mmol/L (3.5-5.1); SODIUM 136 mmol/L (136-145); TOTAL PROTEIN 5.9 g/dL (6.4-8.2); eGFR NON BLACK RACES 37 (>60)
--- NOTE | 2023-04-30 07:08 | RAD ---
HISTORYSOB, CHF, COPDSTUDYCHEST, 1 [id number]/[id number]/2023.TECHNIQUEPA or AP view of the chestFINDINGSThe cardiac silhouette is stably enlarged. Mediastinal contours appear stable. Moderate atherosclerotic plaque at the aortic knob is noted. There are airspace opacities in right perihilar lung as well as the medial right upper lobe and peripheral right base. No definite pleural effusion or pneumothorax.IMPRESSIONCardiomegaly. Right lung airspace opacities may represent pulmonary edema or pneumonia. Recommend follow up imaging to document resolution after appropriate treatment.Electronically signed by: Sathish Moura (Apr 30, 2023 07:07:00)
[2023-04-30] MEDS ORDERED: GLUCOPHAGE ONE (07:35)
[2023-04-30] MEDS ORDERED: NORVASC TAB 2.5 MG ONE (07:36)
[2023-04-30] MEDS: NEURONTIN CAP 300 MG PO SCH (08:05)
[2023-04-30] MEDS: EFFEXOR XR 75 MG CAP 24-HR PO SCH (08:06)
[2023-04-30] MEDS: LIPITOR TAB 10 MG PO SCH (08:06)
[2023-04-30] MEDS: MILK OF MAGNESIA PO SCH (08:06)
[2023-04-30] MEDS: HEMOCYTE-PLUS PO SCH (08:06)
[2023-04-30] MEDS: XANAX PO SCH (08:07)
[2023-04-30] MEDS: LOPRESSOR TAB 25 MG PO SCH (08:07)
[2023-04-30] MEDS ORDERED: NovoLIN R (or HumuLIN R) SC PRN (08:07)
[2023-04-30] MEDS: PROTONIX TAB 40 MG PO SCH (08:07)
[2023-04-30] MEDS: NORVASC TAB 2.5 MG PO SCH (08:08)
[2023-04-30 12:08] VITALS: BP 131/60; PULSE 84; RESP 18; TEMP 97.4; O2SAT 100
[2023-04-30] MEDS: PERCOCET TAB 5/325 MG PO PRN (14:24)
--- NOTE | 2023-04-30 17:53 | DR.CARTERS ---
Short Stay Summary - Short Stay Summary for: Short Stay Summary for Date of:: 04/30/23 - Admission Date Date of Admission: 04/28/23 - Discharge Date Discharge Date: 04/30/23 - Admission Diagnoses (1) Anemia Status: Acute (2) CHF (congestive heart failure) Status: Acute (3) CAD (coronary artery disease) Status: Chronic (4) History of renal disease Status: Chronic (5) Diabetes mellitus, type 2 Status: Chronic (6) Degenerative disc disease, lumbar Status: Chronic (7) CAD (coronary artery disease) Status: Chronic (8) Acute dehydration Status: Acute - Discharge Medications Discharge Medications: Home Medication List apixaban 5 mg tablet (Eliquis) 5 mg PO BID 04/28/23 [History] levalbuterol HCl 1.25 mg/3 mL solution for nebulization 1.25 mg inhalation Q4H 04/28/23 [History] melatonin 5 mg tablet 5 mg PO HS 04/28/23 [History] quetiapine 50 mg tablet (Seroquel) 50 mg PO HS 04/28/23 [History] sulfamethoxazole 800 mg-trimethoprim 160 mg tablet 1 tab PO BID 04/28/23 [History] Prescriptions: - Hospital Course Hospital Course: PT IS 82 WF, ER ADMISSION WITH SYMPTOMATIC ANEMIA AND WEAKNESS. PT IS A RESIDENT OF [facility]. NURSING STAFF REPORTS PT HAD HEART RATE OF 200 AND WAS SENT TO ER FOR EVALUATION. PT HAD EKG AND CE ON ADMISSION. HGN WAS 6.0. PT WAS STARTED ON PO HEMOCYTE PLUS AND GIVEN 2 UNITS PRBC WITH HGB UP TO 8.2. PT HAD XRAY ABD REVEALING CONSTIPATION. PT HAD A BM WITH NEGATIVE OCCULT STOOL. PT HASPMH OF PARKINSON, CAD, HTN, OA, YAMINI, DEMENTIA AND COPD. PT WAS CONTINUED ON HOME MEDICATION FOR DISEASE MANAGEMENT WHILE INPT. WHEN PT WAS STABLE IN A CHRONIC STABLE STATE, SHE WAS DC TO [facility] WITH ORDERED FOR REPEAT CBC ON FRIDAY AND CALL WITH RESULTS. - Discharge Plan Disposition: [facility] Condition: Stable - Follow up/Referrals Follow up/Referrals: BARBRA DAVILA [Nurse Practitioner] - - Instructions Additional Instructions: Repeat CBC in the AM and call Barbra with results. Forms: Post Hospital Follow Up Care
== END 2023-04-30 14:45 ==
LOC: MED/SURG 10:04 → ER 10:04 → MED/SURG 13:00
PROVIDERS: ADMIT Internal Medicine; ATTEND Internal Medicine
DX: E87.1 Hypo-osmolality and hyponatremia; E86.0 Dehydration; G20 Parkinson's disease; I11.0 Hypertensive heart disease with heart failure; E78.2 Mixed hyperlipidemia; J44.9 Chronic obstructive pulmonary disease, unspecified; Z87.448 Personal history of other diseases of urinary system; E11.65 Type 2 diabetes mellitus with hyperglycemia; M79.662 Pain in left lower leg; M51.36 Other intervertebral disc degeneration, lumbar region; R53.1 Weakness; R79.1 Abnormal coagulation profile; I50.9 Heart failure, unspecified; I25.10 Atherosclerotic heart disease of native coronary artery without angina pectoris; R06.02 Shortness of breath; D64.89 Other specified anemias; R00.0 Tachycardia, unspecified

== ENCOUNTER 2023-05-08 11:00 | Inpatient (IN) ==
--- NOTE | 2023-05-08 11:49 | DR.DIZZY ---
HPI Time seen Time Seen by Provider: 05/08/23 11:40 PCP Primary Care Physician: iftikhar Complaint Chief Complaint Doctor Comments: 82 y/o female sent from the [place] for evaluation. Had AM labs which shows worsening anemia, Hgb 5.4. Pt is a poor historian. C/o pain all over. + generalized weakness. No report of nausea, vomiting, diarrhea. Doesn't think she has been moving her bowels well. Chief Complaint:: [facility] charge nurse tanesha pimentel pt had labs drawn this morning and her hgb is 5.4 per fitz told to send patient to the er. COVID-19 Coronavirus risk:travel/contact w/high risk person: No Has patient experienced Coronavirus symptoms: No Source History Provided: Patient Mode of Arrival Mode of Arrival: Stretcher Timing Onset of Chief Complaint: 05/08/23 Context Stroke Symptoms: None PMH PMH Past Medical History: Yes Past Medical History: Anxiety, Asthma, COPD, Coronary Artery Disease, Depression, Diabetes, Dyslipidemia, Gout, Hypertension, SD and Renal Disease Past Surgical History: Yes Surgical History: Angioplasty/Stents, CABG/Valve Surgery and Ortho Surgery Family History History of Family Medical Conditions: Yes Family Medical History: Diabetes Mellitus, SD and Coronary Artery Disease Social History Does patient currently use any type of tobacco product: No Have you used tobacco products in the last 12 months: No Type of Tobacco Use: None Does any household member use tobacco: No Alcohol Use: None Do you use any recreational Drugs:: No Lives With: Other Lives Where: Assisted Travel Risk Coronavirus risk:travel/contact w/high risk person: No Has patient experienced Coronavirus symptoms: No Infectious screening In the last 2 months have you had wt loss of >10#?: NO Have you had fever, night sweats or hemotysis?: No Have you traveled outside the country in the last 6 months?: No Isolation: Standard ROS Review of Systems Constitutional: Weakness Eyes: No Symptoms Reported ENTM: No Symptoms Reported Respiratoy: No Symptoms Reported Cardiovascular: No Symptoms Reported Gastrointestinal/Abdominal: Constipation Genitourinary: No Symptoms Reported Neurological: Weakness Musculoskeletal: Muscle Pain Integumentary: No Symptoms Reported Hematologic/Lymphatic: No Symptoms Reported All Other Systems: Reviewed and Negative PE Vital Signs Vitals: Vital Signs Temperature 98.1 F Pulse Rate 84 Pulse Rate 83 Respiratory Rate 20 Respiratory Rate 18 Blood Pressure 95/54 Blood Pressure 175/80 O2 Sat by Pulse Oximetry 98 O2 Sat by Pulse Oximetry 98 General General Appearance: Other (drowsy, but arousable, in no distress. ) Eyes Eye exam: PERRL and EOMI ENT ENT Exam: Mucous Membranes Moist Neck Neck Exam: Normal Inspection Respiratory Respiratory Exam: Normal Lung Sounds Bilat; negative Accessory Muscle Use or Respiratory Distress Cardiovascular Cardiovascular Exam: Regular Rate, Normal Rhythm and Normal Heart Sounds Abdominal Exam Abdominal Exam: Normal Bowel Sounds and Soft; negative Tenderness Extremeties Extremities Exam: Normal Inspection Other Exam Other Exam: rectal - small amount of brown stool. COURSE Treatment Treatment: 82 y/o NH patient with worsening anemia on this am blood draw. Pt with diffuse weakness, muscle pain. Will add CMP, Covid swab. Rectal exam with slight brown stool, sent for heme testing. Ordered 2 U PRBCs for transfusion. Call put out to Dr Robert for admission. He accepts the admission. Stool negative for blood. CMP acceptable. ROR Labs Reviewed Laboratory Results Reviewed?: Yes 05/08/23 09:38 Laboratory: Sodium 136 mmol/L (136-145) 05/08/23 09:38 Corrected Sodium TNP 05/08/23 09:38 Potassium 5.1 mmol/L (3.5-5.1) 05/08/23 09:38 Chloride 103 mmol/L (98-107) 05/08/23 09:38 Carbon Dioxide 25.3 mmol/L (21-32) 05/08/23 09:38 BUN 36 mg/dL (7-18) H 05/08/23 09:38 Creatinine 1.66 mg/dL (0.55-1.02) H 05/08/23 09:38 Est GFR (MDRD) Af Amer 38 (>60) L 05/08/23 09:38 Est GFR (MDRD) Non-Af 32 (>60) L 05/08/23 09:38 Glucose 79 mg/dL (65-99) 05/08/23 09:38 Calcium 8.3 mg/dL (8.5-10.1) L 05/08/23 09:38 Corrected Calcium 9.3 mg/dL (8.5-10.1) 05/08/23 09:38 Total Bilirubin 0.20 mg/dL (0.2-1.0) 05/08/23 09:38 AST 18 Units/L (15-37) 05/08/23 09:38 ALT < 6 Units/L (12-78) L 05/08/23 09:38 Alkaline Phosphatase 91 Units/L (46-116) 05/08/23 09:38 Total Protein 5.8 g/dL (6.4-8.2) L 05/08/23 09:38 Albumin 2.7 g/dL (3.4-5.0) L 05/08/23 09:38 Globulin 3.1 g/dL (2.5-4.5) 05/08/23 09:38 Albumin/Globulin Ratio 0.9 Ratio (1.1-2.1) L 05/08/23 09:38 Stl Occult Blood (IFOB) Negative (NEGATIVE) 05/08/23 12:00 SARS CoV-2 RNA Rapid [place] Negative (NEGATIVE) 05/08/23 12:34 Labs acceptable. Opioid Opioid Risk Tool Age (Sánchez box if 16-45): No History of Preadolescent Sexual Abuse: No Total: 0 Total Score Risk Category: Low Risk Copyright: Peter BERNAL predicting aberrant behaviors Discharge Plan Diagnosis Discharge Problem: Anemia Discharge Plan Patient Disposition: HOME, SELF-CARE Condition: Stable Prescriptions: No Action oxycodone-acetaminophen 10-325 mg tablet 1 tab PO Q6H PRN metformin 500 mg tablet 500 mg PO BID carbidopa-levodopa 10-100 mg tablet 1 tab PO TID metoprolol tartrate 25 mg tablet 25 mg PO BID magnesium oxide 400 mg magnesium tablet 400 mg PO QDAY loratadine 10 mg Tablet 10 mg PO DAILY multivitamin Tablet 1 tab PO DAILY pantoprazole 40 mg tablet,delayed release (DR/EC) 40 mg PO DAILY Novolin R Regular U100 Insulin 100 unit/mL Solution See Rx Instructions .ROUTE .COMPLEX Rx Instructions: SLIDING SCALE alprazolam 0.5 mg tablet 0.5 mg PO BID sennosides [Senokot] 8.6 mg Tablet 8.6 mg PO QDAY venlafaxine 75 mg capsule,extended release 24hr 75 mg PO QDAY donepezil 5 mg tablet 5 mg PO QDAY Levemir U-100 Insulin 100 unit/mL solution 30 unit SUBCUT HS Patient Comments: [NO ORIGINAL SIG] atorvastatin 10 mg tablet 40 mg PO QDAY gabapentin 400 mg capsule 400 mg PO TID aspirin 81 mg Tablet,Delayed Release (Dr/Ec) 81 mg PO QDAY nystatin [Nyamyc] 100,000 unit/gram powder 1 applic TOPICAL DAILY Patient Comments: [NO ORIGINAL SIG] Rx Instructions: APPLY TO NECK AND UNDER RIGHT BREAST TOPICALLY EVERY DAY SHIFT FOR RASH cholecalciferol (vitamin D3) 1,250 mcg (50,000 unit) Tablet 1,250 mcg PO QWEEK Rx Instructions: EVERY FRIDAY amlodipine 2.5 mg tablet 2.5 mg PO QDAY sulfamethoxazole-trimethoprim 800-160 mg tablet 1 tab PO BID quetiapine [Seroquel] 50 mg Tablet 50 mg PO HS Eliquis 5 mg tablet 5 mg PO BID levalbuterol HCl 1.25 mg/3 mL Solution For Nebulization 1.25 mg INHALATION Q4H melatonin 5 mg Tablet 5 mg PO HS Health Concerns: Post Hospitalization: new medications and changes needed to prevent readmission or further decline. Pt educated and given instructions on all concerns. Plan of Treatment: Continue with present treatment and follow up plan. Pt is to keep follow up appointment as instructed and take medications as ordered. Orders to Discharge Patient Discharge Orders: Transfer (Routine); Ordered 05/08/23 Ordered By: Rashad Rockwell Follow ups/Referrals Follow ups/Referrals: THANG ROBERT [Primary Care Provider] - 3 days Instructions Stand Alone Forms: Post Hospital Follow Up Care
[2023-05-08 12:35] LABS: ALANINE AMINOTRANSFERASE < 6 Units/L (12-78); ALBUMIN 2.7 g/dL (3.4-5.0); ALKALINE PHOSPHATASE 91 Units/L (46-116); ASPARTATE AMINO TRANSFERASE 18 Units/L (15-37); BLOOD UREA NITROGEN 36 mg/dL (7-18); CALCIUM 8.3 mg/dL (8.5-10.1); CARBON DIOXIDE 25.3 mmol/L (21-32); CHLORIDE 103 mmol/L (98-107); COR CA(FOR HYPOALB) 9.3 mg/dL (8.5-10.1); CREATININE 1.66 mg/dL (0.55-1.02); GLUCOSE 79 mg/dL (65-99); POTASSIUM 5.1 mmol/L (3.5-5.1); SODIUM 136 mmol/L (136-145); TOTAL PROTEIN 5.8 g/dL (6.4-8.2); eGFR NON BLACK RACES 32 (>60)
[2023-05-08] MEDS ORDERED: NS 250 ML IV 250 ML IV ONE ×2 (13:37→21:31)
[2023-05-08] MEDS ORDERED: CHOLECALCIFEROL PO SCH (14:05)
[2023-05-08] MEDS ORDERED: CONSULT PHARMACY - POTASSIUM & MAGNESIUM XX SCH (14:05)
[2023-05-08 14:19] VITALS: BMI 39.1
[2023-05-08] MEDS: XOPENEX 1.25 MG/3 ML NEBULE NEB SCH ×2 (14:19→21:46)
[2023-05-08] MEDS: NEURONTIN CAP 400 MG PO SCH ×2 (15:14→21:09)
[2023-05-08] MEDS: SINEMET (PLAIN) 10/100 MG PO SCH ×2 (15:14→21:09)
--- NOTE | 2023-05-08 18:12 | DR.H&P ---
H&P - History & Physical for Day of: H&P Date: 05/08/23 - Chief Complaint Chief Complaint: WEAKNESS, ANEMIA - History of Present Illness History of Present Illness: 82 y/o female sent from the [place] for evaluation. Had AM labs which shows worsening anemia, Hgb 5.4. Pt is a poor historian. C/o pain all over. + generalized weakness. No report of nausea, vomiting, diarrhea. Pt reports constipation. Pt is on eliquis po daily, which is being held on admission - Past Medical History Past Medical History: [place], Coronary Artery Disease, Hypertension, Dyslipidemia, Diabetes, Renal Disease, Depression, Anxiety, COPD, Asthma, Gout - Past Surgical History Surgical History: Angioplasty/Stents, CABG/Valve Surgery, Ortho Surgery - Family History Family Medical History: Diabetes Mellitus, [place], Coronary Artery Disease - Social History Does patient currently use any type of tobacco product: No Have you used tobacco products in the last 12 months: No Type of Tobacco Use: None Does any household member use tobacco: No Alcohol Use: None Drug Use: None - Review of Systems Constitutional: Weakness Eyes: No Symptoms Reported ENT: No Symptoms Reported Respiratory: Shortness of Breath Cardiovascular: Palpitations Gastrointestinal: Nausea, Constipation Genitourinary: No Symptoms Reported Musculoskeletal: Back Pain Skin: No Symptoms Reported Neurological: Weakness, Other (tremor due to chronic Parkinson's) - Physical Exam Vital Signs: Vital Signs Temperature 98.1 F Pulse Rate 84 Pulse Rate 83 Respiratory Rate 20 Respiratory Rate 18 Blood Pressure 95/54 Blood Pressure 175/80 O2 Sat by Pulse Oximetry 98 O2 Sat by Pulse Oximetry 98 Oriented: Person Eyes: Normal Ear: Normal Nose: Normal Throat: Dry Respiratory: Diminished Throughout Cardiovascular: Tachycardia : Normal Auscultation: Bowel Sounds: Normal Palpation: Normal Tenderness: Normal Skin: Decreased Turgur Musculoskeletal: Motor Deficit, Sensory Deficit Psychiatric: Anxiety Affect: Anxious Speech Pattern: Appropriate, Delayed - Assessment/Plan (1) Anemia Status: Acute Plan: admit, transfuse 2 unit prbcs per protocol. cxr on admission. supplemental o2. hold anticoagulants. serial occult stools. ppi therapy, verify and resume home medication. bp and cardiac monitoring. (2) CAD (coronary artery disease) Status: Chronic (3) History of renal disease Status: Chronic (4) Hypertension Qualifiers: Status: Chronic (5) Diabetes mellitus, type 2 Qualifiers: Status: Chronic - Allergies Allergies/Adverse Reactions: Allergies Allergy/AdvReac Type Severity Reaction Status Date / Time ciprofloxacin [From Cipro] Allergy Verified 04/09/23 14:42 - Medications Home Medications: Home Medications Medication Instructions Recorded Confirmed insulin regular human 100 unit/mL See Rx Instructions .Route .COMPLEX 07/04/21 05/08/23 injection solution (Novolin R Regular U-100 Insulin) loratadine 10 mg tablet 10 mg PO DAILY 07/04/21 05/08/23 multivitamin 1 tab PO DAILY 07/04/21 05/08/23 pantoprazole 40 mg tablet,delayed 40 mg PO DAILY 07/04/21 05/08/23 release alprazolam 0.5 mg tablet 0.5 mg PO BID 08/20/22 05/08/23 donepezil 5 mg tablet 5 mg PO QDAY 08/20/22 05/08/23 insulin detemir U-100 100 unit/mL 30 unit subcut HS 08/20/22 05/08/23 subcutaneous solution (Levemir U-100 Insulin) sennosides 8.6 mg tablet (Senokot) 8.6 mg PO QDAY 08/20/22 05/08/23 venlafaxine 75 mg capsule,extended 75 mg PO QDAY 08/20/22 05/08/23 release 24 hr carbidopa 10 mg-levodopa 100 mg 1 tab PO TID 11/05/22 05/08/23 tablet magnesium oxide 400 mg PO QDAY 11/05/22 05/08/23 metformin 500 mg tablet 500 mg PO BID 11/05/22 05/08/23 metoprolol tartrate 25 mg tablet 25 mg PO BID 11/05/22 05/08/23 oxycodone-acetaminophen 10 mg-325 1 tab PO Q6H PRN 11/05/22 05/08/23 mg tablet amlodipine 2.5 mg tablet 2.5 mg PO QDAY 03/23/23 05/08/23 aspirin 81 mg tablet,delayed 81 mg PO QDAY 03/23/23 05/08/23 release atorvastatin 10 mg tablet 40 mg PO QDAY 03/23/23 05/08/23 cholecalciferol (vitamin D3) 1,250 1,250 mcg PO QWEEK 03/23/23 05/08/23 mcg (50,000 unit) tablet gabapentin 400 mg capsule 400 mg PO TID 03/23/23 05/08/23 nystatin 100,000 unit/gram topical 1 applic topical DAILY 03/23/23 05/08/23 powder ([facility]) apixaban 5 mg tablet (Eliquis) 5 mg PO BID 04/28/23 05/08/23 levalbuterol HCl 1.25 mg/3 mL 1.25 mg inhalation Q4H 04/28/23 05/08/23 solution for nebulization melatonin 5 mg tablet 5 mg PO HS 04/28/23 05/08/23 quetiapine 50 mg tablet (Seroquel) 50 mg PO HS 04/28/23 05/08/23 sulfamethoxazole 800 1 tab PO BID 04/28/23 05/08/23 mg-trimethoprim 160 mg tablet
--- NOTE | 2023-05-08 19:52 | RAD ---
CHEST, 1 VIEWHISTORY:ANEMIAStudy: Single view of the chest.Comparison:April 29, 2023Findings:Cardiomegaly and pulmonary vascular congestion. No focal consolidations, pleural effusions or pneumothorax. Osseous structures demonstrate no acute abnormality.IMPRESSION:1.Cardiomegaly and pulmonary vascular congestion.Electronically signed by: JOSÉ MIGUEL TANG (May 08, 2023 19:51:35)
[2023-05-08] MEDS: MELATONIN PO SCH (20:42)
[2023-05-08] MEDS: LOPRESSOR TAB 25 MG PO SCH (20:43)
[2023-05-08] MEDS: XANAX PO SCH (20:43)
[2023-05-08] MEDS: SEROquel TAB 25 mg PO SCH (20:43)
[2023-05-08] MEDS ORDERED: GLUCOPHAGE PO SCH (21:00)
[2023-05-08] MEDS ORDERED: ELIQUIS PO SCH (21:00)
[2023-05-08] MEDS: SNACK - Diabetic Appropriate PO SCH (21:08)
[2023-05-08] MEDS: LEVEMIR SC SCH (21:16)
[2023-05-09 01:25] LABS: HEMATOCRIT 22.8 % (36.0-47.0)
[2023-05-09 01:27] LABS: HEMOGLOBIN 7.4 g/dL (12.0-16.0)
[2023-05-09] MEDS: XOPENEX 1.25 MG/3 ML NEBULE NEB SCH ×3 (05:36→21:08)
[2023-05-09 06:08] LABS: BASOPHILS % (AUTO) 0.5 % (0.2-1.0); EOSINOPHILS # (AUTO) 0.1 x10^3/uL (0.0-0.2); EOSINOPHILS % (AUTO) 1.5 % (0.9-2.9); HEMOGLOBIN 7.3 g/dL (12.0-16.0); LYMPHOCYTES # (AUTO) 1.7 X10^3/uL (1.3-2.9); LYMPHOCYTES % (AUTO) 26.7 % (21.0-51.0); MEAN CORPUSCULAR HEMOGLOBIN 26.9 pg (27.0-34.0); MEAN CORPUSCULAR VOLUME 81.5 fL (80.0-100.0); MEAN PLATELET VOLUME 6.9 fL (7.4-11.0); MONOCYTES # (AUTO) 0.4 x10^3/uL (0.3-0.8); MONOCYTES % (AUTO) 6.1 % (0.0-13.0); NEUTROPHILS # (AUTO) 4.2 x10^3/uL (2.2-4.8); NEUTROPHILS % (AUTO) 65.2 % (42.0-75.0); PLATELET COUNT 228 X10^3/uL (150.0-450.0); RED CELL DISTRIBUTION WIDTH 19.9 % (11.6-16.5); WHITE BLOOD COUNT 6.5 X10^3/uL (3.6-10.0)
[2023-05-09 06:20] LABS: BILIRUBIN,URINE NEGATIVE (NEGATIVE); BLOOD/HEMOGLOBIN,URINE 2+ (NEGATIVE); GLUCOSE, URINE NEGATIVE (NEGATIVE); KETONES,URINE NEGATIVE (NEGATIVE); LEUKOCYTE ESTERASE ,URINE 3+ (NEGATIVE); NITRITES,URINE POSITIVE (NEGATIVE); PH,URINE 6.5 (5.0 - 8.0); PROTEIN,URINE 1+ (NEGATIVE); UROBILINOGEN,URINE NORMAL (NORMAL)
[2023-05-09 06:28] LABS: APPEARANCE,URINE HAZY (CLEAR); BACTERIA,URINE 2+ /HPF (NEGATIVE); COLOR,URINE YELLOW (YELLOW); SQUAMOUS EPITHELIAL CELL,UR RARE /HPF (NEGATIVE)
[2023-05-09 06:35] LABS: ALBUMIN 2.8 g/dL (3.4-5.0); CALCIUM 8.4 mg/dL (8.5-10.1); CARBON DIOXIDE 24.9 mmol/L (21-32); COR CA(FOR HYPOALB) 9.4 mg/dL (8.5-10.1); CREATININE 1.58 mg/dL (0.55-1.02); POTASSIUM 4.9 mmol/L (3.5-5.1); TOTAL PROTEIN 6.1 g/dL (6.4-8.2)
[2023-05-09] MEDS ORDERED: NORVASC TAB 2.5 MG ONE (08:07)
[2023-05-09] MEDS ORDERED: LASIX IVP ONE (08:35)
[2023-05-09] MEDS ORDERED: NS 500 ML IV 500 ML IV ONE (08:36)
[2023-05-09] MEDS: LIPITOR TAB 10 MG PO SCH (08:50)
[2023-05-09] MEDS: ARICEPT TAB 5 MG PO SCH (08:50)
[2023-05-09] MEDS: SINEMET (PLAIN) 10/100 MG PO SCH ×3 (08:50→21:26)
[2023-05-09] MEDS: TAB-A-VITE PO SCH (08:50)
[2023-05-09] MEDS: EFFEXOR XR 75 MG CAP 24-HR PO SCH (08:50)
[2023-05-09] MEDS: CLARITIN PO SCH (08:50)
[2023-05-09] MEDS: MAG-OX TAB PO SCH (08:50)
[2023-05-09] MEDS: NORVASC TAB 2.5 MG PO SCH (08:51)
[2023-05-09] MEDS: XANAX PO SCH ×2 (08:51→20:27)
[2023-05-09] MEDS: LOPRESSOR TAB 25 MG PO SCH ×2 (08:51→20:28)
[2023-05-09] MEDS: SENOKOT PO SCH (08:51)
[2023-05-09] MEDS ORDERED: PROTONIX TAB 40 MG PO SCH (09:00)
[2023-05-09] MEDS: ROCEPHIN VIAL 1 GRAM 1 G in NS 100 ML IV 100 ML IV SCH ×2 (09:00→09:30)
[2023-05-09] MEDS: K-DUR TAB 20 MEQ PO SCH (09:00)
[2023-05-09] MEDS: NYSTATIN POWDER TOP SCH (09:01)
[2023-05-09] MEDS: PROTONIX INJ 40 MG VIAL IVP SCH ×2 (09:02→20:27)
[2023-05-09 10:54] LABS: BILIRUBIN,URINE NEGATIVE (NEGATIVE); BLOOD/HEMOGLOBIN,URINE 1+ (NEGATIVE); GLUCOSE, URINE NEGATIVE (NEGATIVE); KETONES,URINE NEGATIVE (NEGATIVE); LEUKOCYTE ESTERASE ,URINE 3+ (NEGATIVE); NITRITES,URINE POSITIVE (NEGATIVE); PH,URINE 6.5 (5.0 - 8.0); PROTEIN,URINE NEGATIVE (NEGATIVE); UROBILINOGEN,URINE NORMAL (NORMAL)
[2023-05-09 11:04] LABS: APPEARANCE,URINE CLOUDY (CLEAR); COLOR,URINE PALE YELLOW (YELLOW)
[2023-05-09 11:05] LABS: BACTERIA,URINE 2+ /HPF (NEGATIVE); RBC,URINE 0-2 /HPF (0-3); SQUAMOUS EPITHELIAL CELL,UR NEGATIVE /HPF (NEGATIVE)
[2023-05-09] MEDS: NovoLIN R (or HumuLIN R) SUBCUT PRN ×2 (11:53→16:58)
[2023-05-09] MEDS: NEURONTIN CAP 400 MG PO SCH (11:54)
[2023-05-09] MEDS ORDERED: NS 250 ML IV 250 ML IV ONE ×2 (12:04→15:42)
[2023-05-09] MEDS ORDERED: TYLENOL 325 MG TAB PO ONE (12:24)
[2023-05-09] MEDS ORDERED: TYLENOL 325 MG TAB PO PRN (12:33)
[2023-05-09] MEDS: NEURONTIN CAP 300 MG PO SCH ×2 (13:25→21:26)
[2023-05-09] MEDS: PERCOCET TAB 5/325 MG PO PRN (16:15)
[2023-05-09] MEDS: SEROquel TAB 25 mg PO SCH (20:27)
[2023-05-09] MEDS: MELATONIN PO SCH (20:28)
[2023-05-09 20:31] LABS: HEMOGLOBIN 9.3 g/dL (12.0-16.0)
[2023-05-09] MEDS: SNACK - Diabetic Appropriate PO SCH (20:35)
[2023-05-09] MEDS: LEVEMIR SC SCH (21:28)
[2023-05-10] MEDS: NEURONTIN CAP 300 MG PO SCH ×3 (05:18→21:15)
[2023-05-10] MEDS: SINEMET (PLAIN) 10/100 MG PO SCH ×3 (05:18→21:15)
[2023-05-10] MEDS: XOPENEX 1.25 MG/3 ML NEBULE NEB SCH ×3 (06:06→21:44)
[2023-05-10 06:59] LABS: BASOPHILS % (AUTO) 0.5 % (0.2-1.0); EOSINOPHILS # (AUTO) 0.2 x10^3/uL (0.0-0.2); EOSINOPHILS % (AUTO) 3.8 % (0.9-2.9); HEMATOCRIT 28.9 % (36.0-47.0); HEMOGLOBIN 9.6 g/dL (12.0-16.0); LYMPHOCYTES # (AUTO) 2.2 X10^3/uL (1.3-2.9); LYMPHOCYTES % (AUTO) 35.7 % (21.0-51.0); MEAN CORPUSCULAR HGB CONC 33.2 g/dL (33.0-35.0); MEAN CORPUSCULAR VOLUME 84.4 fL (80.0-100.0); MEAN PLATELET VOLUME 7.4 fL (7.4-11.0); MONOCYTES # (AUTO) 0.5 x10^3/uL (0.3-0.8); MONOCYTES % (AUTO) 8.9 % (0.0-13.0); NEUTROPHILS # (AUTO) 3.2 x10^3/uL (2.2-4.8); NEUTROPHILS % (AUTO) 51.1 % (42.0-75.0); PLATELET COUNT 197 X10^3/uL (150.0-450.0); RED BLOOD COUNT 3.42 X10^6/uL (3.5-5.4); WHITE BLOOD COUNT 6.2 X10^3/uL (3.6-10.0)
[2023-05-10 07:04] LABS: ALBUMIN 2.7 g/dL (3.4-5.0); ALKALINE PHOSPHATASE 92 Units/L (46-116); ASPARTATE AMINO TRANSFERASE 23 Units/L (15-37); BLOOD UREA NITROGEN 37 mg/dL (7-18); CALCIUM 8.6 mg/dL (8.5-10.1); CARBON DIOXIDE 26.8 mmol/L (21-32); CHLORIDE 104 mmol/L (98-107); COR CA(FOR HYPOALB) 9.6 mg/dL (8.5-10.1); COR NA(FOR HYPERGLY) 140 mmol/L (136-145); CREATININE 1.38 mg/dL (0.55-1.02); GLUCOSE 183 mg/dL (65-99); POTASSIUM 4.3 mmol/L (3.5-5.1); SODIUM 138 mmol/L (136-145); TOTAL PROTEIN 5.9 g/dL (6.4-8.2); eGFR NON BLACK RACES 39 (>60)
[2023-05-10 07:18] LABS: ALANINE AMINOTRANSFERASE < 6 Units/L (12-78)
[2023-05-10] MEDS ORDERED: NORVASC TAB 2.5 MG ONE (08:22)
[2023-05-10] MEDS ORDERED: LASIX IVP SCH (09:00)
[2023-05-10] MEDS: TAB-A-VITE PO SCH (09:57)
[2023-05-10] MEDS: PROTONIX INJ 40 MG VIAL IVP SCH ×2 (09:57→21:14)
[2023-05-10] MEDS: ARICEPT TAB 5 MG PO SCH (09:57)
[2023-05-10] MEDS: ROCEPHIN VIAL 1 GRAM 1 G in NS 100 ML IV 100 ML IV SCH (09:57)
[2023-05-10] MEDS: EFFEXOR XR 75 MG CAP 24-HR PO SCH (09:57)
[2023-05-10] MEDS: LIPITOR TAB 10 MG PO SCH (09:58)
[2023-05-10] MEDS: NORVASC TAB 2.5 MG PO SCH (09:58)
[2023-05-10] MEDS: CLARITIN PO SCH (09:58)
[2023-05-10] MEDS: LOPRESSOR TAB 25 MG PO SCH ×2 (09:58→21:15)
[2023-05-10] MEDS: K-DUR TAB 20 MEQ PO SCH (09:58)
[2023-05-10] MEDS: XANAX PO SCH ×2 (09:58→21:15)
[2023-05-10] MEDS: MAG-OX TAB PO SCH (09:58)
[2023-05-10] MEDS: SENOKOT PO SCH (09:59)
[2023-05-10] MEDS: NYSTATIN POWDER TOP SCH (09:59)
--- NOTE | 2023-05-10 11:11 | RAD ---
HISTORYCHF COPDSTUDYAP chestCOMPARISONAugust 2022FINDINGSCardiac prominence is unchanged with mild dilatation of the central pulmonary vessels. There is no evidence for pneumonia/consolidation, pulmonary edema or pleural fluid.IMPRESSIONNo significant change.Electronically signed by: WILLIE STARR (May 10, 2023 11:10:41)
--- NOTE | 2023-05-10 11:51 | PCM.PROG ---
Progress Note Progress Note for Day of Date of Exam: 05/10/23 Subjective Subjective: Patient seen at bedside, no acute events overnight. She is currently being treated for severe anemia and UTI. She has received 4 units of PRBCs. She reports feeling better. Denies N/V/D. Labs/imaging reviewed - Hgb 9.6 from 5.4 Cr: 1.38 - FOBT (-) - Urine Cx: gram neg rods Plan: Continue treatment with IV Rocephin, follow up culture. Monitor Hgb. Continue home medications. Possible transfer back to [place] tomorrow. Monitor AM labs/imaging. Past Medical Family Social History Allergies: Allergies ciprofloxacin [From Cipro] Allergy (Verified 04/09/23 14:42) Vital Signs and I&O's Vital Signs: Vital Signs Temperature 97.1 F Temperature 98.4 F Pulse Rate [Left Radial] 108 Pulse Rate [Left Radial] 97 Respiratory Rate 20 Respiratory Rate 18 Blood Pressure [Left Arm] 124/82 Blood Pressure [Left Arm] 99/55 O2 Sat by Pulse Oximetry 92 O2 Sat by Pulse Oximetry 100 Intake and Output: Intake & Output 05/07/23 05/08/23 05/09/23 05/10/23 23:59 23:59 23:59 23:59 Intake Total 710 / 710 2315 / 2315 490 / 490 Output Total 1750 / 1750 300 / 300 Balance 710 / 710 565 / 565 190 / 190 Physical Exam Oriented: Person Eyes: Normal Ear: Normal Nose: Normal Throat: Dry Cardiovascular: Normal and Tachycardia Auscultation: Bowel Sounds: Normal Tenderness: Normal Skin: Decreased Turgur Musculoskeletal: Motor Deficit and Sensory Deficit Psychiatric: Anxiety Affect: Anxious Speech Pattern: Clear and Appropriate Laboratory and Diagnostics 05/10/23 05:50 05/10/23 05:50 Labs: 05/09/23 06:10 Urine,Catheterized Urine Culture - Preliminary Laboratory WBC 6.2 X10^3/uL (3.6-10.0) 05/10/23 05:50 RBC 3.42 X10^6/uL (3.5-5.4) L 05/10/23 05:50 Hgb 9.6 g/dL (12.0-16.0) L 05/10/23 05:50 Hct 28.9 % (36.0-47.0) L 05/10/23 05:50 MCV 84.4 fL (80.0-100.0) 05/10/23 05:50 MCH 28.0 pg (27.0-34.0) 05/10/23 05:50 MCHC 33.2 g/dL (33.0-35.0) 05/10/23 05:50 RDW 19.0 % (11.6-16.5) H 05/10/23 05:50 Plt Count 197 X10^3/uL (150.0-450.0) 05/10/23 05:50 MPV 7.4 fL (7.4-11.0) 05/10/23 05:50 Neut % (Auto) 51.1 % (42.0-75.0) 05/10/23 05:50 Lymph % (Auto) 35.7 % (21.0-51.0) 05/10/23 05:50 [place] % (Auto) 8.9 % (0.0-13.0) 05/10/23 05:50 Eos % (Auto) 3.8 % (0.9-2.9) H 05/10/23 05:50 Baso % (Auto) 0.5 % (0.2-1.0) 05/10/23 05:50 Neut # (Auto) 3.2 x10^3/uL (2.2-4.8) 05/10/23 05:50 Lymph # (Auto) 2.2 X10^3/uL (1.3-2.9) 05/10/23 05:50 [place] # (Auto) 0.5 x10^3/uL (0.3-0.8) 05/10/23 05:50 Eos # (Auto) 0.2 x10^3/uL (0.0-0.2) 05/10/23 05:50 Baso # (Auto) 0.0 X10^3/uL (0.0-0.1) 05/10/23 05:50 Absolute Nucleated RBC 0.3 /100WBC 05/10/23 05:50 Sodium 138 mmol/L (136-145) 05/10/23 05:50 Corrected Sodium 140 mmol/L (136-145) 05/10/23 05:50 Potassium 4.3 mmol/L (3.5-5.1) 05/10/23 05:50 Chloride 104 mmol/L (98-107) 05/10/23 05:50 Carbon Dioxide 26.8 mmol/L (21-32) 05/10/23 05:50 BUN 37 mg/dL (7-18) H 05/10/23 05:50 Creatinine 1.38 mg/dL (0.55-1.02) H 05/10/23 05:50 Est GFR (MDRD) Af Amer 47 (>60) L 05/10/23 05:50 Est GFR (MDRD) Non-Af 39 (>60) L 05/10/23 05:50 Glucose 183 mg/dL (65-99) H 05/10/23 05:50 POC Glucose (mg/dL) 166 mg/dL (65-99) H 05/10/23 11:21 Calcium 8.6 mg/dL (8.5-10.1) 05/10/23 05:50 Corrected Calcium 9.6 mg/dL (8.5-10.1) 05/10/23 05:50 Total Bilirubin 0.60 mg/dL (0.2-1.0) 05/10/23 05:50 AST 23 Units/L (15-37) 05/10/23 05:50 ALT < 6 Units/L (12-78) L 05/10/23 05:50 Alkaline Phosphatase 92 Units/L (46-116) 05/10/23 05:50 Total Protein 5.9 g/dL (6.4-8.2) L 05/10/23 05:50 Albumin 2.7 g/dL (3.4-5.0) L 05/10/23 05:50 Globulin 3.2 g/dL (2.5-4.5) 05/10/23 05:50 Albumin/Globulin Ratio 0.8 Ratio (1.1-2.1) L 05/10/23 05:50 Specimen Type Catherized urine 05/09/23 10:42 Urine Color Pale yellow (YELLOW) 05/09/23 10:42 Urine Appearance Cloudy (CLEAR) 05/09/23 10:42 Urine pH 6.5 (5.0 - 8.0) 05/09/23 10:42 Ur Specific [place] 1.015 (1.000-1.030) 05/09/23 10:42 Urine Protein Negative (NEGATIVE) 05/09/23 10:42 Urine Glucose (UA) Negative (NEGATIVE) 05/09/23 10:42 Urine Ketones Negative (NEGATIVE) 05/09/23 10:42 Urine Blood 1+ (NEGATIVE) 05/09/23 10:42 Urine Nitrite Positive (NEGATIVE) 05/09/23 10:42 Urine Bilirubin Negative (NEGATIVE) 05/09/23 10:42 Urine Urobilinogen Normal (NORMAL) 05/09/23 10:42 Ur Leukocyte Esterase 3+ (NEGATIVE) 05/09/23 10:42 Urine RBC 0-2 /HPF (0-3) 05/09/23 10:42 Urine WBC Tntc /HPF (0-5) A 05/09/23 10:42 Ur Squamous Epith Cells Negative /HPF (NEGATIVE) 05/09/23 10:42 Urine Bacteria 2+ /HPF (NEGATIVE) 05/09/23 10:42 Ur Culture Indicated? No/not indicated 05/09/23 10:42 Stl Occult Blood (IFOB) Negative (NEGATIVE) 05/08/23 12:00 SARS CoV-2 RNA Rapid [place] Negative (NEGATIVE) 05/08/23 12:34 Blood Type O POSITIVE 05/08/23 12:16 Antibody Screen Negative 05/08/23 12:16 Crossmatch See Detail 05/08/23 12:16 Plan (1) UTI (urinary tract infection): Status: Acute Qualifiers: Hematuria presence: without hematuria Urinary tract infection type: site unspecified Qualified Code(s): N39.0 - Urinary tract infection, site not specified (2) Anemia: Status: Acute Qualifiers: Anemia type: unspecified type Qualified Code(s): D64.9 - Anemia, unspecified (3) CAD (coronary artery disease): Status: Chronic (4) History of renal disease: Status: Chronic (5) Hypertension: Status: Chronic Qualifiers: Hypertension type: primary hypertension Qualified Code(s): I10 - Essential (primary) hypertension (6) Diabetes mellitus, type 2: Status: Chronic Qualifiers: Qualified Code(s): 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
[2023-05-10] MEDS: NovoLIN R (or HumuLIN R) SUBCUT PRN (16:57)
[2023-05-10] MEDS: SNACK - Diabetic Appropriate PO SCH (20:22)
[2023-05-10] MEDS: SEROquel TAB 25 mg PO SCH (21:14)
[2023-05-10] MEDS: MELATONIN PO SCH (21:15)
[2023-05-10] MEDS: LEVEMIR SC SCH (21:15)
[2023-05-11] MEDS: NEURONTIN CAP 300 MG PO SCH ×2 (05:43→14:43)
[2023-05-11] MEDS: SINEMET (PLAIN) 10/100 MG PO SCH ×2 (05:44→14:44)
[2023-05-11 06:14] LABS: BASOPHILS % (AUTO) 0.6 % (0.2-1.0); EOSINOPHILS # (AUTO) 0.3 x10^3/uL (0.0-0.2); HEMATOCRIT 31.6 % (36.0-47.0); HEMOGLOBIN 10.5 g/dL (12.0-16.0); LYMPHOCYTES % (AUTO) 36.6 % (21.0-51.0); MEAN CORPUSCULAR HEMOGLOBIN 28.1 pg (27.0-34.0); MEAN CORPUSCULAR HGB CONC 33.4 g/dL (33.0-35.0); MEAN CORPUSCULAR VOLUME 84.3 fL (80.0-100.0); MEAN PLATELET VOLUME 7.2 fL (7.4-11.0); MONOCYTES # (AUTO) 0.6 x10^3/uL (0.3-0.8); MONOCYTES % (AUTO) 7.6 % (0.0-13.0); NEUTROPHILS # (AUTO) 4.2 x10^3/uL (2.2-4.8); NEUTROPHILS % (AUTO) 51.2 % (42.0-75.0); PLATELET COUNT 243 X10^3/uL (150.0-450.0); RED BLOOD COUNT 3.75 X10^6/uL (3.5-5.4); WHITE BLOOD COUNT 8.1 X10^3/uL (3.6-10.0)
[2023-05-11 06:37] LABS: ALANINE AMINOTRANSFERASE < 6 Units/L (12-78); ALBUMIN 2.9 g/dL (3.4-5.0); ALKALINE PHOSPHATASE 94 Units/L (46-116); ASPARTATE AMINO TRANSFERASE 22 Units/L (15-37); BLOOD UREA NITROGEN 36 mg/dL (7-18); CALCIUM 8.9 mg/dL (8.5-10.1); CARBON DIOXIDE 28.2 mmol/L (21-32); CHLORIDE 100 mmol/L (98-107); COR CA(FOR HYPOALB) 9.8 mg/dL (8.5-10.1); COR NA(FOR HYPERGLY) 136 mmol/L (136-145); GLUCOSE 154 mg/dL (65-99); POTASSIUM 4.1 mmol/L (3.5-5.1); SODIUM 135 mmol/L (136-145); TOTAL PROTEIN 6.4 g/dL (6.4-8.2); eGFR NON BLACK RACES 42 (>60)
[2023-05-11] MEDS ORDERED: NORVASC TAB 2.5 MG ONE (07:59)
[2023-05-11] MEDS: ROCEPHIN VIAL 1 GRAM 1 G in NS 100 ML IV 100 ML IV SCH (09:28)
[2023-05-11] MEDS: MAG-OX TAB PO SCH (09:28)
[2023-05-11] MEDS: LIPITOR TAB 10 MG PO SCH (09:28)
[2023-05-11] MEDS: SENOKOT PO SCH (09:28)
[2023-05-11] MEDS: PROTONIX INJ 40 MG VIAL IVP SCH (09:28)
[2023-05-11] MEDS: EFFEXOR XR 75 MG CAP 24-HR PO SCH (09:28)
[2023-05-11] MEDS: ARICEPT TAB 5 MG PO SCH (09:28)
[2023-05-11] MEDS: TAB-A-VITE PO SCH (09:29)
[2023-05-11] MEDS: LOPRESSOR TAB 25 MG PO SCH (09:29)
[2023-05-11] MEDS: NYSTATIN POWDER TOP SCH (09:29)
[2023-05-11] MEDS: XANAX PO SCH (09:29)
[2023-05-11] MEDS: CLARITIN PO SCH (09:29)
[2023-05-11] MEDS: NORVASC TAB 2.5 MG PO SCH (09:29)
[2023-05-11 12:33] VITALS: BP 135/61; PULSE 98; RESP 20; TEMP 97.2; O2SAT 96
[2023-05-11] MEDS: PERCOCET TAB 5/325 MG PO PRN (12:53)
[2023-05-11] MEDS: NovoLIN R (or HumuLIN R) SUBCUT PRN (12:54)
[2023-05-11] MEDS ORDERED: MILK OF MAGNESIA PO PRN (13:34)
== END 2023-05-11 14:55 | disposition home or self-care (01) | DRG 690 ==
LOC: ER 11:00 → MED/SURG 11:00 → OBSVTOIN 13:11 → MED/SURG 14:02
PROVIDERS: ADMIT Internal Medicine; ATTEND Internal Medicine

== ENCOUNTER 2023-07-03 07:37 | Inpatient (IN) ==
--- NOTE | 2023-07-03 07:43 | EKG ---
Test Reason : possible stroke Blood Pressure : */* mmHG Vent. Rate : 93 BPM Atrial Rate : * BPM P-R Int : * ms QRS Dur : 144 ms QT Int : 400 ms P-R-T Axes : * 72 10 degrees QTc Int : 497 ms Atrial fibrillation Right bundle branch block Abnormal ECG When compared with ECG of 16-JUN-2023 13:38, No significant change was found Confirmed by Emiliano Suresh ([id number]) on 07/03/2023 11:16:54 AM Referred By: Confirmed By: Emiliano Suresh
--- NOTE | 2023-07-03 08:07 | DR.AMS ---
HPI <Vira Dominguez - Last Filed: 07/06/23 20:36> Time Seen Time Seen by Provider: 07/03/23 07:40 Complaint Cheif Complaint Doctors Comments: Patient is a full code and was transfered to the ED from the [place] because of alteration in mental status. Patient's baseline is that she does not walk and is usually wheelchair transported.Patient is weak in the left upper extremity but has strength enough to move it. On arrival in the ED today Patient had:slurred speech,not moving the LUE,confused.[place] denies: trauma,fall,fever,sob. PMH <Vira Dominguez - Last Filed: 07/06/23 20:36> PMH Past Medical History: Anemia, Anxiety, Arthritis, CHF, COPD, Coronary Artery Disease, CVA, Dementia, Depression, Diabetes, Dyslipidemia, GERD, Gout, Hypertension, [place] and Renal Disease Past Surgical History: Yes Surgical History: Angioplasty/Stents, CABG/Valve Surgery and Ortho Surgery Family History Family Medical History: Diabetes Mellitus, [place] and Coronary Artery Disease Social History Do you use any recreational Drugs:: No ROS <Vira Dominguez - Last Filed: 07/06/23 20:36> Review of Systems Constitutional: Other (Altered Mental Status) Eyes: No Symptoms Reported ENTM: No Symptoms Reported Respiratoy: negative Productive Cough, Dry Cough or Short of Breath Cardiovascular: negative Chest Pain or Palpitations Gastrointestinal/Abdominal: No Symptoms Reported Genitourinary: No Symptoms Reported Neurological: Weakness (LUE and BLE) and Speech Problem (Slurred) Musculoskeletal: No Symptoms Reported Integumentary: No Symptoms Reported Hematologic/Lymphatic: No Symptoms Reported Endocrine: No Symptoms Reported Psychiatric: No Symptoms Reported All Other Systems: Reviewed and Negative Unable to Obtain Due To: Altered mental status PE <Vira Dominguez - Last Filed: 07/06/23 20:36> Vitals Vital Signs: Temp Pulse Resp BP Pulse Ox O2 Del Method O2 Flow Rate 07/03/23 10:30 111 H 20 97 07/03/23 10:30 201/93 07/03/23 10:20 94 H 20 100 07/03/23 10:20 201/85 07/03/23 10:20 201/85 07/03/23 10:15 94 H 20 97 07/03/23 10:10 97 H 19 97 07/03/23 10:10 189/83 07/03/23 10:10 189/83 07/03/23 10:10 189/83 07/03/23 10:00 185/83 07/03/23 10:00 95 H 19 98 07/03/23 09:50 185/88 07/03/23 09:50 93 H 21 100 07/03/23 09:45 96 H 20 99 07/03/23 09:40 104 H 22 99 07/03/23 09:40 206/91 07/03/23 09:35 218/107 07/03/23 09:35 105 H 20 87 L 07/03/23 09:30 199/125 07/03/23 09:30 98 H 34 H 66 L 07/03/23 09:21 179/82 07/03/23 09:19 95 H 18 99 07/03/23 09:17 98 H 13 96 07/03/23 09:11 205/07/03/23 09:11 205/81 07/03/23 09:11 131 H 20 98 07/03/23 09:11 205/81 07/03/23 09:07 191/81 07/03/23 09:07 98 H 18 96 07/03/23 09:00 96 H 18 91 L 07/03/23 08:45 133 H 21 100 07/03/23 08:30 101 H 16 100 07/03/23 08:18 102 H 17 99 07/03/23 08:18 149/68 07/03/23 08:15 99 H 16 99 07/03/23 08:10 94 H 147/65 99 Nasal Cannula 3 07/03/23 08:07 95 H 21 99 07/03/23 07:37 97.9 F 100 H 18 181/83 98 Nasal Cannula 07/02/23 15:30 118/57 General Limitations: Altered Mental Status and Physical Limitation Head Head Exam: Normal Inspection Eyes Eye exam: Normal Appearance, PERRL and EOMI; negative Nystagmus ENT ENT Exam: Normal Exam External Ear Exam: Normal External Inspection Nose Exam: Normal Nose Exam Mouth Exam: Normal Inspection Throat Exam: Normal Inspection Neck Neck Exam: Normal Inspection Chest Chest Inspection: Normal Inspection; negative Tenderness Respiratory Respiratory Exam: Normal Lung Sounds Bilat Respiratory Exam: Bilateral: Clear to Auscultation, Left: Clear to Auscultation, Right: Decreased Breath Sounds and Lower: Decreased Breath Sounds Cardiovascular Cardiovascular Exam: Regular Rate and Normal Rhythm Abdominal Exam Abdominal Exam: Normal Inspection, Soft and Hypoactive Bowel Sounds Extremities Extremities Exam: Normal Inspection Back Back Exam: Normal Inspection Neurological Neurological Exam: Alert and Motor Sensory Deficit (RUE 5/5,LUE3/5, BLE 3/5); negative Oriented X3 (Oriented to self) Speech: Receptive Aphasia and Expressive Aphasia Psychological Psychiatric Exam: Normal Affect and Normal Mood Skin Skin Exam: Warm, Dry, Intact and Normal Color <Rashad Rockwell - Last Filed: 07/03/23 12:40> Vitals Vital Signs: Temp Pulse Resp BP Pulse Ox O2 Del Method O2 Flow Rate 07/03/23 10:30 111 H 20 97 07/03/23 10:30 201/93 07/03/23 10:20 94 H 20 100 07/03/23 10:20 201/85 07/03/23 10:20 201/85 07/03/23 10:15 94 H 20 97 07/03/23 10:10 97 H 19 97 07/03/23 10:10 189/83 07/03/23 10:10 189/83 07/03/23 10:10 189/83 07/03/23 10:00 185/83 07/03/23 10:00 95 H 19 98 07/03/23 09:50 185/88 07/03/23 09:50 93 H 21 100 07/03/23 09:45 96 H 20 99 07/03/23 09:40 104 H 22 99 07/03/23 09:40 206/91 07/03/23 09:35 218/107 07/03/23 09:35 105 H 20 87 L 07/03/23 09:30 199/125 07/03/23 09:30 98 H 34 H 66 L 07/03/23 09:21 179/82 07/03/23 09:19 95 H 18 99 07/03/23 09:17 98 H 13 96 07/03/23 09:11 07/03/23 09:11 07/03/23 09:11 131 H 20 98 07/03/23 09:11 07/03/23 09:07 /07/03/23 09:07 98 H 18 96 07/03/23 09:00 96 H 18 91 L 07/03/23 08:45 133 H 21 100 07/03/23 08:30 101 H 16 100 07/03/23 08:18 102 H 17 99 07/03/23 08:18 149/68 07/03/23 08:15 99 H 16 99 07/03/23 08:10 94 H 147/65 99 Nasal Cannula 3 07/03/23 08:07 95 H 21 99 07/03/23 07:37 97.9 F 100 H 18 181/83 98 Nasal Cannula 07/02/23 15:30 118/57 MDM <Vira Dominguez - Last Filed: 07/06/23 20:36> Differential Diagnosis Metabolic: Dehydration, Hypercalcemia, Hypernatremia, Hypoglycemia and Hyponatremia Structural: CVA and SAH Infectious: Sepsis COURSE <Vira Dominguez - Last Filed: 07/06/23 20:36> Treatment Treatment: 07:40 Patient transfered to critical care room from [place].Patient has expressive receptive aphasia,slurred speech,is not able to move her LUE.BG 294. 07:45 Stroke protocol was initiated and Stroke neurologist Dr Dozier is evaluating the patient 07:[address] revealed intracranial bleed 08:02 Dr Dozier ( Stroke neurologist) called to report bleed and recommended give keppra 1500mg iv and antihypertensive medication if patient with elevated bp. 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 08:48 Contacted Son pradip. He states that he is on his way to the hospital. 08:57 Patient is receiving 02 NC 3L. Her 02 sat is 99%.BP is 149/68,HR 94,RR14 09:05 Met with Patient's son Mr Drake Blake and discussed test results. Explained that patient had an extensive cerebral bleed. Mr Blake would like patient to have comfort care and to be DNR/DNI. 09:19 Will order ativan 1mg iv. Patient has been signed out to Dr Rockwell who will contact Dr Espana patient's primary care physician. <Rashad Rockwell - Last Filed: 07/03/23 12:40> Treatment Treatment: 07:40 Patient transfered to critical care room from [place].Patient has expressive receptive aphasia,slurred speech,is not able to move her LUE.BG 294. 07:45 Stroke protocol was initiated and Stroke neurologist Dr Dozier is evaluating the patient 07:[address] revealed intracranial bleed 08:02 Dr Dozier ( Stroke neurologist) called to report bleed and recommended give keppra 1500mg iv and antihypertensive medication if patient with elevated bp. 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 08:48 Contacted Son pradip. He states that he is on his way to the hospital. 08:57 Patient is receiving 02 NC 3L. Her 02 sat is 99%.BP is 149/68,HR 94,RR14 09:05 Met with Patient's son Mr Drake Blake and discussed test results. Explained that patient had an extensive cerebral bleed. Mr Blake would like patient to have comfort care and to be DNR/DNI. 09:19 Will order ativan 1mg iv. Patient has been signed out to Dr Rockwell who will contact Dr Espana patient's primary care physician. 09:54 -discussed patient's condition with the son, he is fine with comfort measures. Discussed with Dr. Espana, will admit for comfort measures. Patient given Ativan, 1 mg and Zofran 4 mg here. ROR <Vira Dominguez - Last Filed: 07/06/23 20:36> Labs Reviewed 07/03/23 08:05 Laboratory: 07/03/23 08:48 Blood Blood Culture - Preliminary 07/03/23 08:40 Blood Blood Culture - Preliminary WBC 10.1 X10^3/uL (3.6-10.0) H 07/03/23 08:05 RBC 4.05 X10^6/uL (3.5-5.4) 07/03/23 08:05 Hgb 11.7 g/dL (12.0-16.0) L 07/03/23 08:05 Hct 35.9 % (36.0-47.0) L 07/03/23 08:05 MCV 88.7 fL (80.0-100.0) 07/03/23 08:05 MCH 28.8 pg (27.0-34.0) 07/03/23 08:05 MCHC 32.5 g/dL (33.0-35.0) L 07/03/23 08:05 RDW 16.5 % (11.6-16.5) 07/03/23 08:05 Plt Count 208 X10^3/uL (150.0-450.0) 07/03/23 08:05 MPV 7.5 fL (7.4-11.0) 07/03/23 08:05 Neut % (Auto) 82.0 % (42.0-75.0) H 07/03/23 08:05 Lymph % (Auto) 14.4 % (21.0-51.0) L 07/03/23 08:05 [place] % (Auto) 3.0 % (0.0-13.0) 07/03/23 08:05 Eos % (Auto) 0.0 % (0.9-2.9) L 07/03/23 08:05 Baso % (Auto) 0.6 % (0.2-1.0) 07/03/23 08:05 Neut # (Auto) 8.3 x10^3/uL (2.2-4.8) H 07/03/23 08:05 Lymph # (Auto) 1.4 X10^3/uL (1.3-2.9) 07/03/23 08:05 [place] # (Auto) 0.3 x10^3/uL (0.3-0.8) 07/03/23 08:05 Eos # (Auto) 0.0 x10^3/uL (0.0-0.2) 07/03/23 08:05 Baso # (Auto) 0.1 X10^3/uL (0.0-0.1) 07/03/23 08:05 Absolute Nucleated RBC 0.1 /100WBC 07/03/23 08:05 Lactic Acid 1.5 mmol/L (0.4-2.0) 07/03/23 08:40 Magnesium 1.7 mg/dL (2.0-2.9) L 07/03/23 08:05 Creatine Kinase 20 Units/L (26-192) L 07/03/23 08:05 Troponin I High Sens 56.4 ng/L (4.0-60.0) 07/03/23 08:05 C-Reactive Protein 3.60 mg/L (0-3.0) H 07/03/23 08:05 Amylase 14 Units/L (25-115) L 07/03/23 08:05 Lipase 60 Units/L (73-393) L 07/03/23 08:05 Levetiracetam 47 ug/mL (10-40) H 07/03/23 08:40 <Rashad Rockwell - Last Filed: 07/03/23 12:40> Labs Reviewed Laboratory: 07/03/23 08:48 Blood Blood Culture - Preliminary 07/03/23 08:40 Blood Blood Culture - Preliminary WBC 10.1 X10^3/uL (3.6-10.0) H 07/03/23 08:05 RBC 4.05 X10^6/uL (3.5-5.4) 07/03/23 08:05 Hgb 11.7 g/dL (12.0-16.0) L 07/03/23 08:05 Hct 35.9 % (36.0-47.0) L 07/03/23 08:05 MCV 88.7 fL (80.0-100.0) 07/03/23 08:05 MCH 28.8 pg (27.0-34.0) 07/03/23 08:05 MCHC 32.5 g/dL (33.0-35.0) L 07/03/23 08:05 RDW 16.5 % (11.6-16.5) 07/03/23 08:05 Plt Count 208 X10^3/uL (150.0-450.0) 07/03/23 08:05 MPV 7.5 fL (7.4-11.0) 07/03/23 08:05 Neut % (Auto) 82.0 % (42.0-75.0) H 07/03/23 08:05 Lymph % (Auto) 14.4 % (21.0-51.0) L 07/03/23 08:05 [place] % (Auto) 3.0 % (0.0-13.0) 07/03/23 08:05 Eos % (Auto) 0.0 % (0.9-2.9) L 07/03/23 08:05 Baso % (Auto) 0.6 % (0.2-1.0) 07/03/23 08:05 Neut # (Auto) 8.3 x10^3/uL (2.2-4.8) H 07/03/23 08:05 Lymph # (Auto) 1.4 X10^3/uL (1.3-2.9) 07/03/23 08:05 [place] # (Auto) 0.3 x10^3/uL (0.3-0.8) 07/03/23 08:05 Eos # (Auto) 0.0 x10^3/uL (0.0-0.2) 07/03/23 08:05 Baso # (Auto) 0.1 X10^3/uL (0.0-0.1) 07/03/23 08:05 Absolute Nucleated RBC 0.1 /100WBC 07/03/23 08:05 Lactic Acid 1.5 mmol/L (0.4-2.0) 07/03/23 08:40 Magnesium 1.7 mg/dL (2.0-2.9) L 07/03/23 08:05 Creatine Kinase 20 Units/L (26-192) L 07/03/23 08:05 Troponin I High Sens 56.4 ng/L (4.0-60.0) 07/03/23 08:05 C-Reactive Protein 3.60 mg/L (0-3.0) H 07/03/23 08:05 Amylase 14 Units/L (25-115) L 07/03/23 08:05 Lipase 60 Units/L (73-393) L 07/03/23 08:05 Levetiracetam 47 ug/mL (10-40) H 07/03/23 08:40 Opioid <Vira Dominguez - Last Filed: 07/06/23 20:36> Opioid Risk Tool Age (Sánchez box if 16-45): No History of Preadolescent Sexual Abuse: No Total: 0 Total Score Risk Category: Low Risk Copyright: Peter BERNAL predicting aberrant behaviors <Rashad Rockwell - Last Filed: 07/03/23 12:40> Opioid Risk Tool Total: 0 Total Score Risk Category: Low Risk Discharge Plan Diagnosis Discharge Problem: Intracranial hemorrhage Discharge Plan Patient Disposition: 09 ADMITTED INPATIENT Condition: Stable
[2023-07-03] MEDS ORDERED: KEPPRA INJ 1,500 MG in NS 100 ML IV 100 ML IV ONE (08:09)
[2023-07-03] MEDS ORDERED: NS 100 ML IV 100 ML ONE (08:10)
--- NOTE | 2023-07-03 08:20 | TELESTROKE ---
[facility] Consult Date of Consult Date of Exam: 07/03/23 Time of Arrival to the ED: 07:37 Allergies Allergies Allergy/AdvReac Type Severity Reaction Status Date / Time ciprofloxacin [From Cipro] Allergy Verified 06/10/23 11:22 Vital Signs Vital Signs: BP 07/02/23 15:30 118/57 History of Present Illness History of Present Illness: [facility] Tele[facility]rology Consult Services Patient Name: Donna Veras Date of : 1940 Identification Number: Date of Service: 07/03/2023 07:40:29 Diagnosis: I61.9 - Intracerebral haemorrhage, unspecified Impression: Pt is a 82 YOF with PMH of HTN, HLD, DM II, COPD, GOUT, GERD, CAD, ANXIETY/DEPRESSION, PD who presented with complaint of CP, headache, AMS. NIHSS: 24. CT head shows a large right ICH with intermixed hypodense areas. She has poor baseline functional status. Discuss with family about goals of care (full care vs hospice/palliative). Admit for further workup/management of ICH. Monitor neuro checks/VS q4h with telemetry. Recommend fall precautions and seizure precautions. Strict goal SBP b/w 100-140. Hold?antiplatelet?therapy/NSAIDS/Anticoagulation. Load with Keppra 1gm now. Get MRI BRAIN W/O, CAROTID US, and ECHO. Get AMMONIA, blood cultures x 2, COVID, UDS, ETOH, ESR/CRP, TROP, CK, TSH, B12, BNP, LACTIC ACID, LIPID PANEL, and A1C. Get WORKUP for TOXIC/METABOLIC/INFECTIOUS causes. PT/OT/ST eval. Recommendation: Diagnostic Studies: Repeat CT head in first 24 hrs *MRI BRAIN W/O, CAROTID US, and ECHO Laboratory Studies: INR/PT aPTT? CBC Medications: Hold?antiplatelet?therapy/NSAIDS/Anticoagulation Load with Keppra 1gm now. Keppra 500mg bid. Nursing Recommendations: Telemetry, IV Fluids?Avoid dextrose containing fluids, Maintain euglycemia Head of bed 30 degrees Neuro checks q1-2?hrs?during ICU stay Once stable neuro checks q4?hrs keep BP less than 140/90's with goal of 130/80s Consultations: Need Neurosurgery consultation?STAT Recommend Speech therapy if failed dysphagia screen Physical therapy/Occupational therapy DVT Prophylaxis: SCDs Disposition: Neurology will Follow Metrics: Last Known Well: Unknown [facility] Notification Time: 07/03/2023 07:40:28 Arrival Time: 07/03/2023 07:37:00 Stamp Time: 07/03/2023 07:40:29 Initial Response Time: 07/03/2023 07:42:17 Symptoms: CP, headache, AMS. Initial patient interaction: 07/03/2023 07:45:55 NIHSS Assessment Completed: 07/03/2023 07:54:08 Patient is not a candidate for Thrombolytic. Thrombolytic Medical Decision: 07/03/2023 07:56:00 Patient was not deemed candidate for Thrombolytic because of following reasons: Current or Previous ICH. I personally Reviewed the CT Head and it Showed large right ICH with intermixed hypodense areas. Primary Provider Notified of Diagnostic Impression and Management Plan on: 07/03/2023 08:11:00 History of Present Illness: Patient is a 82 year old Female. Patient was brought by EMS for symptoms of CP, headache, AMS. Pt is a 82 YOF with PMH of HTN, HLD, DM II, COPD, GOUT, GERD, CAD, ANXIETY/DEPRESSION, PD who presented with compalint of CP, headache, AMS. Her last known well is not clear. She had some weakness in left arm but not moving at all today. She had right gaze preference, but unable to do dolls eye maneuvers as neck rigid/stiff. She was in ED due to chockng episode yesterday. Past Medical History: Hypertension Diabetes Mellitus Hyperlipidemia There is no history of Seizures unable to obtain due to: Patient Is Confused Medications: No Anticoagulant use Antiplatelet use: Yes ASA Reviewed EMR for current medications Allergies: Reviewed Allergies Unable To Obtain Due To: Patient Is Confused Social History: Unable To Obtain Due To Patient Status : Patient Is Confused Family History: Family History Cannot Be Obtained Because:Patient Is Confused ROS : ROS Cannot Be Obtained Because: Patient Is Confused Past Surgical History: Past Surgical History Cannot Be Obtained Because: Patient Is Confused Examination: BP(180/78), Pulse(103), 1A: Level of Consciousness - Alert; keenly responsive + 0 1B: Ask Month and Age - Could Not Answer Either Question Correctly + 2 1C: Blink Eyes & Squeeze Hands - Performs 0 Tasks + 2 2: Test Horizontal Extraocular Movements - Partial Gaze Palsy: Can Be Overcome + 1 3: Test Visual Jefferson - No Visual Loss + 0 4: Test Facial Palsy (Use Grimace if Obtunded) - Minor paralysis (flat nasolabial fold, smile asymmetry) + 1 5A: Test Left Arm Motor Drift - No Movement + 4 5B: Test Right Arm Motor Drift - No Drift for 10 Seconds + 0 6A: Test Left Leg Motor Drift - No Movement + 4 6B: Test Right Leg Motor Drift - No Movement + 4 7: Test Limb Ataxia (FNF/Heel-Brannon) - Does Not Understand + 0 8: Test Sensation - Mild-Moderate Loss: Less Sharp/More Dull + 1 9: Test Language/Aphasia - Mute/Global Aphasia: No Usable Speech/Auditory Comprehension + 3 10: Test Dysarthria - Mute/Anarthric + 2 11: Test Extinction/Inattention - No abnormality + 0 NIHSS Score: 24 ICH Score: 2 NIHSS Text : She only groans/moans. She didn't follow any commands. She had right gaze preference, but unable to do dolls eye maneuvers as neck rigid/stiff. She has tremor in right hand/arm. Samy Coma Score: 13-15 (0) Age >= 80: Yes (+1) ICH volume >= 30mL: Yes (+1) Intraventricular hemorrhage: No (0) Infratentorial origin of hemorrhage: No (0) Pre-Morbid Modified Jaime Scale: 4 Points = Moderately severe disability; unable to walk and attend to bodily needs without assistance Patient/Family was informed the Neurology Consult would occur via TeleHealth consult by way of interactive audio and video telecommunications and consented to receiving care in this manner. Dr Shelly Dozier [facility] For Inpatient follow-up with [facility] physician please call [facility] . This is not an outpatient service. Post hospital discharge, please contact hospital directly.
[2023-07-03 08:32] LABS: BASOPHILS # (AUTO) 0.1 X10^3/uL (0.0-0.1); BASOPHILS % (AUTO) 0.6 % (0.2-1.0); HEMATOCRIT 35.9 % (36.0-47.0); HEMOGLOBIN 11.7 g/dL (12.0-16.0); LYMPHOCYTES # (AUTO) 1.4 X10^3/uL (1.3-2.9); LYMPHOCYTES % (AUTO) 14.4 % (21.0-51.0); MEAN CORPUSCULAR HEMOGLOBIN 28.8 pg (27.0-34.0); MEAN CORPUSCULAR HGB CONC 32.5 g/dL (33.0-35.0); MEAN CORPUSCULAR VOLUME 88.7 fL (80.0-100.0); MEAN PLATELET VOLUME 7.5 fL (7.4-11.0); MONOCYTES # (AUTO) 0.3 x10^3/uL (0.3-0.8); NEUTROPHILS # (AUTO) 8.3 x10^3/uL (2.2-4.8); PLATELET COUNT 208 X10^3/uL (150.0-450.0); RED BLOOD COUNT 4.05 X10^6/uL (3.5-5.4); RED CELL DISTRIBUTION WIDTH 16.5 % (11.6-16.5); WHITE BLOOD COUNT 10.1 X10^3/uL (3.6-10.0)
--- NOTE | 2023-07-03 08:33 | CT ---
EXAM:BRAIN W/O CONHISTORY:possible stroke;COMPARISON:None.TECHNIQUE:Axial CT of the head is performed from the base of the skull through the vertex without contrast . Multiplaner reformats are generated from the original axial data.FINDINGS:There is a geographic region of hypoattenuation involving aspects of the inferior right frontal and parietal lobe as well as the majority of the temporal lobe with gyriform parenchymal hemorrhage. Altogether this likely corresponds to a large hemorrhagic infarction within the right MCA territory. This results in sulcal effacement throughout the brain parenchyma of the right cerebral hemisphere. The right lateral ventricle is compressed. There is evidence of midline shift estimated at 8 mm. There is also effacement of the right ambient cistern and mild mass effect upon the vilma which is slightly shifted to the left. There is early uncal herniation and impending subfalcine herniation. There is also effacement of the right side of the suprasellar cistern. The cerebellar tonsils remain normal in position. No suprasellar asymmetry is identified. No edema is seen within the contralateral left cerebral hemisphere. Patchy subcortical and periventricular white matter hypodensities are compatible with superimposed changes of chronic small-vessel ischemic degeneration.The calvarium is intact. 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.*This results in global mass effect of the right cerebral hemisphere with sulcal effacement, 8 mm of [id number] midline shift and compression of the right lateral ventricle.*There is early uncal herniation and impending subfalcine herniation*Emergent neurosurgical/neurology consultations are recommendedAdvanced degenerative white matter changes of the supratentorial brain associated with chronic small-vessel ischemia are superimposed upon the above findings.Radiation dose reduction was achieved through individualized adjustment of kVP and/or mA, through adaptive statistical iterative reconstruction, and/or through automated tube current modulation.THIS IS AN ELECTRONICALLY VERIFIED FINAL [id number]/03/2023 8:30 AM - Electronically signed by Aníbal Méndez MD
[2023-07-03 08:43] LABS: MAGNESIUM 1.7 mg/dL (2.0-2.9)
[2023-07-03] MEDS ORDERED: ATIVAN 20 MG/10 ML VIAL IVP ONE (09:22)
--- NOTE | 2023-07-03 09:27 | RAD ---
EXAM:CHEST, 1 VIEWHISTORY:AMS;COMPARISON:06/16/2023. br.br.br.br chestFINDINGS:Patient's chin obscures portions of the lung apices. Patient is rotated. Cardiac silhouette is stably enlarged. Mediastinal contours appear normal. There scattered bilateral patchy opacities in the lung bases and in the left upper lobe. Blunted right costophrenic sulcus. No pneumothorax.IMPRESSION:Bilateral patchy opacities consistent with pneumonia in the appropriate clinical setting. Suspect small right pleural effusion.THIS IS AN ELECTRONICALLY VERIFIED FINAL [id number]/03/2023 9:24 AM - Electronically signed by Sathish Moura MD
[2023-07-03] MEDS ORDERED: ATIVAN INJ 2 MG VIAL ONE ×2 (09:29→11:21)
[2023-07-03] MEDS ORDERED: ZOFRAN INJ 4 MG VIAL ONE (09:31)
[2023-07-03] MEDS ORDERED: ZOFRAN INJ 4 MG VIAL IVP ONE (09:36)
[2023-07-03] MEDS ORDERED: ATIVAN INJ 2 MG VIAL IVP ONE (11:20)
[2023-07-03] MEDS ORDERED: ATIVAN INJ 2 MG VIAL IVP PRN (13:01)
[2023-07-03] MEDS ORDERED: CONSULT PHARMACY - POTASSIUM & MAGNESIUM XX SCH (13:01)
[2023-07-03] MEDS ORDERED: LOPRESSOR INJ 5 MG AMP IVP ONE (13:01)
[2023-07-03] MEDS: MORPHINE SULFATE INJ 4 MG IVP PRN ×2 (14:51→21:16)
[2023-07-03] MEDS: ZOFRAN INJ 4 MG VIAL IVP SCH (14:54)
[2023-07-03] MEDS: D5 1/2 NS 1,000 ML 1,000 ML IV SCH (15:55)
[2023-07-04] MEDS: MORPHINE SULFATE INJ 4 MG IVP PRN ×3 (02:47→13:54)
[2023-07-04] MEDS: ZOFRAN INJ 4 MG VIAL IVP SCH ×4 (03:46→13:54)
[2023-07-04] MEDS: D5 1/2 NS 1,000 ML 1,000 ML IV SCH (03:58)
[2023-07-04 07:59] VITALS: BP 177/71; PULSE 107; TEMP 101.3; O2SAT 85
[2023-07-04 09:04] VITALS: RESP 20
[2023-07-04] MEDS ORDERED: ISOPTO ATROPINE SL PRN (09:06)
--- NOTE | 2023-07-04 12:33 | DR.H&P ---
H&P - History & Physical for Day of: H&P Date: 07/03/23 - Chief Complaint Chief Complaint: AMS - History of Present Illness History of Present Illness: Patient is a full code and was transfered to the ED from the [place] because of alteration in mental status. Patient's baseline is that she does not walk and is usually wheelchair transported. Patient has mild vascular dementia, but normally has good verbal respones. Patient is weak in the left upper extremity but has strength enough to move it. On arrival in the ED today Patient had:slurred speech,not moving the LUE,confused.[place] denies: trauma,fall,fever,sob. Pt did have a choking episode one day ago and was seen in the ER for evaluation. Pt was admitted for treatment of acute illness. - Past Medical History Past Medical History: DC, Coronary Artery Disease, Hypertension, Dyslipidemia, Diabetes, Renal Disease, Dementia, Depression, Anxiety, Anemia, CVA, COPD, GERD, Arthritis, Gout, CHF - Past Surgical History Surgical History: Angioplasty/Stents, CABG/Valve Surgery, Ortho Surgery - Family History Family Medical History: Diabetes Mellitus, DC, Coronary Artery Disease - Social History Have you used tobacco products in the last 12 months: No Type of Tobacco Use: None Does any household member use tobacco: No Alcohol Use: None Drug Use: None - Review of Systems Constitutional: denies: Fever, Chills Eyes: Other (unable to obtain due to ams) ENT: No Symptoms Reported Respiratory: No Symptoms Reported Cardiovascular: No Symptoms Reported Gastrointestinal: No Symptoms Reported Genitourinary: No Symptoms Reported Musculoskeletal: No Symptoms Reported Skin: No Symptoms Reported Neurological: Weakness, Other (ams, lethargic) - Physical Exam Vital Signs: Vital Signs Temperature 101.3 F Pulse Rate [Left Brachial] 107 Respiratory Rate 20 Respiratory Rate 24 Blood Pressure [Left Arm] 177/71 O2 Sat by Pulse Oximetry 85 Eyes: Other (pupils unequal) Ear: Normal Nose: Normal Throat: Normal Respiratory: Rhonchi Throughout Cardiovascular: Tachycardia : Normal Auscultation: Bowel Sounds: Normal Palpation: Normal Tenderness: Normal Skin: Decreased Turgur Musculoskeletal: Motor Deficit, Sensory Deficit Speech Pattern: Aphasic - Assessment/Plan (1) Intracranial hemorrhage Status: Acute Plan: CT HEAD ON ADMISSION REVEALED :*This results in global mass effect of the right. cerebral hemisphere with sulcal effacement, 8 mm of [id number] midline shift. and compression of the right lateral ventricle. *There is early uncal. herniation and impending subfalcine herniation. *Emergent. neurosurgical/neurology consultations are recommended. TELEMED PER NEURO OBTAINED IN THE ER. FAMILY PRESENT AND DIAGNOSTICS TESTS AND PROGNOSIS REVEIWED. PLAN TO ADMIT FOR COMFORT MEASURES, GIP HOSPICE, END OF LIFE CARE. (2) Altered mental state Qualifiers: Altered mental status type: transient alteration of awareness Qualified Code(s): R40.4 - Transient alteration of awareness Status: Acute - Allergies Allergies/Adverse Reactions: Allergies Allergy/AdvReac Type Severity Reaction Status Date / Time ciprofloxacin [From Cipro] Allergy Verified 06/10/23 11:22 - Medications Home Medications: Home Medications Medication Instructions Recorded Confirmed insulin regular human 100 unit/mL See Rx Instructions .Route .COMPLEX 07/04/21 06/10/23 injection solution (Novolin R Regular U-100 Insulin) loratadine 10 mg tablet 10 mg PO DAILY 07/04/21 06/10/23 multivitamin 1 tab PO DAILY 07/04/21 06/10/23 pantoprazole 40 mg tablet,delayed 40 mg PO DAILY 07/04/21 07/03/23 release alprazolam 0.5 mg tablet 0.5 mg PO BID 08/20/22 06/10/23 donepezil 5 mg tablet 5 mg PO QDAY 08/20/22 06/10/23 insulin detemir U-100 100 unit/mL 30 unit subcut HS 08/20/22 06/10/23 subcutaneous solution (Levemir U-100 Insulin) sennosides 8.6 mg tablet (Senokot) 8.6 mg PO QDAY 08/20/22 07/03/23 venlafaxine 75 mg capsule,extended 75 mg PO QDAY 08/20/22 07/03/23 release 24 hr carbidopa 10 mg-levodopa 100 mg 1 tab PO TID 11/05/22 06/10/23 tablet magnesium oxide 400 mg PO QDAY 11/05/22 06/10/23 metformin 500 mg tablet 500 mg PO BID 11/05/22 06/10/23 metoprolol tartrate 25 mg tablet 25 mg PO BID 11/05/22 06/10/23 oxycodone-acetaminophen 10 mg-325 1 tab PO Q6H PRN 11/05/22 07/03/23 mg tablet amlodipine 2.5 mg tablet 2.5 mg PO QDAY 03/23/23 06/10/23 aspirin 81 mg tablet,delayed 81 mg PO QDAY 03/23/23 06/10/23 release atorvastatin 10 mg tablet 40 mg PO QDAY 03/23/23 06/10/23 cholecalciferol (vitamin D3) 1,250 1,250 mcg PO QWEEK 03/23/23 06/10/23 mcg (50,000 unit) tablet gabapentin 400 mg capsule 400 mg PO TID 03/23/23 06/10/23 nystatin 100,000 unit/gram topical 1 applic topical DAILY 03/23/23 07/03/23 powder ([facility]) levalbuterol HCl 1.25 mg/3 mL 1.25 mg inhalation Q4H 04/28/23 06/10/23 solution for nebulization melatonin 5 mg tablet 5 mg PO HS 04/28/23 06/10/23 quetiapine 50 mg tablet (Seroquel) 50 mg PO HS 04/28/23 07/03/23 Previous Rx's Medication Instructions Recorded cefdinir 300 mg capsule 300 mg PO BID #20 caps 06/16/23 sodium,potassium,mag sulfates 17.5 16 oz PO .COMPLEX #354 mL 06/18/23 gram-3.13 gram-1.6 gram oral soln (Suprep Bowel Prep Kit) pantoprazole 40 mg tablet,delayed 40 mg PO QDAY #30 tabs 06/23/23 release (Protonix)
[2023-07-04] MEDS ORDERED: TYLENOL SUPP 650 MG PR PRN (14:00)
== END 2023-07-04 13:18 | disposition hospice, inpatient (51) | DRG 65 ==
LOC: ER 07:37 → U 10:31 → MED/SURG 12:49
PROVIDERS: ADMIT Internal Medicine; ATTEND Internal Medicine

== ENCOUNTER 2023-07-04 13:19 | Inpatient (IN) ==
[2023-07-04 14:04] VITALS: BP 177/71
[2023-07-04] MEDS ORDERED: NS 1,000 ML IV 1,000 ML IV SCH (14:12)
[2023-07-04] MEDS ORDERED: ATIVAN INJ 2 MG VIAL IVP PRN (14:15)
[2023-07-04] MEDS ORDERED: MORPHINE SULFATE ORAL SOLN UDC PO PRN (14:16)
[2023-07-04] MEDS ORDERED: LEVSIN SYRUP PO PRN (14:17)
== END 2023-07-04 17:10 | disposition expired | DRG 66 ==
LOC: MED/SURG 13:19
PROVIDERS: ADMIT Internal Medicine; ATTEND Internal Medicine